=== PATIENT | female | born 1955 | race Caucasian/White ===

== ENCOUNTER 2023-06-17 09:38 | Outpatient (OUT) | payer MEDICARE, SELFPAY ==
[2023-06-17 10:44] LABS: Basophils Percent Auto 0.9 % (0.2-2.0); Eosinophils Absolute Auto 0.3 10^3/uL (0.0-0.7); Eosinophils Percent Auto 6.9 % (0.9-7.0); Hematocrit 43.7 % (36.0-48.0); Immature Granulocytes Abs Auto 0.02 10^3/uL (0.00-0.03); Immature Granulocytes Pct Auto 0.5 % (0.0-0.5); Lymphocytes Absolute Auto 1.2 10^3/uL (1.2-3.8); Lymphocytes Percent Auto 28.4 % (20.5-60.0); Mean Corpuscular Hemoglobin 27.9 pg (26.7-34.0); Mean Corpuscular Volume 87.1 fL (81.0-99.0); Mean Platelet Volume 11.3 fL (9.5-13.5); Monocytes Absolute Auto 0.4 10^3/uL (0.3-0.8); Monocytes Percent Auto 10.2 % (1.7-12.0); Neutrophils Absolute Auto 2.3 10^3/uL (1.4-6.5); Neutrophils Percent Auto 53.1 % (43.0-75.0); Platelet Count 191 10^3/uL (150-450); Red Blood Count 5.02 10^6/uL (4.20-5.40); Red Cell Distribution Width 13.5 % (11.0-15.0); White Blood Count 4.2 10^3/uL (4.0-11.0)
[2023-06-17 12:12] LABS: Estimated Average Glucose 105 mg/dL; Glycohemoglobin A1C 5.3 % (4.5-6.2)
[2023-06-17 13:01] LABS: Alanine Aminotransferase 49 U/L (14-59); Albumin Globulin Ratio 1.1; Alkaline Phosphatase 102 U/L (46-116); Aspartate Amino Transferase 30 U/L (15-37); BUN Creatinine Ratio 20.3; Bilirubin Total 0.8 mg/dL (0.2-1.0); Calcium 9.6 mg/dL (8.5-10.1); Carbon Dioxide 28.2 mmol/L (21.0-32.0); Chloride 103 mmol/L (98-107); Chol HDL Ratio 3.4; Cholesterol 167 mg/dL (<=200); Estimated GFR (African America >60 (>=60); Estimated GFR (Non-African Ame >60 (>=60); Globulin 3.5 g/dL; Glucose 109 mg/dL (74-106); HDL Cholesterol 49 mg/dL (40-60); LDL Cholesterol Calculated 95.4 mg/dL; Potassium 4.2 mmol/L (3.5-5.1); Sodium 141 mmol/L (136-145); Thyroid Stimulating Hormone 0.935 uIU/mL (0.358-3.740); Total Protein 7.5 g/dL (6.4-8.2); Triglycerides 113 mg/dL (<=150); VLDL CHOLESTEROL 22.6 mg/dL
[2023-06-18 10:09] LABS: Insulin 16.5 uIU/mL (2.6-24.9)
== END 2023-06-17 09:39 | disposition home or self-care (01) ==
LOC: LAB 09:42
PROVIDERS: PCP Family Medicine; Visit Provider Family Medicine
DX: E03.9 Hypothyroidism, unspecified (principal); R60.9 Edema, unspecified; K21.9 Gastro-esophageal reflux disease without esophagitis; E78.00 Pure hypercholesterolemia, unspecified; R73.09 Other abnormal glucose; Z12.12 Encounter for screening for malignant neoplasm of rectum; D64.9 Anemia, unspecified; E55.9 Vitamin D deficiency, unspecified
CPT/HCPCS: 36415; 80053; 80061; 82306; 83036; 83525; 83540; 84436; 84443; 84481; 85025

== ENCOUNTER 2023-07-09 09:16 | Outpatient (OUT) | payer MEDICARE, SELFPAY ==
--- NOTE | 2023-07-09 09:19 | MM_ITS ---
Patient: BIANKA LECHUGA Exam Date: 07/09/2023 : 1955 Gender:F Ordering : DR David Winter . Admission #: [id number] Family : Order #: [id number] CLICK HERE TO VIEW EXAM RADIOLOGY REPORT PROCEDURE: MM TOMOSYNTHESIS SCREENING BI COMPARISON: MG MAMM SCREEN 3D JUAN FRANCISCO CAD, 07/08/2022. MG MAMM SCREEN 3D JUAN FRANCISCO CAD, 06/10/2021. MG MAMM SCREEN JUAN FRANCISCO W CAD, 06/07/2020. INDICATIONS: Screening Calculator Name NCI Breast Cancer Risk Assessment Tool 5 Year Breast Cancer Risk 3.20% Lifetime Breast Cancer Risk 10.10% Personal Breast Cancer No Personal Ovarian Cancer No Treatments None Family Cancers Mother with breast cancer at age 71; Sister with thyroid cancer at age 64; Father with bladder cancer at age 73. LOCATION: [facility] BREAST COMPOSITION: Scattered areas fibroglandular density. FINDINGS: DIAGNOSTIC CATEGORY 1--NEGATIVE. RIGHT BREAST: No significant suspicious finding. No significant change has occurred. LEFT BREAST: No significant suspicious finding. No significant change has occurred. RECOMMENDATIONS: ROUTINE MAMMOGRAM AND CLINICAL EVALUATION IN 12 MONTHS. PLEASE NOTE: A NORMAL MAMMOGRAM DOES NOT EXCLUDE THE POSSIBILITY OF BREAST CANCER. A CLINICALLY SUSPICIOUS PALPABLE LUMP SHOULD BE BIOPSIED. Dictated by: Kulwinder Paz M.D. on 07/10/2023 at 10:56 Approved by: Kulwinder Paz M.D. on 07/10/2023 at 11:01
== END 2023-07-09 09:17 | disposition home or self-care (01) ==
LOC: MAMMO 09:16
PROVIDERS: PCP Family Medicine; Visit Provider Family Medicine
DX: Z12.31 Encounter for screening mammogram for malignant neoplasm of breast (principal); Z80.3 Family history of malignant neoplasm of breast; Z80.52 Family history of malignant neoplasm of bladder; Z80.8 Family history of malignant neoplasm of other organs or systems
CPT/HCPCS: 77063; 77067

== ENCOUNTER 2024-02-18 08:37 | Outpatient (OUT) | payer MEDICARE, SELFPAY ==
--- NOTE | 2024-02-18 08:49 | US_ITS ---
The [address] [address] Patient Name: BINAKA LECHUGA MRN: [id number] date: 1955 Sex: F Assigned Patient Location: [place] Current Patient Location: Accession/Order Number: [id number] Exam Date: 02/18/2024 08:50 Report Date: 02/18/2024 10:29 At the request of: RICARDO DELEON Procedure: US thyroid EXAMINATION: US thyroid HISTORY: Hypothyroidism E03.9 COMPARISON: No relevant comparison available. TECHNIQUE: Sonographic images of the thyroid gland were obtained. FINDINGS: The right thyroid lobe is heterogeneous in echotexture measuring 5.0 x 2.1 x 1.9 cm. Single nodule over 5 mm. Nodule 1:1.0 x 0.3 x 0.5 cm. Solid, hypoechoic, wide, smooth margins, no calcifications. TR 3 The thyroid isthmus is thickened measuring 6 mm, heterogeneous. No focal nodule. The left thyroid lobe measures 4.6 x 1.8 x 1.7 cm. Heterogeneous echotexture with no significant nodules US/US thyroid IMPRESSION: Heterogeneous thyroid gland 1 cm right thyroid TR 3 nodule TI-RADS: The [employer] TI-RADS committee's white paper recommendations for thyroid lesions classified as TR3 (mildly suspicious) are listed below: > 1.5 cm. Follow-up ultrasound in 1, 3, and 5 years. > 2.5 cm. FNA. J. Am Lani Radiol 2017;14:[id number]. Electronically authenticated by: TOMAS CAMARENA Date: 02/18/2024 10:29
[2024-02-18 10:01] LABS: Basophils Percent Auto 0.8 % (0.2-2.0); Eosinophils Absolute Auto 0.3 10^3/uL (0.0-0.7); Eosinophils Percent Auto 7.9 % (0.9-7.0); Hematocrit 46.6 % (36.0-48.0); Hemoglobin 14.9 g/dL (12.0-16.0); Immature Granulocytes Abs Auto 0.02 10^3/uL (0.00-0.03); Immature Granulocytes Pct Auto 0.6 % (0.0-0.5); Lymphocytes Absolute Auto 1.3 10^3/uL (1.2-3.8); Lymphocytes Percent Auto 36.1 % (20.5-60.0); Mean Corpuscular Hemoglobin 28.1 pg (26.7-34.0); Mean Corpuscular Volume 87.8 fL (81.0-99.0); Monocytes Absolute Auto 0.6 10^3/uL (0.3-0.8); Monocytes Percent Auto 17.5 % (1.7-12.0); Neutrophils Absolute Auto 1.3 10^3/uL (1.4-6.5); Neutrophils Percent Auto 37.1 % (43.0-75.0); Platelet Count 148 10^3/uL (150-450); Red Blood Count 5.31 10^6/uL (4.20-5.40); White Blood Count 3.6 10^3/uL (4.0-11.0)
[2024-02-18 10:30] LABS: Alanine Aminotransferase 127 U/L (14-59); Albumin Level 3.7 g/dL (3.4-5.0); Alkaline Phosphatase 114 U/L (46-116); Anion Gap 13.3; Aspartate Amino Transferase 102 U/L (15-37); BUN Creatinine Ratio 14.1; Bilirubin Total 0.7 mg/dL (0.2-1.0); Calcium 9.4 mg/dL (8.5-10.1); Carbon Dioxide 30.1 mmol/L (21.0-32.0); Chloride 102 mmol/L (98-107); Estimated GFR (African America >60 (>=60); Estimated GFR (Non-African Ame >60 (>=60); Free T3 1.86 pg/mL (2.18-3.98); Globulin 3.6 g/dL; Glucose 100 mg/dL (74-106); Potassium 4.4 mmol/L (3.5-5.1); Sodium 141 mmol/L (136-145); Total Protein 7.3 g/dL (6.4-8.2)
== END 2024-02-18 08:38 | disposition home or self-care (01) ==
LOC: US 08:38
PROVIDERS: PCP Family Medicine; Visit Provider Family Medicine
DX: E03.9 Hypothyroidism, unspecified (principal); K21.9 Gastro-esophageal reflux disease without esophagitis; E04.1 Nontoxic single thyroid nodule
CPT/HCPCS: 36415; 76536; 80053; 84436; 84443; 84481; 85025

== ENCOUNTER 2024-03-18 14:30 | Outpatient (OUT) | payer MEDICARE, SELFPAY ==
[2024-03-18 15:26] LABS: Free T3 2.83 pg/mL (2.18-3.98); Thyroid Stimulating Hormone 0.143 uIU/mL (0.358-3.740)
[2024-03-18 15:49] LABS: Free T4 1.54 ng/dL (0.76-1.46)
== END 2024-03-18 14:31 | disposition home or self-care (01) ==
LOC: LAB 14:33
PROVIDERS: PCP Family Medicine; Visit Provider Family Medicine
DX: E03.9 Hypothyroidism, unspecified (principal)
CPT/HCPCS: 36415; 84439; 84443; 84481

== ENCOUNTER 2024-04-15 10:22 | Outpatient (OUT) | payer MEDICARE, SELFPAY ==
--- OUTSIDE RECORDS SUMMARY | 2024-04-15 10:28 | XMS_ITS ---
Patient Summarization (C-CDA 2.1 CCD) Created on: April 15, 2024 GLORY PIERCE : 1955 Sex: Female Author Organization Sample organization Care Team Providers Care Echocardiography Tech Name Role Phone Ricardo Winter MD Primary Care Provider [phone] PANCHO, DR SILVA Consulting Unavailable HOY, DR SILVA Primary Care Unavailable HOY, DR SILVA Admitting Unavailable HOY, DR SILVA Attending Unavailable HOY, DR SILVA Attending Unavailable HOY, DR SILVA Consulting Unavailable HOY, DR SILVA Primary Care Unavailable HOY, DR SILVA Admitting Unavailable WEST, DR TMOAS Joel Consulting Unavailable HOY, DR SILVA Consulting Unavailable HOY, DR SILVA Primary Care Unavailable HOY, DR SILVA Admitting Unavailable HOY, DR SILVA Attending Unavailable HOY, DR SILVA Consulting Unavailable HOY, DR SILVA Primary Care Unavailable HOY, DR SILVA Admitting Unavailable HOY, DR SILVA Attending Unavailable Ricardo Winter MD Primary Care Provider [phone] RICARDO WINTER Primary Care Unavailable EVANGELISTA, BARBIE E Referring Unavailable HOY, RICARDO M Primary Care Unavailable EVANGELISTA, BARBIE E Referring Unavailable HOY, RICARDO M Primary Care Unavailable EVANGELISTA, BARBIE E Referring Unavailable HOY, RICARDO M Primary Care Unavailable EVANGELISTA, BARBIE E Referring Unavailable EVANGELISTA, BARBIE E Referring Unavailable HOY, RICARDO M Primary Care Unavailable HOY, RICARDO M Primary Care Unavailable EVANGELISTA, BARBIE E Referring Unavailable HOY, RICARDO M Primary Care Unavailable EVANGELISTA, BARBIE E Referring Unavailable HOY, RICARDO M Primary Care Unavailable EVANGELISTA, BARBIE E Attending Unavailable EVANGELISTA, BARBIE E Admitting Unavailable EVANGELISTA, BARBIE E Referring Unavailable HOY, RICARDO M Primary Care Unavailable EVANGELISTA, BARBIE E Referring Unavailable HOY, RICARDO M Primary Care Unavailable EVANGELISTA, BARBIE E Referring Unavailable HOY, RICARDO M Primary Care Unavailable EVANGELISTA, BARBIE E Referring Unavailable HOY, RICARDO M Primary Care Unavailable EVANGELISTA, BARBIE E Referring Unavailable HORICARDO Guerra M Primary Care Unavailable EVANGELISTA, BARBIE E Referring Unavailable HOY, RICARDO M Primary Care Unavailable EVANGELISTA, BARBIE E Referring Unavailable HOY, RICARDO M Primary Care Unavailable EVANGELISTA, BARBIE E Attending Unavailable EVANGELISTA, BARBIE E Admitting Unavailable MEKHI SKY Consulting Unavailable HOYRICARDO M Primary Care Unavailable EVANGELISTA, BARBIE E Referring Unavailable HOY, RICARDO M Primary Care Unavailable EVANGELISTA, BARBIE E Referring Unavailable HOYRICARDO M Primary Care Unavailable EVANGELISTA, BARBIE E Referring Unavailable HOYRICARDO M Primary Care Unavailable ROCAEL RODRIGUEZ JR Attending Unavailable Encounters Encounter Date Encounter Type Care Provider Facility Start: 01-29-2023 End: 01-30-2023 ambulatory [facility] Start: 01-29-2023 End: 01-29-2023 Subsequent hospital visit by physician [facility] Comment on above: Arrived Start: 01-27-2023 End: 01-28-2023 ambulatory [facility] Start: 01-27-2023 End: 01-27-2023 Subsequent hospital visit by physician [facility] Comment on above: Arrived Start: 01-23-2023 End: 01-24-2023 ambulatory [facility] Start: 01-23-2023 End: 01-23-2023 Subsequent hospital visit by physician [facility] Comment on above: Arrived Start: 01-20-2023 End: 01-21-2023 ambulatory [facility] Start: 01-20-2023 End: 01-20-2023 Subsequent hospital visit by physician [facility]ai [facility] Comment on above: Arrived Start: 01-19-2023 ambulatory RICARDO Thomas [facility] Start: 01-16-2023 End: 01-17-2023 ambulatory [facility] Start: 01-16-2023 End: 01-16-2023 Subsequent hospital visit by physician [facility] Comment on above: Arrived Start: 01-14-2023 End: 01-15-2023 ambulatory RICARDO [facility] Start: 01-14-2023 End: 01-14-2023 Subsequent hospital visit by physician Tamia Zuñiga PT [facility] Comment on above: Arrived Start: 01-12-2023 End: 01-13-2023 ambulatory RICARDO [facility] Start: 01-12-2023 End: 01-12-2023 Subsequent hospital visit by physician Javier Flor [facility] Comment on above: Arrived Start: 01-09-2023 End: 01-10-2023 ambulatory RICARDO [facility] Start: 01-09-2023 End: 01-09-2023 Subsequent hospital visit by physician Eric Chadwick PT [facility] Comment on above: Arrived Start: 01-07-2023 End: 01-08-2023 ambulatory RICARDO [facility] Start: 01-07-2023 End: 01-07-2023 Subsequent hospital visit by physician Tamia Zuñiga PT [facility] Comment on above: Arrived Start: 01-05-2023 End: 01-06-2023 ambulatory RICARDO [facility] Start: 01-05-2023 End: 01-05-2023 Subsequent hospital visit by physician Javier Flor [facility] Comment on above: Arrived Start: 01-02-2023 End: 01-03-2023 ambulatory RICARDO [facility] Start: 01-02-2023 End: 01-02-2023 Subsequent hospital visit by physician Yocasta Kline PT [facility] Comment on above: Arrived Start: 12-31-2022 End: 01-01-2023 ambulatory BARBIE [facility] Start: 12-31-2022 End: 12-31-2022 Subsequent hospital visit by physician Tamia Zuñiga PT [facility] Comment on above: Arrived Start: 12-30-2022 End: 12-31-2022 ambulatory RICARDO [facility] Start: 12-25-2022 End: 12-26-2022 ambulatory RICARDO [facility] Start: 12-25-2022 End: 12-25-2022 Subsequent hospital visit by physician Eric Chadwick PT [facility] Comment on above: Arrived Start: 12-22-2022 End: 12-23-[address] [facility] Start: 12-15-2022 End: 12-16-2022 ambulatory RICARDO Crist[facility]ian [facility] Start: 12-15-2022 End: 12-15-2022 Subsequent hospital visit by physician Eric Chadwick PT [facility] Comment on above: Arrived Start: 12-09-2022 End: 12-14-2022 ambulatory RICARDO Crist[facility]ian [facility] Start: 12-09-2022 End: 12-13-2022 Subsequent hospital visit by physician Barbie Sawant MD Work Phone: [facility] PRE ADMIT Start: 07-08-2022 End: 07-09-[address] RICARDO WINTER Facility:[facility] Start: 06-09-2022 End: 06-09-[address] RICARDO WINTER Facility:[facility] Start: 06-07-2022 End: 06-08-[address] RICARDO WINTER Facility:[facility] Start: 04-08-2022 End: 04-08-2022 Emergency department patient visit [facility] Start: 04-08-2022 End: 04-08-2022 Emergency department patient visit Rocael Rodriguez MD Work Phone: [facility] ED Comment on above: Closed displaced fra cture of surgical neck of right humerus, unspecified fracture morphology, initial encounter (Primary Dx) Start: 10-16-2021 End: 10-16-2021 Office outpatient new 45 minutes Allen Colmenares MD Work Phone: [facility] Comment on above: Right knee pain, uns pecified chronicity (Primary Dx); Left knee pain, unspecified chronicity; Primary osteoarthritis of right knee; Pain in prosthetic joint, sequela Start: 10-16-2021 End: 10-16-2021 Subsequent hospital visit by physician Allen Colmenares MD Work Phone: [facility] Start: 07-25-2021 End: 07-25-[address] RICARDO WINTER Facility: Medical Equipment Procedure Code Equipment Code Equipment Origin al Text Equipment Identifier Dates Impl Knee Psn Al l Poly Pat 38mm - [id number] Start: 12-22-2022 Psn Mc Ve Asf R 14mm 8-11 - [id number] Start: 12-22-2022 Medications Current Medications Medication Drug Class(es) Dates Sig (Normalized) Sig (Original) acetaminophen 325 mg / HYDROcodone bitartrate 5 mg oral tablet (3 sources) Opioid Agonist Start: 12-23-2022 End: 12-26-2022 HYDROcodone-acetam inophen (NORCO) 5-325 MG per tablet Indications: S/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 Max Daily Amount: 12 tablets 30 tablet 0 12/23/2022 12/26/2022 Active Start: 04-08-2022 End: 04-12-2022 take 1 tablet by mouth every six hours as needed for pain HYDROcodone-acetaminophen (NORCO) 5-325 MG per tablet Indications: Closed displaced fracture of surgical neck of right humerus, unspecified fracture morphology, initial encounter Take 1 tablet by mouth every 6 hours as needed for Pain for up to 4 days. 15 tablet 0 04/08/2022 04/12/2022 Active Start: 04-08-2022 End: 04-08-2022 HYDROcodone-acetaminophen (N ORCO) 5-325 MG per tablet 1 tablet biotin 10 mg oral tablet (2 sources) take 1 tablet by mouth once daily Biotin 28966 MCG tablet Take 10,000 mcg by mouth daily. 0 Active celecoxib 200 mg oral capsule (2 sources) Nonsteroidal Anti-inflammatory Drug Start: 021 take 1 capsule by mouth once daily celecoxib 200 MG capsule Take 1 capsule by mouth daily. 30 capsule 0 10/16/2021 Active cholecalciferol 0.05 mg oral capsule (15 sources) Vitamin D Cholecalciferol (VITAMIN D) 50 MCG (2000 UT) CAPS capsule Take by mouth daily 0 Active diclofenac sodium 75 mg delayed release oral tablet (2 sources) Nonsteroidal Anti-inflammatory Drug Start: 021 take 1 tablet by mouth twice daily diclofenac EC [address] tablet Take 75 mg by mouth 2 times daily. 0 10/09/2021 Active levothyroxine sodium 0.15 mg oral tablet (18 sources) l-Thyroxine Start: 021 Euthyrox 150 MCG tablet take 1 tablet by mouth once gal y levothyroxine (SYNTHROID) 125 MCG tablet Take 125 mcg by mouth Daily 0 Active multivitamin tablet (2 sources) take 1 tablet by mouth once daily multivitamin tablet Take 1 tablet by mouth daily. 0 Active naproxen sodium 220 mg oral capsule (15 sources) Nonsteroidal Anti-inflammatory Drug Naproxen Sodium 220 MG CAPS Take by mouth daily as needed for Pain 0 Active rivaroxaban 10 mg oral tablet (13 sources) Factor Xa Inhibitor Start: 12-24-19 23 take 1 tablet by mouth once daily at breakfast rivaroxaban (XARELTO) 10 MG TABS tablet Take 1 tablet by mouth daily (with breakfast) 12 tablet 0 12/23/2022 Active simvastatin 20 mg oral tablet (18 sources) HMG-CoA Reductase Inhibitor Start: 08-29-20 21 simvastatin 20 MG tablet Payers Date Payer Category Payer Medicare MEDICARE ANTHEM HMO OR O MEDICARE ANTHEM HMO OR O [id number] 2020-Present [address] [place] [address] [id number] 1960 Medicare [id number] 1960 Medicare [id number] 1955 Unknown [id number] 2.16.840.1.783212.3.579.2.593 1955 Unknown [id number] 2.16.840.1.873506.3.579.2.593 1955 Unknown [id number] 2.16.840.1.831149.3.579.2.593 1954 Unknown [id number] 2.16.840.1.554594.3.579.2.593 1954 Unknown [id number] 2.16.840.1.688055.3.579.2.173 1955 Unknown [id number] 2.16.840.1.128700.3.579.2.173 1955 Unknown [id number] 2.16.840.1.842023.3.579.2.173 1955 Unknown [id number] 2.16.840.1.889970.3.579.2.173 1954 Unknown [id number] 2.16.840.1.879380.3.579.2.173 1955 Unknown [id number] 2.16.840.1.926120.3.579.2.173 1954 Unknown [id number] 2.16.840.1.598409.3.579.2.173 1955 Unknown [id number] 2.16.840.1.007783.3.579.2.173 1955 Unknown [id number] 2.16.840.1.769692.3.579.2.173 1954 Unknown [id number] 2.16.840.1.074712.3.579.2.173 1955 Unknown [id number] 2.16.840.1.396783.3.579.2.173 1955 Unknown [id number] 2.16.840.1.600404.3.579.2.173 1955 Unknown [id number] 2.16.840.1.377565.3.579.2.173 1955 Unknown [id number] 2.16.840.1.615959.3.579.2.173 1955 Unknown [id number] 2.16.840.1.531356.3.579.2.173 1954 Unknown [id number] 2.16.840.1.196002.3.579.2.173 1955 Unknown [id number] 2.16.840.1.903191.3.579.2.173 1955 Unknown [id number] 2.16.840.1.951210.3.579.2.173 1955 Unknown [id number] 2.16.840.1.400662.3.579.2.173 Plan of Treatment Date Care Activity Detail Author Start: 01-29-2023 End: 01-29-2023 Patient encounter procedure 01/29/2023 Appointment Physical Therapy Tamia Zuñiga, [facility] Start: 01-27-2023 End: 01-27-2023 Patient encounter procedure 01/27/2023 Appointment Physical Therapy Tamia Zuñiga, [facility] Start: 01-23-2023 End: 01-23-2023 Patient encounter procedure [facility] Start: 01-21-2023 End: 01-21-2023 Patient encounter procedure 01/21/2023 Appointment Physical Therapy [facility] Start: 01-19-2023 End: 01-19-2023 Patient encounter procedure 01/19/2023 Appointment Physical Therapy [facility] Start: 01-16-2023 End: 01-16-2023 Patient encounter procedure 01/16/2023 Appointment Physical Therapy Tamia Zuñiga, [facility] Start: 01-14-2023 End: 01-14-2023 Patient encounter procedure 01/14/2023 Appointment Physical Therapy Tamia Zuñiga PT [facility] Start: 01-12-2023 End: 01-12-2023 Patient encounter procedure 01/12/2023 Appointment Physical Therapy [facility] Start: 01-09-2023 End: 01-09-2023 Patient encounter procedure 01/09/2023 Appointment Physical Therapy Eric Chadwick, [facility] Start: 01-09-2023 End: 01-09-2023 Patient encounter procedure 01/09/2023 Appointment Physical [facility] Start: 01-07-2023 End: 01-07-2023 Patient encounter procedure 01/07/2023 Appointment Physical Therapy Tamia Zuñiga, PT [facility] Start: 01-05-2023 End: 01-05-2023 Patient encounter procedure 01/05/2023 Appointment Physical Therapy Javier Flor [facility] Start: 01-02-2023 End: 01-02-2023 Patient encounter procedure 01/02/2023 Appointment Physical Therapy Eric Chadwick, PT [facility] Start: 12-31-2022 End: 12-31-2022 Patient encounter procedure 12/31/2022 Appointment Physical Therapy Tamia Zuñiga, PT [facility] Start: 12-30-2022 End: 12-30-2022 Patient encounter procedure 12/30/2022 Appointment Physical Therapy Tamia Zuñiga, PT [facility] Start: 12-25-2022 End: 12-25-2022 Patient encounter procedure 12/25/2022 Appointment Physical Therapy Eric Chadwick, PT [facility] Start: 12-22-2022 End: 12-22-2022 Admission to same day surgery center 12/22/2022 Surgery IP Unit Barbie Sawant MD [address] [place] [phone] KNEE TOTAL ARTHROPLASTY [facility] Comment on above: KNEE TOTAL ARTHROPLA STY Start: 12-22-2022 End: 12-22-2022 Arthrp kne condyle&platu medial&lat compartments KNEE TOTAL ARTHROPLASTY Arthritis of right knee 12/22/2022 11:20 AM [facility] Start: 12-22-2022 Subsequent hospital visit by physician 12/22/2022 Hospital Encounter IP Unit Barbie Sawant MD [address] [place] [phone] [facility] Start: 12-15-2022 End: 12-15-2022 Patient encounter procedure 12/15/2022 Appointment Physical Therapy Eric Chadwick, PT [facility] Start: 04-08-2022 Annual Wellness Visi t (AWV) Annual Wellness Visit (AWV) [facility] Start: 2019 Pneumococcal vaccination PNEUM OCOCCAL VACCINE SERIES (1 of 1 - PPSV23) [facility] Start: 2009 Screening for osteoporosis DEXA (modify frequency per FRAX score) [facility] Start: 2004 Screening for malign ant neoplasm of breast Breast cancer screen [facility] Start: 2004 Zoster vaccine hzv l leslee for subcutaneous use ZOSTER (SHINGLES) VACCINE (1 of 2) [facility] Start: 1999 Colonoscopy COLORECTAL CAN CER SCREENING DISCUSSION [facility] Start: 1999 Screening for malign ant neoplasm of colon [facility] Start: 1994 Fasting lipid profile LIPID SCREENIN G [facility] Start: 1994 Screening mammography MAMMOGRA M SCREENING DISCUSSION [facility] Start: 1989 Diabetes screen Diabetes screen [facility] Start: 1975 Screening for malign ant neoplasm of cervix CERVICAL CANCER SCREENING DISCUSSION [facility] Start: 1973 DTaP/Tdap/Td vaccine (1 - Tdap) DTaP/Tdap/Td vaccine (1 - Tdap) [facility] Start: 1973 Third diphtheria, tetanus and acellular pertussis (DTaP) vaccination TDAP (ADULT) [facility] Start: 1972 Hepatitis C screening Hepatitis C sc reen [facility] Start: 1972 Tetanus vaccination TETANUS [facility] Start: 1966 Depression Screen Depression Screen [facility] Start: 1964 Lipid panel Lipids [facility] Start: 1959 COVID-19 VACCINE (1) COVID-19 VACCIN E (1) [facility] Start: 1954 Hepatitis C antibody , confirmatory test HEPATITIS C VIRUS SCREENING [facility] Start: 1954 Screening for osteoporosis DEXA SCAN DISCUSSION [facility] Start: 1954 Thyroid stimulating hormone measurement TSH [facility] Radiography for bone length studies XR BONE LENGTH STUDY Imaging Routine Left knee pain, unspecified chronicity 10/16/2021 8:56 AM EST [facility] Radiologic examinati on of knee XR KNEE RIGHT 4+ VIEWS Imaging Routine Right knee pain, unspecified chronicity 10/16/2021 8:56 AM [facility] X-ray of left knee XR KNEE LEFT 3 VIEWS Imaging Routine Left knee pain, unspecified chronicity 10/16/2021 8:56 AM [facility] Problems Active Problems Problem Classification Problem Date Documented Date Episodic/Chronic Complication of device; implant or graft (1 source) Joint pain; Translations: [Pain due to internal orthopedic prosthetic devices, implants and grafts, sequela] Episodic Deficiency and other anemia (1 source) Anemia, unspecified; Translations: [ANEMIA UNSPECIFIED] Onset: 06-10-2022 Episodic Diabetes mellitus without complication (1 source) Other abnormal glucose; Translations: [OTHER ABNORMAL GLUCOSE] Onset: 06-10-2022 Episodic Disorders of lipid metabolism (2 sources) Pure hypercholesterolemia, unspecified; Translations: [Hyperlipidemia, unspecified] Onset: 06-10-2022 Chronic Malaise and fatigue (1 source) Other fatigue; Translations: [OTHER FATIGUE] Onset: 06-10-2022 Episodic Menopausal disorders (4 sources) Menopausal and female climacteric states; Translations: [MENOPAUSAL FE CLIMACTERIC STATES] Onset: 06-07-2022 Chronic Mood disorders (1 source) Major depressive disorder, single episode, unspecified; Translations: [FLACO DEPRESS D/O SINGLE EPIS UNS] Onset: 06-10-2022 Chronic Nutritional deficiencies (1 source) Vitamin D deficiency, unspecified; Translations: [VITAMIN D DEFICIENCY UNSPECIFIED] Onset: 06-10-2022 Chronic Osteoarthritis (1 source) Osteoarthritis of right knee joint; Translations: [Unilateral primary osteoarthritis, right knee] Chronic Other connective tissue disease (13 sources) History of total knee arthroplasty; Translations: [Presence of right artificial knee joint] Onset: 12-22-2022 12-22-2022 Chronic Other connective tissue disease (1 source) Presence of right artificial knee joint; Translations: [Presence of right artificial knee joint] Onset: 12-22-2022 Chronic Other non-traumatic joint disorders (1 source) Pain in right knee; Translations: [Pain in right knee] Episodic Other non-traumatic joint disorders (1 source) Pain in left knee; Translations: [Pain in left knee] Episodic Other screening for suspected conditions (not mental disorders or infectious disease) (9 sources) Encounter for screening mammogram for malignant neoplasm of breast; Translations: [Encounter for screening for malignant neoplasm of rectum] Onset: 06-09-2022 Episodic Residual codes; unclassified (1 source) Family history of malignant neoplasm of breast; Translations: [FAMILY HX MALIG NEOPLASM OF BREAST] Onset: 07-09-2022 Episodic Residual codes; unclassified (1 source) Family history of malignant neoplasm of bladder; Translations: [FAM HX MALIGNANT NEOPLASM BLADDER] Onset: 07-09-2022 Episodic Residual codes; unclassified (1 source) Family history of malignant neoplasm of other organs or systems; Translations: [FAM HX MALIG NEOPLASM OTH ORGN/SYS] Onset: 07-09-2022 Episodic Thyroid disorders (1 source) Hypothyroidism, unspecified; Translations: [HYPOTHYROIDISM UNSPECIFIED] Onset: 06-10-2022 Chronic Unclassified (2 sources) Right TKA; Translations: [Right TKA] Onset: 01-09-2023 Unclassified (2 sources) Pre Admission Testing; Translations: [Pre Admission Testing] Onset: 12-09-2022 Viral infection (4 sources) COVID-19; Translations: [COVID-19] Onset: 07-25-2021 Past or Other Problems Problem Classification Problem Date Documented Da te Episodic/Chronic Fracture of upper limb (2 sources) Closed fracture of surgical neck of humerus; Translations: [Unspecified displaced fracture of surgical neck of right humerus, initial encounter for closed fracture] Onset: 04-08-2022 Episodic Immunizations and screening for infectious disease (1 source) Encounter for immunization; Translations: [ENCOUNTER FOR IMMUNIZATION] Onset: 08-14-2021 Episodic Procedures Date Procedure Procedure Detail Performing Clinician Start: 12-09-2022 Antibody screen Barbie Sawant MD Work Phone: Start: 12-09-2022 Ecg routine ecg w/le ast 12 lds i&r only Barbie Sawant MD Work Phone: Start: 12-09-2022 Basic metabolic pane l calcium total Barbie Sawant MD Work Phone: Start: 12-09-2022 Blood typing serologic abo Barbie Sawant MD Work Phone: Start: 12-09-2022 Iadna s aureus methi cillin resist amp probe tq Barbie Sawant MD Work Phone: Start: 04-08-2022 End: 04-08-2022 Radex shoulder complete minimum 2 views Rocael Rodriguez MD Work Phone: Results Test Name Value Interpretation Reference Range Facility Hgb/Hcton 12-23-2022 Hematocrit (Bld) [Volume fraction] 37.0 % Normal 36.3-47.1 [facility] Comment on above: Performed By: #### H H #### [address] [place], [place] [id number] Director Of Customer Acquisition: Tomas Campos MD Hemoglobin (Bld) [Mass/Vol] 12.4 g/dL Normal 11.9-15.1 [facility] Comment on above: Performed By: #### H H #### [address] [place], [place] [id number] Director Of Customer Acquisition: Tomas Campos MD OPERATIVE REPORTon 3 OPERATIVE REPORT [address] [id number] OPERATIVE REPORT PATIENT NAME: GLORY PIERCE : 1955 MED REC NO: [id number] ROOM: [id number] ACCOUNT NO: [id number] ADMIT DATE: 12/22/2022 PROVIDER: Barbie Sawant DATE OF PROCEDURE: 12/22/2022 PREOPERATIVE DIAGNOSIS: Degenerative arthritis of right knee. POSTOPERATIVE DIAGNOSIS: Degenerative arthritis of right knee. PROCEDURE PERFORMED: Right total knee replacement using a Carlos Persona knee, size 10 standard cemented femoral component, size G stemmed tibial plateau with a stem extension, a 38-mm patellar dome, and a 14-mm MC poly. SURGEON: Dr. Baribe Sawant. ANESTHESIA: Spinal. DESCRIPTION OF PROCEDURE: The patient was brought into the operating room and placed in the supine position on the operating table. Spinal anesthetic was administered. The patient received Ancef. The right lower extremity was prepped with ChloraPrep and draped in a sterile fashion. The patient was noted be morbidly obese. She has a BMI of 42. A 12-cm medial parapatellar quad-sparing incision was made. This was taken down through the skin and subcutaneous tissue. Arthrotomy was made along the medial border of the patellar tendon through the medial retinaculum and medial quad snip was made at the superior pole of the patella. Fat pad was then excised. The patient was noted to have marked degenerative changes within the knee. Central drill was placed down the femoral canal and distal femoral cut was set at 5 degrees of valgus. Femoral tower marked for 3 degrees of external rotation and a size 10 four-in-one cutting block was then used. Surface of tibia was then osteotomized with the tibial jig. Remnants of menisci were removed and the posterior capsule was injected with 20 mL of the total joint compound. The undersurface of the patella was then osteotomized and it was elected to go with a 38-mm patellar dome. [place] holes were placed. The knee was then cleansed with Simpulse with gentamicin in the irrigation solution. Trial reduction was then carried out. The knee was noted to be well balanced both in flexion and extension with a 14-mm MC poly. The components were then removed. The tourniquet was inflated to 350 mmHg. The knee was again cleansed with Simpulse and dried. Methyl methacrylate was prepared. The tibial component was then cemented into place. A second batch of methyl methacrylate was prepared for the femur and this was then cemented into place. All excess cement was removed. The 14-mm MC poly was then inserted. The knee was noted be well balanced both in flexion and extension. The knee was again irrigated out with Simpulse and vancomycin powder was sprinkled in the knee joint proper. The deep fascial layer was then closed with #1 Vicryl [id number] sutures over two Hemovac drains. The tourniquet was released. Good hemostasis was noted. The remainder of the gram of vancomycin was sprinkled in the subcutaneous layer and this was closed in layers with #1 Vicryl and 2-0 Vicryl followed by 3-0 Monocryl subcuticular stitch. This was dressed with Steri-Strips. A Prevena wound dressing was then applied. The patient was transferred to Recovery in stable condition after received an additional gram of Ancef. Estimated blood loss 200 mL. BARBIE SAWANT [id number] Doc#: [id number] CC: [facility] EKG 12 LeadOrdered By: Praveen Purdy on 12-10-2022 Atrial Rate 66 BPM [email or web address] Work Phone: P Darby 48 degrees [email or web address] Work Phone: P-R Interval 198 ms [email or web address] Work Phone: Q-T Interval 414 ms [email or web address] Work Phone: QRS Duration 78 ms [email or web address] Work Phone: QTc Calculation (Bazett) 434 ms [email or web address] Work Phone: R Darby 17 degrees [email or web address] Work Phone: T Darby 43 degrees [email or web address] Work Phone: Ventricular Rate 66 BPM [employer] Work Phone: [email or web address] Work Phone: EKG 12 Leadon 12-10-2022 Normal sinus rhythm Normal ECG No previous ECGs available Confirmed by KULWINDER PURDY ([id number]) on 12/10/2022 11:07:16 PM [facility] RADIOLOG[facility] Kulwinder Purdy MD - 12/10/2022 Normal sinus rhythm Normal ECG No previous ECGs available Confirmed by KULWINDER PURDY ([id number]) on 12/10/2022 11:07:16 PM [email or web address] Work Phone: MRSA DNA Probe, Nasalon 11-20 MRSA, DNA, Nasal Negative NEGATIVE [facility] Comment on above: NEGATIVE: MRSA DNA n ot detected by nucleic acid amplification. Results should be used as an adjunct to nosocomial control efforts to identify patients needing enhanced precautions. The test is not intended to identify patients with staphylococcal infections. Results should not be used to guide or monitor treatment for MRSA infections. Specimen Description .NASAL SWAB Bunch MRSA, DNA, Nasalon MRSA, DNA, Nasal Negative Normal [facility] Comment on above: Result Comment: DAVID FARFAN: MRSA DNA not detected by nucleic acid amplification. Results should be used as an adjunct to nosocomial control efforts to identify patients needing enhanced precautions. The test is not intended to identify patients with staphylococcal infections. Results should not be used to guide or monitor treatment for MRSA infections. Performed By: #### M RSANO #### [facility] [address] [place] [address] Director Of Customer Acquisition: Virgilio Sullivan MD [facility] [address] [place] [place] [address] Director Of Customer Acquisition: Tomas Campos MD Basic Metabolic Panelon 11-20 Anion gap [Moles/Vol] 6 mmol/L Low 9 - 17 mmol/L [facility] Calcium [Mass/Vol] 9.7 mg/dL 8.6 - 10. 4 mg/dL [facility] Chloride [Moles/Vol] 103 mmol/L 98 - 10 7 mmol/L [facility] CO2 [Moles/Vol] 30 mmol/L 20 - 31 mmol/L [facility] Creatinine [Mass/Vol] 0.7 mg/dL 0.50 - 0.90 mg/dL [facility] GFR/1.73 sq M.predicted MDRD (S/P/Bld) [Vol rate/Area] - PINF [facility] Comment on above: These results are not intended for use in patients <18 years of age. eGFR results are calculated without a race factor using the 2020 CKD-EPI equation. Careful clinical correlation is recommended, particularly when comparing to results calculated using previous equations. The CKD-EPI equation is less accurate in patients with extremes of muscle mass, extra-renal metabolism of creatine, excessive creatine ingestion, or following therapy that affects renal tubular secretion. Glucose [Mass/Vol] 118 mg/dL High 70 - 99 mg/dL [facility] Potassium [Moles/Vol] 4.9 mmol/L 3.7 - 5.3 mmol/L [facility] Sodium [Moles/Vol] 139 mmol/L 135 - 144 mmol/L [facility] Urea nitrogen [Mass/Vol] 12 mg/dL 8 - 23 mg/dL [facility] Urea nitrogen/Creatinine (Bld) [Mass ratio] 17 9 - 20 [facility] Basic Metabolic Profon 12-09 Anion gap [Moles/Vol] 6 mmol/L Low 9-17 [facility] Comment on above: Performed By: #### B MP, CDP #### [facility] [address] [place], [place] [id number] Director Of Customer Acquisition: Tomas Campos MD BUN/CRE Ratio 17 Normal 9-20 [facility] Comment on above: Performed By: #### B MP, CDP #### [facility] [address] [place], [place] 7[address] Director Of Customer Acquisition: Tomas Campos MD Calcium [Mass/Vol] 9.7 mg/dL Normal 8.6-10.4 [facility] Comment on above: Performed By: #### B MP, CDP #### [facility] [address] [place], [place] [id number] Director Of Customer Acquisition: Tomas Campos MD Chloride [Moles/Vol] 103 mmol/L Normal 98-107 [facility] Comment on above: Performed By: #### B MP, CDP #### [facility] [address] [place], [place] [address]83 Director Of Customer Acquisition: Tomas Campos MD CO2 [Moles/Vol] 30 mmol/L Normal 20-31 [facility] Comment on above: Performed By: #### B MP, CDP #### [facility] [address] [place], [place] 1978383 Director Of Customer Acquisition: Tomas Campos MD Creatinine [Mass/Vol] 0.70 mg/dL Normal 0.50-0.90 [facility] Comment on above: Performed By: #### B MP, CDP #### [facility] [address] [place] [address] Director Of Customer Acquisition: Tomas Campos MD GFR/1.73 sq M.predicted among non-blacks MDRD (S/P/Bld) [Vol rate/Area] mL/min/{1.73_m2} Normal >60 [facility] Comment on above: Result Comment: These results are not intended for use in patients <18 years of age. eGFR results are calculated without a race factor using the 2020 CKD-EPI equation. Careful clinical correlation is recommended, particularly when comparing to results calculated using previous equations. The CKD-EPI equation is less accurate in patients with extremes of muscle mass, extra-renal metabolism of creatine, excessive creatine ingestion, or following therapy that affects renal tubular secretion. Performed By: #### B DASIA, CDP #### [facility] [address] [place] [address] [place] [address] Director Of Customer Acquisition: Tomas Campos MD Glucose [Mass/Vol] 118 mg/dL High 70-99 [facility] Comment on above: Performed By: #### B DASIA, CDP #### [address] [place] [address] Director Of Customer Acquisition: Tomas Campos MD Potassium [Moles/Vol] 4.9 mmol/L Normal 3.7-5.3 [facility] Comment on above: Performed By: #### B DASIA, CDP #### [address] [place] [address] Director Of Customer Acquisition: Tomas Campos MD Sodium [Moles/Vol] 139 mmol/L Normal 135-144 [facility] Comment on above: Performed By: #### B DASIA, CDP #### [facility] [address] [place] [address] [place] [address] Director Of Customer Acquisition: Tomas Campos MD Urea nitrogen [Mass/Vol] 12 mg/dL Normal 8-23 [facility] Comment on above: Performed By: #### B DASIA, CDP #### [facility] [address] [place] [address] [place] [address] Director Of Customer Acquisition: Tomas Campos MD CBC with Auto Differentialon 12-09-2022 Absolute Eos # 0.21 [facility] Absolute Immature Granulocyte 0.03 [facility] Absolute Lymph # 1.48 [facility] Absolute [place] # 0.49 [facility] Basophils (Bld) [#/Vol] 0.04 10*3/uL [facility] Basophils/100 WBC (Bld) 1 % 0 - 2 % [facility] Eosinophils/100 WBC (Bld) 4 % 1 - 4 % [facility] Hematocrit (Bld) [Volume fraction] 45.3 % 36.3 - 47.1 % [facility] Hemoglobin (Bld) [Mass/Vol] 14.4 g/dL 11.9 - 15.1 g/dL [facility] Immature granulocytes/100 WBC (Bld) 1 % High 0 [facility] Lymphocytes/100 WBC (Bld) 29 % 24 - 43 % [facility] MCH (RBC) [Entitic mass] 29.0 pg 25.2 - 33.5 pg [facility] MCHC (RBC) [Mass/Vol] 31.8 g/dL 28.4 - 34.8 g/dL [facility] MCV (RBC) [Entitic vol] 91.3 fL 82.6 - 102.9 fL [facility] Monocytes/100 WBC (Bld) 10 % 3 - 12 % [facility] NRBC Automated 0.0 0.0 per 100 WBC [facility] Platelet distribution width (Bld) [Ratio] 12.5 % 11.8 - 14.4 % [facility] Platelet mean volume (Bld) [Entitic vol] 11.1 fL 8.1 - 13.5 fL [facility] Platelets (Bld) [#/Vol] 211 10*3/uL [facility] RBC (Bld) [#/Vol] 4.96 10*6/uL 3.95 - 5.1 1 m/uL [facility] Segmented neutrophils/100 WBC (Bld) 55 % 36 - 65 % [facility] Segs Absolute 2.85 [facility] WBC (Bld) [#/Vol] 5.1 10*3/uL [facility] CBC with Diffon 12-09-2022 Abs. Basophil 0.04 k/uL Normal 0.00-0.20 [facility] Comment on above: Performed By: #### B MP, CDP #### [facility] [address] [place], [place] [id number] Director Of Customer Acquisition: Tomas Campos MD Abs.Imm.Granulocyte 0.03 k/uL Normal 0.00-0.30 [facility] Comment on above: Performed By: #### B DASIA, CDP #### [address] [place], [facility]83 Director Of Customer Acquisition: Tomas Campos MD Abs.Neutrophil (Seg) 2.85 k/uL Normal 1.50-8.10 [facility] Comment on above: Performed By: #### B DASIA, CDP #### [facility] [address] [place] [address] Dr. [place], [facility]83 Director Of Customer Acquisition: Tomas Campos MD Basophils/100 WBC (Bld) 1 % Normal 0-2 [facility] Comment on above: Performed By: #### B DASIA, CDP #### [address] [place], [facility]83 Director Of Customer Acquisition: Tomas Campos MD Eosinophils (Bld) [#/Vol] 0.21 10*3/uL Normal 0.00-0.44 [facility] Comment on above: Performed By: #### B DASIA, CDP #### [facility] [address] [place], [facility]83 Director Of Customer Acquisition: Tomas Campos MD Eosinophils/100 WBC (Bld) 4 % Normal 1-4 [facility] Comment on above: Performed By: #### B MP, CDP #### [facility] [address] [place] [address] Dr[place], [facility]83 Director Of Customer Acquisition: Tomas Campos MD Erythrocyte distribution width (RBC) [Ratio] 12.5 % Normal 11.8-14.4 [facility] Comment on above: Performed By: #### B DASIA, CDP #### [facility] [address] [place], [place] 487[address]83 Director Of Customer Acquisition: Tomas Campos MD Hematocrit (Bld) [Volume fraction] 45.3 % Normal 36.3-47.1 [facility] Comment on above: Performed By: #### B DASIA, CDP #### [facility] [address] [place] [address] Dr. [place], [place] [id number] Director Of Customer Acquisition: Tomas Campos MD Hemoglobin (Bld) [Mass/Vol] 14.4 g/dL Normal 11.9-15.1 [facility] Comment on above: Performed By: #### B DASIA, CDP #### [facility] [address] [place] [address] [place] [place], [place] [id number] Director Of Customer Acquisition: Tomas Campos MD Immature granulocytes/100 WBC (Bld) 1 % High 0 [facility] Comment on above: Performed By: #### B DASIA, CDP #### [address] [place], [place] 8365783 Director Of Customer Acquisition: Tomas Campos MD Lymphocytes (Bld) [#/Vol] 1.48 10*3/uL Normal 1.10-3.70 [facility] Comment on above: Performed By: #### B DASIA, CDP #### [facility] [address] [place] [address] [place] [place], [place] 7231283 Director Of Customer Acquisition: Tomas Campos MD Lymphocytes/100 WBC (Bld) 29 % Normal 24-43 [facility] Comment on above: Performed By: #### B DASIA, CDP #### [address] [place], [place] 6534783 Director Of Customer Acquisition: Tomas Campos MD MCH (RBC) [Entitic mass] 29.0 pg Normal 25.2-33.5 [facility] Comment on above: Performed By: #### B DASIA, CDP #### [facility] [address] [place], [place] [id number] Director Of Customer Acquisition: Tomas Campos MD MCHC (RBC) [Mass/Vol] 31.8 g/dL Normal 28.4-34.8 [facility] Comment on above: Performed By: #### B MP, CDP #### [facility] [address] [place], [place] 8284183 Director Of Customer Acquisition: Tomas Campos MD MCV (RBC) [Entitic vol] 91.3 fL Normal 82.6-102.9 [facility] Comment on above: Performed By: #### B DASIA, CDP #### [address] [place], [place] [address] Director Of Customer Acquisition: Tomas Campos MD Monocytes (Bld) [#/Vol] 0.49 10*3/uL Normal 0.10-1.20 [facility] Comment on above: Performed By: #### B DASIA, CDP #### [address] [place], [place] [address]83 Director Of Customer Acquisition: Tomas Campos MD Monocytes/100 WBC (Bld) 10 % Normal 3-12 [facility] Comment on above: Performed By: #### B DASAI, CDP #### [address] [place], [place] 2287783 Director Of Customer Acquisition: Tomas Campos MD Neutrophil (Seg) 55 % Normal 36-65 [facility] Comment on above: Performed By: #### B ADSIA, CDP #### [address] [place], [place] 1677183 Director Of Customer Acquisition: Tomas Campos MD NRBC Automated 0.0 per 100 WBC Normal 0.0 [facility] Comment on above: Performed By: #### B MP, CDP #### [address] [place], [place] 1737683 Director Of Customer Acquisition: Tomas Campos MD Platelet mean volume (Bld) [Entitic vol] 11.1 fL Normal 8.1-13.5 [facility] Comment on above: Performed By: #### B MP, CDP #### [facility] [address] [place] [address] Director Of Customer Acquisition: Tomas Campos MD Platelets (Bld) [#/Vol] 211 10*3/uL Normal 138-453 [facility] Comment on above: Performed By: #### B MP, CDP #### [facility] [address] [place] [address] [place] [place], [place] 5981683 Director Of Customer Acquisition: Tomas Campos MD RBC (Bld) [#/Vol] 4.96 10*6/uL Normal 3.95-5.11 [facility] Comment on above: Performed By: #### B MP, CDP #### [facility] [address] [place] [address] [place] [place], [place] [id number] Director Of Customer Acquisition: Tomas Campos MD WBC (Bld) [#/Vol] 5.1 10*3/uL Normal 3.5-11.3 [facility] Comment on above: Performed By: #### B MP, CDP #### [address] [place], [place] 7752783 Director Of Customer Acquisition: Tomas Campos MD MRSA, DNA, Nasalon 3 Specimen Description .NASAL SWAB Normal [facility] Comment on above: Performed By: #### M RSANO #### [facility] [address] [place] [address] Director Of Customer Acquisition: Virgilio Sullivan MD [facility] [address] [place] [address] [place] [place], [place] 1427283 Director Of Customer Acquisition: Tomas Campos MD No Panel Informationon 12-09 Interpretation and review of laboratory results Abnormal [facility] TYPE AND SCREENon 12-09-2022 ABO/Rh Positive [facility] Arm Band Number [id number] [facility] Expiration Date 12/25/2022,2359 [facility] Type + Screenon 12-09-2022 Type + Screen Sample Expiration 12/25/2022,2359 Arm Band Number [id number] ABO/Rh(D) A POSITIVE Antibody Screen NEGATIVE Normal [facility] Comment on above: Performed By: #### T YS #### [facility] [address] [place] [address] Director Of Customer Acquisition: Tomas Campos MD MG MAMM SCREEN 3D JUAN FRANCISCO CADon 07-08-2022 MG MAMM SCREEN 3D JUAN FRANCISCO CAD Patient: GLORY PIERCE Exam Date: 07/08/2022 : 1955 Gender:F Ordering : DR RICARDO WINTER . Admission #: [id number] Family : Order #: [id number] CLICK HERE TO VIEW EXAM RADIOLOGY REPORT PROCEDURE: MAMMOGRAM SCREENING 3D BILATERAL CAD COMPARISON: MG MAMM SCREEN JUAN FRANCISCO W CAD, 06/07/2020. MG MAMM SCREEN 3D JUAN FRANCISCO CAD, 06/10/2021. INDICATIONS: Screening mammography Calculator Name NCI Breast Cancer Risk Assessment Tool 5 Year Breast Cancer Risk 3.10% Lifetime Breast Cancer Risk 10.50% Personal Breast Cancer No Personal Ovarian Cancer No Treatments None Family Cancers Mother with breast cancer at age 71; Sister with thyroid cancer at age 64; Father with bladder cancer at age 73. LOCATION: [facility] BREAST COMPOSITION: Scattered areas fibroglandular density. FINDINGS: DIAGNOSTIC CATEGORY 1--NEGATIVE. NO CHANGE FROM COMPARISON ASSESSMENT. Scattered benign-appearing calcifications are present. Scattered benign-appearing lymph nodes are present. RIGHT BREAST: No significant suspicious finding. LEFT BREAST: No significant suspicious finding. RECOMMENDATIONS: ROUTINE MAMMOGRAM AND CLINICAL EVALUATION IN 12 MONTHS. PLEASE NOTE: A NORMAL MAMMOGRAM DOES NOT EXCLUDE THE POSSIBILITY OF BREAST CANCER. A CLINICALLY SUSPICIOUS PALPABLE LUMP SHOULD BE BIOPSIED. Dictated by: Tomas Cho MD on 07/08/2022 at 11:21 Approved by: Tomas Cho MD on 07/08/2022 at 11:23 Normal [facility] INSULINon 06-09-2022 Insulin 22.7 uIU/mL Normal 2.6-24.9 [facility] Comment on above: Performed By: #### I NSULIN #### [facility] [address] [address] [address] Trey Higgins OCC BLD IMMUNO SCREENon 05-20 OCCULT BLOOD Negative Normal NEGATIVE [facility] Comment on above: Performed By: #### O BSCRN #### [facility] [address] [address] [address] Trey Higgins T4, T3U, FTI [facility]on 06-08 Free Thyroxine Index 2.4 Normal 1.2-4.9 [facility] Comment on above: Performed By: #### T HYLC #### [facility] [address] [place] [address] Dr. Trey Higgins T3 Uptake 26 % Normal 24-39 [facility] Comment on above: Performed By: #### T HYLC #### [facility] [address] [place] [address] Dr. Trey Higgins T4 [Mass/Vol] 9.1 ug/dL Normal 4.5-12.0 [facility] Comment on above: Performed By: #### T HYLC #### [facility] [address] [place] [address] Dr. Trey Higgins VIT D 25-OH [facility]ABC[facility]Pon 2021 Vitamin D, 25-Hydroxy 22.7 ng/mL Critically low 30.0-100.0 [facility] Comment on above: Result Comment: Gia min D deficiency has been defined by the [place] of Medicine and an Endocrine Society practice guideline as a level of serum 25-OH vitamin D less than 20 ng/mL (1,2). The Endocrine Society went on to further define vitamin D insufficiency as a level between 21 and 29 ng/mL (2). 1. IOM ([place] of [place]). 2010. Dietary reference intakes for calcium and D. Pal [place]: The National Academies Press. 2. Melvi GEORGE, Leon WATT, Jyoti CHILDS, et al. Evaluation, treatment, and prevention of vitamin D deficiency: an Endocrine Society clinical practice guideline. JCEM. 2010; 96(7):1911-30. Performed By: #### V ITADLC #### [facility] [address] [place], [place] [address] Dr. Trey Higgins CBC AUTO DIFFon 06-07-2022 BASO # 0.0 103/ul Normal 0.0-0.1 [facility] Comment on above: Performed By: #### C BC ####[facility] [address] [address]DrMickie Higgins Basophils/100 WBC (Bld) 1.0 % Normal 0.2-2.0 [facility] Comment on above: Performed By: #### C BC ####[facility] [address] [address]DrMickie Higgins EO # 0.3 103/ul Normal 0.0-0.7 [facility] Comment on above: Performed By: #### C BC ####[facility] [address] [address]DrMickie Higgins Eosinophils/100 WBC (Bld) 6.4 % Normal 0.9-7.0 [facility] Comment on above: Performed By: #### C BC ####[facility] [address] [place], [place] [address]DrMickie Higgins Erythrocyte distribution width (RBC) [Ratio] 13.2 % Normal 11.0-15.0 [facility] Comment on above: Performed By: #### C BC ####[facility] [address] [address]DrMickie Higgins Hematocrit (Bld) [Volume fraction] 41.6 % Normal 36.0-48.0 [facility] Comment on above: Performed By: #### C BC ####[facility] [address] [place], [place] [address]DrMickie Higgins Hemoglobin (Bld) [Mass/Vol] 13.4 g/dL Normal 12.0-16.0 [facility] Comment on above: Performed By: #### C BC ####[facility] [address] [place], [place] [address]DrMickie Higgins IG # 0.03 10e3/ul Normal 0.00-0.03 [facility] Comment on above: Performed By: #### C BC ####[facility] [address] [address]DrMickie Trey Higgins IG % 0.7 % Critically high 0.0-0.5 [facility] Comment on above: Performed By: #### C BC ####[facility] [address] [address]DrMickie Trey Ronaldo LYMPH # 1.4 103/ul Normal 1.2-3.8 [facility] Comment on above: Performed By: #### C BC ####[facility] [address] [place], [place] [address]DrMickie Trey Ronaldo Lymphocytes/100 WBC (Bld) 32.8 % Normal 20.5-60.0 [facility] Comment on above: Performed By: #### C BC ####[facility] [address] [place], [place] [address]DrMickie Trey Ronaldo MANUAL DIFF REQ NO Normal [facility] Comment on above: Performed By: #### C BC ####[facility] [address] [place], [place] [address]Dr. Trey Higgins MCH (RBC) [Entitic mass] 29.1 pg Normal 26.7-34.0 [facility] Comment on above: Performed By: #### C BC ####[facility] [address] [place], [place] [address]Dr. Trey Higgins MCHC (RBC) [Mass/Vol] 32.2 g/dL Normal 29.9-35.2 [facility] Comment on above: Performed By: #### C BC ####[facility] [address] [place], [place] [address]DrMickie Trey Ronaldo MCV (RBC) [Entitic vol] 90.4 fL Normal 81.0-99.0 [facility] Comment on above: Performed By: #### C BC ####[facility] [address] [place] [place], [place] [address]DrMickie Ashleymartin Higgins MONO # 0.4 103/ul Normal 0.3-0.8 [facility] Comment on above: Performed By: #### C BC ####[facility] [address] [address]Dr. Trey Higgins Monocytes/100 WBC (Bld) 9.0 % Normal 1.7-12.0 [facility] Comment on above: Performed By: #### C BC ####[facility] [address] [address] [id number]. Trey Higgins NEUT # 2.1 103/ul Normal 1.4-6.5 [facility] Comment on above: Performed By: #### C BC ####[facility] [address] [address]Dr. Trey Higgins Neutrophils/100 WBC (Bld) 50.1 % Normal 43.0-75.0 [facility] Comment on above: Performed By: #### C BC ####[facility] [address] [address]Dr. Trey Higgins Platelet mean volume (Bld) [Entitic vol] 10.9 fL Normal 9.5-13.5 [facility] Comment on above: Performed By: #### C BC ####[facility] [address] [place] [address]Dr. Trey Higgins PLT 182 103/ul Normal 150-450 [facility] Comment on above: Performed By: #### C BC ####[facility] [address] [address]Dr. Trey Higgins RBC 4.60 106/ul Normal 4.20-5.40 [facility] Comment on above: Performed By: #### C BC ####[facility] [address] [address] [id number]. Trey Higgins WBC 4.2 103/ul Normal 4.0-11.0 [facility] Comment on above: Performed By: #### C BC ####[facility] [address] [id number]. Trey Higgins GLYCOHEMOGLOBIN A1Con 2021 ADA RECOMMENDATION SEE BELOW Normal [facility] Comment on above: Result Comment: ADA RECOMMENDED LIMIT 4.0 - 6.0 ADA THERAPEUTIC TARGET < 7.0 ACTION SUGGESTED > 7.0 Performed By: #### A 1C #### [facility] [address] [address] [address] Trey Higgins Glucose [Mass/Vol] 103 mg/dL Normal [facility] Comment on above: Performed By: #### A 1C #### [facility] [address] [address] [address] Trey Higgins HbA1c (Bld) [Mass fraction] 5.2 % Normal 4.5-6.2 [facility] Comment on above: Performed By: #### A 1C #### [facility] [address] [place] [address] Dr. Trey Higgins IRONon 06-07-2022 Iron [Mass/Vol] 71.0 ug/dL Normal 50.0-170.0 [facility] Comment on above: Performed By: #### I SELENE #### [facility] [address] [place] [address] Dr. Trey Higgins LIPID PROFILEon 06-07-2022 CHOL-HDL RATIO NORM SEE BELOW Normal [facility] Comment on above: Result Comment: 3.3 - 4.4 LOW RISK 4.4 - 7.1 AVERAGE RISK 7.1 - 11.0 MODERATE RISK >11.0 HIGH RISK Performed By: #### L IPID, TSH, CMP #### [facility] [address] [place] [address] Dr. Trey Higgins Cholesterol [Mass/Vol] 182 mg/dL Normal <=200 [facility] Comment on above: Performed By: #### L IPID, TSH, CMP #### [facility] [address] [place] [address] Dr. Trey Higgins Cholesterol in HDL [Mass/Vol] 45 mg/dL Normal 40-60 [facility] Comment on above: Performed By: #### L IPID, TSH, CMP #### [facility] [address] [address] [address] Trey Higgins Cholesterol in LDL [Mass/Vol] 97.8 mg/dL Normal [facility] Comment on above: Performed By: #### L IPID, TSH, CMP #### [facility] [address] [address] [address] Trey Higgins Cholesterol.total/Chol esterol in HDL [Mass ratio] 4.0 {ratio} Normal [facility] Comment on above: Performed By: #### L IPID, TSH, CMP #### [facility] [address] [address] [address] Trey Higgins HDL NORMAL > or = 60 mg/dl - LOW CARDIOVASCULAR RISK <40 mg/dl - HIGH CARDIOVASCULAR RISK Normal [facility] Comment on above: Performed By: #### L IPID, TSH, CMP #### [facility] [address] [place] [address] Dr. Trey Higgins LDL CALC NORMAL SEE BELOW Normal [facility] Comment on above: Result Comment: <100 mg/dl OPTIMAL 100 - 129 mg/dl NEAR OR ABOVE OPTIMAL 130 - 159 mg/dl BORDERLINE HIGH 160 - 189 mg/dl HIGH >190 mg/dl VERY HIGH Performed By: #### L IPID, TSH, CMP #### [facility] [address] [address] [address] Trey Higgins Triglyceride [Mass/Vol] 196 mg/dL Critically high <=150 [facility] Comment on above: Performed By: #### L IPID, TSH, CMP #### [facility] [address] [place] [address] Dr. Trey Higgins VLDL CALC 39.2 mg/dL Normal [facility] Comment on above: Performed By: #### L IPID, TSH, CMP #### [facility] [address] [address] [address] Trey Higgins PROF 14(COMP METB)on 022 Albumin [Mass/Vol] 4.0 g/dL Normal 3.4-5.0 [facility] Comment on above: Performed By: #### L IPID, TSH, CMP #### [facility] [address] [place] [address] Dr. Trey Higgins Albumin/Globulin [Mass ratio] 1.3 {ratio} Normal [facility] Comment on above: Performed By: #### L IPID, TSH, CMP #### [facility] [address] [address] [address] Trey Higgins ALP [Catalytic activity/Vol] 95 U/L Normal 46-116 [facility] Comment on above: Performed By: #### L IPID, TSH, CMP #### [facility] [address] [place] [address] Dr. Trey Higgins ALT [Catalytic activity/Vol] 46 U/L Normal 14-59 [facility] Comment on above: Performed By: #### L IPID, TSH, CMP #### [facility] [address] [place] [address] Dr. Trey Higgins Anion gap [Moles/Vol] 14.2 mmol/L Normal [facility] Comment on above: Performed By: #### L IPID, TSH, CMP #### [facility] [address] [place] [address] Dr. Trey Higgins AST [Catalytic activity/Vol] 23 U/L Normal 15-37 [facility] Comment on above: Performed By: #### L IPID, TSH, CMP #### [facility] [address] [place] [address] Dr. Trey Higgins Bilirubin [Mass/Vol] 0.6 mg/dL Normal 0.2-1.0 [facility] Comment on above: Performed By: #### L IPID, TSH, CMP #### [facility] [address] [place] [address] Dr. Trey Higgins Calcium [Mass/Vol] 8.8 mg/dL Normal 8.5-10.1 [facility] Comment on above: Performed By: #### L IPID, TSH, CMP #### [facility] [address] [place] [address] Dr. Trey Higgins Chloride [Moles/Vol] 105 mmol/L Normal 98-107 [facility] Comment on above: Performed By: #### L IPID, TSH, CMP #### [facility] [address] [place] [address] Dr. Trey Higgins CO2 [Moles/Vol] 28.0 mmol/L Normal 21.0-32.0 [facility] Comment on above: Performed By: #### L IPID, TSH, CMP #### [facility] [address] [address] [address] Trey Higgins Creatinine [Mass/Vol] 0.74 mg/dL Normal 0.55-1.02 [facility] Comment on above: Performed By: #### L IPID, TSH, CMP #### [facility] [address] [address] [address] Trey Higgins EGFR-AF SRI LANKAN >60 Normal >=60 [facility] Comment on above: Performed By: #### L IPID, TSH, CMP #### [facility] [address] [address] [address] Trey Higgins EGFR-NON AF SRI LANKAN >60 Normal >=60 [facility] Comment on above: Performed By: #### L IPID, TSH, CMP #### [facility] [address] [address] [address] Trey Higgins Globulin (S) [Mass/Vol] 3.0 g/dL Normal [facility] Comment on above: Performed By: #### L IPID, TSH, CMP #### [facility] [address] [address] [address] Trey Higgins Glucose [Mass/Vol] 115 mg/dL Critically high 74-106 [facility] Comment on above: Performed By: #### L IPID, TSH, CMP #### [facility] [address] [address] [address] Trey Higgins Potassium [Moles/Vol] 4.2 mmol/L Normal 3.5-5.1 [facility] Comment on above: Performed By: #### L IPID, TSH, CMP #### [facility] [address] [address] [address] Trey Higgins Protein [Mass/Vol] 7.0 g/dL Normal 6.4-8.2 [facility] Comment on above: Performed By: #### L IPID, TSH, CMP #### [facility] [address] [address] [address] Trey Higgins Sodium [Moles/Vol] 143 mmol/L Normal 136-145 [facility] Comment on above: Performed By: #### L IPID, TSH, CMP #### [facility] [address] [address] [address] Trey Higgins Urea nitrogen [Mass/Vol] 15.0 mg/dL Normal 7.0-18.0 [facility] Comment on above: Performed By: #### L IPID, TSH, CMP #### [facility] [address] [address] [address] Trey Higgins Urea nitrogen/Creatinine [Mass ratio] 20.3 mg/mg Normal [facility] Comment on above: Performed By: #### L IPID, TSH, CMP #### [facility] [address] [address] [address] Trey Higgins TSHon 06-07-2022 TSH 3.646 uIU/mL Normal 0.358-3.740 [facility] Comment on above: Performed By: #### L IPID, TSH, CMP #### [facility] [address] [address] [address] Trey Higgins No Panel Informationon 04-08 Radiology Study observation (narrative) [facility] [employer] Work Phone: Minimally displaced fracture of the humeral head/neck [facility] EXAMINATION: THREE XRAY VIEWS OF THE RIGHT SHOULDER; TWO XRAY VIEWS OF THE RIGHT HUMERUS 04/08/2022 10:31 am COMPARISON: None. HISTORY: ORDERING SYSTEM PROVIDED HISTORY: fall TECHNOLOGIST PROVIDED HISTORY: fall FINDINGS: There is a minimally displaced fracture of the humeral head/neck. The humeral head remains articulated with the glenoid. [facility] Rory Ratliff P - 04/08/2022 EXAMINATION: THREE XRAY VIEWS OF THE RIGHT SHOULDER; TWO XRAY VIEWS OF THE RIGHT HUMERUS 04/08/2022 10:31 am COMPARISON: None. HISTORY: ORDERING SYSTEM PROVIDED HISTORY: fall TECHNOLOGIST PROVIDED HISTORY: fall FINDINGS: There is a minimally displaced fracture of the humeral head/neck. The humeral head remains articulated with the glenoid. IMPRESSION: Minimally displaced fracture of the humeral head/neck [employer] Phone: No Panel InformationOrdered By: Rory Ratliff on 04-08-2022 [employer] Phone: XR HUMERUS RIGHT (MIN 2 VIEW S)on 04-08-2022 XR HUMERUS RIGHT (MIN 2 VIEWS) EXAMINATION: THREE XRAY VIEWS OF THE RIGHT SHOULDER; TWO XRAY VIEWS OF THE RIGHT HUMERUS 04/08/2022 10:31 am COMPARISON: None. HISTORY: ORDERING SYSTEM PROVIDED HISTORY: fall TECHNOLOGIST PROVIDED HISTORY: fall FINDINGS: There is a minimally displaced fracture of the humeral head/neck. The humeral head remains articulated with the glenoid. IMPRESSION: Minimally displaced fracture of the humeral head/neck Interpreted by: Rory Ratliff Signed by: Rory Ratliff 04/08/22 Final result Normal [facility] XR SHOULDER RIGHT (MIN 2 VIE WS)on 04-08-2022 XR SHOULDER RIGHT (MIN 2 VIEWS) EXAMINATION: THREE XRAY VIEWS OF THE RIGHT SHOULDER; TWO XRAY VIEWS OF THE RIGHT HUMERUS 04/08/2022 10:31 am COMPARISON: None. HISTORY: ORDERING SYSTEM PROVIDED HISTORY: fall TECHNOLOGIST PROVIDED HISTORY: fall FINDINGS: There is a minimally displaced fracture of the humeral head/neck. The humeral head remains articulated with the glenoid. IMPRESSION: Minimally displaced fracture of the humeral head/neck Interpreted by: Rory Ratliff Signed by: Rory Ratliff 04/08/22 Final result Normal [facility] Social History Date Type Detail Facility Start: 03-29-2022 End: 12-22-2022 Exposure to SARS-CoV-2 (event) Not sure [employer] Phone: Start: 10-16-2021 End: 12-09-2022 Tobacco smoking status NHIS Never smoked tobacco [facility] Start: 10-16-2021 End: 12-09-2022 Tobacco use and exposure Smokeless tobacco non-user [facility] Start: 10-16-2021 End: 12-25-2022 Alcohol intake Ex-drinker (finding) [facility] Start: 1955 Sex Assigned At Not on file [employer] Vital Signs Date Time Vital Sign Value Performing Clinician Eldon [email or web address] 12-09-2022 08:50-0500 Body height 172.7 cm Barbie Sawant MD Work Phone: [email or web address] 12-09-2022 08:50-0500 Body mass index (BMI) [Ratio] 42.74 kg/m2 Barbie Sawant MD Work Phone: [email or web address] 12-09-2022 08:50-0500 Body temperature 97.7 [degF] Barbie Sawant MD Work Phone: [email or web address] 12-09-2022 08:50-0500 Body weight 127.51 kg Barbie Sawant MD Work Phone: [email or web address] 12-09-2022 08:50-0500 Diastolic blood pressure 77 mm[Hg] Barbie Sawant MD Work Phone: [email or web address] 12-09-2022 08:50-0500 Heart rate 70 /min Barbie Sawant MD Work Phone: [email or web address] 12-09-2022 08:50-0500 Respiratory rate 20 /min Barbie Sawant MD Work Phone: [email or web address] 12-09-2022 08:50-0500 SaO2% (BldA) [Mass fraction] 94 % Barbie Sawant MD Work Phone: [facility] [employer] 12-09-2022 08:50-0500 Systolic blood pressure 137 mm[Hg] Barbie Sawant MD Work Phone: [email or web address] 04-08-2022 10:25-0400 Diastolic blood pressure 76 mm[Hg] Rocael Rodriguez Jr., MD Work Phone: [email or web address] 04-08-2022 10:25-0400 Systolic blood pressure 158 mm[Hg] Rocael Rodriguez Jr., MD Work Phone: [facility] 04-08-2022 10:19-0400 Body temperature 97.81 [degF] Rocael Rodriguez Jr., MD Work Phone: [facility] 04-08-2022 10:19-0400 Heart rate 91 /min Rocael Rodriguez Jr., MD Work Phone: [facility] 04-08-2022 10:19-0400 Respiratory rate 16 /min Rocael Rodriguez Jr., MD Work Phone: [facility] 04-08-2022 10:19-0400 SaO2% (BldA) [Mass fraction] 96 % Rocael Rodriguez Jr., MD Work Phone: [facility] 10-16-2021 09:07-0500 Body height 172.7 cm Allen Colmenares MD Work Phone: [facility] 10-16-2021 09:07-0500 Body mass index (BMI) [Ratio] 44.85 kg/m2 Allen Colmenares MD Work Phone: [facility] 10-16-2021 09:07-0500 Body temperature 97 [degF] Allen Colmenares MD Work Phone: [facility] 10-16-2021 09:07-0500 Body weight 133.81 kg Allen Colmenares MD Work Phone: [facility] Clinical Notes 10-16-2021 to 01-29-2023 Tamia Zuñiga, PT - 01/29/2023 3:45 PM Fernandez Zuñiga, PT - 01/27/2023 4:30 PM Fernandez Zuñiga, PT - 01/23/2023 4:00 PM Fernandez Zuñiga, PT - 01/20/2023 5:15 PM EDT Note Date & Type Note Facility 01-29-2023 History of Present illness Narrative [facility] Outpatient Physical Therapy Daily Note Patient: Glory Pierce : 1955 CSN #: [id number] Referring Physician: Barbie Sawant MD Date: 01/29/2023 Diagnosis: Aftercare following joint replacement surgery, Z47.1, presence of R artificial knee joint, Z96.651 Treatment Diagnosis: s/p R TKA, R knee pain, decreased LE strength Onset Date: 12/22/22 PT Insurance Information: BCBS-APPROVED 4 MORE PT VISITS TO 02-14-2023 Total # of Visits Approved: 14 Per Physician Order Total # of Visits to Date: 14 No Show: 0 Canceled Appointment: 0 Pre-Treatment Pain: 0/10 Subjective: Pt arrives without pain, reports of continued annoying stiffness. Pt reports she is ready for discharge this date with updated HEP Exercises: Exercise 2: SciFIT: level 5.0 x 10 minutes Exercise 3: straight leg raise 3 x 10 Exercise 5: bridge 2 x 10 Exercise 6: Calf stretch with strap 3 x 20 seconds Exercise 9: sit to stand 3 x 10 with 8 pound ball Exercise 10: LAQ 3 x 10 Exercise 12: slant board 5x hold 15 sec Exercise 15: side steps at counter 5 laps Exercise 17: ambulate up 3 steps with reciprocal pattern x5 Assessment Body Structures, Functions, Activity Limitations Requiring Skilled Therapeutic Intervention: Decreased functional mobility , Decreased ADL status, Decreased ROM, Decreased tolerance to work activity, Decreased strength, Decreased high-level IADLs, Decreased balance, Decreased endurance, Increased pain Assessment: discharge note: Pt is a 67 year old female completing 14 visits of skilled outpatient physical therapy status post right total knee replacement. Pt has made good progress and met all goals set by this therapist and herself. Pt ambulating independently without use of assistive device for home and community ambulation, pt pain is well managed with only report of stiffness, pt mobility has improved to functional measures and strength is returned to goal level. Pt educated on continuing with HEP, HEP updated and provided to pt as handout. Pt verbally expressed understanding. Pt agreeable to discharge to this time to continue with HEP. Pt to be discharged from skilled outpatient physical therapy at this time, all goals met. Please see updated objective measures and goals below for current pt status. Objective Measure Right knee AROM = 0 - 114 degrees Strength Right hip flexion = 4+/5 Right knee flexion = 5-/5 Right knee extension = 5-/5 Activity Tolerance Activity Tolerance: Patient tolerated treatment well Patient Education Patient Education: Pt educated on readiness for discharge and HEP Pt verbalized/demonstrated good understanding: [x] Yes [] No, pt required further clarification. Post Treatment Pain: 0/10 Plan Plan Frequency: 3 Plan weeks: 4 Goals (Total # of Visits to Date: 14) Short Term Goals Time Frame for Short Term Goals: 2 weeks Short Term Goal 1: Patient will be initiated with a HEP - met Short Term Goal 2: Patient will improve knee flexion ROM to 90* - met (01/07/2023 - 90 degrees) Short Term Goal 3: Patient will tolerate 30 minutes of therex/act to improve endurance and strength for ADLs. - met Religion Teacher Goals Time Frame for Religion Teacher Goals : 4 weeks Religion Teacher Goal 1: Patient will be independent and compliant with a HEP. - met Mcfp Goal 2: Patient will improve R knee ROM to 0-110* for ADLs. - met (01/29/2023 AROM R knee flexion = 114 degrees) Religion Teacher Goal 3: Patient will improve R LE strength to >/= 4/5 in all major joints and planes for ambulation and ADLs. - met (01/29/2023 righ tLE strength = 4+/5 on average) Religion Teacher Goal 4: Patient will be able to ambulate without an AD with minimal gait deviations. - met (01/20/2023) Religion Teacher Goal 5: Patient will report 70% improvement in overall symptoms and function. - met Minutes Tracking: Time In: 1547 Time Out: 1620 Minutes: 33 Timed Code Treatment Minutes: 32 Minutes Tamia Zuñiga PT, DPT Date: 01/29/2023 documented in this encounter [facility] [employer] Phone: 01-27-2023 History of Present illness Narrative [facility] Therapy Daily Note Patient: Glory Pierce : 1955 CSN #: [id number] Referring Physician: Barbie Sawant MD Date: 01/27/2023 Diagnosis: Aftercare following joint replacement surgery, Z47.1, presence of R artificial knee joint, Z96.651 Treatment Diagnosis: s/p R TKA, R knee pain, decreased LE strength Onset Date: 12/22/22 PT Insurance Information: [facility]PR[facility] 4 MORE PT VISITS TO 02-14-2023 Total # of Visits Approved: 14 Per Physician Order Total # of Visits to Date: 13 No Show: 0 Canceled Appointment: 0 Pre-Treatment Pain: 0/10 Subjective: Pt arrives reporting she was able to walk around her block (approximatley 1/4 miles) without pain. Pt states she was tired and her right knee is slightly stiff but denied pain. Exercises: Exercise 2: SciFIT: level 5.0 x 10 minutes Exercise 3: straight leg raise 3 x 10 Exercise 5: bridge 2 x 10 Exercise 6: Calf stretch with strap 3 x 20 seconds Exercise 9: sit to stand 3 x 10 with 8 pound ball Exercise 10: LAQ 3 x 10 Exercise 11: toe tap 12 inch 2 x 10 Exercise 13: Lunge on bosu ball 2 x 10 Exercise 16: brando step over 3 x 10 lateral; 2 x 10 heel tap forward Exercise 17: FSU/LSU 6 2x10 Modalities: 10 minutes - cold pack to right knee for pain management Assessment Body Structures, Functions, Activity Limitations Requiring Skilled Therapeutic Intervention: Decreased functional mobility , Decreased ADL status, Decreased ROM, Decreased tolerance to work activity, Decreased strength, Decreased high-level IADLs, Decreased balance, Decreased endurance, Increased pain Assessment: Pt arrived without report of pain but mild soreness from increased walking. Therapist able to progress pt with increased standing and dynamic balance with mild increase in pain (2/10). Therapist ended treatment with use of cold pack for pain management. Pt progressing well, will continue per pt tolerance. Activity Tolerance Activity Tolerance: Patient tolerated treatment well Patient Education Patient Education: Pt educated on progressing walking outdoors Pt verbalized/demonstrated good understanding: [x] Yes [] No, pt required further clarification. Post Treatment Pain: 0/10 Plan Plan Frequency: 3 Plan weeks: 4 Goals (Total # of Visits to Date: 13) Short Term Goals Time Frame for Short Term Goals: 2 weeks Short Term Goal 1: Patient will be initiated with a HEP - met Short Term Goal 2: Patient will improve knee flexion ROM to 90* - met (01/07/2023 - 90 degrees) Short Term Goal 3: Patient will tolerate 30 minutes of therex/act to improve endurance and strength for ADLs. - met Religion Teacher Goals Time Frame for Mcfp Goals : 4 weeks Mcfp Goal 1: Patient will be independent and compliant with a HEP. Mcfp Goal 2: Patient will improve R knee ROM to 0-110* for ADLs. - progressing (01/23/2023 AAROM R knee flexion = 110 degrees) Religion Teacher Goal 3: Patient will improve R LE strength to >/= 4/5 in all major joints and planes for ambulation and ADLs. Religion Teacher Goal 4: Patient will be able to ambulate without an AD with minimal gait deviations. - met (01/20/2023) Religion Teacher Goal 5: Patient will report 70% improvement in overall symptoms and function. Minutes Tracking: Time In: 1632 Time Out: 1720 Minutes: 48 Timed Code Treatment Minutes: 38 Minutes Tamia Zuñiga PT, DPT Date: 01/27/2023 documented in this encounter [facility] [employer] Phone: 01-23-2023 History of Present illness Narrative [facility] Outpatient Physical Therapy Daily Note Patient: Glory Pierce : 1955 CSN #: [id number] Referring Physician: Barbie Sawant MD Date: 01/23/2023 Diagnosis: Aftercare following joint replacement surgery, Z47.1, presence of R artificial knee joint, Z96.651 Treatment Diagnosis: s/p R TKA, R knee pain, decreased LE strength Onset Date: 12/22/22 PT Insurance Information: BCBS-APPROVED 4 MORE PT VISITS TO 02-14-2023 Total # of Visits Approved: 14 Per Physician Order Total # of Visits to Date: 12 No Show: 0 Canceled Appointment: 0 Pre-Treatment Pain: 0/10 Subjective: Pt arrives without pain but states the knee feels very stiff and tight. Pt states she did not do much today and feels the is why her knee is stiff Exercises: Exercise 2: SciFIT: level 4.0 x 10 minutes Exercise 3: straight leg raise 3 x 10 Exercise 4: Heel slides 3x10 Exercise 5: bridge 2 x 10 Exercise 6: Calf stretch with strap 3 x 20 seconds Exercise 10: LAQ 3 x 10 Exercise 16: brando step over 3 x 10 lateral; 2 x 10 heel tap forward Modalities: 15 minutes - IFC estim to right knee for pain management and reduce soreness Assessment Body Structures, Functions, Activity Limitations Requiring Skilled Therapeutic Intervention: Decreased functional mobility , Decreased ADL status, Decreased ROM, Decreased tolerance to work activity, Decreased strength, Decreased high-level IADLs, Decreased balance, Decreased endurance, Increased pain Assessment: Pt arrived without report of pain but complaints of discomfort and stiffness. Therapist directed pt through treatment in order to facilitate knee mobility and stability in standing with weightbearing. Pt improving right knee flexion with AAROM with strap measuring 110 degrees this date. Will continue to progress as tolerated towards goals. Activity Tolerance Activity Tolerance: Patient tolerated treatment well Patient Education Patient Education: Pt educated on continuing stretching Pt verbalized/demonstrated good understanding: [x] Yes [] No, pt required further clarification. Post Treatment Pain: 0/10 Plan Plan Frequency: 3 Plan weeks: 4 Goals (Total # of Visits to Date: 12) Short Term Goals Time Frame for Short Term Goals: 2 weeks Short Term Goal 1: Patient will be initiated with a HEP - met Short Term Goal 2: Patient will improve knee flexion ROM to 90* - met (01/07/2023 - 90 degrees) Short Term Goal 3: Patient will tolerate 30 minutes of therex/act to improve endurance and strength for ADLs. - met Mcfp Goals Time Frame for Religion Teacher Goals : 4 weeks Religion Teacher Goal 1: Patient will be independent and compliant with a HEP. Religion Teacher Goal 2: Patient will improve R knee ROM to 0-110* for ADLs. - progressing (01/23/2023 AAROM R knee flexion = 110 degrees) Religion Teacher Goal 3: Patient will improve R LE strength to >/= 4/5 in all major joints and planes for ambulation and ADLs. Mcfp Goal 4: Patient will be able to ambulate without an AD with minimal gait deviations. - met (01/20/2023) Mcfp Goal 5: Patient will report 70% improvement in overall symptoms and function. Minutes Tracking: Time In: 1557 Time Out: 1645 Minutes: 48 Timed Code Treatment Minutes: 47 Minutes Tamia Zuñiga, PT, DPT Date: 01/23/2023 documented in this encounter [facility] [employer] Phone: 01-20-2023 History of Present illness Narrative [facility] Out[facility] Physical Therapy Daily Note Patient: Glory Pierce : 1955 CSN #: [id number] Referring Physician: Barbie Sawant MD Date: 01/20/2023 Diagnosis: Aftercare following joint replacement surgery, Z47.1, presence of R artificial knee joint, Z96.651 Treatment Diagnosis: s/p R TKA, R knee pain, decreased LE strength Onset Date: 12/22/22 PT Insurance Information: [employer]-APPROVED 4 MORE PT VISITS TO 02-14-2023 Total # of Visits Approved: 14 Per Physician Order Total # of Visits to Date: 11 No Show: 0 Canceled Appointment: 0 Pre-Treatment Pain: 1/10 Subjective: Pt arrives with complaints of tightness and 1/10 pain. Exercises: Exercise 2: SciFIT: level 4.0 x 10 minutes Exercise 4: Heel slides 3x10 Exercise 6: Calf stretch with strap 3 x 20 seconds Exercise 9: sit to stand 3 x 10 with 8 pound ball Exercise 10: LAQ 3 x 10 Exercise 11: toe tap 12 inch 2 x 10 Exercise 13: step lunge stretch 10x10 sec, HS 3x30 seconds Exercise 16: Sink exercises: December x10 ea, hip abduction x10 ea, heel/toe raises 2x10 ea Exercise 17: FSU/LSU 6 2x10 Modalities: 10 minutes - cold pack to right knee for pain management Assessment Body Structures, Functions, Activity Limitations Requiring Skilled Therapeutic Intervention: Decreased functional mobility , Decreased ADL status, Decreased ROM, Decreased tolerance to work activity, Decreased strength, Decreased high-level IADLs, Decreased balance, Decreased endurance, Increased pain Assessment: Pt arrived with reports of mild knee pain but mostly reports of stiffness. Therapist able to progress pt this date with standing exercises in order to facilitate lower extremity strength. Mild increase in pain with stair activities. Pt demonstrating continued improvement in AROM with functional tasks. Therapist ended treatment with use of cold pack for pain management due to pt report. Pt ended report with same level of pain as reported upon arrival. Activity Tolerance Activity Tolerance: Patient tolerated treatment well Patient Education Patient Education: Pt educated on plan of care Pt verbalized/demonstrated good understanding: [x] Yes [] No, pt required further clarification. Post Treatment Pain: 10/28 Plan Plan Frequency: 3 Plan weeks: 4 Goals (Total # of Visits to Date: 11) Short Term Goals Time Frame for Short Term Goals: 2 weeks Short Term Goal 1: Patient will be initiated with a HEP - met Short Term Goal 2: Patient will improve knee flexion ROM to 90* - met (01/07/2023 - 90 degrees) Short Term Goal 3: Patient will tolerate 30 minutes of therex/act to improve endurance and strength for ADLs. - met Mcfp Goals Time Frame for Mcfp Goals : 4 weeks Religion Teacher Goal 1: Patient will be independent and compliant with a HEP. Religion Teacher Goal 2: Patient will improve R knee ROM to 0-110* for ADLs. - progressing (01/16/2023 R knee flexion = 106 degrees) Religion Teacher Goal 3: Patient will improve R LE strength to >/= 4/5 in all major joints and planes for ambulation and ADLs. Religion Teacher Goal 4: Patient will be able to ambulate without an AD with minimal gait deviations. - met (01/20/2023) Mcfp Goal 5: Patient will report 70% improvement in overall symptoms and function. Minutes Tracking: Time In: 1715 Time Out: 1800 Minutes: 45 Timed Code Treatment Minutes: 35 Minutes Tamia Zuñiga PT, DPT Date: 01/20/2023 documented in this encounter [facility] [employer] Phone: 01-16-2023 History of Present illness Narrative [facility] Physical Therapy Daily Note Patient: Glory Pierce : 1955 CSN #: [id number] Referring Physician: Barbie Sawant MD Date: 01/16/2023 Diagnosis: Aftercare following joint replacement surgery, Z47.1, presence of R artificial knee joint, Z96.651 Treatment Diagnosis: s/p R TKA, R knee pain, decreased LE strength Onset Date: 12/22/22 PT Insurance Information: [facility]IC[facility] APPROVED 10 VISITS NOT INCLUDING EVAL 12-25 TO 03-24-23 [id number] Total # of Visits Approved: 10 Per Physician Order Total # of Visits to Date: 10 No Show: 0 Canceled Appointment: 0 Pre-Treatment Pain: 10/28 Subjective: Pt arrives with mild pain 10/28 this date. Pt ambulating independently without assistive device. Exercises: Exercise 2: SciFIT: level 4.0 x 10 minutes Exercise 3: straight leg raise 3 x 10 Exercise 4: Heel slides 3x10 Exercise 6: Calf stretch with strap 3 x 20 seconds Exercise 9: sit to stand 3 x 10 with 8 pound ball Exercise 10: LAQ 3 x 10 Modalities: 15 minutes - IFC estim to right knee with cold pack for pain and swelling reduction. Assessment Body Structures, Functions, Activity Limitations Requiring Skilled Therapeutic Intervention: Decreased functional mobility , Decreased ADL status, Decreased ROM, Decreased tolerance to work activity, Decreased strength, Decreased high-level IADLs, Decreased balance, Decreased endurance, Increased pain Assessment: Progress note for insurance auth: Pt is a 67 year old female completing 10 of 10 approved visits status post right TKA. Pt making good progress towards, successfully weaning from assistive devices for ambulation. Pt with moderate gait deviations secondary to continued mobility limitation and weakness. Pt has continued quad lag (4 degrees) with straight leg raise. Pt progressing with mobility but below goal level with right knee range of motion (0-106 degrees). Pt to continue to benefit from skilled outpatient physical therapy 2x per week for 4 additional weeks in order to facilitate right knee mobility, gait pattern, strength as needed for independence and return to prior level of function. Objective measure: Right knee flexion AROM: 106 degrees pre stretching / (AAROM = 115 degrees) Right knee extension AROM: 0 degrees Right knee flexion strength: 4/5 Right knee extension strength: 4/5 Right quad lag: lacking 4 degrees KOOS Jr: 8 (compared to 23 at time of eval) Gait pattern: continued noted antalgic gait on the right LE, trendelenberg noted bilaterally right greater than left LE, hip flexion with heel strike indicating mild weakness of the quad muscles. Activity Tolerance Activity Tolerance: Patient tolerated treatment well Patient Education Patient Education: Plan of care. HEP update Pt verbalized/demonstrated good understanding: [x] Yes [] No, pt required further clarification. Post Treatment Pain: 0/10 Plan Plan Frequency: 3 Plan weeks: 4 Goals (Total # of Visits to Date: 10) Short Term Goals Time Frame for Short Term Goals: 2 weeks Short Term Goal 1: Patient will be initiated with a HEP - met Short Term Goal 2: Patient will improve knee flexion ROM to 90* - met (01/07/2023 - 90 degrees) Short Term Goal 3: Patient will tolerate 30 minutes of therex/act to improve endurance and strength for ADLs. - met Mcfp Goals Time Frame for Mcfp Goals : 4 weeks Mcfp Goal 1: Patient will be independent and compliant with a HEP. Religion Teacher Goal 2: Patient will improve R knee ROM to 0-110* for ADLs. - progressing (01/16/2023 R knee flexion = 106 degrees) Mcfp Goal 3: Patient will improve R LE strength to >/= 4/5 in all major joints and planes for ambulation and ADLs. Religion Teacher Goal 4: Patient will be able to ambulate without an AD with minimal gait deviations. - progressing (01/16/2023 ambulating without assistive device with moderate gait deviations) Mcfp Goal 5: Patient will report 70% improvement in overall symptoms and function. Minutes Tracking: Time In: 1000 Time Out: 1055 Minutes: 55 Timed Code Treatment Minutes: 54 Minutes Tamia Zuñiga PT, DPT Date: 01/16/2023 documented in this encounter [facility] [employer] Phone: 01-14-2023 History of Present illness Narrative [facility] Therapy Daily Note Patient: Glory Pierce : 1955 CSN #: [id number] Referring Physician: Barbie Sawant MD Date: 01/14/2023 Diagnosis: Aftercare following joint replacement surgery, Z47.1, presence of R artificial knee joint, Z96.651 Treatment Diagnosis: s/p R TKA, R knee pain, decreased LE strength Onset Date: 12/22/22 PT Insurance Information: [facility]MEDIC[facility] APPROVED 10 VISITS NOT INCLUDING EVAL 12-25 TO 03-24-23 [id number] Total # of Visits Approved: 10 Per Physician Order Total # of Visits to Date: 9 No Show: 0 Canceled Appointment: 0 Pre-Treatment Pain: 0/10 Subjective: Pt arrives with report of no pain this date. Pt went to doctor yesterady to have bandage removed. Pt reports surgeon happy with progress to date. Pt states she has been walking around her home without her cane with good progress. Exercises: Exercise 2: SciFIT: level 3.0 x 10 minutes Exercise 9: sit to stand 1 x 10; 2 x 10 with 8 pound ball Exercise 11: toe tap 12 inch 2 x 10 Exercise 13: step lunge stretch 10x10 sec, HS 3x30 seconds Exercise 14: gait with st cane entire session Exercise 16: Sink exercises: March x10 ea, hip abduction x10 ea, heel/toe raises 2x10 ea Exercise 17: FSU/LSU 6 2x10 Modalities: 15 minutes - IFC estim with cold pack Assessment Assessment: Pt reports no pain this date. Therapist directed pt through treatment in order to facilitate joint mobility and independence with ambulation. Pt progressing well with good tolerance. Pt able to ambulate short distances without single point cane. Therapist ended treatment with IFC estim and ice to facilitate pain reduction and inhibit post exercise soreness. Activity Tolerance Activity Tolerance: Patient tolerated treatment well Patient Education Patient Education: POC Pt verbalized/demonstrated good understanding: [x] Yes [] No, pt required further clarification. Post Treatment Pain: 10/28 Plan Plan Frequency: 3 Plan weeks: 4 Goals (Total # of Visits to Date: 9) Short Term Goals Time Frame for Short Term Goals: 2 weeks Short Term Goal 1: Patient will be initiated with a HEP - met Short Term Goal 2: Patient will improve knee flexion ROM to 90* - met (01/07/2023 - 90 degrees) Short Term Goal 3: Patient will tolerate 30 minutes of therex/act to improve endurance and strength for ADLs. - met Religion Teacher Goals Time Frame for Mcfp Goals : 4 weeks Religion Teacher Goal 1: Patient will be independent and compliant with a HEP. Religion Teacher Goal 2: Patient will improve R knee ROM to 0-110* for ADLs. Religion Teacher Goal 3: Patient will improve R LE strength to >/= 4/5 in all major joints and planes for ambulation and ADLs. Mcfp Goal 4: Patient will be able to ambulate without an AD with minimal gait deviations. - progressing (01/14/2023 ambulating with SPC in clinic) Mcfp Goal 5: Patient will report 70% improvement in overall symptoms and function. Minutes Tracking: Time In: 1115 Time Out: 1205 Minutes: 50 Timed Code Treatment Minutes: 49 Minutes Tamia Zuñiga PT, DPT Date: 01/14/2023 documented in this encounter [facility] [employer] Phone: 01-12-2023 History of Present illness Narrative [facility] Therapy Daily Note Patient: Glory Pierce : 1955 CSN #: [id number] Referring Physician: Barbie Sawant MD Date: 01/12/2023 Diagnosis: Aftercare following joint replacement surgery, Z47.1, presence of R artificial knee joint, Z96.651 Treatment Diagnosis: s/p R TKA, R knee pain, decreased LE strength Onset Date: 12/22/22 PT Insurance Information: [facility]MEDIC[facility] APPROVED 10 VISITS NOT INCLUDING EVAL 12-25 TO 03-24-23 [id number] Total # of Visits Approved: 10 Per Physician Order Total # of Visits to Date: 8 No Show: 0 Canceled Appointment: 0 Pre-Treatment Pain: 2/10 Subjective: Pt states she is a little sore from shopping, States pain is 2/10 Exercises: Exercise 2: SciFIT: level 2.5 x 10 minutes Exercise 9: sit to stand 2x12 (no hands) Exercise 11: toe tap 6 inch 3 x 10 Exercise 12: slant board 5x hold 15 sec Exercise 13: step lunge stretch 5x10 sec, HS 3x30 seconds Exercise 14: gait with st cane entire session Exercise 16: Sink exercises: December x10 ea, hip abduction x10 ea, heel/toe raises 2x10 ea Exercise 17: FSU/LSU 6 x10 ea Manual: Joint Mobilization: Patella mobs Other: PROM knee flexion/extension Modalities: IFC/cp for pain and swelling Assessment Assessment: Pain 11/28 today. Flexion 104 deg with full extension noted. Swelling is moderate.Progressed to 6 inch step up with good tolerance. Doing well will st cane. Will continue to progress as tolerated Activity Tolerance Activity Tolerance: Patient tolerated treatment well Patient Education Patient Education: HEP Pt verbalized/demonstrated good understanding: [x] Yes [] No, pt required further clarification. Post Treatment Pain: 11/28 Plan Plan Frequency: 3 Plan weeks: 4 Goals (Total # of Visits to Date: 8) Short Term Goals Time Frame for Short Term Goals: 2 weeks Short Term Goal 1: Patient will be initiated with a HEP - met Short Term Goal 2: Patient will improve knee flexion ROM to 90* - met (01/07/2023 - 90 degrees) Short Term Goal 3: Patient will tolerate 30 minutes of therex/act to improve endurance and strength for ADLs. - met Mcfp Goals Time Frame for Religion Teacher Goals : 4 weeks Religion Teacher Goal 1: Patient will be independent and compliant with a HEP. Mcfp Goal 2: Patient will improve R knee ROM to 0-110* for ADLs. Religion Teacher Goal 3: Patient will improve R LE strength to >/= 4/5 in all major joints and planes for ambulation and ADLs. Religion Teacher Goal 4: Patient will be able to ambulate without an AD with minimal gait deviations. Mcfp Goal 5: Patient will report 70% improvement in overall symptoms and function. Minutes Tracking: Time In: 1300 Time Out: 1400 Minutes: 60 Timed Code Treatment Minutes: 58 Minutes Javier Sethi Date: 01/12/2023 documented in this encounter [facility] [employer] Phone: 01-09-2023 History of Present illness Narrative [facility] Daily Note Patient: Glory Pierce : 1955 CSN #: [id number] Referring Physician: Barbie Sawant MD Date: 01/09/2023 Diagnosis: Aftercare following joint replacement surgery, Z47.1, presence of R artificial knee joint, Z96.651 Treatment Diagnosis: s/p R TKA, R knee pain, decreased LE strength Onset Date: 12/22/22 PT Insurance Information: [employer]MEDIC[employer] APPROVED 10 VISITS NOT INCLUDING EVAL 12-25 TO 03-24-23 [id number] Total # of Visits Approved: 10 Per Physician Order Total # of Visits to Date: 7 No Show: 0 Canceled Appointment: 0 Pre-Treatment Pain: 2/10 Subjective: Patient reports 2/10 pain coming into therapy. She reports more conficence when using a cane. Exercises: Exercise 2: SciFIT: level 2.5 x 8 minutes Exercise 4: Heel slides with strap x10 Exercise 9: sit to stand 2x12 (no hands) Exercise 10: LAQ 2x10/BTB seated hamstring curls 2x10 Exercise 13: step lunge stretch 5x10 sec, HS 3x30 seconds Exercise 15: PTB TKE 2x10 Exercise 16: Sink exercises: December x10 ea, hip abduction x10 ea, heel/toe raises 2x10 ea Exercise 17: FSU/LSU 4 x10 ea Manual: Joint Mobilization: Patella mobs Other: PROM knee flexion/extension Modalities: IFC with CP x15 minutes to decrease pain and soreness. 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 She is currently ambulating with a SC safely, she demonstrates improved knee ROM measurin-103* in supine, and MMT grossly measures 4-/5. 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 Activity Tolerance Activity Tolerance: Patient tolerated treatment well Patient Education Patient Education: Continuing ambulation within tolerance Pt verbalized/demonstrated good understanding: [x] Yes [] No, pt required further clarification. Post Treatment Pain: 2/10 Plan Plan Frequency: 3 Plan weeks: 4 Goals (Total # of Visits to Date: 7) Short Term Goals Time Frame for Short Term Goals: 2 weeks Short Term Goal 1: Patient will be initiated with a HEP - met Short Term Goal 2: Patient will improve knee flexion ROM to 90* - met (01/07/2023 - 90 degrees) Short Term Goal 3: Patient will tolerate 30 minutes of therex/act to improve endurance and strength for ADLs. - met Religion Teacher Goals Time Frame for Religion Teacher Goals : 4 weeks Religion Teacher Goal 1: Patient will be independent and compliant with a HEP. Mcfp Goal 2: Patient will improve R knee ROM to 0-110* for ADLs. Religion Teacher Goal 3: Patient will improve R LE strength to >/= 4/5 in all major joints and planes for ambulation and ADLs. Religion Teacher Goal 4: Patient will be able to ambulate without an AD with minimal gait deviations. Mcfp Goal 5: Patient will report 70% improvement in overall symptoms and function. Minutes Tracking: Time In: 08 Time Out: 942 Minutes: 58 Timed Code Treatment Minutes: 56 Minutes Eric Chadwick PT, DPT Date: 01/09/2023 documented in this encounter [facility] [employer] Phone: 01-07-2023 History of Present illness Narrative [facility] Daily Note Patient: Golry Pierce : 1955 CSN #: [id number] Referring Physician: Barbie Sawant MD Date: 01/07/2023 Diagnosis: Aftercare following joint replacement surgery, Z47.1, presence of R artificial knee joint, Z96.651 Treatment Diagnosis: s/p R TKA, R knee pain, decreased LE strength Onset Date: 12/22/22 PT Insurance Information: [facility]-MEDIC[facility] APPROVED 10 VISITS NOT INCLUDING EVAL 12-25 TO 03-24-23 [id number] Total # of Visits Approved: 10 Per Physician Order Total # of Visits to Date: 6 No Show: 0 Canceled Appointment: 0 Pre-Treatment Pain: 4/10 Subjective: Pt reports she feels she is improving everyday. 4/10 pain this visit. Pt to get bandage off next week Exercises: Exercise 2: SciFIT: level 1 x 10 minutes Exercise 4: Heel slides with strap 30x Exercise 5: ankle pumps 50x Exercise 6: Calf stretch with strap 3 x 20 seconds Exercise 7: Seated heel toe raises 40x Exercise 9: sit to stand 3x10 Exercise 10: Short arc quad 3 x 10 Exercise 11: toe tap 6 inch 3 x 10 Modalities: 15 minutes - IFC estim with cold pack to right knee for swelling reduction and pain management Assessment Body Structures, Functions, Activity Limitations Requiring Skilled Therapeutic Intervention: Decreased functional mobility , Decreased ADL status, Decreased ROM, Decreased tolerance to work activity, Decreased strength, Decreased high-level IADLs, Decreased balance, Decreased endurance, Increased pain Assessment: Pt arrives with /10 pain in right knee. Therapist directed pt through treatment in order to faciliate right knee mobility and strength as needed for return to ambulation. Pt demonstrating continued improvement in right knee flexion this visit compared to last. Pain remained unchanged throughout treatment. Therapist ended treatment with IFC estim and cold pack to right knee to reduce swelling and manage pain. Objective measure: Right knee flexion AAROM = 90 degrees Activity Tolerance Activity Tolerance: Patient tolerated treatment well Patient Education Patient Education: Continuing ambulation within tolerance Pt verbalized/demonstrated good understanding: [x] Yes [] No, pt required further clarification. Post Treatment Pain: 01/26 Plan Plan Frequency: 3 Plan weeks: 4 Goals (Total # of Visits to Date: 6) Short Term Goals Time Frame for Short Term Goals: 2 weeks Short Term Goal 1: Patient will be initiated with a HEP - met Short Term Goal 2: Patient will improve knee flexion ROM to 90* - met (01/07/2023 - 90 degrees) Short Term Goal 3: Patient will tolerate 30 minutes of therex/act to improve endurance and strength for ADLs. - met Mcfp Goals Time Frame for Mcfp Goals : 4 weeks Mcfp Goal 1: Patient will be independent and compliant with a HEP. Religion Teacher Goal 2: Patient will improve R knee ROM to 0-110* for ADLs. Mcfp Goal 3: Patient will improve R LE strength to >/= 4/5 in all major joints and planes for ambulation and ADLs. Religion Teacher Goal 4: Patient will be able to ambulate without an AD with minimal gait deviations. Religion Teacher Goal 5: Patient will report 70% improvement in overall symptoms and function. Minutes Tracking: Time In: 1019 Time Out: 1110 Minutes: 51 Timed Code Treatment Minutes: 50 Minutes Tamia Zñuiga PT, DPT Date: 01/07/2023 documented in this encounter [facility] [employer] Phone: 01-05-2023 History of Present illness Narrative [facility] Daily Note Patient: Glory Pierce : 1955 CSN #: [id number] Referring Physician: Barbie Sawant MD Date: 01/05/2023 Diagnosis: Aftercare following joint replacement surgery, Z47.1, presence of R artificial knee joint, Z96.651 Treatment Diagnosis: s/p R TKA, R knee pain, decreased LE strength Onset Date: 12/22/22 PT Insurance Information: [facility]-MEDIC[facility] APPROVED 10 VISITS NOT INCLUDING EVAL 12-25 TO 03-24-23 [id number] Total # of Visits Approved: 10 Per Physician Order Total # of Visits to Date: 5 Pre-Treatment Pain: 5/10 Subjective: States pain is 5/10 posterior knee. Exercises: Exercise 2: SciFIT: level 1 x 10 minutes Exercise 5: ankle pumps 50x Exercise 7: Seated heel toe raises 40x Exercise 9: sit to stand 2x10 Exercise 10: Short arc quad 2 x 10 Exercise 11: forward step up 4 x10, 6 5x Exercise 12: slant board 5x hold 15 sec Exercise 13: step lunge stretch, HS 3x Exercise 14: gait with ast cane 175 feet Manual: PROM as tolerated Modalities: IFC/cp for pain Assessment Assessment: Pt with 5/10 pain posterior knee. Progressed maksim ups to 6 inches and ambulated with st cane 175 feet with SBA. Swelling is moderate in R knee. Knee extension -3 deg, seated flexion 85 deg. IFC/cp following session Activity Tolerance Activity Tolerance: Patient tolerated treatment well Patient Education Patient Education: HEP on gentle knee ROM Pt verbalized/demonstrated good understanding: [x] Yes [] No, pt required further clarification. Post Treatment Pain: 01/26 Plan Plan Frequency: 3 Plan weeks: 4 Goals (Total # of Visits to Date: 5) Short Term Goals Time Frame for Short Term Goals: 2 weeks Short Term Goal 1: Patient will be initiated with a HEP - met Short Term Goal 2: Patient will improve knee flexion ROM to 90* - progressing (12/30/2022 - 78 degrees) Short Term Goal 3: Patient will tolerate 30 minutes of therex/act to improve endurance and strength for ADLs. - met Religion Teacher Goals Time Frame for Religion Teacher Goals : 4 weeks Religion Teacher Goal 1: Patient will be independent and compliant with a HEP. Religion Teacher Goal 2: Patient will improve R knee ROM to 0-110* for ADLs. Religion Teacher Goal 3: Patient will improve R LE strength to >/= 4/5 in all major joints and planes for ambulation and ADLs. Religion Teacher Goal 4: Patient will be able to ambulate without an AD with minimal gait deviations. Mcfp Goal 5: Patient will report 70% improvement in overall symptoms and function. Minutes Tracking: Time In: 1515 Time Out: 1615 Minutes: 60 Timed Code Treatment Minutes: 57 Minutes Javier Sethi Date: 01/05/2023 documented in this encounter [facility] Phone: 01-02-2023 History of Present illness Narrative [facility] Outpatient Physical Therapy Daily Note Patient: Glory Pierce : 1955 CSN #: [id number] Referring Physician: Barbie Sawant MD Date: 01/02/2023 Diagnosis: Aftercare following joint replacement surgery, Z47.1, presence of R artificial knee joint, Z96.651 Treatment Diagnosis: s/p R TKA, R knee pain, decreased LE strength Onset Date: 12/22/22 PT Insurance Information: [facility]-MEDICARE APPROVED 10 VISITS NOT INCLUDING EVAL 12-25 TO 03-24-23 [id number] Total # of Visits Approved: 10 Per Physician Order Total # of Visits to Date: 3 Pre-Treatment Pain: 5-6/10 Subjective: Pt reports she got her wound vac taken off but still has two small incision openings and steri strips were applied. Exercises: Exercise 1: HEP: ankle pumps, quad sets 10 sec x10, heel slides x10, glute sets 10 sec x10 Exercise 2: SciFIT: level 1 x 10 minutes Exercise 3: Quad sets 10 x 10 second holds Exercise 4: Heel slides with strap 30x Exercise 6: Calf stretch with strap 3 x 20 seconds Exercise 7: Seated heel toe raises 40x Exercise 8: Seated heel slide 5x10 : 2 sets Exercise 9: sit to stand 4 x 5 Exercise 10: Short arc quad 2 x 10 Exercise 11: forward step up 4 x10 Modalities: IFC x15 min with CP t reduce pain and swelling to R knee Assessment Assessment: Pt denies any increased pain with exercises but still states the back of her knee feels tight. PT added 4 in step ups this date to increase R quad strength, compensation noted due to weakness. Pt avoided ROM with over pressure due to continued incision openings. finished tx with IFC this date with CP to reduce pain and swelling Activity Tolerance Activity Tolerance: Patient tolerated treatment well Patient Education Patient Education: educated on avoiding aggressive RM Pt verbalized/demonstrated good understanding: [x] Yes [] No, pt required further clarification. Post Treatment Pain: -01/26 Plan Plan Frequency: 3 Plan weeks: 4 Goals (Total # of Visits to Date: 3) Short Term Goals Time Frame for Short Term Goals: 2 weeks Short Term Goal 1: Patient will be initiated with a HEP - met Short Term Goal 2: Patient will improve knee flexion ROM to 90* - progressing (12/30/2022 - 78 degrees) Short Term Goal 3: Patient will tolerate 30 minutes of therex/act to improve endurance and strength for ADLs. - met Mcfp Goals Time Frame for Mcfp Goals : 4 weeks Religion Teacher Goal 1: Patient will be independent and compliant with a HEP. Mcfp Goal 2: Patient will improve R knee ROM to 0-110* for ADLs. Mcfp Goal 3: Patient will improve R LE strength to >/= 4/5 in all major joints and planes for ambulation and ADLs. Religion Teacher Goal 4: Patient will be able to ambulate without an AD with minimal gait deviations. Religion Teacher Goal 5: Patient will report 70% improvement in overall symptoms and function. Minutes Tracking: Time In: 1145 Time Out: 1232 Minutes: 47 Timed Code Treatment Minutes: 45 Minutes Yocasta Kline PT DPT Date: 01/02/2023 documented in this encounter [facility] Phone: 12-31-2022 History of Present illness Narrative [facility] Outpatient Physical Therapy Daily Note Patient: Glory Pierce : 1955 CSN #: [id number] Referring Physician: Barbie Sawant MD Date: 12/31/2022 Diagnosis: Aftercare following joint replacement surgery, Z47.1, presence of R artificial knee joint, Z96.651 Treatment Diagnosis: s/p R TKA, R knee pain, decreased LE strength Onset Date: 12/22/22 PT Insurance Information: [facility]-MEDICARE APPROVED 10 VISITS NOT INCLUDING EVAL 12-25 TO 03-24-23 [id number] Total # of Visits Approved: 10 Per Physician Order Total # of Visits to Date: 2 No Show: 0 Canceled Appointment: 0 Pre-Treatment Pain: 7/10 Subjective: Pt arrives to treatment this date with reports that she is having a better day today. Reporting 7/10 pain but states she feels she is walking and moving better. Pt reports she is having wound vac taken off later this date Exercises: Exercise 2: SciFIT: level 1 x 10 minutes Exercise 3: Quad sets 10 x 10 second holds Exercise 4: Heel slides with strap 30x Exercise 6: Calf stretch with strap 3 x 20 seconds Exercise 7: Seated heel toe raises 40x Exercise 8: Seated heel slide 3 x 10 Exercise 9: sit to stand 4 x 5 Exercise 10: Short arc quad 2 x 10 Modalities: 10 minutes - cold pack to right knee for swelling reduction and pain management Assessment Body Structures, Functions, Activity Limitations Requiring Skilled Therapeutic Intervention: Decreased functional mobility , Decreased ADL status, Decreased ROM, Decreased tolerance to work activity, Decreased strength, Decreased high-level IADLs, Decreased balance, Decreased endurance, Increased pain Assessment: Pt arrived with reports of moderate to severe right knee pain, improved from last visit. Therapist directed pt through treatment in order to continue to facilitate right lower extremity mobility and quad firing as needed for return to baseline reported function. Therapist provided tactile and verbal cuing for form with new exercises. Pt completed with mild reduction in pain but stated increased fatigue. Therapist ended treatment with use of cold pack for pain management and swelling reduction. Activity Tolerance Activity Tolerance: Patient tolerated treatment well Patient Education Patient Education: Pt educated on new exercises Pt verbalized/demonstrated good understanding: [x] Yes [] No, pt required further clarification. Post Treatment Pain: 03/28 Plan Plan Frequency: 3 Plan weeks: 4 Goals (Total # of Visits to Date: 2) Short Term Goals Time Frame for Short Term Goals: 2 weeks Short Term Goal 1: Patient will be initiated with a HEP - met Short Term Goal 2: Patient will improve knee flexion ROM to 90* - progressing (12/30/2022 - 78 degrees) Short Term Goal 3: Patient will tolerate 30 minutes of therex/act to improve endurance and strength for ADLs. - met Religion Teacher Goals Time Frame for Mcfp Goals : 4 weeks Mcfp Goal 1: Patient will be independent and compliant with a HEP. Religion Teacher Goal 2: Patient will improve R knee ROM to 0-110* for ADLs. Religion Teacher Goal 3: Patient will improve R LE strength to >/= 4/5 in all major joints and planes for ambulation and ADLs. Religion Teacher Goal 4: Patient will be able to ambulate without an AD with minimal gait deviations. Mcfp Goal 5: Patient will report 70% improvement in overall symptoms and function. Minutes Tracking: Time In: 1115 Time Out: 1200 Minutes: 45 Timed Code Treatment Minutes: 35 Minutes Tamia Zuñiga PT, DPT Date: 12/31/2022 documented in this encounter [facility] Phone: 12-25-2022 History of Present illness Narrative [facility] Outpatient Physical Therapy Evaluation Date: 12/25/2022 Patient: Glory Pierce : 1955 CSN #: [id number] Referring Physician: Barbie Sawant MD Medical Diagnosis: Aftercare following joint replacement surgery, Z47.1, presence of R artificial knee joint, Z96.651 Treatment Diagnosis: s/p R TKA, R knee pain, decreased LE strength Onset Date: 12/22/22 PT Insurance Information: [facility] Medicare Total # of Visits Approved: 12 Total # of Visits to Date: 1 No Show: 0 Canceled Appointment: 0 Subjective Subjective: Patient reports R TKA on 12/22/22. She reports she has been getting around her home. She reports pain ranges from 5/10 at best to 8/10 at worst. She reports she has a wound vac placed to help decrease fluid and swelling around her knee. Additional Pertinent Hx: L TKA, hx of tibual ligation, obesity, possible lymphedema Ambulation/Gait (if applicable): Ambulation WB Status: WBAT Ambulation Surface: Level tile Device: Rolling Walker Assistance: Independent Quality of Gait: Pt ambulates with PWB through R LE Distance: 25' More Ambulation?: No Stairs/Curb Stairs?: No Objective AROM AROM LLE (degrees) L Knee Flexion (0-145): 118 L Knee Extension (0): 4 R knee flexion: 71 R knee extension: 0 Strength RLE R Hip Flexion: 3-/5 R Hip Extension: NT R Hip ABduction: 3+/5 R Knee Flexion: 3+/5 R Knee Extension: 2+/5 R Ankle Dorsiflexion: 4+/5 Strength LLE L Hip Flexion: 4/5 L Hip Extension: NT L Hip ABduction: 3+/5 L Knee Flexion: 5/5 L Knee Extension: 5/5 L Ankle Dorsiflexion: 5/5 Exercises: Exercise 1: HEP: ankle pumps, quad sets 10 sec x10, heel slides x10, glute sets 10 sec x10 Exercise 2: SciFIT: level 1 x5 minutes Modalities: CP x10 minutes Functional Outcome Measures KOOS Jr: raw score 23 Assessment Body Structures, Functions, Activity Limitations Requiring Skilled Therapeutic Intervention: Decreased functional mobility , Decreased ADL status, Decreased ROM, Decreased tolerance to work activity, Decreased strength, Decreased high-level IADLs, Decreased balance, Decreased endurance, Increased pain Assessment: The patient is a 67 y.o. female who is s/p R TKA. She demonstrates decreased R knee ROM (0-71* in supine), decreased R LE strength, decreased endurance, impaired balance, and ambulates with a FWW. She would benefit from skilled PT to address her deficits to improve functional mobility. Therapy Prognosis: Good Decision Making: Medium Complexity Patient Education Patient Education: PT POC, HEP Pt verbalized/demonstrated good understanding: [X] Yes [] No, pt required further clarification. Goals Short Term Goals Time Frame for Short Term Goals: 2 weeks Short Term Goal 1: Patient will be initiated with a HEP Short Term Goal 2: Patient will improve knee flexion ROM to 90*. Short Term Goal 3: Patient will tolerate 30 minutes of therex/act to improve endurance and strength for ADLs. Religion Teacher Goals Time Frame for Mcfp Goals : 4 weeks Religion Teacher Goal 1: Patient will be independent and compliant with a HEP. Religion Teacher Goal 2: Patient will improve R knee ROM to 0-110* for ADLs. Religion Teacher Goal 3: Patient will improve R LE strength to >/= 4/5 in all major joints and planes for ambulation and ADLs. Mcfp Goal 4: Patient will be able to ambulate without an AD with minimal gait deviations. Mcfp Goal 5: Patient will report 70% improvement in overall symptoms and function. Patient Goals : Improve ROM of knee Minutes Tracking: Time In: 1113 Time Out: 1215 Minutes: 62 Timed Code Treatment Minutes: 50 Minutes Eric Chadwick PT, DPT 12/25/2022 documented in this encounter [facility] Work Phone: 12-09-2022 History of Present illness Narrative Patient instructed on the pre-operative, intra-operative, and post-operative process. Patient instructed on NPO status. Medication instructions and pre operative instruction sheet reviewed with the patient. CHG skin prep instructions reviewed with patient. [facility] Preadmission Testing Name: Glory Pierce : 1955 Patient (home) Procedure right TKA Date of Procedure: 12/22/22 Surgeon: Barbie Sawant MD Ht: 5' 8 (172.7 cm) Wt: 281 lb 1.6 oz (127.5 kg) Wt method: Actual Allergies: No Known Allergies Peanut allergy: No Vitals: 12/09/22 0850 BP: 137/77 Pulse: 70 Resp: 20 Temp: 97.7 F (36.5 C) SpO2: 94% No LMP recorded. Patient is postmenopausal. Do you take blood thinners? [x] Yes [] No Instructed to stop blood thinners prior to procedure? [x] Yes [] No [] N/A Do you have sleep apnea? [] Yes [x] No Instructed to bring CPAP machine? [] Yes [] No [x] N/A Do you have acid reflux ? [x] Yes [] No HEARTBURN Do you have hiatal hernia? [] Yes [x] No Do you ever experience motion sickness? [] Yes [x] No Have you had a respiratory infection or sore throat in last 4 weeks before surgery? [] Yes [x] No Do you have poorly controlled asthma or COPD? [] Yes [x] No Do you have a history of angina in the last month or symptomatic arrhythmia? [] Yes [x] No Do you have significant central nervous system disease? [] Yes [x] No Have you had an EKG, labs, or chest xray in last 12 months? If yes provide copies to anesthesia [] Yes [x] No [] Lab [] EKG [] CXR Have you had a stress test? [] Yes [x] No When/where: Was it normal? [] Yes [] No Do you or your family have a history of Malignant Hyperthermia? [] Yes [x] No Patient instructed on: [x] NPO Status [x] Meds to Take Day of Surgery [x] Ride Home [x]No Jewelry/Contact Lenses/Dentures day of surgery [x] Chlorhexidene PAT Call/Visit Questions Person Interviewed: GLORY Relationship to Patient: Patient Surgery Time Verified: Yes Surgery Location Verified: Yes NPO Status Reinforced: Yes Ride and Caregiver Arranged: Yes Ride Caregiver Provider: -Paulino CHG Bottle/Wipes provided with instructions for use: Yes Pre-AdmissionTesting Checklist Communication Needs: None Patient instructed on the pre-operative, intra-operative, and post-operative process? Yes Medication instructions reviewed with patient? Yes Pre operative instruction sheet reviewed and given to patient in PAT? Yes Labs and EKG faxed to Dr. Winter for medical clearance. documented in this encounter [facility] [employer] Work Phone: 10-16-2021 History of Present illness Narrative HPI: Patient is here today to be evaluated for bilateral knee pain, left is more symptomatic than right. She is a pleasant 66 y.o. female. She is here today as a self referral. Primary complaint is pain and discomfort. She has experienced a progressive decline in physical function and quality of life secondary to the discomfort in the bilateral knees. The more she is on them, the more they hurt. She is status post a left TKA in 2013 in [place] and has had pain in this knee for the past year. She feels it gives out on her at times. For the right knee, the pain becomes more with activities with a 5/10 pain scale. She states she has had injections for the right knee in the past that were short lived. She is here today for evaluation and to determine treatment options. PHYSICAL EXAM: This is an alert, oriented, and age-appropriate female. She is in no distress. Pleasant and cooperative. EXTREMITIES: The lower extremities have no gross deformities. Normal stability. Skin Intact. 5/5 motor. Intact sensation. Normal neurovascular status. Normal coordination. Range of motion upon exam today for the left knee is 0-120 and right knee of 5-115. Mild instability to flexion and mid-flexion for varus/valgus stress for the left knee. Full motion of hip. No pain. No impingement. No instability. Contralateral leg has normal alignment. Full motion. No pain. No impingement. No instability. IMAGING: Plain film radiographs were reviewed. Multiple views of the right knee demonstrate severe arthritis of the knee with loss of joint space, subchondral sclerosis, osteophyte formation, and [id number] contact and a left posterior stabilized knee in reasonable position and alignment. IMPRESSION: 1.) Severe symptomatic end-stage arthritis, right knee. 2.) Status post a left total knee arthroplasty in 2013 in [place]. 3.) Mild instability, left prosthetic knee. 4.) Obesity, increased BMI. PLAN: I reviewed my findings with Glory. We discussed the diagnosis and treatment options. We discussed the mild prosthetic knee instability felt with physical exam and its associated symptoms and how this is affecting her. We discussed a future poly swap and what this would mean for her but feel she would also benefit from a formal course of physical therapy. She is in agreement. I offered repeat injections for the right knee but she was not interested. I will also give her a script for Celebrex and instructed her to discontinue the Diclofenac. We adiscussed her current BMI and its elevated major risks in relation to the postoperative recovery of a total knee arthroplasty. I explained in depth the reasoning behind my recommendation. A weight loss goal amount was calculated and given to patient. She understands the importance of this, agrees with my recommendation in order to receive the best possible outcomes and lowest risk for complications. She will work towards achieving the weight loss goal to optimize herself. She fully understands the plan of care. All questions were answered. She has no further questions. Next appointment will be left open to her. I have reviewed the findings of my clinical staff below and agree with their assessment. Vitals: 10/16/21 0907 Temp: 97 degrees F (36.1 degrees C) TempSrc: Temporal Weight: 133.8 kg (295 lb) Height: 1.727 m (5' 8 ) Pain Presence of Pain: complains of pain/discomfort Pain Location: knee, left,knee, right Select Pain Scale: DVPRS (Defense and Veterans Pain Rating Scale) (Adult-Cognitively Intact) Pain Location: knee, left,knee, right Select Pain Scale: DVPRS (Defense and Veterans Pain Rating Scale) (Adult-Cognitively Intact) Recent Labs No results found for: CRP No results found for: SEDRATE No results found for: WBC, WBCCOUNT, WBCFETAL, HGB, HCT, PLATELET, MCV Past Medical History: Diagnosis Date Arthritis Hyperlipidemia Hypothyroidism Past Surgical History: Procedure Laterality Date KNEE REPLACEMENT Left 10/2012 total knee replacement . done in [place] TUBAL LIGATION 1984 No family history on file. Social History Socioeconomic History Marital status: Spouse name: Not on file Number of children: Not on file Years of education: Not on file Highest education level: Not on file Occupational History Not on file Tobacco Use Smoking status: Never Smoker Smokeless tobacco: Never Used Substance and Sexual Activity Alcohol use: Not Currently Drug use: Never Sexual activity: Not on file Other Topics Concern Not on file Social History Narrative Not on file Social Determinants of Health Financial Resource Strain: Not on file Food Insecurity: Not on file Transportation Needs: Not on file Physical Activity: Not on file Stress: Not on file Social Connections: Not on file Intimate Partner Violence: Not on file Housing Stability: Not on file Current Outpatient Medications: Biotin 96173 MCG tablet, Take 10,000 mcg by mouth daily., Disp: , Rfl: multivitamin tablet, Take 1 tablet by mouth daily., Disp: , Rfl: diclofenac EC [address] tablet, Take 75 mg by mouth 2 times daily., Disp: , Rfl: Euthyrox 150 MCG tablet, , Disp: , Rfl: simvastatin 20 MG tablet, , Disp: , Rfl: No Known Allergies Ortho Nurse Patient Intake Room#: 2----Visit today for bilateral knee pain. She had a left knee TKA done in 2012 when she lived in [place]. She has had pain in the Left knee for the past year. She feels it gives out on her at times. Her Right knee pain she has had for many years. Her pain today is a 5 when active. No pain when at rest. She has had injections for the right knee but she felt these did not help with her pain. Date: 10/16/2021 9:13 AM Patient: Stan Holder MR#: [id number] : 1955 Age: 66 y.o. Referring Physician: Allen Colmenares MD Insurance: Payor: MEDICARE ANTHEM HMO OR PPO / Plan: MEDICARE ANTHEM HMO OR PPO / Product Type: *No Product type* / Chief Complaint Patient presents with Left Knee - Pain, New Patient Right Knee - Pain, New Patient Visit Vitals Temp 97 F (36.1 C) (Temporal) Ht 1.727 m (5' 8 ) Wt 133.8 kg (295 lb) BMI 44.85 kg/m Pain Presence of Pain: complains of pain/discomfort Pain Location: knee, left,knee, right Select Pain Scale: DVPRS (Defense and Veterans Pain Rating Scale) (Adult-Cognitively Intact) Pain Location: knee, left,knee, right Select Pain Scale: DVPRS (Defense and Veterans Pain Rating Scale) (Adult-Cognitively Intact) Recent Labs No results found for: CRP No results found for: SEDRATE No results found for: WBC, WBCCOUNT, WBCFETAL, HGB, HCT, PLATELET, MCV History Past Medical History: Diagnosis Date Arthritis Hyperlipidemia Hypothyroidism Past Surgical History: Procedure Laterality Date KNEE REPLACEMENT Left 10/2012 total knee replacement . done in [place] TUBAL LIGATION 1984 Family History: Her family history is not on file. Social History: Her reports that she has never smoked. She has never used smokeless tobacco. She reports previous alcohol use. She reports that she does not use drugs. Additional Social History Y N Notes Do you live alone? [] [x] Who lives with you: Do you have children? [x] [] How many: 7 Do you currently work? [] [x] What type of work do you do: Do you have stairs in the home? [x] [] How many do you have to climb to enter your home: 2 What services do you currently receive at home? [] [x] Name: Do you have transportation to go to outpatient therapy if needed? [x] [] What Equipment do you have at home? [x] [] []Walker, []Crutches, []Commode Chair, []Shower []Chair, [x]cane, []bracing Are you followed by a cemetery manager? [] [x] Name: Are you followed by pain management? [] [x] Name: Are you followed by any other specialists? [] [x] Name: Outpatient Medications Prior to Visit Medication Sig Dispense Refill Biotin 49931 MCG tablet Take 10,000 mcg by mouth daily. multivitamin tablet Take 1 tablet by mouth daily. diclofenac EC [address] tablet Take 75 mg by mouth 2 times daily. Euthyrox 150 MCG tablet simvastatin 20 MG tablet No facility-administered medications prior to visit. Allergies: She has No Known Allergies. Y N Are you allergic to any metals? [] [x] If yes, what metals: Review of Systems System Y N Symptoms Constitutional [] [x] Weight Loss [] [x] Weight Gain [] [x] Chronic Fever [] [x] Insomnia Eyes [] [x] Resent Vision Change [] [x] Cataracts [] [x] Glaucoma [] [x] Any Hx of Metal Fragments in the Eye ENT [] [x] Loss of hearing [] [x] Hearing Aids [] [x] Seasonal Allergies [] [x] Dental Issues Cardiovascular [] [x] Chest Pain [] [x] Angina [] [x] Stent [] [x] Hypertension [] [x] Heart Murmur [] [x] Irregular Pulse [] [x] Pacemaker [] [x] Palpitations [x] [] High cholesteral Respiratory [] [x] Wheezing [] [x] Shortness of Breath [] [x] Pneumonia [] [x] Bronchitis [] [x] Sleep Apnea [] [x] COPD [] [x] Date/ LOC of last CXR: Gastrointestinal [] [x] Heartburn [] [x] Indigestion [] [x] Constipation [] [x] Ulcer [] [x] GI Stomach Bleed [] [x] Diarrhea [] [x] Colon Cancer [] [x] Acid Reflux [] [x] Blood in Stools Musculoskeletal [x] [] Arthritis [] [x] Muscle Weakness [x] [] Joint Pain [] [x] Back Pain [] [x] Fibromyalgia [] [x] Bone Infection [] [x] Swelling Multiple Joints [] [x] Reflex Sympathetic Dystrophy Skin [] [x] Chronic Rash [] [x] Ulcers [] [x] Eczema [] [x] Psoriasis [] [x] Skin Cancer [] [x] Melanoma Neurologic [] [x] Numbness [] [x] Weakness or loss of sensation in arms or legs [] [x] Leg Pain / Sciatica [] [x] Headaches [] [x] Loss of bowel or bladder control Psychiatric [] [x] Anxiety [] [x] Claustrophobia [] [x] Other Psychiatric Problems Hematologic [] [x] Easy Bruising [] [x] Easy Bleeding [] [x] Blood Transfusion Date: Endocrine [x] [] Hypothyroid [] [x] Hyperthyroid [] [x] Hot Flashes [] [x] Hormone Replacement [] [x] Prednisone Use Does pt have dentures? no documented in this encounter [facility] Evaluation note Diagnosis Right knee pain, unspecified chronicity- Primary Left knee pain, unspecified chronicity Primary osteoarthritis of right knee Primary localized osteoarthrosis, lower leg Pain in prosthetic joint, sequela [facility] Closed displaced fracture of surgical neck of right humerus, unspecified fracture morphology, initial encounter- Primary documented in this encounter [facility] Phone: Hospital Discharge instructions* Instructions* Rocael Rodriguez Jr., MD - 04/08/2022 Ice on the shoulder. Use the sling and swath until seen by Dr. Sawant on in the office. Call either today or tomorrow to confirm appointment in the morning on . Return if any problems. * Attachments The following attachments cannot be sent through Care Everywhere. * Arm Fracture (Ecuadorean) [facility] Phone: reason for referral (narrative)* Consultation (Routine) - Patient to Arrange Specialty Diagnoses / Procedures Referred By Isatu madden Referred To Contact Physical Therapy Diagnoses Primary osteoarthritis of right knee Pain in prosthetic joint, sequela Allen Colmenares MD [address] [place] [address] Referral ID Status Reason Start Date Expiration Date V isits Requested Visits Authorized [id number] Patient to Arrange 10/16/2021 11/10/2022 1 1 Scheduling Instructions . * Diagnostic X-Ray (Routine) - New Request Specialty Diagnoses / Procedures Referred By Isatu madden Referred To Contact Diagnoses Left knee pain, unspecified chronicity Procedures XR KNEE LEFT 3 VIEWS XR KNEE LEFT 4+ VIEWS Allen Colmenares MD [address] [place] [address] Referral ID Status Reason Start Date Expiration Date V isits Requested Visits Authorized [id number] New Request 10/04/2021 10/29/2022 1 1 * Diagnostic X-Ray (Routine) - Pending Review Specialty Diagnoses / Procedures Referred By Contac t Referred To Contact Diagnoses Left knee pain, unspecified chronicity Procedures XR BONE LENGTH STUDY Allen Colmenares MD [address] [place] [address] Referral ID Status Reason Start Date Expiration Date V isits Requested Visits Authorized [id number] Pending Review 10/04/2021 10/29/2022 1 1 * Diagnostic X-Ray (Routine) - Pending Review Specialty Diagnoses / Procedures Referred By Contac t Referred To Contact Diagnoses Right knee pain, unspecified chronicity Procedures XR KNEE RIGHT 4+ VIEWS Allen Colmenares MD [address] [place] [id number] Referral ID Status Reason Start Date Expiration Date V isits Requested Visits Authorized [id number] Pending Review 10/04/2021 10/29/2022 1 1 [facility] Purpose Family History No Family History Records FoundNo Family History Records Found Advance Directives No Advanced Directives Records FoundLatest Code Status on File Code Status Date Activated Date Inactivated Comments Full Code 12/22/2022 3:51 PM 12/23/2022 4:19 PM Healthcare Agents on File Name Relationship Healthcare Agent Relationshi p Communication Paulino Stan Spouse Primary Decision Maker 419-6 (Mobile) Healthcare Agents on File Name Relationship Healthcare Agent Relationshi p Communication Paulino Stan Spouse Primary Decision Maker 419-6 (Mobile) Healthcare Agents on File Name Relationship Healthcare Agent Relationshi p Communication Paulino Stan Spouse Primary Decision Maker 419-6 (Mobile) Healthcare Agents on File Name Relationship Healthcare Agent Relationshi p Communication Paulino Stan Spouse Primary Decision Maker 419-6 (Mobile) Healthcare Agents on File Name Relationship Healthcare Agent Relationshi p Communication Paulino Stan Spouse Primary Decision Maker 419-6 (Mobile) Healthcare Agents on File Name Relationship Healthcare Agent Relationshi p Communication Paulino Pierce Spouse Primary Decision Maker 419-6 (Mobile) Healthcare Agents on File Name Relationship Healthcare Agent Relationshi p Communication Paulino Pierce Spouse Primary Decision Maker 419-6 (Mobile) Latest Code Status on File Code Status Date Activated Date Inactivated Comments Full Code 12/22/2022 3:51 PM 12/23/2022 4:19 PM Healthcare Agents on File Name Relationship Healthcare Agent Relationshi p Communication Paulino Pierce Spouse Primary Decision Maker 419-6 (Mobile) Healthcare Agents on File Name Relationship Healthcare Agent Relationshi p Communication Paulino Pierce Spouse Primary Decision Maker Healthcare Agents on File Name Relationship Healthcare Agent Relationshi p Communication Paulino Pierce Spouse Primary Decision Maker 419-6 (Mobile) Additional Source Comments Reason for Visit (unrecogniz ed section and content) Specialty Diagnoses / Procedures Referred By Isatu t Referred To Contact Diagnoses Left knee pain, unspecified chronicity Procedures XR BONE LENGTH STUDY Allen Colmenares MD [address] [id number] Referral ID Status Reason Start Date Expiration Date V isits Requested Visits Authorized [id number] Pending Review 10/04/2021 10/29/2022 1 1 Reason Comments Pain New Patient Reason Comments Shoulder Pain right sided, patient fell after tripping over rock at approx 0900 Care Teams (unrecognized sec tion and content) Echocardiography Tech Relationship Specialty Start Date End Date Ricardo Winter MD [address] [place] [address] PCP - General Family Medicine 10/16/21 Echocardiography Tech Relationship Specialty Start Date End Date Ricardo Winter MD [address] [place] [id number] PCP - General Family Medicine 10/16/21 Echocardiography Tech Relationship Specialty Start Date End Date Ricardo Winter MD [address] [place] [id number] PCP - General Family Medicine 04/08/22 Echocardiography Tech Relationship Specialty Start Date End Date Ricardo Winter MD [address] [place] [address] PCP - General Family Medicine 04/08/22 Echocardiography Tech Relationship Specialty Start Date End Date Ricardo Winter MD [address] [place] [address] PCP - General Family Medicine 04/08/22 Echocardiography Tech Relationship Specialty Start Date End Date Ricardo Winter MD [address] [place] [id number] PCP - General Family Medicine 04/08/22 Echocardiography Tech Relationship Specialty Start Date End Date Ricardo Winter MD [address] [place] [id number] PCP - General Family Medicine 04/08/22 Echocardiography Tech Relationship Specialty Start Date End Date Ricardo Winter MD [address] [place] [id number] PCP - General Family Medicine 04/08/22 Echocardiography Tech Relationship Specialty Start Date End Date Ricardo Winter MD [address] [place] [address] PCP - General Family Medicine 04/08/22 Echocardiography Tech Relationship Specialty Start Date End Date Ricardo Winter MD [address] [place] [id number] PCP - General Family Medicine 04/08/22 Echocardiography Tech Relationship Specialty Start Date End Date Ricardo Winter MD [address] [place] [address] PCP - General Family Medicine 04/08/22 Echocardiography Tech Relationship Specialty Start Date End Date Ricardo Winter MD [address] [place] [id number] PCP - General Family Medicine 04/08/22 Echocardiography Tech Relationship Specialty Start Date End Date Ricardo Winter MD [address] [place] [id number] PCP - General Family Medicine 04/08/22 Ordered Prescriptions (unrec ognized section and content) Prescription Sig Dispensed Refills Start Date End Da te HYDROcodone-acetaminophen (NORCO) 5-325 MG per tabletIndications:Closed displaced fracture of surgical neck of right humerus, unspecified fracture morphology, initial encounter Take 1 tablet by mouth every 6 hours as needed for Pain for up to 4 days. 15 tablet 0 04/08/2022 04/12/2022 Scheduled Active and Recently Administ ered Medications (unrecognized section and content) Medication Order 04/06/2022 04/07/2022 04/08/2022 HYDROcodone-acetaminophen (NORCO) 5-325 MG per tablet 1 tablet (COMPLETED) 1 tablet, Oral, ONCE, 1 dose, On Thu04/08/22 at 1100, Maximum dose of acetaminophen is 4000 mg from all sources in 24 hours. 1103 (Given - Provid er: Patrica Giron RN) INFORMATION SOURCE (unrecogn ized section and content) DATE CREATED AUTHOR 07/19/2022 [facility] DATE CREATED AUTHOR AUTHOR'S ORGANIZ ATION 01/30/2023 Radha Klein [facility] FOR RECORDS PERTAINING TO PATIENTS WHO ARE OR HAVE BEEN ENROLLED IN A CHEMICAL DEPENDENCY/SUBSTANCEABUSE PROGRAM, SOME INFORMATION MAY BE OMITTED. This clinical summary was aggregated from multiple sources. Caution should be exercised in using it in the provision of clinical care. This summary normalizes information from multiple sources, and as a consequence, information in this document may materially change the coding, format and clinical context of patient data. In addition, data may be omitted in some cases. CLINICAL DECISIONS SHOULD BE BASED ON THE PRIMARY CLINICAL RECORDS. [email or web address] provides no warranty or guarantee of the accuracy or completeness of information in this document.
[2024-04-15 11:15] LABS: Free T3 2.58 pg/mL (2.18-3.98); Thyroid Stimulating Hormone 0.239 uIU/mL (0.358-3.740)
== END 2024-04-15 10:23 | disposition home or self-care (01) ==
LOC: LAB 10:24
PROVIDERS: PCP Family Medicine; Visit Provider Family Medicine
DX: E03.9 Hypothyroidism, unspecified (principal)
CPT/HCPCS: 36415; 84436; 84443; 84481

== ENCOUNTER 2024-07-08 10:16 | Outpatient (OUT) | payer MEDICARE, SELFPAY ==
--- OUTSIDE RECORDS SUMMARY | 2024-07-08 10:39 | XMS_ITS | CCD ---
Author Organization [facility] CliniSymi Care Team Providers Care Paper Pattern Folder Name Role Phone Ricardo Winter MD Primary Care Provider [phone] PANCHO, DR SILVA Consulting Unavailable HOY, DR SILVA Primary Care Unavailable HOY, DR SILVA Admitting Unavailable HOY, DR SILVA Attending Unavailable HOY, DR SILVA Attending Unavailable HOY, DR SILVA Consulting Unavailable HOY, DR SILVA Primary Care Unavailable HOY, DR SILVA Admitting Unavailable WEST, DR TOMAS Joel Consulting Unavailable HOY, DR SILVA Consulting Unavailable HOY, DR SILVA Primary Care Unavailable HOY, DR SILVA Admitting Unavailable HOY, DR SILVA Attending Unavailable HOY, DR SILVA Consulting Unavailable HOY, DR SILVA Primary Care Unavailable HOY, DR SILVA Admitting Unavailable HOY, DR SILVA Attending Unavailable Ricardo Winter MD Primary Care Provider [phone] RICARDO WINTER Primary Care Unavailable EVANGELISTA, BARBIE [...] E Admitting Unavailable MEKHI SKY Consulting Unavailable HOY, RICARDO M Primary Care Unavailable EVANGELISTA, BARBIE E Referring Unavailable HOY, RICARDO M Primary Care Unavailable EVANGELISTA, BARBIE E Referring Unavailable HOY, RICARDO M Primary Care Unavailable EVANGELISTA, BARBIE E Referring Unavailable HOY, RICARDO M Primary Care Unavailable ROCAEL RODRIGUEZ JR Attending Unavailable Medications Current Medications Medication Drug Class(es) Dates [...] 1 tablet by mouth once daily Biotin 35993 MCG tablet Take 10,000 mcg by mouth daily. 0 Active celecoxib 200 mg oral capsule (2 sources) Nonsteroidal Anti-inflammatory Drug Start: 021 take 1 capsule by mouth once daily celecoxib 200 MG capsule Take 1 capsule by mouth daily. 30 capsule 0 10/16/2021 Active cholecalciferol 0.05 mg oral capsule (15 sources) Vitamin D Cholecalciferol (VITAMIN D) 50 MCG (1999 [place]) CAPS capsule Take by mouth daily 0 Active diclofenac sodium 75 mg delayed release oral tablet (2 sources) Nonsteroidal Anti-inflammatory Drug Start: take 1 tablet by mouth twice daily diclofenac EC [address] tablet Take 75 mg by mouth 2 times daily. 0 10/09/2021 Active levothyroxine sodium 0.15 mg oral tablet (18 sources) l-Thyroxine Start: Euthyrox 150 MCG tablet take 1 tablet [...] (13 sources) Factor Xa Inhibitor Start: 12-24-19 take 1 tablet by mouth once daily at breakfast rivaroxaban (XARELTO) 10 MG TABS tablet Take 1 tablet by mouth daily (with breakfast) 12 tablet 0 12/23/2022 Active simvastatin 20 mg oral tablet (18 sources) HMG-CoA Reductase Inhibitor Start: 08-29-20 simvastatin 20 MG tablet Problems Active Problems Problem Classification Problem Date [...] Translations: [ENCOUNTER FOR IMMUNIZATION] Onset: 08-14-2021 Episodic Results Test Name Value Interpretation Reference Range Facility Hgb/Hcton 12-23-2022 Hematocrit (Bld) [Volume fraction] 37.0 % Normal 36.3-47.1 [facility] Comment on above: Performed By: #### H H #### [facility] [address] [place] [address] [place] [address] Rv Mechanic: Tomas Campos MD Hemoglobin (Bld) [Mass/Vol] 12.4 g/dL Normal 11.9-15.1 [facility] Comment on above: Performed By: #### H H #### [address] [place] [address] Rv Mechanic: Tomas Campos MD OPERATIVE REPORTon OPERATIVE REPORT [address] [id number] OPERATIVE REPORT PATIENT NAME: GLORY PIERCE : 1955 MED REC NO: [id number] ROOM: [facility]8 ACCOUNT NO: [id number] ADMIT DATE: 12/22/2022 PROVIDER: Barbie Sawant DATE OF PROCEDURE: 12/22/2022 PREOPERATIVE DIAGNOSIS: Degenerative arthritis of right knee. POSTOPERATIVE DIAGNOSIS: Degenerative arthritis of right knee. PROCEDURE PERFORMED: Right total knee replacement using a Carlos Persona knee, size 10 standard cemented femoral component, size G stemmed tibial plateau with a stem extension, a 38-mm patellar dome, and a 14-mm MC poly. SURGEON: Dr. Barbie Sawant. ANESTHESIA: Spinal. DESCRIPTION OF PROCEDURE: The [...] to go with a 38-mm patellar dome. [place] holes were placed. The knee was then [...] layer was then closed with #1 Vicryl pnrihq-ir-ubhll sutures over two Hemovac drains. The tourniquet [...] loss 200 mL. BARBIE SAWANT [id number] Doc#: [id number] CC: [facility] EKG 12 LeadOrdered By: Praveen Purdy on 12-10-2022 Atrial Rate 66 BPM [employer] Work Phone: P [place] 48 degrees [employer] Work Phone: P-R Interval 198 ms [employer] Work Phone: Q-T Interval 414 ms [employer] Work Phone: QRS Duration 78 ms [employer] Phone: QTc Calculation (Bazett) 434 ms [employer] Phone: R [place] 17 degrees [employer] Phone: T [place] 43 degrees [employer] Work Phone: Ventricular Rate 66 BPM Emb[employer] Work Phone: [employer]Fine Phone: EKG 12 Leadon 12-10-2022 Normal sinus rhythm Normal ECG No previous ECGs available Confirmed by KULWINDER PURDY ([id number]) on 12/10/2022 11:07:16 PM [facility] Kulwinder Purdy MD - 12/10/2022 Normal sinus rhythm Normal ECG No previous ECGs available Confirmed by KULWINDER PURDY ([id number]) on 12/10/2022 11:07:16 PM [employer] Work Phone: MRSA DNA Probe, Nasalon 11-20 MRSA, DNA, Nasal Negative NEGATIVE Embedded Chat Comment on above: NEGATIVE: MRSA DNA n ot detected by nucleic acid amplification. Results should be used as an adjunct to nosocomial control efforts to identify patients needing enhanced precautions. The test is not intended to identify patients with staphylococcal infections. Results should not be used to guide or monitor treatment for MRSA infections. Specimen Description .NASAL SWAB [facility] MRSA, DNA, Nasalon MRSA, DNA, Nasal Negative Normal [facility] Comment on above: Result Comment: DAVID FARFAN: MRSA DNA not detected by nucleic acid amplification. Results should be used as an adjunct to nosocomial control efforts to identify patients needing enhanced precautions. The test is not intended to identify patients with staphylococcal infections. Results should not be used to guide or monitor treatment for MRSA infections. Performed By: #### M RSANO #### [facility] [address] [place] [address] Rv Mechanic: Virgilio Sullivan MD [facility] [address] [place] [address] Rv Mechanic: Tomas Campos MD Basic Metabolic Panelon 11-20 Anion gap [Moles/Vol] 6 mmol/L Low 9 - 17 mmol/L [facility] Calcium [Mass/Vol] 9.7 mg/dL 8.6 - 10. 4 mg/dL [facility] Chloride [Moles/Vol] 103 mmol/L 98 - 10 7 mmol/L [facility] CO2 [Moles/Vol] 30 mmol/L 20 - 31 mmol/L [facility] Creatinine [Mass/Vol] 0.7 mg/dL 0.50 - 0.90 mg/dL [facility] GFR/1.73 sq M.predicted MDRD (S/P/Bld) [Vol rate/Area] - PINF [facility] Comment on above: These results are not [...] 118 mg/dL High 70 - 99 mg/dL [facility] Interpretation and review of laboratory results Abnormal [facility] Potassium [Moles/Vol] 4.9 mmol/L 3.7 - 5.3 mmol/L [facility] Sodium [Moles/Vol] 139 mmol/L 135 - 144 mmol/L [facility] Urea nitrogen [Mass/Vol] 12 mg/dL 8 - 23 mg/dL [facility] Urea nitrogen/Creatinine (Bld) [Mass ratio] 17 9 - 20 [facility] Basic Metabolic Profon 12-09 Anion gap [Moles/Vol] 6 mmol/L Low 9-17 [facility] Comment on above: Performed By: #### B MP, CDP #### [facility] [address] [place] [address] Rv Mechanic: Tomas Campos MD BUN/CRE Ratio 17 Normal 9- [facility] Comment on above: Performed By: #### B DASIA, CDP #### [facility] [address] [place], [place] [address] Rv Mechanic: Tomas Campos MD Calcium [Mass/Vol] 9.7 mg/dL Normal 8.6-10.4 [facility] Comment on above: Performed By: #### B DASIA, CDP #### [facility] [address] [place], [place] [id number] Rv Mechanic: Tomas Campos MD Chloride [Moles/Vol] 103 mmol/L Normal 98-107 [facility] Comment on above: Performed By: #### B MP, CDP #### [facility] [address] [place], [place] [id number] Rv Mechanic: Tomas Campos MD CO2 [Moles/Vol] 30 mmol/L Normal 20-31 [facility] Comment on above: Performed By: #### B MP, CDP #### [facility] [address] [place] [address] Rv Mechanic: Tomas Campos MD Creatinine [Mass/Vol] 0.70 mg/dL Normal 0.50-0.90 [facility] Comment on above: Performed By: #### B DASIA, CDP #### [facility] [address] [place] [address] Rv Mechanic: Tomas Campos MD GFR/1.73 sq M.predicted among non-blacks MDRD (S/P/Bld) [Vol rate/Area] mL/min/{1.73_m2} Normal >60 [facility] Comment on above: Result Comment: These results [...] Performed By: #### B DASIA, CDP #### [facility] [address] [place] [address] [address] [place], [place] [id number] Rv Mechanic: Tomas Campos MD Glucose [Mass/Vol] 118 mg/dL High 70-99 [facility] Comment on above: Performed By: #### B DASIA, CDP #### [address] [place], [place] [id number] Rv Mechanic: Tomas Campos MD Potassium [Moles/Vol] 4.9 mmol/L Normal 3.7-5.3 [facility] Comment on above: Performed By: #### B DASIA, CDP #### [facility] [address] [place], [place] [id number] Rv Mechanic: Tomas Campos MD Sodium [Moles/Vol] 139 mmol/L Normal 135-144 [facility] Comment on above: Performed By: #### B DASIA, CDP #### [facility] [address] [place] [address] Rv Mechanic: Tomas Campos MD Urea nitrogen [Mass/Vol] 12 mg/dL Normal 8-23 [facility] Comment on above: Performed By: #### B MP, CDP #### [facility] [address] [place] [address] Rv Mechanic: Tomas Campos MD CBC with Auto Differentialon 12-09-2022 Absolute Eos # 0.21 [facility] Absolute Immature Granulocyte 0.03 [facility] Absolute Lymph # 1.48 [facility] Absolute Kings # 0.49 [facility] Basophils (Bld) [#/Vol] 0.04 10*3/uL [facility] Basophils/100 WBC (Bld) 1 % 0 - 2 % [facility] Eosinophils/100 WBC (Bld) 4 % 1 - 4 % [facility] Hematocrit (Bld) [Volume fraction] 45.3 % 36.3 - 47.1 % [facility] Hemoglobin (Bld) [Mass/Vol] 14.4 g/dL 11.9 - 15.1 g/dL [facility] Immature granulocytes/100 WBC (Bld) 1 % High 0 [facility] Interpretation and review of laboratory results Abnormal [facility] Lymphocytes/100 WBC (Bld) 29 % 24 - 43 % [facility] MCH (RBC) [Entitic mass] 29.0 pg 25.2 - 33.5 pg [facility] MCHC (RBC) [Mass/Vol] 31.8 g/dL 28.4 - 34.8 g/dL [facility] MCV (RBC) [Entitic vol] 91.3 fL 82.6 - 102.9 fL [facility] Monocytes/100 WBC (Bld) 10 % 3 - 12 % [facility] NRBC Automated 0.0 0.0 per 100 WBC [facility] Platelet distribution width (Bld) [Ratio] 12.5 % 11.8 - 14.4 % [facility] Platelet mean volume (Bld) [Entitic vol] 11.1 fL 8.1 - 13.5 fL [facility] Platelets (Bld) [#/Vol] 211 10*3/uL [facility] RBC (Bld) [#/Vol] 4.96 10*6/uL 3.95 - 5.1 1 m/uL [facility] Segmented neutrophils/100 WBC (Bld) 55 % 36 - 65 % [facility] Segs Absolute 2.85 [facility] WBC (Bld) [#/Vol] 5.1 10*3/uL [facility] CBC with Diffon 12-09-2022 Abs. Basophil 0.04 k/uL Normal 0.00-0.20 [facility] Comment on above: Performed By: #### B DASIA, CDP #### [address] [place] [address] Rv Mechanic: Tomas Campos MD Abs.Imm.Granulocyte 0.03 k/uL Normal 0.00-0.30 [facility] Comment on above: Performed By: #### B DASIA, CDP #### [address] [place], [place] [id number] Rv Mechanic: Tomas Campos MD Abs.Neutrophil (Seg) 2.85 k/uL Normal 1.50-8.10 [facility] Comment on above: Performed By: #### B DASIA, CDP #### [address] [place], [place] [id number] Rv Mechanic: Tomas Campos MD Basophils/100 WBC (Bld) 1 % Normal 0-2 [facility] Comment on above: Performed By: #### B DASIA, CDP #### [address] [place], [place] [id number] Rv Mechanic: Tomas Campos MD Eosinophils (Bld) [#/Vol] 0.21 10*3/uL Normal 0.00-0.44 [facility] Comment on above: Performed By: #### B DASIA, CDP #### [address] [place] [address] Rv Mechanic: Tomas Campos MD Eosinophils/100 WBC (Bld) 4 % Normal 1-4 [facility] Comment on above: Performed By: #### B MP, CDP #### [facility] [address] [place], [facility] Rv Mechanic: Tomas Campos MD Erythrocyte distribution width (RBC) [Ratio] 12.5 % Normal 11.8-14.4 [facility] Comment on above: Performed By: #### B MP, CDP #### [facility] [address] [place], [facility] Rv Mechanic: Tomas Campos MD Hematocrit (Bld) [Volume fraction] 45.3 % Normal 36.3-47.1 [facility] Comment on above: Performed By: #### B MP, CDP #### [address] [place], [facility] Rv Mechanic: Tomas Campos MD Hemoglobin (Bld) [Mass/Vol] 14.4 g/dL Normal 11.9-15.1 [facility] Comment on above: Performed By: #### B MP, CDP #### [address] [place], [place] [id number] Rv Mechanic: Tomas Campos MD Immature granulocytes/100 WBC (Bld) 1 % High 0 [facility] Comment on above: Performed By: #### B MP, CDP #### [facility] [address] [place] [address] Dr. [place], [facility]83 Rv Mechanic: Tomas Campos MD Lymphocytes (Bld) [#/Vol] 1.48 10*3/uL Normal 1.10-3.70 [facility] Comment on above: Performed By: #### B MP, CDP #### [facility] [address] [place] [address] Dr. [place], [place] [id number] Rv Mechanic: Tomas Campos MD Lymphocytes/100 WBC (Bld) 29 % Normal 24-43 [facility] Comment on above: Performed By: #### B MP, CDP #### [facility] [address] [place] [address] Rv Mechanic: Tomas Campos MD MCH (RBC) [Entitic mass] 29.0 pg Normal 25.2-33.5 [facility] Comment on above: Performed By: #### B MP, CDP #### [address] [place] [address] Rv Mechanic: Tomas Campos MD MCHC (RBC) [Mass/Vol] 31.8 g/dL Normal 28.4-34.8 [facility] Comment on above: Performed By: #### B MP, CDP #### [address] [place] [address] Rv Mechanic: Tomas Campos MD MCV (RBC) [Entitic vol] 91.3 fL Normal 82.6-102.9 [facility] Comment on above: Performed By: #### B MP, CDP #### [address] [place], [place] [id number] Rv Mechanic: Tomas Campos MD Monocytes (Bld) [#/Vol] 0.49 10*3/uL Normal 0.10-1.20 [facility] Comment on above: Performed By: #### B MP, CDP #### [address] [place], [facility] Rv Mechanic: Tomas Campos MD Monocytes/100 WBC (Bld) 10 % Normal 3-12 [facility] Comment on above: Performed By: #### B MP, CDP #### [facility] [address] [place] [address] Dr. [place], [place] [id number] Rv Mechanic: Tomas Campos MD Neutrophil (Seg) 55 % Normal 36-[address] [facility] Comment on above: Performed By: #### B MP, CDP #### [facility] [address] [place] [address] Dr. [place], [facility]83 Rv Mechanic: Tomas Campos MD NRBC Automated 0.0 per 100 WBC Normal 0.0 [facility] Comment on above: Performed By: #### B DASIA, CDP #### [facility] [address] [place], [place] [phone] Rv Mechanic: Tomas Campos MD Platelet mean volume (Bld) [Entitic vol] 11.1 fL Normal 8.1-13.5 [facility] Comment on above: Performed By: #### B MP, CDP #### [facility] [address] [place] [address] Rv Mechanic: Tomas Campos MD Platelets (Bld) [#/Vol] 211 10*3/uL Normal 138-453 [facility] Comment on above: Performed By: #### B DASIA, CDP #### [address] [place] [address] Rv Mechanic: Tomas Campos MD RBC (Bld) [#/Vol] 4.96 10*6/uL Normal 3.95-5.11 [facility] Comment on above: Performed By: #### B DASIA, CDP #### [address] [place] [address] Rv Mechanic: Tomas Campos MD WBC (Bld) [#/Vol] 5.1 10*3/uL Normal 3.5-11.3 [facility] Comment on above: Performed By: #### B MP, CDP #### [facility] [address] [place] [address] Dr[place], [place] [id number] Rv Mechanic: Tomas Campos MD MRSA, DNA, Nasalon 3 Specimen Description .NASAL SWAB Normal [facility] Comment on above: Performed By: #### M RSANO #### [facility] [address] [place] [id number] Rv Mechanic: Virgilio Sullivan MD [facility] [address] [place] [address] Rv Mechanic: Tomas Campos MD TYPE AND SCREENon 12-09-2022 ABO/Rh Positive [facility] Arm Band Number [id number] [facility] Expiration Date 12/25/2022,2359 [facility] Type + Screenon 12-09-2022 Type + Screen Sample Expiration 12/25/2022,2359 Arm Band Number [id number] ABO/Rh(D) A POSITIVE Antibody Screen NEGATIVE Normal [facility] Comment on above: Performed By: #### T YS #### [facility] [address] [place] [address] Rv Mechanic: Tomas Campos MD MG MAMM SCREEN 3D JUAN FRANCISCO CADon 07-08-2022 MG MAMM SCREEN 3D JUAN FRANCISCO CAD Patient: GLORY PIERCE Exam Date: 07/08/2022 : 1955 Gender:F Ordering : DR RICARDO WINTER . Admission #: [id number] Family : Order #: [id number] CLICK HERE TO VIEW EXAM RADIOLOGY REPORT [...] bladder cancer at age 72. LOCATION: [facility] BREAST COMPOSITION: Scattered areas fibroglandular density. FINDINGS: [...] MD on 07/08/2022 at 11:23 Normal [facility] INSULINon 06-09-2022 Insulin 22.7 uIU/mL Normal 2.6-24.9 [facility] Comment on above: Performed By: #### I NSULIN #### [facility] [address] [address] [address] Trey Higgins OCC BLD IMMUNO SCREENon 05-20 OCCULT BLOOD Negative Normal NEGATIVE [facility] Comment on above: Performed By: #### O BSCRN #### [facility] [address] [address] [address] Trey Higgins T4, T3U, FTI LABCORPon 06-08 Free Thyroxine Index 2.4 Normal 1.2-4.9 [facility] Comment on above: Performed By: #### T HYLC #### [facility] [address] [address] [address] Trey Higgins T3 Uptake 26 % Normal 24-39 [facility] Comment on above: Performed By: #### T HYLC #### [facility] [address] [address] [address] Trey Higgins T4 [Mass/Vol] 9.1 ug/dL Normal 4.5-12.0 [facility] Comment on above: Performed By: #### T HYLC #### [facility] [address] [address] [address] Trey Higgins VIT D 25-OH LABCORPon 2021 Vitamin D, 25-Hydroxy 22.7 ng/mL Critically low 30.0-100.0 [facility] Comment on above: Result Comment: Gia min D deficiency has been defined by the [place] [employer] and an Endocrine Society practice guideline as a level of serum 25-OH vitamin D less than 20 ng/mL (1,2). The Endocrine Society went on to further define vitamin D insufficiency as a level between 21 and 29 ng/mL (2). 1. IOM ([employer]). 2010. Dietary reference intakes for calcium and D. Pal [place]: The National Academies Press. 2. Melvi MF, Leon WATT, Jyoti CHILDS, et al. Evaluation, treatment, and prevention of vitamin D deficiency: an Endocrine Society clinical practice guideline. JCEM. 2010; 96(7):1911-30. Performed By: #### V ITADLC #### [facility] [address] [address] [address] Trey Higgins CBC AUTO DIFFon 06-07-2022 BASO # 0.0 103/ul Normal 0.0-0.1 [facility] Comment on above: Performed By: #### C BC ####[facility] [address] [address]11DrMickie Higgins Basophils/100 WBC (Bld) 1.0 % Normal 0.2-2.0 [facility] Comment on above: Performed By: #### C BC ####[facility] [address] [place] [address]DrMickie Higgins EO # 0.3 103/ul Normal 0.0-0.7 [facility] Comment on above: Performed By: #### C BC ####[facility] [address] [place] [address]DrMickie Higgins Eosinophils/100 WBC (Bld) 6.4 % Normal 0.9-7.0 [facility] Comment on above: Performed By: #### C BC ####[facility] [address] [place] [address]DrMickie Higgins Erythrocyte distribution width (RBC) [Ratio] 13.2 % Normal 11.0-15.0 [facility] Comment on above: Performed By: #### C BC ####[facility] [address] [place] [address]DrMickie Higgins Hematocrit (Bld) [Volume fraction] 41.6 % Normal 36.0-48.0 [facility] Comment on above: Performed By: #### C BC ####[facility] [address] [place] [address]DrMickie Higgins Hemoglobin (Bld) [Mass/Vol] 13.4 g/dL Normal 12.0-16.0 [facility] Comment on above: Performed By: #### C BC ####[facility] [address] [place] [address]Dr. Trey Higgins IG # 0.03 10e3/ul Normal 0.00-0.03 [facility] Comment on above: Performed By: #### C BC ####[facility] [address] [place] [address]Dr. Trey Higgins IG % 0.7 % Critically high 0.0-0.5 [facility] Comment on above: Performed By: #### C BC ####[facility] [address] [address]Dr. Trey Higgins LYMPH # 1.4 103/ul Normal 1.2-3.8 [facility] Comment on above: Performed By: #### C BC ####[facility] [address] [place] [address]Dr. Ashleymartin Higgins Lymphocytes/100 WBC (Bld) 32.8 % Normal 20.5-60.0 [facility] Comment on above: Performed By: #### C BC ####[facility] [address] [address]Dr. Trey Higgins MANUAL DIFF REQ NO Normal [facility] Comment on above: Performed By: #### C BC ####[facility] [address] [address]Dr. Trey Higgins MCH (RBC) [Entitic mass] 29.1 pg Normal 26.7-34.0 [facility] Comment on above: Performed By: #### C BC ####[facility] [address] [place] [address]Dr. Trey Higgins MCHC (RBC) [Mass/Vol] 32.2 g/dL Normal 29.9-35.2 [facility] Comment on above: Performed By: #### C BC ####[facility] [address] [address]Dr. Trey Higgins MCV (RBC) [Entitic vol] 90.4 fL Normal 81.0-99.0 [facility] Comment on above: Performed By: #### C BC ####[facility] [address] [place] [address]Dr. Trey Higgins MONO # 0.4 103/ul Normal 0.3-0.8 [facility] Comment on above: Performed By: #### C BC ####[facility] [address] [place] [address]Dr. Trey Higgins Monocytes/100 WBC (Bld) 9.0 % Normal 1.7-12.0 [facility] Comment on above: Performed By: #### C BC ####[facility] [address] [place] [id number]. Trey Higgins NEUT # 2.1 103/ul Normal 1.4-6.5 [facility] Comment on above: Performed By: #### C BC ####[facility] [id number] [place] [address]Dr. Trey Higgins Neutrophils/100 WBC (Bld) 50.1 % Normal 43.0-75.0 [facility] Comment on above: Performed By: #### C BC ####[facility] [id number] [place] [id number]. Trey Higgins Platelet mean volume (Bld) [Entitic vol] 10.9 fL Normal 9.5-13.5 [facility] Comment on above: Performed By: #### C BC ####[facility] [id number] [place] [address]Dr. Trey Higgins PLT 182 103/ul Normal 150-450 [facility] Comment on above: Performed By: #### C BC ####[facility] [id number] [place] [id number]. Trey Higgins RBC 4.60 106/ul Normal 4.20-5.40 [facility] Comment on above: Performed By: #### C BC ####[facility] [id number] [place] [id number]. Trey Higgins WBC 4.2 103/ul Normal 4.0-11.0 [facility] Comment on above: Performed By: #### C BC ####[facility] [id number] [place], [place] [address]Dr. Trey Higgins GLYCOHEMOGLOBIN A1Con 2021 ADA RECOMMENDATION SEE BELOW Normal [facility] Comment on above: Result Comment: ADA RECOMMENDED LIMIT 4.0 - 6.0 ADA THERAPEUTIC TARGET < 7.0 ACTION SUGGESTED > 7.0 Performed By: #### A 1C #### [facility] [address] [place] [address] [address] Trey Higgins Glucose [Mass/Vol] 103 mg/dL Normal [facility] Comment on above: Performed By: #### A 1C #### [facility] [address] [place] [address] [address] Trey Higgins HbA1c (Bld) [Mass fraction] 5.2 % Normal 4.5-6.2 [facility] Comment on above: Performed By: #### A 1C #### [facility] [address] [place] [address] [address] Trey Higgins IRONon 06-07-2022 Iron [Mass/Vol] 71.0 ug/dL Normal 50.0-170.0 [facility] Comment on above: Performed By: #### I SELENE #### [facility] [address] [place] [address] [address] Trey Higgins LIPID PROFILEon 06-07-2022 CHOL-HDL RATIO NORM SEE BELOW Normal [facility] Comment on above: Result Comment: 3.3 - 4.4 LOW RISK 4.4 - 7.1 AVERAGE RISK 7.1 - 11.0 MODERATE RISK >11.0 HIGH RISK Performed By: #### L IPID, TSH, CMP #### [facility] [address] [place] [address] [address] Trey Higgins Cholesterol [Mass/Vol] 182 mg/dL Normal <=200 [facility] Comment on above: Performed By: #### L IPID, TSH, CMP #### [facility] [address] [place] [address] [address] Trey Higgins Cholesterol in HDL [Mass/Vol] 45 mg/dL Normal 40-60 [facility] Comment on above: Performed By: #### L IPID, TSH, CMP #### [facility] [address] [place] [address] [address] Trey Higgins Cholesterol in LDL [Mass/Vol] 97.8 mg/dL Normal [facility] Comment on above: Performed By: #### L IPID, TSH, CMP #### [facility] [address] [place] [address] [address] Trey Higgins Cholesterol.total/Chol esterol in HDL [Mass ratio] 4.0 {ratio} Normal [facility] Comment on above: Performed By: #### L IPID, TSH, CMP #### [facility] [address] [place] [address] [address] Trey Higgins HDL NORMAL > or = 60 mg/dl - LOW CARDIOVASCULAR RISK <40 mg/dl - HIGH CARDIOVASCULAR RISK Normal [facility] Comment on above: Performed By: #### L IPID, TSH, CMP #### [facility] [address] [place] [address] Dr. Trey Higgins LDL CALC NORMAL SEE BELOW Normal [facility] Comment on above: Result Comment: <100 mg/dl OPTIMAL 100 - 129 mg/dl NEAR OR ABOVE OPTIMAL 130 - 159 mg/dl BORDERLINE HIGH 160 - 189 mg/dl HIGH >190 mg/dl VERY HIGH Performed By: #### L IPID, TSH, CMP #### [facility] [address] [place] [address] Dr. Trey Higgins Triglyceride [Mass/Vol] 196 mg/dL Critically high <=150 [facility] Comment on above: Performed By: #### L IPID, TSH, CMP #### [facility] [address] [place] [address] [address] Trey Higgins VLDL CALC 39.2 mg/dL Normal [facility] Comment on above: Performed By: #### L IPID, TSH, CMP #### [facility] [address] [place] [address] Dr. Trey Higgins PROF 14(COMP METB)on 022 Albumin [Mass/Vol] 4.0 g/dL Normal 3.4-5.0 [facility] Comment on above: Performed By: #### L IPID, TSH, CMP #### [facility] [address] [place] [address] [address] Trey Higgins Albumin/Globulin [Mass ratio] 1.3 {ratio} Normal [facility] Comment on above: Performed By: #### L IPID, TSH, CMP #### [facility] [address] [place] [address] [address] Trey Higgins ALP [Catalytic activity/Vol] 95 U/L Normal 46-116 [facility] Comment on above: Performed By: #### L IPID, TSH, CMP #### [facility] [address] [place] [address] [address] Trey Higgins ALT [Catalytic activity/Vol] 46 U/L Normal 14-59 [facility] Comment on above: Performed By: #### L IPID, TSH, CMP #### [facility] [address] [place] [address] [address] Trey Higgins Anion gap [Moles/Vol] 14.2 mmol/L Normal [facility] Comment on above: Performed By: #### L IPID, TSH, CMP #### [facility] [address] [place] [address] [address] Trey Higgins AST [Catalytic activity/Vol] 23 U/L Normal 15-37 [facility] Comment on above: Performed By: #### L IPID, TSH, CMP #### [facility] [address] [place] [address] [address] Trey Higgins Bilirubin [Mass/Vol] 0.6 mg/dL Normal 0.2-1.0 [facility] Comment on above: Performed By: #### L IPID, TSH, CMP #### [facility] [address] [place] [address] [address] Trey Higgins Calcium [Mass/Vol] 8.8 mg/dL Normal 8.5-10.1 [facility] Comment on above: Performed By: #### L IPID, TSH, CMP #### [facility] [address] [place] [address] [address] Trey Higgins Chloride [Moles/Vol] 105 mmol/L Normal 98-107 [facility] Comment on above: Performed By: #### L IPID, TSH, CMP #### [facility] [address] [place] [address] [address] Trey Higgins CO2 [Moles/Vol] 28.0 mmol/L Normal 21.0-32.0 [facility] Comment on above: Performed By: #### L IPID, TSH, CMP #### [facility] [address] [place] [address] [address] Trey Higgins Creatinine [Mass/Vol] 0.74 mg/dL Normal 0.55-1.02 [facility] Comment on above: Performed By: #### L IPID, TSH, CMP #### [facility] [address] [place] [address] [address] Trey Higgins EGFR-AF BELARUSIAN >60 Normal >=60 [facility] Comment on above: Performed By: #### L IPID, TSH, CMP #### [facility] [address] [place] [address] [address] Trey Higgins EGFR-NON AF BELARUSIAN >60 Normal >=60 [facility] Comment on above: Performed By: #### L IPID, TSH, CMP #### [facility] [address] [place] [address] [address] Trey Higgins Globulin (S) [Mass/Vol] 3.0 g/dL Normal [facility] Comment on above: Performed By: #### L IPID, TSH, CMP #### [facility] [address] [place] [address] [address] Trey Higgins Glucose [Mass/Vol] 115 mg/dL Critically high 74-106 [facility] Comment on above: Performed By: #### L IPID, TSH, CMP #### [facility] [address] [place] [address] [address] Trey Higgins Potassium [Moles/Vol] 4.2 mmol/L Normal 3.5-5.1 [facility] Comment on above: Performed By: #### L IPID, TSH, CMP #### [facility] [address] [address] [address] Trey Higgins Protein [Mass/Vol] 7.0 g/dL Normal 6.4-8.2 [facility] Comment on above: Performed By: #### L IPID, TSH, CMP #### [facility] [address] [place] [address] Dr. Trey Higgins Sodium [Moles/Vol] 143 mmol/L Normal 136-145 [facility] Comment on above: Performed By: #### L IPID, TSH, CMP #### [facility] [address] [place] [address] Dr. Trey Higgins Urea nitrogen [Mass/Vol] 15.0 mg/dL Normal 7.0-18.0 [facility] Comment on above: Performed By: #### L IPID, TSH, CMP #### [facility] [address] [place] [address] Dr. Trey Higgins Urea nitrogen/Creatinine [Mass ratio] 20.3 mg/mg Normal [facility] Comment on above: Performed By: #### L IPID, TSH, CMP #### [facility] [address] [place] [address] Dr. Trey Higgins TSHon 06-07-2022 TSH 3.646 uIU/mL Normal 0.358-3.740 [facility] Comment on above: Performed By: #### L IPID, TSH, CMP #### [facility] [address] [place] [address] Dr. Trey Higgins No Panel Informationon 04-08 Minimally displaced fracture of the humeral head/neck [facility] RIS CONSOLIDATED EXAMINATION: THREE XRAY VIEWS OF THE RIGHT SHOULDER; TWO XRAY VIEWS OF THE RIGHT HUMERUS 04/08/2022 10:31 am COMPARISON: None. HISTORY: ORDERING SYSTEM PROVIDED HISTORY: fall TECHNOLOGIST PROVIDED HISTORY: fall FINDINGS: There is a minimally displaced fracture of the humeral head/neck. The humeral head remains articulated with the glenoid. [facility] RIS CONSOLID[facility] Rory Ratliff P - [...] Minimally displaced fracture of the humeral head/neck [employer] Work Phone: No Panel InformationOrdered By: Rory Ratliff on 04-08-2022 [employer] Phone: XR HUMERUS RIGHT (MIN 2 VIEW [...] by: Rory Ratliff 04/08/22 Final result Normal [facility] Radiology Study observation (narrative) [employer] Work Phone: XR SHOULDER RIGHT (MIN 2 VIE WS)on [...] by: Rory Ratliff 04/08/22 Final result Normal [facility] Radiology Study observation (narrative) [employer] Phone: Vital Signs Date Time Vital Sign Value Performing Clinician Eldon [email or web address] 12-09-2022 08:50-0500 Body height 172.7 cm Barbie Sawant MD Work Phone: [employer] 12-09-2022 08:50-0500 Body mass index (BMI) [Ratio] 42.74 kg/m2 Barbie Sawant MD Work Phone: [employer] 12-09-2022 08:50-0500 Body temperature 97.7 [degF] Barbie Sawant MD Work Phone: [facility] [employer] 12-09-2022 08:50-0500 Body weight 127.51 kg Barbie Sawant MD Work Phone: [facility] [employer] 12-09-2022 08:50-0500 Diastolic blood pressure 77 mm[Hg] Barbie Sawant MD Work Phone: [employer] 12-09-2022 08:50-0500 Heart rate 70 /min Barbie Sawant MD Work Phone: [facility] [employer] 12-09-2022 08:50-0500 Respiratory rate 20 /min Barbie Sawant MD Work Phone: [facility] [employer] 12-09-2022 08:50-0500 SaO2% (BldA) [Mass fraction] 94 % Barbie Sawant MD Work Phone: [facility] [employer] 12-09-2022 08:50-0500 Systolic blood pressure 137 mm[Hg] Barbie Sawant MD Work Phone: [facility] [employer] 04-08-2022 10:25-0400 Diastolic blood pressure 76 mm[Hg] Rocael Rodriguez Jr., MD Work Phone: [facility] [employer] 04-08-2022 10:25-0400 Systolic blood pressure 158 mm[Hg] Rocael Rodriguez Jr., MD Work Phone: [facility] [employer] 04-08-2022 10:19-0400 Body temperature 97.81 [degF] Rocael Rodriguez Jr., MD Work Phone: [facility] [employer] 04-08-2022 10:19-0400 Heart rate 91 /min Rocael Rodriguez Jr., MD Work Phone: [employer] 04-08-2022 10:19-0400 Respiratory rate 16 /min Rocael Rodriguez Jr., MD Work Phone: [facility] 04-08-2022 10:19-0400 SaO2% (BldA) [Mass fraction] 96 % Rocael Rodriguez Jr., MD Work Phone: [facility] 10-16-2021 09:07-0500 Body height 172.7 cm Allen Colmenares MD Work Phone: [facility] [employer] [facility] 10-16-2021 09:07-0500 Body mass index (BMI) [Ratio] 44.85 kg/m2 Allen Colmenares MD Work Phone: [employer] 10-16-2021 09:07-0500 Body temperature 97 [degF] Allen Colmenares MD Work Phone: [email or web address] [facility] 10-16-2021 09:07-0500 Body weight 133.81 kg Allen Colmenares MD Work Phone: [facility] [employer] [facility] Encounters Encounter Date Encounter Type Care Provider Facility Start: 01-29-2023 End: 01-30-2023 ambulatory [facility] Start: 01-29-2023 End: 01-29-2023 Subsequent hospital visit by physician [facility] Comment on above: Arrived Start: 01-27-2023 End: 01-28-2023 ambulatory [facility]O [facility] Start: 01-27-2023 End: 01-27-2023 Subsequent hospital visit by physician [facility] Comment on above: Arrived Start: 01-23-2023 End: 01-24-2023 ambulatory [facility]ARDO [facility] Start: 01-23-2023 End: 01-23-2023 Subsequent hospital visit by physician [facility] Comment on above: Arrived Start: 01-20-2023 End: 01-21-2023 ambulatory [facility]ARDO [facility] Start: 01-20-2023 End: 01-20-2023 Subsequent hospital visit by physician [facility] Comment on above: Arrived Start: 01-19-2023 ambulatory RICARDO [facility] Start: 01-16-2023 End: 01-17-2023 ambulatory [facility] Start: 01-16-2023 End: 01-16-2023 Subsequent hospital visit by physician Tamia Zuñiga PT [facility] Comment on above: Arrived Start: 01-14-2023 End: 01-15-2023 ambulatory [facility] Start: 01-14-2023 End: 01-14-2023 Subsequent hospital visit by physician Tamia Zuñiga PT [facility] Comment on above: Arrived Start: 01-12-2023 End: 01-13-2023 ambulatory [facility] Start: 01-12-2023 End: 01-12-2023 Subsequent hospital visit by physician Javier Flor [facility] Comment on above: Arrived Start: 01-09-2023 End: 01-10-2023 ambulatory [facility] Start: 01-09-2023 End: 01-09-2023 Subsequent hospital visit by physician Eric Chadwick PT [facility] Comment on above: Arrived Start: 01-07-2023 End: 01-08-2023 ambulatory [facility] Start: 01-07-2023 End: 01-07-2023 Subsequent hospital visit by physician Tamia Zuñiga PT [facility] Comment on above: Arrived Start: 01-05-2023 End: 01-06-2023 ambulatory [facility] Start: 01-05-2023 End: 01-05-2023 Subsequent hospital visit by physician Javier Flor [facility] Comment on above: Arrived Start: 01-02-2023 End: 01-03-2023 ambulatory [facility] Start: 01-02-2023 End: 01-02-2023 Subsequent hospital visit by physician Yocasta Kline PT [facility] Comment on above: Arrived Start: 12-31-2022 End: 01-01-2023 ambulatory BARBIE [facility] Start: 12-31-2022 End: 12-31-2022 Subsequent hospital visit by physician Tamia Zuñiga PT [facility] Comment on above: Arrived Start: 12-30-2022 End: 12-31-2022 ambulatory [facility] Start: 12-25-2022 End: 12-26-2022 ambulatory [facility] Start: 12-25-2022 End: 12-25-2022 Subsequent hospital visit by physician Eric Chadwick PT [facility] Physical [facility] Comment on above: Arrived Start: 12-22-2022 End: 12-23-2022 ambulatory [facility]O [facility] Start: 12-15-2022 End: 12-16-2022 ambulatory [facility] Start: 12-15-2022 End: 12-15-2022 Subsequent hospital visit by physician Eric Chadwick PT [facility] Comment on above: Arrived Start: 12-09-2022 End: 12-14-2022 ambulatory [facility] Start: 12-09-2022 End: 12-13-2022 Subsequent hospital visit by physician Barbie Sawant MD Work Phone: [facility] PRE ADMIT Start: 07-08-2022 End: 07-09-[address] RICARDO WINTER Facility:[facility] Start: 06-09-2022 End: 06-09-[address] RICARDO WINTER Facility:[facility] Start: 06-07-2022 End: 06-08-[address] RICARDO WINTER Facility:[facility] Start: 04-08-2022 End: 04-08-2022 Emergency department patient visit RICARDOGIN WINTER [facility] Start: 04-08-2022 End: 04-08-2022 Emergency department patient visit Rocael Rodriguez MD Work Phone: [facility] ED Comment on above: Closed displaced fra cture of surgical neck of right humerus, unspecified fracture morphology, initial encounter (Primary Dx) Start: 10-16-2021 End: 10-16-2021 Office outpatient new 45 minutes Allen Colmenares MD Work Phone: [facility] Comment on above: Right knee pain, uns pecified chronicity (Primary Dx); Left knee pain, unspecified chronicity; Primary osteoarthritis of right knee; Pain in prosthetic joint, sequela Start: 10-16-2021 End: 10-16-2021 Subsequent hospital visit by physician Allen Colmenares MD Work Phone: [facility] Start: 07-25-2021 End: 07-25-[address] RICARDO WINTER Facility:[facility]1 Procedures Date Procedure Procedure Detail Performing Clinician [...] 2 views Rocael Rodriguez MD Work Phone: Plan of Treatment Date Care Activity Detail Author Start: 01-29-2023 End: 01-29-2023 Patient encounter procedure 01/29/2023 Appointment Physical Therapy Tamia Zuñiga, [facility] Start: 01-27-2023 End: 01-27-2023 Patient encounter procedure 01/27/2023 Appointment Physical Therapy Tamia Zuñiga PT [facility] Start: 01-23-2023 End: 01-23-2023 [facility] Start: 01-21-2023 End: 01-21-2023 Patient encounter procedure 01/21/2023 Appointment Physical Therapy [facility] Start: 01-19-2023 End: 01-19-2023 Patient encounter procedure 01/19/2023 Appointment Physical Therapy [facility] Start: 01-16-2023 End: 01-16-2023 Patient encounter procedure 01/16/2023 Appointment Physical Therapy [facility] Start: 01-14-2023 End: 01-14-2023 Patient encounter procedure 01/14/2023 Appointment Physical Therapy Tamia Zuñiga PT [facility] Start: 01-12-2023 End: 01-12-2023 Patient encounter procedure 01/12/2023 Appointment Physical Therapy [facility] Start: 01-09-2023 End: 01-09-2023 Patient encounter procedure 01/09/2023 Appointment Physical Therapy Eric Chadwick PT [facility] Start: 01-09-2023 End: 01-09-2023 Patient encounter procedure 01/09/2023 Appointment Physical Therapy [facility] Start: 01-07-2023 End: 01-07-2023 Patient encounter procedure 01/07/2023 Appointment Physical Therapy Tamia Zuñiga PT [facility] Start: 01-05-2023 End: 01-05-2023 Patient encounter procedure 01/05/2023 Appointment Physical Therapy [facility] Start: 01-02-2023 End: 01-02-2023 Patient encounter procedure 01/02/2023 Appointment Physical Therapy Eric Chadwick PT [facility] Start: 12-31-2022 End: 12-31-2022 Patient encounter procedure 12/31/2022 Appointment Physical Therapy Tamia Zuñiga PT [facility] Start: 12-30-2022 End: 12-30-2022 Patient encounter procedure 12/30/2022 Appointment Physical Therapy Tamia Zuñiga PT [facility] Start: 12-25-2022 End: 12-25-2022 Patient encounter procedure 12/25/2022 Appointment Physical Therapy Eric Chadwick PT [facility] Start: 12-22-2022 End: 12-22-2022 Admission to same day surgery center 12/22/2022 Surgery IP Unit Barbie Sawant MD [address] [place] [id number] KNEE TOTAL ARTHROPLASTY [facility] OR Comment on above: KNEE TOTAL ARTHROPLA STY Start: 12-22-2022 End: 12-22-2022 Arthrp kne condyle&platu medial&lat compartments KNEE TOTAL ARTHROPLASTY Arthritis of right knee 12/22/2022 11:20 AM [facility] Start: 12-22-2022 Subsequent hospital visit by physician 12/22/2022 Hospital Encounter IP Unit Barbie Sawant MD [address] [place] [phone] [facility] Start: 12-15-2022 End: 12-15-2022 Patient encounter procedure 12/15/2022 Appointment Physical Therapy Eric Chadwick PT [facility] Therapy Start: 04-08-2022 Annual Wellness Visi t (AWV) Annual Wellness Visit (AWV) [facility] Start: 2019 Pneumococcal vaccination PNEUM OCOCCAL VACCINE SERIES (1 of 1 - PPSV23) [facility] Start: 2009 Screening for osteoporosis DEXA (modify frequency per FRAX score) [facility] Start: 2004 Screening for malign ant neoplasm of breast Breast cancer screen [facility] Start: 2004 Zoster vaccine hzv l leslee for subcutaneous use ZOSTER (SHINGLES) VACCINE (1 of 2) [facility] Start: 1999 Colonoscopy COLORECTAL CAN CER SCREENING DISCUSSION [facility] Start: 1999 Screening for malign ant neoplasm of colon [facility] Start: 1994 Fasting lipid profile LIPID SCREENIN G [facility] Start: 1994 Screening mammography MAMMOGRA M SCREENING DISCUSSION [facility] Start: 1989 Diabetes screen Diabetes screen [facility] Start: 1975 Screening for malign ant neoplasm of cervix CERVICAL CANCER SCREENING DISCUSSION [facility] Start: 1973 DTaP/Tdap/Td vaccine (1 - Tdap) DTaP/Tdap/Td vaccine (1 - Tdap) [facility] Start: 1973 Third diphtheria, tetanus and acellular pertussis (DTaP) vaccination TDAP (ADULT) [facility] Start: 1972 Hepatitis C screening Hepatitis C sc reen [facility] Start: 1972 Tetanus vaccination TETANUS [facility] Start: 1966 Depression Screen Depression Screen [facility] Start: 1964 Lipid panel Lipids [facility] Start: 1959 COVID-19 VACCINE (1) COVID-19 VACCIN E (1) [facility] Start: 1954 Hepatitis C antibody , confirmatory test HEPATITIS C VIRUS SCREENING [facility] Start: 1954 Screening for osteoporosis DEXA SCAN DISCUSSION [facility] Start: 1954 Thyroid stimulating hormone measurement TSH [facility] Radiography for bone length studies XR BONE LENGTH STUDY Imaging Routine Left knee pain, unspecified chronicity 10/16/2021 8:56 [facility] XR KNEE RIGHT 4+ VIEWS Imaging Routine Right knee pain, unspecified chronicity 10/16/2021 8:56 AM [facility] [employer] X-ray of left knee XR KNEE LEFT 3 VIEWS Imaging Routine Left knee pain, unspecified chronicity 10/16/2021 8:56 AM EST [employer] Payers Date Payer Category Payer Medicare MEDICARE [employer] HMO OR PPO MEDICARE [facility] HMO OR PPO [id number] 2020-Present [address] [place] [address] [id number] 1959 Medicare [id number] 1959 Medicare [id number] 1954 Unknown [id number] 2..[id number] 1954 Unknown [id number] 2.16.840.1.473148.3.579.2.593 1954 Unknown [id number] 2.16.840.1.421839.3.579.2.593 1954 Unknown [id number] 2.16.840.1.745917.3.579.2.593 1954 Unknown [id number] 2.16.840.1.113123.3.579.2.173 1954 Unknown [id number] 2.16.840.1.071230.3.579.2.173 1954 Unknown [id number] 2.16.840.1.656352.3.579.2.173 1954 Unknown [id number] 2.16.840.1.924598.3.579.2.173 1954 Unknown [id number] 2.16.840.1.238581.3.579.2.173 1954 Unknown [id number] 2.16.840.1.816547.3.579.2.173 1954 Unknown [id number] 2.16.840.1.012088.3.579.2.173 1954 Unknown [id number] 2.16.840.1.638926.3.579.2.173 1954 Unknown [id number] 2.16.840.1.473322.3.579.2.173 1954 Unknown [id number] 2.16.840.1.475498.3.579.2.173 1954 Unknown [id number] 2.16.840.1.069577.3.579.2.173 1954 Unknown [id number] 2.16.840.1.857017.3.579.2.173 1954 Unknown [id number] 2.16.840.1.456615.3.579.2.173 1954 Unknown [id number] 2.16.840.1.480524.3.579.2.173 1954 Unknown [id number] 2.16.840.1.877541.3.579.2.173 1954 Unknown [id number] 1955 Unknown [id number] 1955 Unknown [id number] 1955 Unknown [id number] Social History Date Type Detail Facility Start: 10-16-2021 End: 12-09-2022 Tobacco smoking status NHIS Never smoked tobacco [facility] Start: 10-16-2021 End: 12-09-2022 Tobacco use and exposure Smokeless tobacco non-user [facility] Start: 10-16-2021 End: 12-25-2022 Alcohol intake Ex-drinker (finding) [facility] Start: 1955 Sex Assigned At Not on file [facility] Start: 03-29-2022 End: 12-22-2022 Exposure to SARS-CoV-2 (event) Not sure [facility] [employer] Work Phone: Medical Equipment Procedure Code Equipment Code Equipment Origin al Text Equipment Identifier Dates Impl Knee Psn Al l Poly Pat 38mm - [id number] Start: 12-22-2022 Psn Mc Ve Asf R 14mm 8-11 - [id number] Start: 12-22-2022 Clinical Notes 10-16-2021 to 01-29-2023 Tamia Zuñiga, PT - 01/29/2023 3:45 PM Fernandez Zuñiga, PT - 01/27/2023 4:30 PM Fernandez Zuñiga, PT - 01/23/2023 4:00 PM Fernandez Zuñiga, PT - 01/20/2023 5:15 PM EDT Note Date & Type Note Facility 01-29-2023 History of Present illness Narrative [facility] Outpatient Physical Therapy Daily Note Patient: Glory Pierce : 1955 [facility] #: [id number] Referring Physician: Barbie Sawant MD Date: 01/29/2023 [...] endurance and strength for ADLs. - met Cattle Dipper Goals Time Frame for Mcc Goals : 4 weeks Cattle Dipper Goal 1: Patient will be independent and compliant with a HEP. - met Mcc Goal 2: Patient will improve R knee ROM to 0-110* for ADLs. - met (01/29/2023 AROM R knee flexion = 114 degrees) Cattle Dipper Goal 3: Patient will improve R LE strength to >/= 4/5 in all major joints and planes for ambulation and ADLs. - met (01/29/2023 righ tLE strength = 4+/5 on average) [facility]attle Dipper Goal 4: Patient will be able to ambulate without an AD with minimal gait deviations. - met (01/20/2023) [facility]attle Di[facility] Goal 5: Patient will report 70% improvement in overall symptoms and function. - met Minutes Tracking: Time In: 1547 Time Out: 1620 Minutes: 33 Timed Code Treatment Minutes: 32 Minutes Tamia Zuñiga PT, DPT Date: 01/29/2023 documented in this encounter [facility] [employer] Phone: 01-27-2023 History of Present illness Narrative [facility] Outpatient Physical Therapy Daily Note Patient: Glory Pierce : 1955 CSN #: [id number] Referring Physician: Barbie Sawant MD Date: 01/27/2023 [...] endurance and strength for ADLs. - met Mcc Goals Time Frame for Mcc Goals : 4 weeks Cattle Dipper Goal 1: Patient will be independent and compliant with a HEP. Cattle Dipper Goal 2: Patient will improve R knee ROM to 0-110* for ADLs. - progressing (01/23/2023 AAROM R knee flexion = 110 degrees) Cattle Dipper Goal 3: Patient will improve R LE strength to >/= 4/5 in all major joints and planes for ambulation and ADLs. Mcc Goal 4: Patient will be able to ambulate without an AD with minimal gait deviations. - met (01/20/2023) Mcc Goal 5: Patient will report 70% improvement in overall symptoms and function. Minutes Tracking: Time In: 1632 Time Out: 1720 Minutes: 48 Timed Code Treatment Minutes: 38 Minutes Tamia Zuñiga PT, DPT Date: 01/27/2023 documented in this encounter [facility] [employer] Phone: 01-23-2023 History of Present illness Narrative [facility] Outpatient Physical Therapy Daily Note Patient: Glory Pierce : 1955 CSN #: [id number] Referring Physician: Barbie Sawant MD Date: 01/23/2023 [...] endurance and strength for ADLs. - met Mcc Goals Time Frame for Cattle Dipper Goals : 4 weeks Cattle Dipper Goal 1: Patient will be independent and compliant with a HEP. Cattle Dipper Goal 2: Patient will improve R knee ROM to 0-110* for ADLs. - progressing (01/23/2023 AAROM R knee flexion = 110 degrees) Cattle Dipper Goal 3: Patient will improve R LE strength to >/= 4/5 in all major joints and planes for ambulation and ADLs. Mcc Goal 4: Patient will be able to ambulate without an AD with minimal gait deviations. - met (01/20/2023) Cattle Dipper Goal 5: Patient will report 70% improvement in overall symptoms and function. Minutes Tracking: Time In: 1557 Time Out: 1645 Minutes: 48 Timed Code Treatment Minutes: 47 Minutes Tamia Zuñiga PT, DPT Date: 01/23/2023 documented in this encounter [facility] [employer] Phone: 01-20-2023 History of Present illness Narrative [facility] Outpatient Physical Therapy Daily Note Patient: Glory Pierce : 1955 CSN #: [id number] Referring Physician: Barbie Sawant MD Date: 01/20/2023 Diagnosis: Aftercare following joint replacement surgery, Z47.1, presence of R artificial knee joint, Z96.651 Treatment Diagnosis: s/p R TKA, R knee pain, decreased LE strength Onset Date: 12/22/22 PT Insurance Information: [facility] 4 MORE PT VISITS TO 02-14-2023 [...] endurance and strength for ADLs. - met Cattle Dipper Goals Time Frame for Cattle Dipper Goals : 4 weeks Mcc Goal 1: Patient will be independent and compliant with a HEP. Mcc Goal 2: Patient will improve R knee ROM to 0-110* for ADLs. - progressing (01/16/2023 R knee flexion = 106 degrees) Mcc Goal 3: Patient will improve R LE strength to >/= 4/5 in all major joints and planes for ambulation and ADLs. Cattle Dipper Goal 4: Patient will be able to ambulate without an AD with minimal gait deviations. - met (01/20/2023) Mcc Goal 5: Patient will report 70% improvement in overall symptoms and function. Minutes Tracking: Time In: 1715 Time Out: 1800 Minutes: 45 Timed Code Treatment Minutes: 35 Minutes Tamia Zuñiga PT, DPT Date: 01/20/2023 documented in this encounter [facility] [employer] Phone: 01-16-2023 History of Present illness Narrative [facility] Outpatient Physical Therapy Daily Note Patient: Glory Pierce : 1955 [facility] #: [id number] Referring Physician: Barbie Sawant MD Date: 01/16/2023 Diagnosis: Aftercare following joint replacement surgery, Z47.1, presence of R artificial knee joint, Z96.651 Treatment Diagnosis: s/p R TKA, R knee pain, decreased LE strength Onset Date: 12/22/22 PT Insurance Information: [facility] APPROVED 10 VISITS NOT INCLUDING EVAL 12-25 TO 03-24-23 [id number] Total # of Visits Approved: 10 Per Physician Order Total # of Visits to Date: 10 No Show: 0 Canceled Appointment: 0 Pre-Treatment Pain: 10/28 Subjective: Pt arrives with mild pain 10/28 this . Pt ambulating independently without assistive device. Exercises: [...] endurance and strength for ADLs. - met Mcc Goals Time Frame for Mcc Goals : 4 weeks Cattle Dipper Goal 1: Patient will be independent and compliant with a HEP. Cattle Dipper Goal 2: Patient will improve R knee ROM to 0-110* for ADLs. - progressing (01/16/2023 R knee flexion = 106 degrees) Mcc Goal 3: Patient will improve R LE strength to >/= 4/5 in all major joints and planes for ambulation and ADLs. Mcc Goal 4: Patient will be able to ambulate without an AD with minimal gait deviations. - progressing (01/16/2023 ambulating without assistive device with moderate gait deviations) Cattle Dipper Goal 5: Patient will report 70% improvement in overall symptoms and function. Minutes Tracking: Time In: 1000 Time Out: 1055 Minutes: 55 Timed Code Treatment Minutes: 54 Minutes Tamia Zuñiga PT, DPT Date: 01/16/2023 documented in this encounter [facility] [employer] Phone: 01-14-2023 History of Present illness Narrative [facility] Outpatient Physical Therapy Daily Note Patient: Glory Pierce : 1955 CSN #: [id number] Referring Physician: Barbie Sawant MD Date: 01/14/2023 Diagnosis: Aftercare following joint replacement surgery, Z47.1, presence of R artificial knee joint, Z96.651 Treatment Diagnosis: s/p R TKA, R knee pain, decreased LE strength Onset Date: 12/22/22 PT Insurance Information: [facility] APPROVED 10 VISITS NOT INCLUDING EVAL 12-25 TO 03-24-23 [id number] Total # of Visits Approved: 10 Per [...] endurance and strength for ADLs. - met Cattle Dipper Goals Time Frame for Cattle Dipper Goals : 4 weeks Mcc Goal 1: Patient will be independent and compliant with a HEP. Mcc Goal 2: Patient will improve R knee ROM to 0-110* for ADLs. Mcc Goal 3: Patient will improve R LE strength to >/= 4/5 in all major joints and planes for ambulation and ADLs. Mcc Goal 4: Patient will be able to ambulate without an AD with minimal gait deviations. - progressing (01/14/2023 ambulating with SPC in clinic) Cattle Dipper Goal 5: Patient will report 70% improvement in overall symptoms and function. Minutes Tracking: Time In: 1115 Time Out: 1205 Minutes: 50 Timed Code Treatment Minutes: 49 Minutes Tamia Zuñiga PT, DPT Date: 01/14/2023 documented in this encounter [facility] [employer] Phone: 01-12-2023 History of Present illness Narrative [facility] Outpatient Physical Therapy Daily Note Patient: Glory Pierce : 1955 CSN #: [id number] Referring Physician: Barbie Sawant MD Date: 01/12/2023 Diagnosis: Aftercare following joint replacement surgery, Z47.1, presence of R artificial knee joint, Z96.651 Treatment Diagnosis: s/p R TKA, R knee pain, decreased LE strength Onset Date: 12/22/22 PT Insurance Information: [facility] APPROVED 10 VISITS NOT INCLUDING EVAL 12-25 TO 03-24-23 [id number] Total # of Visits Approved: 10 Per [...] endurance and strength for ADLs. - met Cattle Dipper Goals Time Frame for Mcc Goals : 4 weeks Mcc Goal 1: Patient will be independent and compliant with a HEP. Mcc Goal 2: Patient will improve R knee ROM to 0-110* for ADLs. Cattle Dipper Goal 3: Patient will improve R LE strength to >/= 4/5 in all major joints and planes for ambulation and ADLs. Cattle Dipper Goal 4: Patient will be able to ambulate without an AD with minimal gait deviations. Mcc Goal 5: Patient will report 70% improvement in overall symptoms and function. Minutes Tracking: Time In: 1300 Time Out: 1400 Minutes: 60 Timed Code Treatment Minutes: 58 Minutes Javier Sethi Date: 01/12/2023 documented in this encounter [facility] [employer] Phone: 01-09-2023 History of Present illness Narrative [facility] Outpatient Physical Therapy Daily Note Patient: Glory Pierce : 1955 CSN #: [id number] Referring Physician: Barbie Sawant MD Date: 01/09/2023 Diagnosis: Aftercare following joint replacement surgery, Z47.1, presence of R artificial knee joint, Z96.651 Treatment Diagnosis: s/p R TKA, R knee pain, decreased LE strength Onset Date: 12/22/22 PT Insurance Information: [facility] APPROVED 10 VISITS NOT INCLUDING EVAL 12-25 TO 03-24-23 [id number] Total # of Visits Approved: 10 Per [...] and 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 She is currently ambulating with a SC safely, she demonstrates improved knee ROM measurin-103* in supine, and MMT grossly measures 4-/5. She would benefit from skilled PT to address her deficits to work toward her chcf goals. Activity Tolerance Activity Tolerance: Patient tolerated [...] endurance and strength for ADLs. - met Mcc Goals Time Frame for Mcc Goals : 4 weeks Cattle Dipper Goal 1: Patient will be independent and compliant with a HEP. Mcc Goal 2: Patient will improve R knee ROM to 0-110* for ADLs. Cattle Dipper Goal 3: Patient will improve R LE strength to >/= 4/5 in all major joints and planes for ambulation and ADLs. Cattle Dipper Goal 4: Patient will be able to ambulate without an AD with minimal gait deviations. Mcc Goal 5: Patient will report 70% improvement in overall symptoms and function. Minutes Tracking: Time In: 0845 Time Out: 43 Minutes: 58 Timed Code Treatment Minutes: 56 Minutes Eric Chadwick PT, DPT Date: 01/09/2023 documented in this encounter [facility] [employer] Phone: 01-07-2023 History of Present illness Narrative [facility] Outpatient Physical Therapy Daily Note Patient: Glory Pierce : 1955 CSN #: [id number] Referring Physician: Barbie Sawant MD Date: 01/07/2023 Diagnosis: Aftercare following joint replacement surgery, Z47.1, presence of R artificial knee joint, Z96.651 Treatment Diagnosis: s/p R TKA, R knee pain, decreased LE strength Onset Date: 12/22/22 PT Insurance Information: [facility] APPROVED 10 VISITS NOT INCLUDING EVAL 12-25 TO 03-24-23 [id number] Total # of Visits Approved: 10 Per Physician Order Total # of Visits to Date: 6 No Show: 0 Canceled Appointment: 0 Pre-Treatment Pain: /10 Subjective: Pt reports she feels she is [...] endurance, Increased pain Assessment: Pt arrives with 4/10 pain in right knee. Therapist directed pt [...] pt required further clarification. Post Treatment Pain: 10 Plan Plan Frequency: 3 Plan weeks: 4 [...] endurance and strength for ADLs. - met Mcc Goals Time Frame for Mcc Goals : 4 weeks Cattle Dipper Goal 1: Patient will be independent and compliant with a HEP. Mcc Goal 2: Patient will improve R knee ROM to 0-110* for ADLs. Mcc Goal 3: Patient will improve R LE strength to >/= 4/5 in all major joints and planes for ambulation and ADLs. Cattle Dipper Goal 4: Patient will be able to ambulate without an AD with minimal gait deviations. Cattle Dipper Goal 5: Patient will report 70% improvement in overall symptoms and function. Minutes Tracking: Time In: 1019 Time Out: 1110 Minutes: 51 Timed Code Treatment Minutes: 50 Minutes Tamia Zuñiga PT, DPT Date: 01/07/2023 documented in this encounter [facility] [employer] [facility] [employer] Phone: 01-05-2023 History of Present illness Narrative [facility] Outpatient Physical Therapy Daily Note Patient: Glory Pierce : 1955 CSN #: [id number] Referring Physician: Barbie Sawant MD Date: 01/05/2023 Diagnosis: Aftercare following joint replacement surgery, Z47.1, presence of R artificial knee joint, Z96.651 Treatment Diagnosis: s/p R TKA, R knee pain, decreased LE strength Onset Date: 12/22/22 PT Insurance Information: [facility] APPROVED 10 VISITS NOT INCLUDING EVAL 12-25 TO 03-24-23 [id number] Total # of Visits Approved: 10 Per [...] endurance and strength for ADLs. - met Cattle Dipper Goals Time Frame for Mcc Goals : 4 weeks Cattle Dipper Goal 1: Patient will be independent and compliant with a HEP. Cattle Dipper Goal 2: Patient will improve R knee ROM to 0-110* for ADLs. Mcc Goal 3: Patient will improve R LE strength to >/= 4/5 in all major joints and planes for ambulation and ADLs. Cattle Dipper Goal 4: Patient will be able to ambulate without an AD with minimal gait deviations. Mcc Goal 5: Patient will report 70% improvement in overall symptoms and function. Minutes Tracking: Time In: 1515 Time Out: 1615 Minutes: 60 Timed Code Treatment Minutes: 57 Minutes Javier Sethi Date: 01/05/2023 documented in this encounter [facility] [employer] Phone: 01-02-2023 History of Present illness Narrative [facility] Outpatient Physical Therapy Daily Note Patient: Glory Pierce : 1955 CSN #: [id number] Referring Physician: Barbie Sawant MD Date: 01/02/2023 Diagnosis: Aftercare following joint replacement surgery, Z47.1, presence of R artificial knee joint, Z96.651 Treatment Diagnosis: s/p R TKA, R knee pain, decreased LE strength Onset Date: 12/22/22 PT Insurance Information: [employer]MEDICARE APPROVED 10 VISITS NOT INCLUDING EVAL 12-25 TO 03-24-23 [id number] Total # of Visits Approved: 10 Per Physician Order Total # of Visits to Date: 3 Pre-Treatment Pain: 5-03/28 Subjective: Pt reports she got her wound [...] pt required further clarification. Post Treatment Pain: 3-01/26 Plan Plan Frequency: 3 Plan weeks: 4 [...] endurance and strength for ADLs. - met Cattle Dipper Goals Time Frame for Cattle Dipper Goals : 4 weeks Cattle Dipper Goal 1: Patient will be independent and compliant with a HEP. Mcc Goal 2: Patient will improve R knee ROM to 0-110* for ADLs. Mcc Goal 3: Patient will improve R LE strength to >/= 4/5 in all major joints and planes for ambulation and ADLs. Cattle Dipper Goal 4: Patient will be able to ambulate without an AD with minimal gait deviations. Mcc Goal 5: Patient will report 70% improvement in overall symptoms and function. Minutes Tracking: Time In: 1145 Time Out: 1232 Minutes: 47 Timed Code Treatment Minutes: 45 Minutes Yocasta Kline PT DPT Date: 01/02/2023 documented in this encounter [facility] [employer] [facility] [employer] Phone: 12-31-2022 History of Present illness Narrative [facility] Outpatient Physical Therapy Daily Note Patient: Glroy Pierce : 1955 CSN #: [id number] Referring Physician: Barbie Sawant MD Date: 12/31/2022 Diagnosis: Aftercare following joint replacement surgery, Z47.1, presence of R artificial knee joint, Z96.651 Treatment Diagnosis: s/p R TKA, R knee pain, decreased LE strength Onset Date: 12/22/22 PT Insurance Information: [facility] APPROVED 10 VISITS NOT INCLUDING EVAL 12-25 TO 03-24-23 [id number] Total # of Visits Approved: 10 Per [...] endurance and strength for ADLs. - met Cattle Dipper Goals Time Frame for Mcc Goals : 4 weeks Cattle Dipper Goal 1: Patient will be independent and compliant with a HEP. Cattle Dipper Goal 2: Patient will improve R knee ROM to 0-110* for ADLs. Cattle Dipper Goal 3: Patient will improve R LE strength to >/= 4/5 in all major joints and planes for ambulation and ADLs. Cattle Dipper Goal 4: Patient will be able to ambulate without an AD with minimal gait deviations. Mcc Goal 5: Patient will report 70% improvement in overall symptoms and function. Minutes Tracking: Time In: 1115 Time Out: 1200 Minutes: 45 Timed Code Treatment Minutes: 35 Minutes Tamia Zuñiga PT, DPT Date: 12/31/2022 documented in this encounter [facility] [employer] Phone: 12-25-2022 History of Present illness Narrative [facility] Outpatient Physical Therapy Evaluation Date: 12/25/2022 Patient: Glory Pierce : 1955 [facility] #: [id number] Referring Physician: Barbie Sawant MD Medical Diagnosis: Aftercare following joint replacement surgery, Z47.1, presence of R artificial knee joint, Z96.651 Treatment Diagnosis: s/p R TKA, R knee pain, decreased LE strength Onset Date: 12/22/22 PT Insurance Information: [facility] Medicare Total # of Visits Approved: [...] to improve endurance and strength for ADLs. Mcc Goals Time Frame for Cattle Dipper Goals : 4 weeks Cattle Dipper Goal 1: Patient will be independent and compliant with a HEP. Mcc Goal 2: Patient will improve R knee ROM to 0-110* for ADLs. Cattle Dipper Goal 3: Patient will improve R LE strength to >/= 4/5 in all major joints and planes for ambulation and ADLs. Cattle Dipper Goal 4: Patient will be able to ambulate without an AD with minimal gait deviations. Mcc Goal 5: Patient will report 70% improvement in overall symptoms and function. Patient Goals : Improve ROM of knee Minutes Tracking: Time In: 1113 Time Out: 1215 Minutes: 62 Timed Code Treatment Minutes: 50 Minutes Eric Chadwick PT, DPT 12/25/2022 documented in this encounter [facility] [employer] Work Phone: 12-09-2022 History of Present illness Narrative Patient instructed on the pre-operative, intra-operative, and post-operative process. Patient instructed on NPO status. Medication instructions and pre operative instruction sheet reviewed with the patient. CHG skin prep instructions reviewed with patient. [facility] Preadmission Testing Name: Glory Pierce : 1955 [...] medical clearance. documented in this encounter [facility] [employer] Phone: 10-16-2021 History of Present illness Narrative [...] is status post a left TKA in 2012 in [place] and has had pain in this knee [...] joint space, subchondral sclerosis, osteophyte formation, and [id number] contact and a left posterior stabilized knee in reasonable position and alignment. IMPRESSION: 1.) Severe symptomatic end-stage arthritis, right knee. 2.) Status post a left total knee arthroplasty in 2013 in [place]. 3.) Mild instability, left prosthetic knee. 4.) [...] 10/2012 total knee replacement . done in [place] TUBAL LIGATION 1985 No family history on file. Social History [...] Not on file Current Outpatient Medications: Biotin 57455 MCG tablet, Take 10,000 mcg by mouth [...] done in 2012 when she lived in [place]. She has had pain in the Left [...] 10/16/2021 9:13 AM Patient: Stan Holder MR#: [id number] : 1955 Age: 66 y.o. Referring Physician: Allen Colmenares MD Insurance: Payor: MEDICARE ANTHEM HMO OR PPO / Plan: MEDICARE ANTH HMO OR PPO / Product Type: *No [...] 10/2012 total knee replacement . 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 [] [x] Name: Are you followed by pain management? [] [x] Name: Are you followed by any other specialists? [] [x] Name: Outpatient Medications Prior to Visit Medication Sig Dispense Refill Biotin 48115 MCG tablet Take 10,000 mcg by mouth [...] have dentures? no documented in this encounter [facility] Evaluation note Diagnosis Right knee pain, unspecified chronicity- Primary Left knee pain, unspecified chronicity Primary osteoarthritis of right knee Primary localized osteoarthrosis, lower leg Pain in prosthetic joint, sequela [facility] Closed displaced fracture of surgical neck of right humerus, unspecified fracture morphology, initial encounter- Primary documented in this encounter [facility] [employer] Phone: Hospital Discharge instructions* Instructions* Rocael Rodriguez Jr., MD - 04/08/2022 Ice on the shoulder. Use the sling and swath until seen by Dr. Sawant on in the office. Call either today or tomorrow to confirm appointment in the morning on . Return if any problems. * Attachments The following attachments cannot be sent through Care Everywhere. 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 * Diagnostic X-Ray (Routine) - New Request Specialty Diagnoses / Procedures Referred By Isatu madden Referred To Contact Diagnoses Left knee pain, unspecified chronicity Procedures XR KNEE LEFT 3 VIEWS XR KNEE LEFT 4+ VIEWS Allen Colmenares MD [address] [place] [id number] Referral ID Status Reason Start Date Expiration Date V isits Requested Visits Authorized [id number] New Request 10/04/2021 10/29/2022 1 1 * Diagnostic X-Ray (Routine) - Pending Review Specialty Diagnoses / Procedures Referred By Contac t Referred To Contact Diagnoses Left knee pain, unspecified chronicity Procedures XR BONE LENGTH STUDY Allen Colmenares MD [address] [place] [id number] Referral ID Status Reason Start Date Expiration Date V isits Requested Visits Authorized [id number] Pending Review 10/04/2021 10/29/2022 1 1 * Diagnostic X-Ray (Routine) - Pending Review Specialty Diagnoses / Procedures Referred By Contsary t Referred To Contact Diagnoses Right knee pain, unspecified chronicity Procedures XR KNEE RIGHT 4+ VIEWS Allen Colmenares MD [address] [place] [id number] Referral ID Status Reason Start Date Expiration Date V isits Requested Visits Authorized [id number] Pending Review 10/04/2021 10/29/2022 1 1 [employer] PublishThis System Summary Purpose Family History No Family History Records FoundNo Family History Records Found Advance Directives No Advanced Directives Records FoundLatest Code Status on File Code Status Date Activated Date Inactivated Comments Full Code 12/22/2022 3:51 PM 12/23/2022 4:19 PM Healthcare Agents on File Name Relationship Healthcare Agent Relationshi p Communication Paulino Pierce Spouse Primary Decision Maker [phone] (Mobile) Healthcare Agents on File Name Relationship Healthcare Agent Relationshi p Communication Paulino Pierce Spouse Primary Decision Maker [phone] (Mobile) Healthcare Agents on File Name Relationship Healthcare Agent Relationshi p Communication Paulino Pierce Spouse Primary Decision Maker [phone] (Mobile) Healthcare Agents on File Name Relationship Healthcare Agent Relationshi p Communication Paulino Stan Spouse Primary Decision Maker [phone] (Mobile) Healthcare Agents on File Name Relationship Healthcare Agent Relationshi p Communication Paulino Pierce Spouse Primary Decision Maker [phone] (Mobile) Healthcare Agents on File Name Relationship Healthcare Agent Relationshi p Communication Paulino Pierce Spouse Primary Decision Maker [phone] (Mobile) Healthcare Agents on File Name Relationship Healthcare Agent Relationshi p Communication Paulino Pierce Spouse Primary Decision Maker Latest Code Status on File Code Status Date Activated Date Inactivated Comments Full Code 12/22/2022 3:51 PM 12/23/2022 4:19 PM Healthcare Agents on File Name Relationship Healthcare Agent Relationshi p Communication Paulino Pierce Spouse Primary Decision Maker [phone] (Mobile) Healthcare Agents on File Name Relationship Healthcare Agent Relationshi p Communication Paulino Pierce Spouse Primary Decision Maker [phone] (Mobile) Healthcare Agents on File Name Relationship Healthcare Agent Relationshi p Communication Paulino Pierce Spouse Primary Decision Maker Additional Source Comments Reason for Visit (unrecogniz ed section and content) Specialty Diagnoses / Procedures Referred By Contac t Referred To Contact Diagnoses Left knee pain, unspecified chronicity Procedures XR BONE LENGTH STUDY Allen Colmenares MD [address] [place] [address] Referral ID Status Reason Start Date Expiration Date V isits Requested Visits Authorized [id number] Pending Review 10/04/2021 10/29/2022 1 1 Reason Comments Pain New Patient Reason Comments Shoulder Pain right sided, patient fell after tripping over rock at approx 0900 Care Teams (unrecognized sec tion and content) Paper Pattern Folder Relationship Specialty Start Date End Date Ricardo Winter MD [address] [place] [address] PCP - General Family Medicine 10/16/21 Paper Pattern Folder Relationship Specialty Start Date End Date Ricardo Winter MD [address] [place] [address] PCP - General Family Medicine 10/16/21 Paper Pattern Folder Relationship Specialty Start Date End Date Ricardo Winter MD [address] [place] [address] PCP - General Family Medicine 04/08/22 Paper Pattern Folder Relationship Specialty Start Date End Date Ricardo Winter MD [address] [place] [facility] [place] [address] PCP - General Family Medicine 04/08/22 Paper Pattern Folder Relationship Specialty Start Date End Date Ricardo Winter MD [address] [place] [address] PCP - General Family Medicine 04/08/22 Paper Pattern Folder Relationship Specialty Start Date End Date Ricardo Winter MD [address] [place] [address] PCP - General Family Medicine 04/08/22 Paper Pattern Folder Relationship Specialty Start Date End Date Ricardo Winter MD [address] [place] [id number] PCP - General Family Medicine 04/08/22 Paper Pattern Folder Relationship Specialty Start Date End Date Ricardo Winter MD [address] [place] [address] PCP - General Family Medicine 04/08/22 Paper Pattern Folder Relationship Specialty Start Date End Date Ricardo Winter MD [address] [place] [address] PCP - General Family Medicine 04/08/22 Paper Pattern Folder Relationship Specialty Start Date End Date Ricardo Winter MD [address] [place] [address] PCP - General Family Medicine 04/08/22 Paper Pattern Folder Relationship Specialty Start Date End Date Ricardo Winter MD [address] [place] [address] PCP - General Family Medicine 04/08/22 Paper Pattern Folder Relationship Specialty Start Date End Date Ricardo Winter MD [address] [place] [id number] PCP - General Family Medicine 04/08/22 Paper Pattern Folder Relationship Specialty Start Date End Date Ricardo Winter MD [address] [place] [address] PCP - General Family Medicine 04/08/22 Ordered [...] DATE CREATED AUTHOR AUTHOR'S ORGANIZ ATION 01/30/2023 [facility] FOR RECORDS PERTAINING TO PATIENTS WHO ARE [...] BE BASED ON THE PRIMARY CLINICAL RECORDS. [employer] [facility]. provides no warranty or guarantee of the accuracy or completeness of information in this document.
[2024-07-08 10:41] LABS: Basophils Absolute Auto 0.1 10^3/uL (0.0-0.1); Basophils Percent Auto 1.1 % (0.2-2.0); Eosinophils Absolute Auto 0.3 10^3/uL (0.0-0.7); Eosinophils Percent Auto 4.7 % (0.9-7.0); Hemoglobin 14.6 g/dL (12.0-16.0); Immature Granulocytes Abs Auto 0.03 10^3/uL (0.00-0.03); Immature Granulocytes Pct Auto 0.5 % (0.0-0.5); Lymphocytes Absolute Auto 1.7 10^3/uL (1.2-3.8); Lymphocytes Percent Auto 30.9 % (20.5-60.0); Mean Corpuscular HGB Conc 33.2 g/dL (29.9-35.2); Mean Corpuscular Hemoglobin 28.9 pg (26.7-34.0); Mean Corpuscular Volume 87.1 fL (81.0-99.0); Mean Platelet Volume 10.8 fL (9.5-13.5); Monocytes Absolute Auto 0.4 10^3/uL (0.3-0.8); Monocytes Percent Auto 7.9 % (1.7-12.0); Neutrophils Absolute Auto 3.1 10^3/uL (1.4-6.5); Neutrophils Percent Auto 54.9 % (43.0-75.0); Platelet Count 181 10^3/uL (150-450); Red Blood Count 5.05 10^6/uL (4.20-5.40); Red Cell Distribution Width 13.7 % (11.0-15.0); White Blood Count 5.6 10^3/uL (4.0-11.0)
[2024-07-08 11:25] LABS: Estimated Average Glucose 100 mg/dL; Glycohemoglobin A1C 5.1 % (4.5-6.2)
[2024-07-08 13:32] LABS: Alanine Aminotransferase 66 U/L (14-59); Albumin Globulin Ratio 1.2; Albumin Level 3.8 g/dL (3.4-5.0); Alkaline Phosphatase 99 U/L (46-116); Anion Gap 12.2; Aspartate Amino Transferase 44 U/L (15-37); BUN Creatinine Ratio 22.2; Bilirubin Total 0.9 mg/dL (0.2-1.0); Calcium 9.1 mg/dL (8.5-10.1); Chloride 105 mmol/L (98-107); Chol HDL Ratio 4.1; Cholesterol 212 mg/dL (<=200); Estimated GFR (African America >60 (>=60); Estimated GFR (Non-African Ame >60 (>=60); Globulin 3.1 g/dL; Glucose 104 mg/dL (74-106); HDL Cholesterol 52 mg/dL (40-60); Potassium 4.2 mmol/L (3.5-5.1); Sodium 141 mmol/L (136-145); Total Protein 6.9 g/dL (6.4-8.2); Triglycerides 163 mg/dL (<=150); VLDL CHOLESTEROL 32.6 mg/dL
== END 2024-07-08 10:17 | disposition home or self-care (01) ==
LOC: LAB 10:19
PROVIDERS: PCP Family Medicine; Visit Provider Family Medicine
DX: Z00.00 Encounter for general adult medical examination without abnormal findings (principal); E78.00 Pure hypercholesterolemia, unspecified; Z12.12 Encounter for screening for malignant neoplasm of rectum; I10 Essential (primary) hypertension; R73.09 Other abnormal glucose; R53.83 Other fatigue
CPT/HCPCS: 36415; 80053; 80061; 83036; 85025

== ENCOUNTER 2024-07-30 09:26 | Outpatient (REF) | payer MEDICARE, SELFPAY ==
--- OUTSIDE RECORDS SUMMARY | 2024-07-30 09:29 | XMS_ITS | CCD ---
Author Organization [facility] CliniSyri Care Team Providers Care Biomedical Engineer Name Role Phone Ricardo Winter MD Primary Care Provider [phone] PANCHO, DR SILVA Consulting Unavailable HOY, DR [...] Unavailable Ricardo Winter MD Primary Care Provider [phone] RICARDO WINTER Primary Care Unavailable EVANGELISTA, BARBIE [...] Unavailable EVANGELISTA, BARBIE E Admitting Unavailable EVANGELISTA, ABRBIE E Referring Unavailable HOY, RICARDO M Primary [...] 1 tablet by mouth once daily Biotin 96729 MCG tablet Take 10,000 mcg by mouth [...] (Bld) [Volume fraction] 37.0 % Normal 36.3-47.1 [facility] Comment on above: Performed By: #### H H #### [facility] [address] [place] [address] [place] [address] Husker Operator: Tomas Campos MD Hemoglobin (Bld) [Mass/Vol] 12.4 g/dL Normal 11.9-15.1 [facility] Comment on above: Performed By: #### H H #### [address] [place] [address] Husker Operator: Tomas Campos MD OPERATIVE REPORTon OPERATIVE REPORT [address] [id number] OPERATIVE REPORT PATIENT NAME: GLORY PIERCE : 1955 MED REC NO: [id number] ROOM: [facility] ACCOUNT NO: [id number] ADMIT DATE: 12/22/2022 PROVIDER: Barbie Sawant DATE [...] to go with a 38-mm patellar dome. [place] holes were placed. The knee was then [...] layer was then closed with #1 Vicryl mdaggh-gg-dfftu sutures over two Hemovac drains. The tourniquet [...] loss 200 mL. BARBIE SAWANT [id number] Doc#: [id number] CC: [facility] EKG 12 LeadOrdered By: Praveen Purdy on 12-10-2022 Atrial Rate 66 BPM [employer] Work Phone: P [place] 48 degrees [employer] Work Phone: P-R Interval 198 ms [employer] Work Phone: Q-T Interval 414 ms [employer] Work Phone: QRS Duration 78 ms [employer] Phone: QTc Calculation (Bazett) 434 ms An[employer] Phone: R [place] 17 degrees [employer] Phone: T [place] 43 degrees [employer] Work Phone: Ventricular Rate 66 BPM Qonf Work Phone: Anctu Phone: EKG 12 Leadon 12-10-2022 Normal sinus rhythm Normal ECG No previous ECGs available Confirmed by KULWINDER PURDY ([id number]) on 12/10/2022 11:07:16 PM [facility] RADIOLOGY Kulwinder Purdy MD - 12/10/2022 Normal sinus rhythm Normal ECG No previous ECGs available Confirmed by KULWINDER PURDY ([id number]) on 12/10/2022 11:07:16 PM [employer] Work Phone: MRSA DNA Probe, Nasalon 11-20 MRSA, DNA, Nasal Negative NEGATIVE Qonf Comment on above: NEGATIVE: MRSA DNA n ot detected by nucleic acid amplification. Results should be used as an adjunct to nosocomial control efforts to identify patients needing enhanced precautions. The test is not intended to identify patients with staphylococcal infections. Results should not be used to guide or monitor treatment for MRSA infections. Specimen Description .NASAL SWAB [facility] MRSA, DNA, Nasalon MRSA, DNA, Nasal Negative Normal [facility] Comment on above: Result Comment: DAVID FARFAN: MRSA DNA not detected by nucleic acid amplification. Results should be used as an adjunct to nosocomial control efforts to identify patients needing enhanced precautions. The test is not intended to identify patients with staphylococcal infections. Results should not be used to guide or monitor treatment for MRSA infections. Performed By: #### M RSANO #### [facility] [address] [place] [address] Husker Operator: Virgilio Sullivan MD [facility] [address] [place] [address] Husker Operator: Tomas Campos MD Basic Metabolic Panelon 11-20 Anion gap [Moles/Vol] 6 mmol/L Low 9 - 17 mmol/L [facility] Calcium [Mass/Vol] 9.7 mg/dL 8.6 - 10. 4 mg/dL [facility] Chloride [Moles/Vol] 103 mmol/L 98 - 10 7 mmol/L [facility] CO2 [Moles/Vol] 30 mmol/L 20 - 31 mmol/L [facility] Creatinine [Mass/Vol] 0.7 mg/dL 0.50 - 0.90 mg/dL [facility] GFR/1.73 sq M.predicted MDRD (S/P/Bld) [Vol rate/Area] - PINF [facility] Comment on above: These results are not [...] 118 mg/dL High 70 - 99 mg/dL [facility] Interpretation and review of laboratory results Abnormal [facility] Potassium [Moles/Vol] 4.9 mmol/L 3.7 - 5.3 mmol/L [facility] Sodium [Moles/Vol] 139 mmol/L 135 - 144 mmol/L [facility] Urea nitrogen [Mass/Vol] 12 mg/dL 8 - 23 mg/dL [facility] Urea nitrogen/Creatinine (Bld) [Mass ratio] 17 9 - 20 [facility] Basic Metabolic Profon 12-09 Anion gap [Moles/Vol] 6 mmol/L Low 9-17 [facility] Comment on above: Performed By: #### B MP, CDP #### [facility] [address] [place] [address] Husker Operator: Tomas Campos MD BUN/CRE Ratio 17 Normal 9- [facility] Comment on above: Performed By: #### B DASIA, CDP #### [facility] [address] [place], [place] [id number] Husker Operator: Tomas Campos MD Calcium [Mass/Vol] 9.7 mg/dL Normal 8.6-10.4 [facility] Comment on above: Performed By: #### B DASIA, CDP #### [facility] [address] [place], [place] [id number] Husker Operator: Tomas Campos MD Chloride [Moles/Vol] 103 mmol/L Normal 98-107 [facility] Comment on above: Performed By: #### B MP, CDP #### [facility] [address] [place], [place] [address]83 Husker Operator: Tomas Campos MD CO2 [Moles/Vol] 30 mmol/L Normal 20-31 [facility] Comment on above: Performed By: #### B MP, CDP #### [facility] [address] [place] [address] Husker Operator: Tomas Campos MD Creatinine [Mass/Vol] 0.70 mg/dL Normal 0.50-0.90 [facility] Comment on above: Performed By: #### B DASIA, CDP #### [facility] [address] [place] [address] Husker Operator: Tomas Campos MD GFR/1.73 sq M.predicted among non-blacks MDRD (S/P/Bld) [Vol rate/Area] mL/min/{1.73_m2} Normal >60 [facility] Comment on above: Result Comment: These [...] Performed By: #### B DASIA, CDP #### [facility] [address] [place] [address] Dr. [place], [place] [address]83 Husker Operator: Tomas Campos MD Glucose [Mass/Vol] 118 mg/dL High 70-99 [facility] Comment on above: Performed By: #### B DASIA, CDP #### [address] [place], [place] [address] Husker Operator: Tomas Campos MD Potassium [Moles/Vol] 4.9 mmol/L Normal 3.7-5.3 [facility] Comment on above: Performed By: #### B DASIA, CDP #### [facility] [address] [place], [place] [address]183 Husker Operator: Tomas Campos MD Sodium [Moles/Vol] 139 mmol/L Normal 135-144 [facility] Comment on above: Performed By: #### B DASIA, CDP #### [facility] [address] [place] [address] Husker Operator: Tomas Campos MD Urea nitrogen [Mass/Vol] 12 mg/dL Normal 8-23 [facility] Comment on above: Performed By: #### B MP, CDP #### [facility] [address] [place] [address] Husker Operator: Tomas Campos MD CBC with Auto Differentialon 12-09-2022 Absolute Eos # 0.21 [facility] Absolute Immature Granulocyte 0.03 [facility] Absolute Lymph # 1.48 [facility] Absolute Crockett # 0.49 [facility] Basophils (Bld) [#/Vol] 0.04 10*3/uL [facility] Basophils/100 WBC (Bld) 1 % 0 - 2 % [facility] Eosinophils/100 WBC (Bld) 4 % 1 - 4 % [facility] Hematocrit (Bld) [Volume fraction] 45.3 % 36.3 - 47.1 % [facility] Hemoglobin (Bld) [Mass/Vol] 14.4 g/dL 11.9 - 15.1 g/dL [facility] Immature granulocytes/100 WBC (Bld) 1 % High 0 [facility] Interpretation and review of laboratory results Abnormal [facility] Lymphocytes/100 WBC (Bld) 29 % 24 - 43 % [facility] MCH (RBC) [Entitic mass] 29.0 pg 25.2 - 33.5 pg [facility] MCHC (RBC) [Mass/Vol] 31.8 g/dL 28.4 - 34.8 g/dL [facility] MCV (RBC) [Entitic vol] 91.3 fL 82.6 - 102.9 fL [facility] Monocytes/100 WBC (Bld) 10 % 3 - 12 % [facility] NRBC Automated 0.0 0.0 per 100 WBC [facility] Platelet distribution width (Bld) [Ratio] 12.5 % 11.8 - 14.4 % [facility] Platelet mean volume (Bld) [Entitic vol] 11.1 fL 8.1 - 13.5 fL [facility] Platelets (Bld) [#/Vol] 211 10*3/uL [facility] RBC (Bld) [#/Vol] 4.96 10*6/uL 3.95 - 5.1 1 m/uL [facility] Segmented neutrophils/100 WBC (Bld) 55 % 36 - 65 % [facility] Segs Absolute 2.85 [facility] WBC (Bld) [#/Vol] 5.1 10*3/uL [facility] CBC with Diffon 12-09-2022 Abs. Basophil 0.04 k/uL Normal 0.00-0.20 [facility] Comment on above: Performed By: #### B DASIA, CDP #### [address] [place] [address] Husker Operator: Tomas Campos MD Abs.Imm.Granulocyte 0.03 k/uL Normal 0.00-0.30 [facility] Comment on above: Performed By: #### B DASIA, CDP #### [address] [place], [place] [id number] Husker Operator: Tomas Campos MD Abs.Neutrophil (Seg) 2.85 k/uL Normal 1.50-8.10 [facility] Comment on above: Performed By: #### B DASIA, CDP #### [address] [place], [place] [address] Husker Operator: Tomas Campos MD Basophils/100 WBC (Bld) 1 % Normal 0-2 [facility] Comment on above: Performed By: #### B DASIA, CDP #### [address] [place], [place] [id number] Husker Operator: Tomas Campos MD Eosinophils (Bld) [#/Vol] 0.21 10*3/uL Normal 0.00-0.44 [facility] Comment on above: Performed By: #### B DASIA, CDP #### [address] [place] [address] Husker Operator: Tomas Campos MD Eosinophils/100 WBC (Bld) 4 % Normal 1-4 [facility] Comment on above: Performed By: #### B MP, CDP #### [facility] [address] [place], [facility] Husker Operator: Tomas Campos MD Erythrocyte distribution width (RBC) [Ratio] 12.5 % Normal 11.8-14.4 [facility] Comment on above: Performed By: #### B MP, CDP #### [facility] [address] [place], [facility] Husker Operator: Tomas Campos MD Hematocrit (Bld) [Volume fraction] 45.3 % Normal 36.3-47.1 [facility] Comment on above: Performed By: #### B MP, CDP #### [address] [place], [facility] Husker Operator: Tomas Campos MD Hemoglobin (Bld) [Mass/Vol] 14.4 g/dL Normal 11.9-15.1 [facility] Comment on above: Performed By: #### B MP, CDP #### [address] [place], [place] [id number] Husker Operator: Tomas Campos MD Immature granulocytes/100 WBC (Bld) 1 % High 0 [facility] Comment on above: Performed By: #### B MP, CDP #### [facility] [address] [place] [address] Dr. [place], [facility] Husker Operator: Tomas Campos MD Lymphocytes (Bld) [#/Vol] 1.48 10*3/uL Normal 1.10-3.70 [facility] Comment on above: Performed By: #### B MP, CDP #### [facility] [address] [place] [address] Dr. [place], [place] [id number] Husker Operator: Tomas Campos MD Lymphocytes/100 WBC (Bld) 29 % Normal 24-43 [facility] Comment on above: Performed By: #### B MP, CDP #### [facility] [address] [place] [address] Husker Operator: Tomas Campos MD MCH (RBC) [Entitic mass] 29.0 pg Normal 25.2-33.5 [facility] Comment on above: Performed By: #### B MP, CDP #### [address] [place] [address] Husker Operator: Tomas Campos MD MCHC (RBC) [Mass/Vol] 31.8 g/dL Normal 28.4-34.8 [facility] Comment on above: Performed By: #### B MP, CDP #### [address] [place] [address] Husker Operator: Tomas Campos MD MCV (RBC) [Entitic vol] 91.3 fL Normal 82.6-102.9 [facility] Comment on above: Performed By: #### B MP, CDP #### [address] [place], [place] [address]83 Husker Operator: Tomas Campos MD Monocytes (Bld) [#/Vol] 0.49 10*3/uL Normal 0.10-1.20 [facility] Comment on above: Performed By: #### B MP, CDP #### [address] [place], [facility] Husker Operator: Tomas Campos MD Monocytes/100 WBC (Bld) 10 % Normal 3-12 [facility] Comment on above: Performed By: #### B MP, CDP #### [facility] [address] [place] [address] Dr. [place], [place] 7709283 Husker Operator: Tomas Campos MD Neutrophil (Seg) 55 % Normal 36-65 [facility] Comment on above: Performed By: #### B MP, CDP #### [facility] [address] [place] [address] Dr. [place], [facility] Husker Operator: Tomas Campos MD NRBC Automated 0.0 per 100 WBC Normal 0.0 [facility] Comment on above: Performed By: #### B DASIA, CDP #### [facility] [address] [place], [place] 2229383 Husker Operator: Tomas Campos MD Platelet mean volume (Bld) [Entitic vol] 11.1 fL Normal 8.1-13.5 [facility] Comment on above: Performed By: #### B MP, CDP #### [facility] [address] [place] [address] Husker Operator: Tomas Campos MD Platelets (Bld) [#/Vol] 211 10*3/uL Normal 138-453 [facility] Comment on above: Performed By: #### B DASIA, CDP #### [address] [place] [address] Husker Operator: Tomas Campos MD RBC (Bld) [#/Vol] 4.96 10*6/uL Normal 3.95-5.11 [facility] Comment on above: Performed By: #### B DASIA, CDP #### [address] [place] [address] Husker Operator: Tomas Campos MD WBC (Bld) [#/Vol] 5.1 10*3/uL Normal 3.5-11.3 [facility] Comment on above: Performed By: #### B MP, CDP #### [facility] [address] [place] [address] Dr. [place], [place] 9665683 Husker Operator: Tomas Campos MD MRSA, DNA, Nasalon 3 Specimen Description .NASAL SWAB Normal [facility] Comment on above: Performed By: #### M RSANO #### [facility] [address] [facility] [place] [id number] Husker Operator: Virgilio Sullivan MD [facility] [address] [place] [address] Husker Operator: Tomas Campos MD TYPE AND SCREENon 12-09-2022 ABO/Rh Positive [facility] Arm Band Number [id number] [facility] Expiration Date 12/25/2022,2359 [facility] Type + Screenon 12-09-2022 Type + Screen Sample Expiration 12/25/2022,2359 Arm Band Number [id number] ABO/Rh(D) A POSITIVE Antibody Screen NEGATIVE Normal [facility] Comment on above: Performed By: #### T YS #### [facility] [address] [place] [address] Husker Operator: Tomas Campos MD MG MAMM SCREEN 3D JUAN FRANCISCO CADon 07-08-2022 MG MAMM SCREEN 3D JUAN FRANCISCO CAD Patient: GLORY PIERCE Exam Date: 07/08/2022 : 1955 Gender:F Ordering : DR RICARDO WINTER . Admission #: [id number] Family : Order #: [id number] CLICK HERE TO VIEW EXAM RADIOLOGY REPORT [...] bladder cancer at age 72. LOCATION: [facility] BREAST COMPOSITION: Scattered areas fibroglandular density. FINDINGS: [...] MD on 07/08/2022 at 11:23 Normal [facility] INSULINon 06-09-2022 Insulin 22.7 uIU/mL Normal 2.6-24.9 [facility] Comment on above: Performed By: #### I NSULIN #### [facility] [address] [address] [address] Trey Higgins OCC BLD IMMUNO SCREENon 05-20 OCCULT BLOOD Negative Normal NEGATIVE [facility] Comment on above: Performed By: #### O BSCRN #### [facility] [address] [address] [address] Trey Higgins T4, T3U, FTI [facility]ABC[facility]on 06-08 Free Thyroxine Index 2.4 Normal 1.2-4.9 [facility] Comment on above: Performed By: #### T HYLC #### [facility] [address] [address] [address] Trey Higgins T3 Uptake 26 % Normal 24-39 [facility] Comment on above: Performed By: #### T HYLC #### [facility] [address] [address] [address] Trey Higgins T4 [Mass/Vol] 9.1 ug/dL Normal 4.5-12.0 [facility] Comment on above: Performed By: #### T HYLC #### [facility] [address] [address] [address] Trey Higgins VIT D 25-OH [facility]Pon 2021 Vitamin D, 25-Hydroxy 22.7 ng/mL Critically low 30.0-100.0 [facility] Comment on above: Result Comment: Gia min D deficiency has been defined by the [place] of [employer] and an Endocrine Society practice guideline as a level of serum 25-OH vitamin D less than 20 ng/mL (1,2). The Endocrine Society went on to further define vitamin D insufficiency as a level between 21 and 29 ng/mL (2). 1. IOM ([place] of Medicine). 2010. Dietary reference intakes for calcium and D. Pal [place]: The National Academies Press. 2. Melvi MF, Leon WATT, Jyoti CHILDS, et al. Evaluation, treatment, and prevention of vitamin D deficiency: an Endocrine Society clinical practice guideline. JCEM. 2010; 96(7):1911-30. Performed By: #### V ITADLC #### [facility] [address] [address] [address] Trey Higgins CBC AUTO DIFFon 06-07-2022 BASO # 0.0 103/ul Normal 0.0-0.1 [facility] Comment on above: Performed By: #### C BC ####[facility] [address] [id number] Higgins Basophils/100 WBC (Bld) 1.0 % Normal 0.2-2.0 [facility] Comment on above: Performed By: #### C BC ####[facility] [address] [address]DrMickie Higgins EO # 0.3 103/ul Normal 0.0-0.7 [facility] Comment on above: Performed By: #### C BC ####[facility] [address] [address]DrMickie Higgins Eosinophils/100 WBC (Bld) 6.4 % Normal 0.9-7.0 [facility] Comment on above: Performed By: #### C BC ####[facility] [address] [address]DrMickie Higgins Erythrocyte distribution width (RBC) [Ratio] 13.2 % Normal 11.0-15.0 [facility] Comment on above: Performed By: #### C BC ####[facility] [address] [address]DrMickie Higgins Hematocrit (Bld) [Volume fraction] 41.6 % Normal 36.0-48.0 [facility] Comment on above: Performed By: #### C BC ####[facility] [address] [address]DrMickie Higgins Hemoglobin (Bld) [Mass/Vol] 13.4 g/dL Normal 12.0-16.0 [facility] Comment on above: Performed By: #### C BC ####[facility] [address] [address]Dr[address] Trey Higgins IG # 0.03 10e3/ul Normal 0.00-0.03 [facility] Comment on above: Performed By: #### C BC ####[facility] [address] [address]Dr[address] Trey Higgins IG % 0.7 % Critically high 0.0-0.5 [facility] Comment on above: Performed By: #### C BC ####[facility] [address] [address]Dr. Trey Higgins LYMPH # 1.4 103/ul Normal 1.2-3.8 [facility] Comment on above: Performed By: #### C BC ####[facility] [address] [address]Dr. Ashleymartin Higgins Lymphocytes/100 WBC (Bld) 32.8 % Normal 20.5-60.0 [facility] Comment on above: Performed By: #### C BC ####[facility] [address] [address]Dr. Trey Higgins MANUAL DIFF REQ NO Normal [facility] Comment on above: Performed By: #### C BC ####[facility] [address] [address]Dr. Trey Higgins MCH (RBC) [Entitic mass] 29.1 pg Normal 26.7-34.0 [facility] Comment on above: Performed By: #### C BC ####[facility] [address] [address]Dr. Trey Higgins MCHC (RBC) [Mass/Vol] 32.2 g/dL Normal 29.9-35.2 [facility] Comment on above: Performed By: #### C BC ####[facility] [address] [address]Dr. Trey Higgins MCV (RBC) [Entitic vol] 90.4 fL Normal 81.0-99.0 [facility] Comment on above: Performed By: #### C BC ####[facility] [address] [address]Dr. Trey Higgins MONO # 0.4 103/ul Normal 0.3-0.8 [facility] Comment on above: Performed By: #### C BC ####[facility] [address] [address]Dr. Trey Higgins Monocytes/100 WBC (Bld) 9.0 % Normal 1.7-12.0 [facility] Comment on above: Performed By: #### C BC ####[facility] [address] [address]Dr. Trey Higgins NEUT # 2.1 103/ul Normal 1.4-6.5 [facility] Comment on above: Performed By: #### C BC ####[facility] [address] [address]Dr. Trey Higgins Neutrophils/100 WBC (Bld) 50.1 % Normal 43.0-75.0 [facility] Comment on above: Performed By: #### C BC ####[facility] [address] [address]Dr. Trey Higgins Platelet mean volume (Bld) [Entitic vol] 10.9 fL Normal 9.5-13.5 [facility] Comment on above: Performed By: #### C BC ####[facility] [address] [address]Dr. Trey Higgins PLT 182 103/ul Normal 150-450 [facility] Comment on above: Performed By: #### C BC ####[facility] [address] [address]Dr. Trey Higgins RBC 4.60 106/ul Normal 4.20-5.40 [facility] Comment on above: Performed By: #### C BC ####[facility] [address] [id number]. Trey Higgins WBC 4.2 103/ul Normal 4.0-11.0 [facility] Comment on above: Performed By: #### C BC ####[facility] [address] [place], [place] [address]Dr. Trey Higgins GLYCOHEMOGLOBIN A1Con 2021 ADA RECOMMENDATION SEE BELOW Normal [facility] Comment on above: Result Comment: ADA RECOMMENDED LIMIT 4.0 - 6.0 ADA THERAPEUTIC TARGET < 7.0 ACTION SUGGESTED > 7.0 Performed By: #### A 1C #### [facility] [address] [address] [address] Trey Higgins Glucose [Mass/Vol] 103 mg/dL Normal [facility] Comment on above: Performed By: #### A 1C #### [facility] [address] [address] [address] Trey Higgins HbA1c (Bld) [Mass fraction] 5.2 % Normal 4.5-6.2 [facility] Comment on above: Performed By: #### A 1C #### [facility] [address] [address] [address] Trey Higgins IRONon 06-07-2022 Iron [Mass/Vol] 71.0 ug/dL Normal 50.0-170.0 [facility] Comment on above: Performed By: #### I SELENE #### [facility] [address] [address] [address] Trey Higgins LIPID PROFILEon 06-07-2022 CHOL-HDL RATIO NORM SEE BELOW Normal [facility] Comment on above: Result Comment: 3.3 - 4.4 LOW RISK 4.4 - 7.1 AVERAGE RISK 7.1 - 11.0 MODERATE RISK >11.0 HIGH RISK Performed By: #### L IPID, TSH, CMP #### [facility] [facility] [address] [address] [address] Trey Higgins Cholesterol [Mass/Vol] 182 mg/dL Normal <=200 [facility] Comment on above: Performed By: #### L IPID, TSH, CMP #### [facility] [address] [address] [address] Trey Hgigins Cholesterol in HDL [Mass/Vol] 45 mg/dL Normal 40-60 [facility] Comment on above: Performed By: #### L IPID, TSH, CMP #### [facility] [address] [address] [address] Trey Higgins Cholesterol in LDL [Mass/Vol] 97.8 mg/dL Normal [facility] Comment on above: Performed By: #### L IPID, TSH, CMP #### [facility] [address] [address] [address] Trey Higgins Cholesterol.total/Chol esterol in HDL [Mass ratio] 4.0 {ratio} Normal [facility] Comment on above: Performed By: #### L IPID, TSH, CMP #### [facility] [address] [address] [address] Trey Higgins HDL NORMAL > or = 60 mg/dl - LOW CARDIOVASCULAR RISK <40 mg/dl - HIGH CARDIOVASCULAR RISK Normal [facility] Comment on above: Performed By: #### L IPID, TSH, CMP #### [facility] [address] [place] [address] Dr. Trey Higgins LDL CALC NORMAL SEE BELOW Normal [facility] Comment on above: Result Comment: <100 mg/dl OPTIMAL 100 - 129 mg/dl NEAR OR ABOVE OPTIMAL 130 - 159 mg/dl BORDERLINE HIGH 160 - 189 mg/dl HIGH >190 mg/dl VERY HIGH Performed By: #### L IPID, TSH, CMP #### [facility] [address] [place] [address] Dr. Trey Higgins Triglyceride [Mass/Vol] 196 mg/dL Critically high <=150 [facility] Comment on above: Performed By: #### L IPID, TSH, CMP #### [facility] [address] [address] [address] Trey Higgins VLDL CALC 39.2 mg/dL Normal [facility] Comment on above: Performed By: #### L IPID, TSH, CMP #### [facility] [address] [place] [address] Dr. Trey Higgins PROF 14(COMP METB)on 022 Albumin [Mass/Vol] 4.0 g/dL Normal 3.4-5.0 [facility] Comment on above: Performed By: #### L IPID, TSH, CMP #### [facility] [address] [address] [address] Trey Higgins Albumin/Globulin [Mass ratio] 1.3 {ratio} Normal [facility] Comment on above: Performed By: #### L IPID, TSH, CMP #### [facility] [address] [address] [address] Trey Higgins ALP [Catalytic activity/Vol] 95 U/L Normal 46-116 [facility] Comment on above: Performed By: #### L IPID, TSH, CMP #### [facility] [address] [address] [address] Trey Higgins ALT [Catalytic activity/Vol] 46 U/L Normal 14-59 [facility] Comment on above: Performed By: #### L IPID, TSH, CMP #### [facility] [address] [address] [address] Trey Higgins Anion gap [Moles/Vol] 14.2 mmol/L Normal [facility] Comment on above: Performed By: #### L IPID, TSH, CMP #### [facility] [address] [address] [address] Trey Higgins AST [Catalytic activity/Vol] 23 U/L Normal 15-37 [facility] Comment on above: Performed By: #### L IPID, TSH, CMP #### [facility] [address] [address] [address] Trey Higgins Bilirubin [Mass/Vol] 0.6 mg/dL Normal 0.2-1.0 [facility] Comment on above: Performed By: #### L IPID, TSH, CMP #### [facility] [address] [address] [address] Trey Higgins Calcium [Mass/Vol] 8.8 mg/dL Normal 8.5-10.1 [facility] Comment on above: Performed By: #### L IPID, TSH, CMP #### [facility] [address] [address] [address] Trey Higgins Chloride [Moles/Vol] 105 mmol/L Normal 98-107 [facility] Comment on above: Performed By: #### L IPID, TSH, CMP #### [facility] [address] [address] [address] Trey Higgins CO2 [Moles/Vol] 28.0 mmol/L Normal 21.0-32.0 [facility] Comment on above: Performed By: #### L IPID, TSH, CMP #### [facility] [address] [address] [address] Trey Higgisn Creatinine [Mass/Vol] 0.74 mg/dL Normal 0.55-1.02 [facility] Comment on above: Performed By: #### L IPID, TSH, CMP #### [facility] [address] [address] [address] Trey Higgins EGFR-AF NEW ZEALANDER >60 Normal >=60 [facility] Comment on above: Performed By: #### L IPID, TSH, CMP #### [facility] [address] [address] [address] Trey Higgins EGFR-NON AF NEW ZEALANDER >60 Normal >=60 [facility] Comment on above: Performed By: #### L IPID, TSH, CMP #### [facility] [address] [address] [address] Trey Higgins Globulin (S) [Mass/Vol] 3.0 g/dL Normal [facility] Comment on above: Performed By: #### L IPID, TSH, CMP #### [facility] [address] [address] [address] Trey Higgins Glucose [Mass/Vol] 115 mg/dL Critically high 74-106 [facility] Comment on above: Performed By: #### L IPID, TSH, CMP #### [facility] [address] [address] [address] Trey Higgins Potassium [Moles/Vol] 4.2 mmol/L Normal 3.5-5.1 [facility] Comment on above: Performed By: #### L IPID, TSH, CMP #### [facility] [address] [address] [address] Trey Higgins Protein [Mass/Vol] 7.0 g/dL Normal 6.4-8.2 [facility] Comment on above: Performed By: #### L IPID, TSH, CMP #### [facility] [address] [place] [address] Dr. Trey Higgins Sodium [Moles/Vol] 143 mmol/L Normal 136-145 [facility] Comment on above: Performed By: #### L IPID, TSH, CMP #### [facility] [address] [place] [address] Dr. Trey Higgins Urea nitrogen [Mass/Vol] 15.0 mg/dL Normal 7.0-18.0 [facility] Comment on above: Performed By: #### L IPID, TSH, CMP #### [facility] [address] [place] [address] Dr. Trey Higgins Urea nitrogen/Creatinine [Mass ratio] 20.3 mg/mg Normal [facility] Comment on above: Performed By: #### L IPID, TSH, CMP #### [facility] [address] [place] [address] Dr. Trey Higgins TSHon 06-07-2022 TSH 3.646 uIU/mL Normal 0.358-3.740 [facility] Comment on above: Performed By: #### L IPID, TSH, CMP #### [facility] [address] [place] [address] Dr. Trey Higgins No Panel Informationon 04-08 Minimally displaced fracture of the humeral head/neck [facility] RIS CONSOLIDATED EXAMINATION: THREE XRAY VIEWS OF THE RIGHT SHOULDER; TWO XRAY VIEWS OF THE RIGHT HUMERUS 04/08/2022 10:31 am COMPARISON: None. HISTORY: ORDERING SYSTEM PROVIDED HISTORY: fall TECHNOLOGIST PROVIDED HISTORY: fall FINDINGS: There is a minimally displaced fracture of the humeral head/neck. The humeral head remains articulated with the glenoid. [facility] RIS CONSOLIDATED Rory Ratliff P - [...] Minimally displaced fracture of the humeral head/neck [employer] Work Phone: No Panel InformationOrdered By: Rory Ratliff on 04-08-2022 [employer] Phone: XR HUMERUS RIGHT (MIN 2 VIEW [...] by: Rory Ratliff 04/08/22 Final result Normal [facility] Study observation (narrative) [employer] Work Phone: XR SHOULDER RIGHT (MIN 2 [...] by: Rory Ratliff 04/08/22 Final result Normal [facility] Study observation (narrative) [employer] Phone: Vital Signs Date Time Vital Sign Value Performing Clinician Eldon rebolledo 12-09-2022 08:50-0500 Body height 172.7 cm Barbie Sawant MD Work Phone: [employer] 12-09-2022 08:50-0500 Body mass index (BMI) [Ratio] 42.74 kg/m2 Barbie Sawant MD Work Phone: [employer] 12-09-2022 08:50-0500 Body temperature 97.7 [degF] Barbie Sawant MD Work Phone: [facility] [employer] 12-09-2022 08:50-0500 Body weight 127.51 kg Barbie Sawant MD Work Phone: [facility] [employer] 12-09-2022 08:50-0500 Diastolic blood pressure 77 mm[Hg] Barbie Sawant MD Work Phone: [employer] 12-09-2022 08:50-0500 Heart rate 70 /min Barbie Sawant MD Work Phone: [facility] [employer] 12-09-2022 08:50-0500 Respiratory rate 20 /min Barbie Sawant MD Work Phone: [facility] [employer] 12-09-2022 08:50-0500 SaO2% (BldA) [Mass fraction] 94 % Barbie Sawant MD Work Phone: [facility] [employer] 12-09-2022 08:50-0500 Systolic blood pressure 137 mm[Hg] Barbie Sawant MD Work Phone: [facility] [employer] 04-08-2022 10:25-0400 Diastolic blood pressure 76 mm[Hg] Rocael Rodriguez Jr., MD Work Phone: [facility] [employer] 04-08-2022 10:25-0400 Systolic blood pressure 158 mm[Hg] Rocael Rodriguez Jr., MD Work Phone: [facility] [employer] 04-08-2022 10:19-0400 Body temperature 97.81 [degF] Rocael Rodriguez Jr., MD Work Phone: [facility] [employer] 04-08-2022 10:19-0400 Heart rate 91 /min Rocael Rodriguez Jr., MD Work Phone: [employer] 04-08-2022 10:19-0400 Respiratory rate 16 /min Rocael Rodriguez Jr., MD Work Phone: [facility] 04-08-2022 10:19-0400 SaO2% (BldA) [Mass fraction] 96 % Rocael Rodriguez Jr., MD Work Phone: [facility] 10-16-2021 09:07-0500 Body height 172.7 cm Allen Colmenares MD Work Phone: [facility] 10-16-2021 09:07-0500 Body mass index (BMI) [Ratio] 44.85 kg/m2 Allen Colmenares MD Work Phone: [employer] 10-16-2021 09:07-0500 Body temperature 97 [degF] Allen Colmenares MD Work Phone: [facility] 10-16-2021 09:07-0500 Body weight 133.81 kg Allen Colmenares MD Work Phone: [facility] Encounters Encounter Date Encounter Type Care Provider Facility Start: 01-29-2023 End: 01-30-2023 ambulatory [facility]ARDO [facility] Start: 01-29-2023 End: 01-29-2023 Subsequent hospital visit by physician [facility]ia [facility] Comment on above: Arrived Start: 01-27-2023 End: 01-28-2023 ambulatory R[facility]ARDO Garcia [facility] Start: 01-27-2023 End: 01-27-2023 Subsequent hospital visit by physician [facility] Comment on above: Arrived Start: 01-23-2023 End: 01-24-2023 ambulatory RICARDO Garcia [facility] Start: 01-23-2023 End: 01-23-2023 Subsequent hospital visit by physician [facility]ia [facility] Comment on above: Arrived Start: 01-20-2023 End: 01-21-2023 ambulatory RICARDO Garcia [facility] Start: 01-20-2023 End: 01-20-2023 Subsequent hospital visit by physician [facility] Comment on above: Arrived Start: 01-19-2023 ambulatory RICARDO [facility] Start: 01-16-2023 End: 01-17-2023 ambulatory [facility] Start: 01-16-2023 End: 01-16-2023 Subsequent hospital visit by physician Tamia Zuñiga PT [facility] Comment on above: Arrived Start: 01-14-2023 End: 01-15-2023 ambulatory [facility] Start: 01-14-2023 End: 01-14-2023 Subsequent hospital visit by physician Tamia Zuñiga PT [facility] Comment on above: Arrived Start: 01-12-2023 End: 01-13-2023 ambulatory [facility] Start: 01-12-2023 End: 01-12-2023 Subsequent hospital visit by physician Javier Flor [facility] Comment on above: Arrived Start: 01-09-2023 End: 01-10-2023 ambulatory [facility] Start: 01-09-2023 End: 01-09-2023 Subsequent hospital visit by physician Eric Chadwick PT [facility] Comment on above: Arrived Start: 01-07-2023 End: 01-08-2023 ambulatory [facility] Start: 01-07-2023 End: 01-07-2023 Subsequent hospital visit by physician Tamia Zuñiga PT [facility] Comment on above: Arrived Start: 01-05-2023 End: 01-06-2023 ambulatory [facility] Start: 01-05-2023 End: 01-05-2023 Subsequent hospital visit by physician Javier Flor [facility] Comment on above: Arrived Start: 01-02-2023 End: 01-03-2023 ambulatory [facility] Start: 01-02-2023 End: 01-02-2023 Subsequent hospital visit by physician Yocasat Kline PT [facility] Comment on above: Arrived Start: 12-31-2022 End: 01-01-2023 ambulatory BARBIE Garcia [facility] Start: 12-31-2022 End: 12-31-2022 Subsequent hospital visit by physician Tamia Zuñiga PT [facility] Comment on above: Arrived Start: 12-30-2022 End: 12-31-2022 ambulatory [facility] Start: 12-25-2022 End: 12-26-2022 ambulatory [facility] Start: 12-25-2022 End: 12-25-2022 Subsequent hospital visit by physician Eric Chadwick PT [facility] Comment on above: Arrived Start: 12-22-2022 End: 12-23-2022 ambulatory RICARDO Garcia [facility] Start: 12-15-2022 End: 12-16-2022 ambulatory [facility] Start: 12-15-2022 End: 12-15-2022 Subsequent hospital visit by physician Eric Chadwick PT [facility] Comment on above: Arrived Start: 12-09-2022 End: 12-14-2022 ambulatory [facility] Start: 12-09-2022 End: 12-13-2022 Subsequent hospital visit by physician Barbie Sawant MD Work Phone: [facility] Start: 07-08-2022 End: 07-09-[address] RICARDO WINTER Facility:[facility] Start: 06-09-2022 End: 06-09-[address] RICARDO WINTER Facility:[facility] Start: 06-07-2022 End: 06-08-[address] RICARDO WINTER Facility:[facility] Start: 04-08-2022 End: 04-08-2022 Emergency department patient visit RICARDOGIN W[facility] Start: 04-08-2022 End: 04-08-2022 Emergency department patient visit Rocael Rodriguez MD Work Phone: [facility] ED Comment on above: Closed displaced fra cture of surgical neck of right humerus, unspecified fracture morphology, initial encounter (Primary Dx) Start: 10-16-2021 End: 10-16-2021 Office outpatient new 45 minutes Allen Colmenares MD Work Phone: [facility] Comment on above: Right knee pain, uns pecified chronicity (Primary Dx); Left knee pain, unspecified chronicity; Primary osteoarthritis of right knee; Pain in prosthetic joint, sequela Start: 10-16-2021 End: 10-16-2021 Subsequent hospital visit by physician Allen Colmenares MD Work Phone: [facility] Start: 07-25-2021 End: 07-25-2021 ambulatory [...] Start: 01-23-2023 End: 01-23-2023 Patient [facility] Start: 01-21-2023 End: 01-21-2023 [...] 12/22/2022 Surgery IP Unit Barbie Sawant MD [address] [place] [id number] KNEE TOTAL ARTHROPLASTY [facility] OR Comment on above: KNEE TOTAL ARTHROPLA STY Start: 12-22-2022 End: 12-22-2022 Arthrp kne condyle&platu medial&lat compartments KNEE TOTAL ARTHROPLASTY Arthritis of right knee 12/22/2022 11:20 AM [facility] Start: 12-22-2022 Subsequent hospital visit by physician 12/22/2022 Hospital Encounter IP Unit Barbie Sawant MD [address] [place] [phone] [facility] Start: 12-15-2022 End: 12-15-2022 Patient encounter procedure 12/15/2022 Appointment Physical Therapy Eric Chadwick PT [facility] Start: 04-08-2022 Annual Wellness Visi t (AWV) Annual Wellness Visit (AWV) [facility] Start: 2019 Pneumococcal vaccination PNEUM OCOCCAL VACCINE SERIES (1 of 1 - PPSV23) [facility] Start: 2009 Screening for osteoporosis DEXA (modify frequency per FRAX score) [facility] Start: 2004 Screening for malign ant neoplasm of breast Breast cancer screen [facility] Start: 2004 Zoster vaccine hzv l leslee for subcutaneous use ZOSTER (SHINGLES) VACCINE (1 of 2) [facility] Start: 1999 Colonoscopy COLORECTAL CAN CER SCREENING DISCUSSION [facility] Start: 1999 Screening for malign ant neoplasm of colon [facility] Start: 1994 Fasting lipid profile LIPID SCREENIN G [facility] Start: 1994 Screening mammography MAMMOGRA M SCREENING DISCUSSION [facility] Start: 1989 Diabetes screen Diabetes screen [facility] Start: 1975 Screening for malign ant neoplasm of cervix CERVICAL CANCER SCREENING DISCUSSION [facility] Start: 1973 DTaP/Tdap/Td vaccine (1 - Tdap) DTaP/Tdap/Td vaccine (1 - Tdap) [facility] Start: 1973 Third diphtheria, tetanus and acellular pertussis (DTaP) vaccination TDAP (ADULT) [facility] Start: 1972 Hepatitis C screening Hepatitis C sc reen [facility] Start: 1972 Tetanus vaccination [facility] Start: 1966 Depression Screen Depression Screen [facility] Start: 1964 Lipid panel Lipids [facility] Start: 1959 COVID-19 VACCINE (1) COVID-19 VACCIN E (1) [facility] Start: 1954 Hepatitis C antibody , confirmatory test HEPATITIS C VIRUS SCREENING [facility] Start: 1954 Screening for osteoporosis DEXA SCAN DISCUSSION [facility] Start: 1954 Thyroid stimulating hormone measurement TSH [facility] Radiography for bone length studies XR BONE LENGTH STUDY Imaging Routine Left knee pain, unspecified chronicity 10/16/2021 8:56 AM EST [facility] knee XR KNEE RIGHT 4+ VIEWS Imaging Routine Right knee pain, unspecified chronicity 10/16/2021 8:56 AM [facility] [employer] X-ray of left knee XR KNEE LEFT 3 VIEWS Imaging Routine Left knee pain, unspecified chronicity 10/16/2021 8:56 AM EST [employer] Payers Date Payer Category Payer Medicare MEDICARE ANTHEM HMO OR PPO MEDICARE [facility] HMO OR PPO [id number] 2020-Present [address] [place] [address] [id number] 1959 Medicare [id number] 1959 Medicare [id number] 1954 Unknown [id number] 2..840.1.695629.3.579.2.593 1954 Unknown [id number] 2.16.840.1.680006.3.579.2.593 1954 Unknown [id number] 2.16.840.1.589903.3.579.2.593 1954 Unknown [id number] 2.16.840.1.670932.3.579.2.593 1954 Unknown [id number] 2.16.840.1.478672.3.579.2.173 1954 Unknown [id number] 2.16.840.1.187418.3.579.2.173 1954 Unknown [id number] 2.16.840.1.056500.3.579.2.173 1954 Unknown [id number] 2.16.840.1.612030.3.579.2.173 1954 Unknown [id number] 2.16.840.1.869626.3.579.2.173 1954 Unknown [id number] 2.16.840.1.303860.3.579.2.173 1954 Unknown [id number] 2.16.840.1.161695.3.579.2.173 1954 Unknown [id number] 2.16.840.1.020661.3.579.2.173 1954 Unknown [id number] 2.16.840.1.769220.3.579.2.173 1954 Unknown [id number] 2.16.840.1.611785.3.579.2.173 1954 Unknown [id number] 2.16.840.1.363460.3.579.2.173 1954 Unknown [id number] 2.16.840.1.577389.3.579.2.173 1954 Unknown [id number] 2.16.840.1.260867.3.579.2.173 1954 Unknown [id number] 2.16.840.1.988006.3.579.2.173 1954 Unknown [id number] 2.16.840.1.004019.3.579.2.173 1954 Unknown [id number] 2.16.840.1.993307.3.579.2.173 1954 Unknown [id number] 2.16.840.1.160146.3.579.2.173 1954 Unknown [id number] 2.16.840.1.593257.3.579.2.173 1954 Unknown [id number] 2.16.840.1.152585.3.579.2.173 Social History Date Type Detail Facility Start: 10-16-2021 End: 12-09-2022 Tobacco smoking status NHIS Never smoked tobacco [facility] Start: 10-16-2021 End: 12-09-2022 Tobacco use and exposure Smokeless tobacco non-user [facility] Start: 10-16-2021 End: 12-25-2022 Alcohol intake Ex-drinker (finding) [facility] Start: 1955 Sex Assigned At Not on file A [facility] Start: 03-29-2022 End: 12-22-2022 Exposure to SARS-CoV-2 (event) Not sure [facility] [employer] Work Phone: Medical Equipment Procedure Code Equipment Code Equipment Origin al Text Equipment Identifier Dates Impl Knee Psn Al l Poly Pat 38mm - [id number] Start: 12-22-2022 Psn Mc Ve Asf R 14mm 8-11 - [id number] Start: 12-22-2022 Clinical Notes 10-16-2021 to 01-29-2023 Tamia Zuñiga, PT - 01/29/2023 3:45 PM Fernandez Zuñiga, PT - 01/27/2023 4:30 PM Fernandez Zuñiga, PT - 01/23/2023 4:00 PM Fernandez Zuñiga, PT - 01/20/2023 5:15 PM EDT Note Date & Type Note Facility 01-29-2023 History of Present illness Narrative [facility] Therapy Daily Note Patient: Glory Pierce : 1955 [facility] #: [id number] Referring Physician: Barbie Sawant MD Date: 01/29/2023 [...] endurance and strength for ADLs. - met [employer] Geneticist Goals Time Frame for Wildlife Fore[employer] Geneticist Goals : 4 weeks Wildlife Forensic Geneticist Goal 1: Patient will be independent and compliant with a HEP. - met [employer] Geneticist Goal 2: Patient will improve R knee ROM to 0-110* for ADLs. - met (01/29/2023 AROM R knee flexion = 114 degrees) [facility] Goal 3: Patient will improve R LE strength to >/= 4/5 in all major joints and planes for ambulation and ADLs. - met (01/29/2023 righ tLE strength = 4+/5 on average) [employer]ist Goal 4: Patient will be able to ambulate without an AD with minimal gait deviations. - met (01/20/2023) [employer]ist Goal 5: Patient will report 70% improvement in overall symptoms and function. - met Minutes Tracking: Time In: 1547 Time Out: 1620 Minutes: 33 Timed Code Treatment Minutes: 32 Minutes Tamia Zuñiga PT, DPT Date: 01/29/2023 documented in this encounter [facility] [employer] [facility] Phone: 01-27-2023 History of Present illness Narrative [facility] Daily Note Patient: Glory Pierce : 1955 CSN #: [id number] Referring Physician: Barbie Sawant MD Date: 01/27/2023 [...] endurance and strength for ADLs. - met [employer] Fore[employer] Geneticist Goals Time Frame for Mcc Goals : 4 weeks [facility] Goal 1: Patient will be independent and compliant with a HEP. [employer]ist Goal 2: Patient will improve R knee ROM to 0-110* for ADLs. - progressing (01/23/2023 AAROM R knee flexion = 110 degrees) [facility] Goal 3: Patient will improve [...] Date: 01/27/2023 documented in this encounter [facility] [employer] Phone: 01-23-2023 History of Present illness Narrative [facility] Daily Note Patient: Glory Pierce : 1955 CSN #: [id number] Referring Physician: Barbie Sawant MD Date: 01/23/2023 [...] endurance and strength for ADLs. - met [employer] Fore[employer] Geneticist Goals Time Frame for M[facility] Goals : 4 weeks [employer]ist Goal 1: Patient will be independent and compliant with a HEP. [facility] Goal 2: Patient will improve R knee ROM to 0-110* for ADLs. - progressing (01/23/2023 AAROM R knee flexion = 110 degrees) [facility] Goal 3: Patient will improve R LE strength to >/= 4/5 in all major joints and planes for ambulation and ADLs. Wildlife Forensic Geneticist Goal 4: Patient will be able to ambulate without an AD with minimal gait deviations. - met (01/20/2023) Mcc Goal 5: Patient will report 70% improvement in overall symptoms and function. Minutes Tracking: Time In: 1557 Time Out: 1645 Minutes: 48 Timed Code Treatment Minutes: 47 Minutes Tamia Zuñiga PT, DPT Date: 01/23/2023 documented in this encounter [facility] Phone: 01-20-2023 History of Present illness Narrative [facility] Outpatient Physical Therapy Daily Note Patient: Glory Pierce : 1955 CSN #: [id number] Referring Physician: Barbie Sawant MD Date: 01/20/2023 Diagnosis: Aftercare following joint replacement surgery, Z47.1, presence of R artificial knee joint, Z96.651 Treatment Diagnosis: s/p R TKA, R knee pain, decreased LE strength Onset Date: 12/22/22 PT Insurance Information: [facility] [employer] 4 MORE PT VISITS TO 02-14-2023 Total [...] - met Mcc Goals Time Frame for Wildlife Forensic Geneticist Goals : 4 weeks Mcc Goal 1: [...] with minimal gait deviations. - met (01/20/2023) Wildlife Forensic Geneticist Goal 5: Patient will report 70% improvement in overall symptoms and function. Minutes Tracking: Time In: 1715 Time Out: 1800 Minutes: 45 Timed Code Treatment Minutes: 35 Minutes Tamia Zuñiga PT, DPT Date: 01/20/2023 documented in this encounter [facility] Phone: 01-16-2023 History of Present illness Narrative [facility] Outpatient Physical Therapy Daily Note Patient: Glory Pierce : 1955 [facility] #: [id number] Referring Physician: Barbie Sawant MD Date: 01/16/2023 Diagnosis: Aftercare following joint replacement surgery, Z47.1, presence of R artificial knee joint, Z96.651 Treatment Diagnosis: s/p R TKA, R knee pain, decreased LE strength Onset Date: 12/22/22 PT Insurance Information: [employer] [employer] APPROVED 10 VISITS NOT INCLUDING EVAL 12-25 TO 03-24-23 [id number] Total # of Visits Approved: 10 Per [...] - met Mcc Goals Time Frame for Wildlife Forensic Geneticist Goals : 4 weeks Mcc Goal 1: Patient will be independent and compliant with a HEP. Wildlife Forensic Geneticist Goal 2: Patient will improve R knee ROM to 0-110* for ADLs. - progressing (01/16/2023 R knee flexion = 106 degrees) Wildlife Forensic Geneticist Goal 3: Patient will improve R LE strength to >/= 4/5 in all major joints and planes for ambulation and ADLs. Mcc Goal 4: Patient will be able to ambulate without an AD with minimal gait deviations. - progressing (01/16/2023 ambulating without assistive device with moderate gait deviations) Mcc Goal 5: Patient will report 70% improvement in overall symptoms and function. Minutes Tracking: Time In: 1000 Time Out: 1055 Minutes: 55 Timed Code Treatment Minutes: 54 Minutes Tamia Zuñiga PT, DPT Date: 01/16/2023 documented in this encounter [facility] Phone: 01-14-2023 History of Present illness Narrative [facility] Outpatient Physical Therapy Daily Note Patient: Glory Pierce : 1955 CSN #: [id number] Referring Physician: Barbie Sawant MD Date: 01/14/2023 Diagnosis: Aftercare following joint replacement surgery, Z47.1, presence of R artificial knee joint, Z96.651 Treatment Diagnosis: s/p R TKA, R knee pain, decreased LE strength Onset Date: 12/22/22 PT Insurance Information: [employer] [employer] APPROVED 10 VISITS NOT INCLUDING EVAL 12-25 TO 03-24-23 [id number] Total # of Visits Approved: 10 Per [...] Frame for Mcc Goals : 4 weeks Wildlife Forensic Geneticist Goal 1: Patient will be independent and compliant with a HEP. Mcc Goal 2: Patient will improve R knee ROM to 0-110* for ADLs. Wildlife Forensic Geneticist Goal 3: Patient will improve R LE strength to >/= 4/5 in all major joints and planes for ambulation and ADLs. Mcc Goal 4: Patient will be able to ambulate without an AD with minimal gait deviations. - progressing (01/14/2023 ambulating with SPC in clinic) Mcc Goal 5: Patient will report 70% improvement in overall symptoms and function. Minutes Tracking: Time In: 1115 Time Out: 1205 Minutes: 50 Timed Code Treatment Minutes: 49 Minutes Tamia Zuñiga PT, DPT Date: 01/14/2023 documented in this encounter [facility] [employer] Phone: 01-12-2023 History of Present illness Narrative [facility] Outpatient Physical Therapy Daily Note Patient: Glory Pierce : 1955 CSN #: [id number] Referring Physician: Barbie Sawant MD Date: 01/12/2023 Diagnosis: Aftercare following joint replacement surgery, Z47.1, presence of R artificial knee joint, Z96.651 Treatment Diagnosis: s/p R TKA, R knee pain, decreased LE strength Onset Date: 12/22/22 PT Insurance Information: [employer] [employer] APPROVED 10 VISITS NOT INCLUDING EVAL 12-25 TO 03-24-23 [id number] Total # of Visits Approved: 10 Per [...] endurance and strength for ADLs. - met Wildlife Forensic Geneticist Goals Time Frame for Mcc Goals : 4 weeks Wildlife Forensic Geneticist Goal 1: Patient will be independent and compliant with a HEP. Mcc Goal 2: Patient will improve R knee ROM to 0-110* for ADLs. Mcc Goal 3: Patient will improve R LE strength to >/= 4/5 in all major joints and planes for ambulation and ADLs. Mcc Goal 4: Patient will be able to ambulate without an AD with minimal gait deviations. Wildlife Forensic Geneticist Goal 5: Patient will report 70% improvement in overall symptoms and function. Minutes Tracking: Time In: 1300 Time Out: 1400 Minutes: 60 Timed Code Treatment Minutes: 58 Minutes Javier Sethi Date: 01/12/2023 documented in this encounter [facility] Phone: 01-09-2023 History of Present illness Narrative [facility] Outpatient Physical Therapy Daily Note Patient: Glory Pierce : 1955 CSN #: [id number] Referring Physician: Barbie Sawant MD Date: 01/09/2023 Diagnosis: Aftercare following joint replacement surgery, Z47.1, presence of R artificial knee joint, Z96.651 Treatment Diagnosis: s/p R TKA, R knee pain, decreased LE strength Onset Date: 12/22/22 PT Insurance Information: [employer] APPROVED 10 VISITS NOT INCLUDING EVAL 12-25 TO 03-24-23 [id number] Total # of Visits Approved: 10 Per [...] and 6 follow-up visits working toward her mcc goals. She is currently ambulating with a SC safely, she demonstrates improved knee ROM measurin-103* in supine, and MMT grossly measures 4-/5. She would benefit from skilled PT to address her deficits to work toward her mcc goals. Activity Tolerance Activity Tolerance: Patient tolerated [...] be independent and compliant with a HEP. Wildlife Forensic Geneticist Goal 2: Patient will improve R knee ROM to 0-110* for ADLs. Mcc Goal 3: Patient will improve R LE strength to >/= 4/5 in all major joints and planes for ambulation and ADLs. Mcc Goal 4: Patient will be able to ambulate without an AD with minimal gait deviations. Wildlife Forensic Geneticist Goal 5: Patient will report 70% improvement in overall symptoms and function. Minutes Tracking: Time In: 0845 Time Out: 43 Minutes: 58 Timed Code Treatment Minutes: 56 Minutes Eric Chadwick PT, DPT Date: 01/09/2023 [facility] encounter [facility] [employer] Phone: 01-07-2023 History of Present illness Narrative [facility] Outpatient Physical Therapy Daily Note Patient: Glory Pierce : 1955 CSN #: [id number] Referring Physician: Barbie Sawant MD Date: 01/07/2023 Diagnosis: Aftercare following joint replacement surgery, Z47.1, presence of R artificial knee joint, Z96.651 Treatment Diagnosis: s/p R TKA, R knee pain, decreased LE strength Onset Date: 12/22/22 PT Insurance Information: [employer] APPROVED 10 VISITS NOT INCLUDING EVAL 12-25 TO 03-24-23 [id number] Total # of Visits Approved: 10 Per [...] - met Mcc Goals Time Frame for Wildlife Forensic Geneticist Goals : 4 weeks Wildlife Forensic Geneticist Goal 1: Patient will be independent and compliant with a HEP. Wildlife Forensic Geneticist Goal 2: Patient will improve R knee ROM to 0-110* for ADLs. Wildlife Forensic Geneticist Goal 3: Patient will improve R LE strength to >/= 4/5 in all major joints and planes for ambulation and ADLs. Wildlife Forensic Geneticist Goal 4: Patient will be able to ambulate without an AD with minimal gait deviations. Mcc Goal 5: Patient will report 70% improvement in overall symptoms and function. Minutes Tracking: Time In: 1019 Time Out: 1110 Minutes: 51 Timed Code Treatment Minutes: 50 Minutes Tamia Zuñiga PT, DPT Date: 01/07/2023 documented in this encounter [facility] [employer] [facility] [employer] Phone: 01-05-2023 History of Present illness Narrative [facility] Outpatient Physical Therapy Daily Note Patient: Glory Pierce : 1955 CSN #: [id number] Referring Physician: Barbie Sawant MD Date: 01/05/2023 Diagnosis: Aftercare following joint replacement surgery, Z47.1, presence of R artificial knee joint, Z96.651 Treatment Diagnosis: s/p R TKA, R knee pain, decreased LE strength Onset Date: 12/22/22 PT Insurance Information: [employer] APPROVED 10 VISITS NOT INCLUDING EVAL 12-25 TO 03-24-23 [id number] Total # of Visits Approved: 10 Per [...] Frame for Mcc Goals : 4 weeks Wildlife Forensic Geneticist Goal 1: Patient will be independent and compliant with a HEP. Wildlife Forensic Geneticist Goal 2: Patient will improve R knee [...] Date: 01/05/2023 documented in this encounter [facility] [employer] Phone: 01-02-2023 History of Present illness Narrative [facility] Outpatient Physical Therapy Daily Note Patient: Glory Pierce : 1955 CSN #: [id number] Referring Physician: Barbie Sawant MD Date: 01/02/2023 Diagnosis: Aftercare following joint replacement surgery, Z47.1, presence of R artificial knee joint, Z96.651 Treatment Diagnosis: s/p R TKA, R knee pain, decreased LE strength Onset Date: 12/22/22 PT Insurance Information: [employer] APPROVED 10 VISITS NOT INCLUDING EVAL 12-25 TO 03-24-23 [id number] Total # of Visits Approved: 10 Per [...] endurance and strength for ADLs. - met Wildlife Forensic Geneticist Goals Time Frame for Wildlife Forensic Geneticist Goals : 4 weeks Mcc Goal 1: Patient will be independent and compliant with a HEP. Mcc Goal 2: Patient will improve R knee ROM to 0-110* for ADLs. Wildlife Forensic Geneticist Goal 3: Patient will improve R LE strength to >/= 4/5 in all major joints and planes for ambulation and ADLs. Wildlife Forensic Geneticist Goal 4: Patient will be able to ambulate without an AD with minimal gait deviations. Mcc Goal 5: Patient will report 70% improvement in overall symptoms and function. Minutes Tracking: Time In: 1145 Time Out: 1232 Minutes: 47 Timed Code Treatment Minutes: 45 Minutes Yocasta Kline PT DPT Date: 01/02/2023 documented in this encounter [facility] [employer] [facility] [employer] Phone: 12-31-2022 History of Present illness Narrative [facility] Outpatient Physical Therapy Daily Note Patient: Glory Pierce : 1955 CSN #: [id number] Referring Physician: Barbie Sawant MD Date: 12/31/2022 Diagnosis: Aftercare following joint replacement surgery, Z47.1, presence of R artificial knee joint, Z96.651 Treatment Diagnosis: s/p R TKA, R knee pain, decreased LE strength Onset Date: 12/22/22 PT Insurance Information: [employer] APPROVED 10 VISITS NOT INCLUDING EVAL 12-25 TO 03-24-23 [id number] Total # of Visits Approved: 10 Per [...] endurance and strength for ADLs. - met Wildlife Forensic Geneticist Goals Time Frame for Mcc Goals : 4 weeks Mcc Goal 1: Patient will be independent and compliant with a HEP. Wildlife Forensic Geneticist Goal 2: Patient will improve R knee ROM to 0-110* for ADLs. Wildlife Forensic Geneticist Goal 3: Patient will improve R LE strength to >/= 4/5 in all major joints and planes for ambulation and ADLs. Wildlife Forensic Geneticist Goal 4: Patient will be able to ambulate without an AD with minimal gait deviations. Mcc Goal 5: Patient will report 70% improvement in overall symptoms and function. Minutes Tracking: Time In: 1115 Time Out: 1200 Minutes: 45 Timed Code Treatment Minutes: 35 Minutes Tamia Zuñiga PT, DPT Date: 12/31/2022 documented in this encounter [facility] [employer] Phone: 12-25-2022 History of Present illness Narrative [facility] Outpatient Physical Therapy Evaluation Date: 12/25/2022 Patient: Glory Pierce : 1955 [facility] #: [id number] Referring Physician: Barbie Sawant MD Medical Diagnosis: Aftercare following joint replacement surgery, Z47.1, presence of R artificial knee joint, Z96.651 Treatment Diagnosis: s/p R TKA, R knee pain, decreased LE strength Onset Date: 12/22/22 PT Insurance Information: [facility] [employer] Total # of Visits Approved: 12 [...] for ADLs. Mcc Goals Time Frame for Mcc Goals : 4 weeks Wildlife Forensic Geneticist Goal 1: Patient will be independent and compliant with a HEP. Mcc Goal 2: Patient will improve R knee ROM to 0-110* for ADLs. Wildlife Forensic Geneticist Goal 3: Patient will improve R LE strength to >/= 4/5 in all major joints and planes for ambulation and ADLs. Mcc Goal 4: Patient will be able to ambulate without an AD with minimal gait deviations. Wildlife Forensic Geneticist Goal 5: Patient will report 70% improvement in overall symptoms and function. Patient Goals : Improve ROM of knee Minutes Tracking: Time In: 1113 Time Out: 1215 Minutes: 62 Timed Code Treatment Minutes: 50 Minutes Eric Chadwick PT, DPT 12/25/2022 documented in this encounter [facility] [employer] Phone: 12-09-2022 History of Present illness Narrative Patient instructed on the pre-operative, intra-operative, and post-operative process. Patient instructed on NPO status. Medication instructions and pre operative instruction sheet reviewed with the patient. CHG skin prep instructions reviewed with patient. [facility] Preadmission Testing Name: Glory Pierce : [...] medical clearance. documented in this encounter [facility] Phone: 10-16-2021 History of Present illness Narrative [...] post a left TKA in 2012 in [place] and has had pain in this knee [...] joint space, subchondral sclerosis, osteophyte formation, and [id number] contact and a left posterior stabilized knee in reasonable position and alignment. IMPRESSION: 1.) Severe symptomatic end-stage arthritis, right knee. 2.) Status post a left total knee arthroplasty in 2013 in [place]. 3.) Mild instability, left prosthetic knee. 4.) [...] 10/2012 total knee replacement . done in [place] TUBAL LIGATION 1985 No family history on [...] Not on file Current Outpatient Medications: Biotin 05362 MCG tablet, Take 10,000 mcg by mouth [...] done in 2012 when she lived in [place]. She has had pain in the Left [...] 10/16/2021 9:13 AM Patient: Stan Holder MR#: [id number] : 1955 Age: 66 y.o. Referring Physician: [...] 10/2012 total knee replacement . done in [place] TUBAL LIGATION 1984 Family History: Her family [...] [x]cane, []bracing Are you followed by a oracle ebs developer? [] [x] Name: Are you followed by pain management? [] [x] Name: Are you followed by any other specialists? [] [x] Name: Outpatient Medications Prior to Visit Medication Sig Dispense Refill Biotin 46123 MCG tablet Take 10,000 mcg by mouth [...] have dentures? no documented in this encounter [facility] Evaluation note Diagnosis Right knee pain, unspecified chronicity- Primary Left knee pain, unspecified chronicity Primary osteoarthritis of right knee Primary localized osteoarthrosis, lower leg Pain in prosthetic joint, sequela [facility] Diagnosis Closed displaced fracture of surgical neck of right humerus, unspecified fracture morphology, initial encounter- Primary documented in this encounter [facility] Phone: Hospital Discharge instructions* Instructions* Rocael Rodriguez Jr., MD - 04/08/2022 Ice on the shoulder. Use the sling and swath until seen by Dr. Sawant on in the office. Call either today or tomorrow to confirm appointment in the morning on . Return if any problems. * Attachments The following attachments cannot be sent through Care Everywhere. * Arm Fracture ([place]ize[place]) [facility] Phone: reason for referral (narrative)* Consultation (Routine) - Patient to Arrange Specialty Diagnoses / Procedures Referred By Isatu madden Referred To Contact Physical Therapy Diagnoses Primary osteoarthritis of right knee Pain in prosthetic joint, sequela Allen Colmenares MD [address] [place] [address] Referral ID Status Reason Start Date Expiration Date V isits Requested Visits Authorized [id number] Patient to Arrange 10/16/2021 11/10/2022 1 1 Scheduling Instructions . * Diagnostic X-Ray (Routine) - New Request Specialty Diagnoses / Procedures Referred By Isatu madden Referred To Contact Diagnoses Left knee pain, unspecified chronicity Procedures XR KNEE LEFT 3 VIEWS XR KNEE LEFT 4+ VIEWS Allen Colmenares MD [address] [place] [phone] Referral ID Status Reason Start Date Expiration Date V isits Requested Visits Authorized [id number] New Request 10/04/2021 10/29/2022 1 1 * Diagnostic X-Ray (Routine) - Pending Review Specialty Diagnoses / Procedures Referred By Contac t Referred To Contact Diagnoses Left knee pain, unspecified chronicity Procedures XR BONE LENGTH STUDY Allen Colmenares MD [address] [place] [id number] Referral ID Status Reason Start Date Expiration Date V isits Requested Visits Authorized [id number] Pending Review 10/04/2021 10/29/2022 1 1 * Diagnostic X-Ray (Routine) - Pending Review Specialty Diagnoses / Procedures Referred By Contsary t Referred To Contact Diagnoses Right knee pain, unspecified chronicity Procedures XR KNEE RIGHT 4+ VIEWS Allen Colmenares MD [address] [place] [id number] Referral ID Status Reason Start Date Expiration Date V isits Requested Visits Authorized [id number] Pending Review 10/04/2021 10/29/2022 1 1 [facility] [employer] [facility] Summary Purpose Family History No Family [...] BONE LENGTH STUDY Allen Colmenares MD [address] [place] [address] Referral ID Status Reason Start Date Expiration Date V isits Requested Visits Authorized [id number] Pending Review 10/04/2021 10/29/2022 1 1 Reason Comments Pain New Patient Reason Comments Shoulder Pain right sided, patient fell after tripping over rock at approx 0900 Care Teams (unrecognized sec tion and content) Biomedical Engineer Relationship Specialty Start Date End Date Ricardo Winter MD [address] [place] [address] PCP - General Family Medicine 10/16/21 Biomedical Engineer Relationship Specialty Start Date End Date Ricardo Winter MD [address] [place] [address] PCP - General Family Medicine 10/16/21 Biomedical Engineer Relationship Specialty Start Date End Date Ricardo Winter MD [address] [place] [address] PCP - General Family Medicine 04/08/22 Biomedical Engineer Relationship Specialty Start Date End Date Ricardo Winter MD [address] [place] [facility] [place] [address] PCP - General Family Medicine 04/08/22 Biomedical Engineer Relationship Specialty Start Date End Date Ricardo Winter MD [address] [place] [address] PCP - General Family Medicine 04/08/22 Biomedical Engineer Relationship Specialty Start Date End Date Ricardo Winter MD [address] [place] [address] PCP - General Family Medicine 04/08/22 Biomedical Engineer Relationship Specialty Start Date End Date Ricardo Winter MD [address] [place] [id number] PCP - General Family Medicine 04/08/22 Biomedical Engineer Relationship Specialty Start Date End Date Ricardo Winter MD [address] [place] [address] PCP - General Family Medicine 04/08/22 Biomedical Engineer Relationship Specialty Start Date End Date Ricardo Winter MD [address] [place] [address] PCP - General Family Medicine 04/08/22 Biomedical Engineer Relationship Specialty Start Date End Date Ricardo Winter MD [address] [place] [address] PCP - General Family Medicine 04/08/22 Biomedical Engineer Relationship Specialty Start Date End Date Ricardo Winter MD [address] [place] [address] PCP - General Family Medicine 04/08/22 Biomedical Engineer Relationship Specialty Start Date End Date Ricardo Winter MD [address] [place] [phone] PCP - General Family Medicine 04/08/22 Biomedical Engineer Relationship Specialty Start Date End Date Ricardo Winter MD [address] [place] [address] PCP - General Family Medicine 04/08/22 Ordered [...] DATE CREATED AUTHOR AUTHOR'S ORGANIZ ATION 01/30/2023 [facility] FOR RECORDS PERTAINING TO PATIENTS WHO ARE [...] BE BASED ON THE PRIMARY CLINICAL RECORDS. [email or web address] [facility]. provides no warranty or guarantee of the accuracy or completeness of information in this document.
[2024-07-30 10:29] LABS: Internal Control Within Normal Limits; Occult Blood Negative
== END 2024-07-30 09:27 | disposition home or self-care (01) ==
LOC: LAB 09:26
PROVIDERS: PCP Family Medicine; Visit Provider Family Medicine
DX: Z00.00 Encounter for general adult medical examination without abnormal findings (principal)
CPT/HCPCS: G0328

== ENCOUNTER 2024-08-10 13:19 | Outpatient (OUT) | payer MEDICARE, SELFPAY ==
--- NOTE | 2024-08-10 13:21 | MM_ITS ---
Patient Name: BIANKA LECHUGA MR#: [id number] : 1955 Exam Date: 08/10/2024 Ordering Doctor: DR David Winter . RADIOLOGY REPORT PROCEDURE: MM TOMOSYNTHESIS SCREENING BI COMPARISON: MM TOMOSYNTHESIS SCREENING BI, 07/09/2023. MG MAMM SCREEN 3D JUAN FRANCISCO CAD, 07/08/2022. MG MAMM SCREEN 3D JUAN FRANCISCO CAD, 06/10/2021. MG MAMM SCREEN JUAN FRANCISCO W CAD, 06/07/2020. INDICATIONS: Screening Calculator Name NCI Breast Cancer Risk Assessment Tool 5 Year Breast Cancer Risk 3.20% Lifetime Breast Cancer Risk 9.70% Personal Breast Cancer No Personal Ovarian Cancer No Treatments None Family Cancers Mother with breast cancer at age 71; Sister with thyroid cancer at age 64; Father with bladder cancer at age 73. LOCATION: [facility] BREAST COMPOSITION: There are scattered areas of fibroglandular density. FINDINGS: DIAGNOSTIC CATEGORY 1--NEGATIVE. RIGHT BREAST: No significant suspicious finding. No significant change has occurred. LEFT BREAST: No significant suspicious finding. No significant change has occurred. RECOMMENDATIONS: ROUTINE MAMMOGRAM AND CLINICAL EVALUATION IN 12 MONTHS. PLEASE NOTE: A NORMAL MAMMOGRAM DOES NOT EXCLUDE THE POSSIBILITY OF BREAST CANCER. A CLINICALLY SUSPICIOUS PALPABLE LUMP SHOULD BE BIOPSIED. Dictated by: Kulwinder Paz M.D. on 08/14/2024 at 18:39 Approved by: Kulwinder Paz M.D. on 08/14/2024 at 18:51
--- OUTSIDE RECORDS SUMMARY | 2024-08-10 13:40 | XMS_ITS | CCD ---
Author Organization [facility] CliniSyid Care Team Providers Care Linux Consultant Name Role Phone Ricardo Winter MD Primary Care Provider [phone] PANCHO, DR SILVA Consulting Unavailable HOY, DR [...] Unavailable Ricardo Winter MD Primary Care Provider [phone] RICARDO WINTER Primary Care Unavailable EVANGELISTA, BARBIE [...] 1 tablet by mouth once daily Biotin 19899 MCG tablet Take 10,000 mcg by mouth [...] (Bld) [Volume fraction] 37.0 % Normal 36.3-47.1 [facility] Comment on above: Performed By: #### H H #### [facility] [address] [place] [address] [place] [address] Hydraulic Design Engineer: Tomas Campos MD Hemoglobin (Bld) [Mass/Vol] 12.4 g/dL Normal 11.9-15.1 [facility] Comment on above: Performed By: #### H H #### [address] [place] [address] Hydraulic Design Engineer: Tomas Campos MD OPERATIVE REPORTon OPERATIVE REPORT [address] [address] OPERATIVE REPORT PATIENT NAME: GLORY PIERCE : 1955 MED REC NO: [id number] ROOM: [facility] ACCOUNT NO: [id number] ADMIT DATE: 12/22/2022 PROVIDER: Barbie Sawant DATE [...] to go with a 38-mm patellar dome. [place] holes were placed. The knee was then [...] layer was then closed with #1 Vicryl rjlqlb-sy-yolup sutures over two Hemovac drains. The tourniquet [...] loss 200 mL. BARBIE SAWANT [id number] Doc#: [id number] CC: [facility] EKG 12 LeadOrdered By: Praveen Purdy on 12-10-2022 Atrial Rate 66 BPM [employer] Work Phone: P [place] 48 degrees [employer] Work Phone: P-R Interval 198 ms [employer] Work Phone: Q-T Interval 414 ms [employer] Work Phone: QRS Duration 78 ms [employer] Phone: QTc Calculation (Bazett) 434 ms [employer] Phone: R [place] 17 degrees [employer] Phone: T [place] 43 degrees [employer] Work Phone: Ventricular Rate 66 BPM [employer] Work Phone: [employer] Phone: EKG 12 Leadon 12-10-2022 Normal sinus rhythm Normal ECG No previous ECGs available Confirmed by KULWINDER PURDY ([id number]) on 12/10/2022 11:07:16 PM [facility] Kulwinder Purdy MD - 12/10/2022 Normal sinus rhythm Normal ECG No previous ECGs available Confirmed by KULWINDER PURDY ([id number]) on 12/10/2022 11:07:16 PM [employer] Work Phone: MRSA DNA Probe, Nasalon 11-20 MRSA, DNA, Nasal Negative NEGATIVE [employer] Comment on above: NEGATIVE: MRSA DNA n ot detected by nucleic acid amplification. Results should be used as an adjunct to nosocomial control efforts to identify patients needing enhanced precautions. The test is not intended to identify patients with staphylococcal infections. Results should not be used to guide or monitor treatment for MRSA infections. Specimen Description .NASAL SWAB [facility] MRSA, DNA, Nasalon MRSA, DNA, Nasal Negative Normal [facility] Comment on above: Result Comment: DAVID FARFAN: MRSA DNA not detected by nucleic acid amplification. Results should be used as an adjunct to nosocomial control efforts to identify patients needing enhanced precautions. The test is not intended to identify patients with staphylococcal infections. Results should not be used to guide or monitor treatment for MRSA infections. Performed By: #### M RSANO #### [facility] [address] [place] [address] Hydraulic Design Engineer: Virgilio Sullivan MD [facility] [address] [place] [address] Hydraulic Design Engineer: Tomas Campos MD Basic Metabolic Panelon 11-20 Anion gap [Moles/Vol] 6 mmol/L Low 9 - 17 mmol/L [facility] Calcium [Mass/Vol] 9.7 mg/dL 8.6 - 10. 4 mg/dL [facility] Chloride [Moles/Vol] 103 mmol/L 98 - 10 7 mmol/L [facility] CO2 [Moles/Vol] 30 mmol/L 20 - 31 mmol/L [facility] Creatinine [Mass/Vol] 0.7 mg/dL 0.50 - 0.90 mg/dL [facility] GFR/1.73 sq M.predicted MDRD (S/P/Bld) [Vol rate/Area] - PINF [facility] Comment on above: These results are [...] 118 mg/dL High 70 - 99 mg/dL [facility] Interpretation and review of laboratory results Abnormal [facility] Potassium [Moles/Vol] 4.9 mmol/L 3.7 - 5.3 mmol/L [facility] Sodium [Moles/Vol] 139 mmol/L 135 - 144 mmol/L [facility] Urea nitrogen [Mass/Vol] 12 mg/dL 8 - 23 mg/dL [facility] Urea nitrogen/Creatinine (Bld) [Mass ratio] 17 9 - 20 [facility] Basic Metabolic Profon 12-09 Anion gap [Moles/Vol] 6 mmol/L Low 9-17 [facility] Comment on above: Performed By: #### B MP, CDP #### [facility] [address] [place] [address] Hydraulic Design Engineer: Tomas Campos MD BUN/CRE Ratio 17 Normal 9- [facility] Comment on above: Performed By: #### B DASIA, CDP #### [facility] [address] [place], [place] [id number] Hydraulic Design Engineer: Tomas Campos MD Calcium [Mass/Vol] 9.7 mg/dL Normal 8.6-10.4 [facility] Comment on above: Performed By: #### B DASIA, CDP #### [facility] [address] [place], [place] [id number] Hydraulic Design Engineer: Tomas Campos MD Chloride [Moles/Vol] 103 mmol/L Normal 98-107 [facility] Comment on above: Performed By: #### B MP, CDP #### [facility] [address] [place], [place] [address]83 Hydraulic Design Engineer: Tomas Campos MD CO2 [Moles/Vol] 30 mmol/L Normal 20-31 [facility] Comment on above: Performed By: #### B MP, CDP #### [facility] [address] [place] [address] Hydraulic Design Engineer: Tomas Campos MD Creatinine [Mass/Vol] 0.70 mg/dL Normal 0.50-0.90 [facility] Comment on above: Performed By: #### B DASIA, CDP #### [facility] [address] [place] [address] Hydraulic Design Engineer: Tomas Campos MD GFR/1.73 sq M.predicted among non-blacks MDRD (S/P/Bld) [Vol rate/Area] mL/min/{1.73_m2} Normal >60 [facility] Comment on above: Result Comment: These results [...] Performed By: #### B DASIA, CDP #### [facility] [address] [place] [address] [place], [place] [id number] Hydraulic Design Engineer: Tomas Campos MD Glucose [Mass/Vol] 118 mg/dL High 70-99 [facility] Comment on above: Performed By: #### B DASIA, CDP #### [address] [place], [place] [id number] Hydraulic Design Engineer: Tomas Campos MD Potassium [Moles/Vol] 4.9 mmol/L Normal 3.7-5.3 [facility] Comment on above: Performed By: #### B DASIA, CDP #### [facility] [address] [place], [place] [address]183 Hydraulic Design Engineer: Tomas Campos MD Sodium [Moles/Vol] 139 mmol/L Normal 135-144 [facility] Comment on above: Performed By: #### B DASIA, CDP #### [facility] [address] [place] [address] Hydraulic Design Engineer: Tomas Campos MD Urea nitrogen [Mass/Vol] 12 mg/dL Normal 8-23 [facility] Comment on above: Performed By: #### B MP, CDP #### [facility] [address] [place] [address] Hydraulic Design Engineer: Tomas Campos MD CBC with Auto Differentialon 12-09-2022 Absolute Eos # 0.21 [facility] Absolute Immature Granulocyte 0.03 [facility] Absolute Lymph # 1.48 [facility] Absolute [place] # 0.49 [facility] Basophils (Bld) [#/Vol] 0.04 10*3/uL [facility] Basophils/100 WBC (Bld) 1 % 0 - 2 % [facility] Eosinophils/100 WBC (Bld) 4 % 1 - 4 % [facility] Hematocrit (Bld) [Volume fraction] 45.3 % 36.3 - 47.1 % [facility] Hemoglobin (Bld) [Mass/Vol] 14.4 g/dL 11.9 - 15.1 g/dL [facility] Immature granulocytes/100 WBC (Bld) 1 % High 0 [facility] Interpretation and review of laboratory results Abnormal [facility] Lymphocytes/100 WBC (Bld) 29 % 24 - 43 % [facility] MCH (RBC) [Entitic mass] 29.0 pg 25.2 - 33.5 pg [facility] MCHC (RBC) [Mass/Vol] 31.8 g/dL 28.4 - 34.8 g/dL [facility] MCV (RBC) [Entitic vol] 91.3 fL 82.6 - 102.9 fL [facility] Monocytes/100 WBC (Bld) 10 % 3 - 12 % [facility] NRBC Automated 0.0 0.0 per 100 WBC [facility] Platelet distribution width (Bld) [Ratio] 12.5 % 11.8 - 14.4 % [facility] Platelet mean volume (Bld) [Entitic vol] 11.1 fL 8.1 - 13.5 fL [facility] Platelets (Bld) [#/Vol] 211 10*3/uL [facility] RBC (Bld) [#/Vol] 4.96 10*6/uL 3.95 - 5.1 1 m/uL [facility] Segmented neutrophils/100 WBC (Bld) 55 % 36 - 65 % [facility] Segs Absolute 2.85 [facility] WBC (Bld) [#/Vol] 5.1 10*3/uL [facility] CBC with Diffon 12-09-2022 Abs. Basophil 0.04 k/uL Normal 0.00-0.20 [facility] Comment on above: Performed By: #### B DASIA, CDP #### [address] [place] [address] Hydraulic Design Engineer: Tomas Campos MD Abs.Imm.Granulocyte 0.03 k/uL Normal 0.00-0.30 [facility] Comment on above: Performed By: #### B DASIA, CDP #### [address] [place], [place] [address] Hydraulic Design Engineer: Tomas Campos MD Abs.Neutrophil (Seg) 2.85 k/uL Normal 1.50-8.10 [facility] Comment on above: Performed By: #### B DASIA, CDP #### [address] [place], [place] [id number] Hydraulic Design Engineer: Tomas Campos MD Basophils/100 WBC (Bld) 1 % Normal 0-2 [facility] Comment on above: Performed By: #### B DASIA, CDP #### [address] [place], [place] [address]90383 Hydraulic Design Engineer: Tomas Campos MD Eosinophils (Bld) [#/Vol] 0.21 10*3/uL Normal 0.00-0.44 [facility] Comment on above: Performed By: #### B DASIA, CDP #### [address] [place] [address] Hydraulic Design Engineer: Tomas Campos MD Eosinophils/100 WBC (Bld) 4 % Normal 1-4 [facility] Comment on above: Performed By: #### B MP, CDP #### [facility] [address] [place], [facility]83 Hydraulic Design Engineer: Toams Campos MD Erythrocyte distribution width (RBC) [Ratio] 12.5 % Normal 11.8-14.4 [facility] Comment on above: Performed By: #### B MP, CDP #### [facility] [address] [place], [facility]83 Hydraulic Design Engineer: Tomas Campos MD Hematocrit (Bld) [Volume fraction] 45.3 % Normal 36.3-47.1 [facility] Comment on above: Performed By: #### B MP, CDP #### [address] [place], [facility]83 Hydraulic Design Engineer: Tomas Campos MD Hemoglobin (Bld) [Mass/Vol] 14.4 g/dL Normal 11.9-15.1 [facility] Comment on above: Performed By: #### B MP, CDP #### [address] [place], [place] [address] Hydraulic Design Engineer: Tomas Campos MD Immature granulocytes/100 WBC (Bld) 1 % High 0 [facility] Comment on above: Performed By: #### B MP, CDP #### [facility] [address] [place] [address] Dr. [place], [facility]83 Hydraulic Design Engineer: Tomas Campos MD Lymphocytes (Bld) [#/Vol] 1.48 10*3/uL Normal 1.10-3.70 [facility] Comment on above: Performed By: #### B MP, CDP #### [facility] [address] [place] [address] Dr. [place], [place] [address]83 Hydraulic Design Engineer: Tomas Campos MD Lymphocytes/100 WBC (Bld) 29 % Normal 24-43 [facility] Comment on above: Performed By: #### B MP, CDP #### [facility] [address] [place] [address] Hydraulic Design Engineer: Tomas Campos MD MCH (RBC) [Entitic mass] 29.0 pg Normal 25.2-33.5 [facility] Comment on above: Performed By: #### B MP, CDP #### [address] [place] [address] Hydraulic Design Engineer: Tomas Campos MD MCHC (RBC) [Mass/Vol] 31.8 g/dL Normal 28.4-34.8 [facility] Comment on above: Performed By: #### B MP, CDP #### [address] [place] [address] Hydraulic Design Engineer: Tomas Campos MD MCV (RBC) [Entitic vol] 91.3 fL Normal 82.6-102.9 [facility] Comment on above: Performed By: #### B MP, CDP #### [address] [place], [place] 0636383 Hydraulic Design Engineer: Tomas Campos MD Monocytes (Bld) [#/Vol] 0.49 10*3/uL Normal 0.10-1.20 [facility] Comment on above: Performed By: #### B MP, CDP #### [address] [place], [facility]83 Hydraulic Design Engineer: Tomas Campos MD Monocytes/100 WBC (Bld) 10 % Normal 3-12 [facility] Comment on above: Performed By: #### B MP, CDP #### [facility] [address] [place] [address] Dr. [place], [place] 2619383 Hydraulic Design Engineer: Tomas Campos MD Neutrophil (Seg) 55 % Normal 36-65 [facility] Comment on above: Performed By: #### B MP, CDP #### [facility] [address] [place] [address] Dr. [place], [facility]83 Hydraulic Design Engineer: Tomas Campos MD NRBC Automated 0.0 per 100 WBC Normal 0.0 [facility] Comment on above: Performed By: #### B DASIA, CDP #### [facility] [address] [place], [place] [id number] Hydraulic Design Engineer: Tomas Campos MD Platelet mean volume (Bld) [Entitic vol] 11.1 fL Normal 8.1-13.5 [facility] Comment on above: Performed By: #### B MP, CDP #### [facility] [address] [place] [address] Hydraulic Design Engineer: Tomas Campos MD Platelets (Bld) [#/Vol] 211 10*3/uL Normal 138-453 [facility] Comment on above: Performed By: #### B DASIA, CDP #### [address] [place] [address] Hydraulic Design Engineer: Tomas Campos MD RBC (Bld) [#/Vol] 4.96 10*6/uL Normal 3.95-5.11 [facility] Comment on above: Performed By: #### B DASIA, CDP #### [address] [place] [address] Hydraulic Design Engineer: Tomas Campos MD WBC (Bld) [#/Vol] 5.1 10*3/uL Normal 3.5-11.3 [facility] Comment on above: Performed By: #### B MP, CDP #### [facility] [address] [place] [address] Dr. [place], [place] 0385383 Hydraulic Design Engineer: Tomas Campos MD MRSA, DNA, Nasalon 3 Specimen Description .NASAL SWAB Normal [facility] Comment on above: Performed By: #### M RSANO #### [facility] [address] [facility] [place] [id number] Hydraulic Design Engineer: Virgilio Sullivan MD [facility] [address] [place] [address] Hydraulic Design Engineer: Tomas Campos MD TYPE AND SCREENon 12-09-2022 ABO/Rh Positive [facility] [id number] [facility] Expiration Date 12/25/2022,2359 [facility] Type + Screenon 12-09-2022 Type + Screen Sample Expiration 12/25/2022,2359 Arm Band Number [id number] ABO/Rh(D) A POSITIVE Antibody Screen NEGATIVE Normal [facility] Comment on above: Performed By: #### T YS #### [facility] [address] [place] [address] Hydraulic Design Engineer: Tomas Campos MD MG MAMM SCREEN 3D JUAN FRANCISCO CADon 07-08-2022 MG MAMM SCREEN 3D JUAN FRANCISCO CAD Patient: GLORY PIERCE Exam Date: 07/08/2022 : 1955 Gender:F Ordering : DR RICARDO WINTER . Admission #: [id number] Family : Order #: [id number] CLICK HERE TO VIEW EXAM RADIOLOGY REPORT [...] bladder cancer at age 72. LOCATION: [facility] BREAST COMPOSITION: Scattered areas fibroglandular density. [...] MD on 07/08/2022 at 11:23 Normal [facility] INSULINon 06-09-2022 Insulin 22.7 uIU/mL Normal 2.6-24.9 [facility] Comment on above: Performed By: #### I NSULIN #### [facility] [address] [address] [address] Trey Higgins OCC BLD IMMUNO SCREENon 05-20 OCCULT BLOOD Negative Normal NEGATIVE [facility] Comment on above: Performed By: #### O BSCRN #### [facility] [address] [address] [address] Trey Higgins T4, T3U, FTI [facility]ABC[facility]on 06-08 Free Thyroxine Index 2.4 Normal 1.2-4.9 [facility] Comment on above: Performed By: #### T HYLC #### [facility] [address] [address] [address] Trey Higgins T3 Uptake 26 % Normal 24-39 [facility] Comment on above: Performed By: #### T HYLC #### [facility] [address] [address] [address] Trey Higgins T4 [Mass/Vol] 9.1 ug/dL Normal 4.5-12.0 [facility] Comment on above: Performed By: #### T HYLC #### [facility] [address] [address] [address] Trey Higgins VIT D 25-OH LABCORPon 2021 Vitamin D, 25-Hydroxy 22.7 ng/mL Critically low 30.0-100.0 [facility] Comment on above: Result Comment: Gia min D deficiency has been defined by the [place] of [employer] and an Endocrine Society practice guideline as a level of serum 25-OH vitamin D less than 20 ng/mL (1,2). The Endocrine Society went on to further define vitamin D insufficiency as a level between 21 and 29 ng/mL (2). 1. IOM ([place] of [employer]). 2010. Dietary reference intakes for calcium and D. Pal [place]: The National Academies Press. 2. Melvi MF, Leon WATT, Jyoti CHILDS, et al. Evaluation, treatment, and prevention of vitamin D deficiency: an Endocrine Society clinical practice guideline. JCEM. 2010; 96(7):1911-30. Performed By: #### V ITADLC #### [facility] [address] [address] [address] Trey Higgins CBC AUTO DIFFon 06-07-2022 BASO # 0.0 103/ul Normal 0.0-0.1 [facility] Comment on above: Performed By: #### C BC ####[facility] [address] [id number] Higgins Basophils/100 WBC (Bld) 1.0 % Normal 0.2-2.0 [facility] Comment on above: Performed By: #### C BC ####[facility] [address] [place] [address]DrMickie Higgins EO # 0.3 103/ul Normal 0.0-0.7 [facility] Comment on above: Performed By: #### C BC ####[facility] [address] [address]DrMickie Higgins Eosinophils/100 WBC (Bld) 6.4 % Normal 0.9-7.0 [facility] Comment on above: Performed By: #### C BC ####[facility] [address] [place] [address]DrMickie Higgins Erythrocyte distribution width (RBC) [Ratio] 13.2 % Normal 11.0-15.0 [facility] Comment on above: Performed By: #### C BC ####[facility] [address] [place] [address]DrMickie Higgins Hematocrit (Bld) [Volume fraction] 41.6 % Normal 36.0-48.0 [facility] Comment on above: Performed By: #### C BC ####[facility] [address] [place] [address]DrMickie Higgins Hemoglobin (Bld) [Mass/Vol] 13.4 g/dL Normal 12.0-16.0 [facility] Comment on above: Performed By: #### C BC ####[facility] [address] [address]Dr. Trey Higgins IG # 0.03 10e3/ul Normal 0.00-0.03 [facility] Comment on above: Performed By: #### C BC ####[facility] [address] [address]Dr. Trey Higgins IG % 0.7 % Critically high 0.0-0.[address] [facility] Comment on above: Performed By: #### C BC ####[facility] [address] [address]Dr. Trey Higgins LYMPH # 1.4 103/ul Normal 1.2-3.8 [facility] Comment on above: Performed By: #### C BC ####[facility] [address] [address]Dr. Ashleymartin Higgins Lymphocytes/100 WBC (Bld) 32.8 % Normal 20.5-60.0 [facility] Comment on above: Performed By: #### C BC ####[facility] [address] [address]Dr. Trey Higgins MANUAL DIFF REQ NO Normal [facility] Comment on above: Performed By: #### C BC ####[facility] [address] [address]Dr. Trey Higgins MCH (RBC) [Entitic mass] 29.1 pg Normal 26.7-34.0 [facility] Comment on above: Performed By: #### C BC ####[facility] [address] [address]Dr. Trey Higgins MCHC (RBC) [Mass/Vol] 32.2 g/dL Normal 29.9-35.2 [facility] Comment on above: Performed By: #### C BC ####[facility] [address] [address]Dr. Trey Higgins MCV (RBC) [Entitic vol] 90.4 fL Normal 81.0-99.0 [facility] Comment on above: Performed By: #### C BC ####[facility] [address] [place] [address]Dr. Trey Higgins MONO # 0.4 103/ul Normal 0.3-0.8 [facility] Comment on above: Performed By: #### C BC ####[facility] [address] [place] [address]Dr. Trey Higgins Monocytes/100 WBC (Bld) 9.0 % Normal 1.7-12.0 [facility] Comment on above: Performed By: #### C BC ####[facility] [address] [place] [address]Dr. Trey Higgins NEUT # 2.1 103/ul Normal 1.4-6.5 [facility] Comment on above: Performed By: #### C BC ####[facility] [address] [address]Dr. Trey Higgins Neutrophils/100 WBC (Bld) 50.1 % Normal 43.0-75.0 [facility] Comment on above: Performed By: #### C BC ####[facility] [address] [address]Dr. Trey Higgins Platelet mean volume (Bld) [Entitic vol] 10.9 fL Normal 9.5-13.5 [facility] Comment on above: Performed By: #### C BC ####[facility] [address] [address]Dr. Trey Higgins PLT 182 103/ul Normal 150-450 [facility] Comment on above: Performed By: #### C BC ####[facility] [address] [id number]. Trey Higgins RBC 4.60 106/ul Normal 4.20-5.40 [facility] Comment on above: Performed By: #### C BC ####[facility] [address] [place] [address]Dr. Trey Higgins WBC 4.2 103/ul Normal 4.0-11.0 [facility] Comment on above: Performed By: #### C BC ####[facility] [address] [place], [place] [address]Dr. Trey Hgigins GLYCOHEMOGLOBIN A1Con 2021 ADA RECOMMENDATION SEE BELOW Normal [facility] Comment on above: Result Comment: ADA RECOMMENDED LIMIT 4.0 - 6.0 ADA THERAPEUTIC TARGET < 7.0 ACTION SUGGESTED > 7.0 Performed By: #### A 1C #### [facility] [address] [address] [address] Trey Higgins Glucose [Mass/Vol] 103 mg/dL Normal [facility] Comment on above: Performed By: #### A 1C #### [facility] [address] [address] [address] Trey Higgins HbA1c (Bld) [Mass fraction] 5.2 % Normal 4.5-6.2 [facility] Comment on above: Performed By: #### A 1C #### [facility] [address] [address] [address] Trey Higgins IRONon 06-07-2022 Iron [Mass/Vol] 71.0 ug/dL Normal 50.0-170.0 [facility] Comment on above: Performed By: #### I SELENE #### [facility] [address] [address] [address] Trey Higgins LIPID PROFILEon 06-07-2022 CHOL-HDL RATIO NORM SEE BELOW Normal [facility] Comment on above: Result Comment: 3.3 - 4.4 LOW RISK 4.4 - 7.1 AVERAGE RISK 7.1 - 11.0 MODERATE RISK >11.0 HIGH RISK Performed By: #### L IPID, TSH, CMP #### [facility] [address] [address] [address] Trey Higgins Cholesterol [Mass/Vol] 182 mg/dL Normal <=200 [facility] Comment on above: Performed By: #### L IPID, TSH, CMP #### [facility] [address] [address] [address] Trey Higgins Cholesterol in HDL [Mass/Vol] 45 mg/dL Normal 40-60 [facility] Comment on above: Performed By: #### L IPID, TSH, CMP #### [facility] [address] [address] [address] Trey Higgins Cholesterol in LDL [Mass/Vol] 97.8 mg/dL Normal [facility] Comment on above: Performed By: #### L IPID, TSH, CMP #### [facility] [address] [address] [address] Trey Higgins Cholesterol.total/Chol esterol in HDL [Mass ratio] 4.0 {ratio} Normal [facility] Comment on above: Performed By: #### L IPID, TSH, CMP #### [facility] [address] [address] [address] Trey Higgins HDL NORMAL > or = 60 mg/dl - LOW CARDIOVASCULAR RISK <40 mg/dl - HIGH CARDIOVASCULAR RISK Normal [facility] Comment on above: Performed By: #### L IPID, TSH, CMP #### [facility] [address] [place] [address] Dr. Trey Higgins LDL CALC NORMAL SEE BELOW Normal [facility] Comment on above: Result Comment: <100 mg/dl OPTIMAL 100 - 129 mg/dl NEAR OR ABOVE OPTIMAL 130 - 159 mg/dl BORDERLINE HIGH 160 - 189 mg/dl HIGH >190 mg/dl VERY HIGH Performed By: #### L IPID, TSH, CMP #### [facility] [address] [place] [address] Dr. Trey Higgins Triglyceride [Mass/Vol] 196 mg/dL Critically high <=150 [facility] Comment on above: Performed By: #### L IPID, TSH, CMP #### [facility] [address] [address] [address] Trey Higgins VLDL CALC 39.2 mg/dL Normal [facility] Comment on above: Performed By: #### L IPID, TSH, CMP #### [facility] [address] [place] [address] Dr. Trey Higgins PROF 14(COMP METB)on 022 Albumin [Mass/Vol] 4.0 g/dL Normal 3.4-5.0 [facility] Comment on above: Performed By: #### L IPID, TSH, CMP #### [facility] [address] [address] [address] Trey Higgins Albumin/Globulin [Mass ratio] 1.3 {ratio} Normal [facility] Comment on above: Performed By: #### L IPID, TSH, CMP #### [facility] [address] [address] [address] Trey Higgins ALP [Catalytic activity/Vol] 95 U/L Normal 46-116 [facility] Comment on above: Performed By: #### L IPID, TSH, CMP #### [facility] [address] [address] [address] Trey Higgins ALT [Catalytic activity/Vol] 46 U/L Normal 14-59 [facility] Comment on above: Performed By: #### L IPID, TSH, CMP #### [facility] [address] [address] [address] Trey Higgins Anion gap [Moles/Vol] 14.2 mmol/L Normal [facility] Comment on above: Performed By: #### L IPID, TSH, CMP #### [facility] [address] [address] [address] Trey Higgins AST [Catalytic activity/Vol] 23 U/L Normal 15-37 [facility] Comment on above: Performed By: #### L IPID, TSH, CMP #### [facility] [address] [address] [address] Trey Higgins Bilirubin [Mass/Vol] 0.6 mg/dL Normal 0.2-1.0 [facility] Comment on above: Performed By: #### L IPID, TSH, CMP #### [facility] [address] [address] [address] Trey Higgins Calcium [Mass/Vol] 8.8 mg/dL Normal 8.5-10.1 [facility] Comment on above: Performed By: #### L IPID, TSH, CMP #### [facility] [address] [address] [address] Tery Higgins Chloride [Moles/Vol] 105 mmol/L Normal 98-107 [facility] Comment on above: Performed By: #### L IPID, TSH, CMP #### [facility] [address] [address] [address] Trey Higgins CO2 [Moles/Vol] 28.0 mmol/L Normal 21.0-32.0 [facility] Comment on above: Performed By: #### L IPID, TSH, CMP #### [facility] [address] [address] [address] Trey Higgins Creatinine [Mass/Vol] 0.74 mg/dL Normal 0.55-1.02 [facility] Comment on above: Performed By: #### L IPID, TSH, CMP #### [facility] [address] [address] [address] Trey Higgins EGFR-AF RWANDAN >60 Normal >=60 [facility] Comment on above: Performed By: #### L IPID, TSH, CMP #### [facility] [address] [address] [address] Trey Higgins EGFR-NON AF RWANDAN >60 Normal >=60 [facility] Comment on above: Performed By: #### L IPID, TSH, CMP #### [facility] [address] [address] [address] Trey Higgins Globulin (S) [Mass/Vol] 3.0 g/dL Normal [facility] Comment on above: Performed By: #### L IPID, TSH, CMP #### [facility] [address] [address] [address] Trey Higgins Glucose [Mass/Vol] 115 mg/dL Critically high 74-[address] [facility] Comment on above: Performed By: #### L IPID, TSH, CMP #### [facility] [address] [address] [address] Trey Higgins Potassium [Moles/Vol] 4.2 mmol/L Normal 3.5-5.1 [facility] Comment on above: Performed By: #### L IPID, TSH, CMP #### [facility] [address] [address] [address] Trey Higgins Protein [Mass/Vol] 7.0 g/dL Normal 6.4-8.2 [facility] Comment on above: Performed By: #### L IPID, TSH, CMP #### [facility] [address] [place] [address] Dr. Trey Higgins Sodium [Moles/Vol] 143 mmol/L Normal 136-145 [facility] Comment on above: Performed By: #### L IPID, TSH, CMP #### [facility] [address] [place] [address] Dr. Trey Higgins Urea nitrogen [Mass/Vol] 15.0 mg/dL Normal 7.0-18.0 [facility] Comment on above: Performed By: #### L IPID, TSH, CMP #### [facility] [address] [place] [address] Dr. Trey Higgins Urea nitrogen/Creatinine [Mass ratio] 20.3 mg/mg Normal [facility] Comment on above: Performed By: #### L IPID, TSH, CMP #### [facility] [address] [place] [address] Dr. Trey Higgins TSHon 06-07-2022 TSH 3.646 uIU/mL Normal 0.358-3.740 [facility] Comment on above: Performed By: #### L IPID, TSH, CMP #### [facility] [address] [place] [address] Dr. Trey Higgins No Panel Informationon 04-08 Minimally displaced fracture of the humeral head/neck [facility] RIS CONSOLIDATED EXAMINATION: THREE XRAY VIEWS OF THE RIGHT SHOULDER; TWO XRAY VIEWS OF THE RIGHT HUMERUS 04/08/2022 10:31 am COMPARISON: None. HISTORY: ORDERING SYSTEM PROVIDED HISTORY: fall TECHNOLOGIST PROVIDED HISTORY: fall FINDINGS: There is a minimally displaced fracture of the humeral head/neck. The humeral head remains articulated with the glenoid. [facility] RIS CONSOLIDATED Rory Ratliff P - 04/08/2022 [...] Minimally displaced fracture of the humeral head/neck [employer] Work Phone: No Panel InformationOrdered By: Rory Ratliff on 04-08-2022 [employer] Phone: XR HUMERUS RIGHT (MIN 2 VIEW [...] by: Rory Ratliff 04/08/22 Final result Normal [facility] Study observation (narrative) [employer] Work Phone: XR SHOULDER RIGHT (MIN 2 [...] by: Rory Ratliff 04/08/22 Final result Normal [facility] Study observation (narrative) [employer] Phone: Vital Signs Date Time Vital Sign Value Performing Clinician Eldon rebolledo 12-09-2022 08:50-0500 Body height 172.7 cm Barbie Sawant MD Work Phone: [employer] 12-09-2022 08:50-0500 Body mass index (BMI) [Ratio] 42.74 kg/m2 Barbie Sawant MD Work Phone: [employer] 12-09-2022 08:50-0500 Body temperature 97.7 [degF] Barbie Sawant MD Work Phone: [facility] [employer] 12-09-2022 08:50-0500 Body weight 127.51 kg Barbie Sawant MD Work Phone: [facility] [employer] 12-09-2022 08:50-0500 Diastolic blood pressure 77 mm[Hg] Babrie Sawant MD Work Phone: [employer] 12-09-2022 08:50-0500 Heart rate 70 /min Barbie Sawant MD Work Phone: [facility] [employer] 12-09-2022 08:50-0500 Respiratory rate 20 /min Barbie Sawant MD Work Phone: [facility] [employer] 12-09-2022 08:50-0500 SaO2% (BldA) [Mass fraction] 94 % Barbie Sawant MD Work Phone: [facility] [employer] 12-09-2022 08:50-0500 Systolic blood pressure 137 mm[Hg] Barbie Sawant MD Work Phone: [facility] [employer] 04-08-2022 10:25-0400 Diastolic blood pressure 76 mm[Hg] Rocael Rodriguez Jr., MD Work Phone: [facility] [employer] 04-08-2022 10:25-0400 Systolic blood pressure 158 mm[Hg] Rocael Rodriguez Jr., MD Work Phone: [facility] [employer] 04-08-2022 10:19-0400 Body temperature 97.81 [degF] Rocael Rodriguez Jr., MD Work Phone: [facility] [employer] 04-08-2022 10:19-0400 Heart rate 91 /min Rocael Rodriguez Jr., MD Work Phone: [employer] 04-08-2022 10:19-0400 Respiratory rate 16 /min Rocael Rodriguez Jr., MD Work Phone: [facility] 04-08-2022 10:19-0400 SaO2% (BldA) [Mass fraction] 96 % Rocael Rodriguez Jr., MD Work Phone: [facility] 10-16-2021 09:07-0500 Body height 172.7 cm Allen Colmenares MD Work Phone: [facility] 10-16-2021 09:07-0500 Body mass index (BMI) [Ratio] 44.85 kg/m2 Allen Colmenares MD Work Phone: [employer] 10-16-2021 09:07-0500 Body temperature 97 [degF] Allen Colmenares MD Work Phone: [employer] [facility] 10-16-2021 09:07-0500 Body weight 133.81 kg Allen Colmenares MD Work Phone: [facility] Encounters Encounter Date Encounter Type Care Provider Facility Start: 01-29-2023 End: 01-30-2023 ambulatory [facility] Start: 01-29-2023 End: 01-29-2023 Subsequent hospital visit by [facility] Comment on above: Arrived Start: 01-27-2023 End: 01-28-2023 ambulatory [facility] Start: 01-27-2023 End: 01-27-2023 Subsequent hospital visit by [facility] Comment on above: Arrived Start: 01-23-2023 End: 01-24-2023 ambulatory [facility] Start: 01-23-2023 End: 01-23-2023 Subsequent hospital visit by physician [facility] Comment on above: Arrived Start: 01-20-2023 End: 01-21-2023 ambulatory [facility] Start: 01-20-2023 End: 01-20-2023 Subsequent hospital visit by physician [facility] Comment on above: Arrived Start: 01-19-2023 ambulatory [facility] Start: 01-16-2023 End: 01-17-2023 ambulatory [facility] Start: 01-16-2023 End: 01-16-2023 Subsequent hospital visit by physician Tamia Zuñiga PT [facility] Comment on above: Arrived Start: 01-14-2023 End: 01-15-2023 ambulatory [facility] Start: 01-14-2023 End: 01-14-2023 Subsequent hospital visit by physician Tamia Zuñiga PT [facility] Comment on above: Arrived Start: 01-12-2023 End: 01-13-2023 ambulatory [facility] Start: 01-12-2023 End: 01-12-2023 Subsequent hospital visit by physician Javier Flor [facility] Comment on above: Arrived Start: 01-09-2023 End: 01-10-2023 ambulatory [facility] Start: 01-09-2023 End: 01-09-2023 Subsequent hospital visit by physician Eric Chadwick PT [facility] Comment on above: Arrived Start: 01-07-2023 End: 01-08-2023 ambulatory [facility] Start: 01-07-2023 End: 01-07-2023 Subsequent hospital visit by physician Tamia Zuñiga PT [facility] Comment on above: Arrived Start: 01-05-2023 End: 01-06-2023 ambulatory [facility] Start: 01-05-2023 End: 01-05-2023 Subsequent hospital visit by physician Javier Flor [facility] Comment on above: Arrived Start: 01-02-2023 End: 01-03-2023 ambulatory [facility] Start: 01-02-2023 End: 01-02-2023 Subsequent hospital visit by physician Yocasta Klnie PT [facility] Comment on above: Arrived Start: 12-31-2022 End: 01-01-2023 ambulatory [facility]E [facility] Start: 12-31-2022 End: 12-31-2022 Subsequent hospital visit by physician Tamia Zuñiga PT [facility] Comment on above: Arrived Start: 12-30-2022 End: 12-31-2022 ambulatory [facility] Start: 12-25-2022 End: 12-26-2022 ambulatory [facility] Start: 12-25-2022 End: 12-25-2022 Subsequent hospital visit by physician Eric Chadwick PT [facility] Comment on above: Arrived Start: 12-22-2022 End: 12-23-2022 ambulatory [facility] Start: 12-15-2022 End: 12-16-2022 ambulatory [facility] Start: 12-15-2022 End: 12-15-2022 Subsequent hospital visit by physician Eric Chadwick PT [facility] Comment on above: Arrived Start: 12-09-2022 End: 12-14-2022 ambulatory [facility] Start: 12-09-2022 End: 12-13-2022 Subsequent hospital visit by physician Barbie Sawant MD Work Phone: [facility] Start: 07-08-2022 End: 07-09-[address] RICARDO WINTER Facility:[facility] Start: 06-09-2022 End: 06-09-[address] RICARDO WINTER Facility:[facility] Start: 06-07-2022 End: 06-08-[address] RICARDO WINTER Facility:[facility] Start: 04-08-2022 End: 04-08-2022 Emergency department patient visit RICARDOGIN WINTER [facility] Start: 04-08-2022 End: 04-08-2022 Emergency department patient visit Rocael Rodriguez MD Work Phone: [facility] Comment on above: Closed displaced fra cture of surgical neck of right humerus, unspecified fracture morphology, initial encounter (Primary Dx) Start: 10-16-2021 End: 10-16-2021 Office outpatient new 45 minutes Allen Colmenares MD Work Phone: [facility] Comment on above: Right knee pain, uns pecified chronicity (Primary Dx); Left knee pain, unspecified chronicity; Primary osteoarthritis of right knee; Pain in prosthetic joint, sequela Start: 10-16-2021 End: 10-16-2021 Subsequent hospital visit by physician Allen Colmenares MD Work Phone: [facility] Start: 07-25-2021 End: 07-25-2021 ambulatory [...] Start: 01-23-2023 End: 01-23-2023 [facility] Start: 01-21-2023 End: 01-21-2023 Patient [...] 12/22/2022 Surgery IP Unit Barbie Sawant MD [address] [place] [phone] KNEE TOTAL ARTHROPLASTY [facility] Comment on above: KNEE TOTAL ARTHROPLA STY Start: 12-22-2022 End: 12-22-2022 Arthrp kne condyle&platu medial&lat compartments KNEE TOTAL ARTHROPLASTY Arthritis of right knee 12/22/2022 11:20 AM [facility] Start: 12-22-2022 Subsequent hospital visit by physician 12/22/2022 Hospital Encounter IP Unit Barbie Sawant MD [address] [place] [phone] [facility] Start: 12-15-2022 End: 12-15-2022 Patient encounter procedure 12/15/2022 Appointment Physical Therapy Eric Chadwick PT [facility] Start: 04-08-2022 Annual Wellness Visi t (AWV) Annual Wellness Visit (AWV) [facility] Start: 2019 Pneumococcal vaccination PNEUM OCOCCAL VACCINE SERIES (1 of 1 - PPSV23) [facility] Start: 2009 Screening for osteoporosis DEXA (modify frequency per FRAX score) [facility] Start: 2004 Screening for malign ant neoplasm of breast Breast cancer screen [facility] Start: 2004 Zoster vaccine hzv l leslee for subcutaneous use ZOSTER (SHINGLES) VACCINE (1 of 2) [facility] Start: 1999 Colonoscopy COLORECTAL CAN CER SCREENING DISCUSSION [facility] Start: 1999 Screening for malign ant neoplasm of colon [facility] Start: 1994 Fasting lipid profile LIPID SCREENIN G [facility] Start: 1994 Screening mammography MAMMOGRA M SCREENING DISCUSSION [facility] Start: 1989 Diabetes screen Diabetes screen [facility] Start: 1975 Screening for malign ant neoplasm of cervix CERVICAL CANCER SCREENING DISCUSSION [facility] Start: 1973 DTaP/Tdap/Td vaccine (1 - Tdap) DTaP/Tdap/Td vaccine (1 - Tdap) [facility] Start: 1973 Third diphtheria, tetanus and acellular pertussis (DTaP) vaccination TDAP (ADULT) [facility] Start: 1972 Hepatitis C screening Hepatitis C sc reen [facility] Start: 1972 Tetanus vaccination TETANUS [facility] Start: 1966 Depression Screen Depression Screen [facility] Start: 1964 Lipid panel Lipids [facility] Start: 1959 COVID-19 VACCINE (1) COVID-19 VACCIN E (1) [facility] Start: 1954 Hepatitis C antibody , confirmatory test HEPATITIS C VIRUS SCREENING [facility] Start: 1954 Screening for osteoporosis DEXA SCAN DISCUSSION [facility] Start: 1954 Thyroid stimulating hormone measurement TSH [facility] Radiography for bone length studies XR BONE LENGTH STUDY Imaging Routine Left knee pain, unspecified chronicity 10/16/2021 8:[address] [facility] knee XR KNEE RIGHT 4+ VIEWS Imaging Routine Right knee pain, unspecified chronicity 10/16/2021 8:56 AM [facility] [employer] X-ray of left knee XR KNEE LEFT 3 VIEWS Imaging Routine Left knee pain, unspecified chronicity 10/16/2021 8:56 AM EST [employer] Payers Date Payer Category Payer Medicare MEDICARE [employer] HMO OR PPO MEDICARE [facility] HMO OR PPO [id number] 2020-Present [address] [place] [address] [id number] 1959 Medicare [id number] 1959 Medicare [id number] 1954 Unknown [id number] 2..[id number] 1954 Unknown [id number] 2.16.840.1.950441.3.579.2.593 1954 Unknown [id number] 2.16.840.1.783773.3.579.2.593 1954 Unknown [id number] 2.16.840.1.781675.3.579.2.593 1954 Unknown [id number] 2.16.840.1.346832.3.579.2.173 1954 Unknown [id number] 2.16.840.1.792284.3.579.2.173 1954 Unknown [id number] 2.16.840.1.646755.3.579.2.173 1954 Unknown [id number] 2.16.840.1.594743.3.579.2.173 1954 Unknown [id number] 2.16.840.1.455966.3.579.2.173 1954 Unknown [id number] 2.16.840.1.181274.3.579.2.173 1954 Unknown [id number] 2.16.840.1.497121.3.579.2.173 1954 Unknown [id number] 2.16.840.1.625516.3.579.2.173 1954 Unknown [id number] 2.16.840.1.230401.3.579.2.173 1954 Unknown [id number] 2.16.840.1.430224.3.579.2.173 1954 Unknown [id number] 2.16.840.1.012174.3.579.2.173 1954 Unknown [id number] 2.16.840.1.546602.3.579.2.173 1954 Unknown [id number] 2.16.840.1.053885.3.579.2.173 1954 Unknown [id number] 2.16.840.1.428260.3.579.2.173 1954 Unknown [id number] 2.16.840.1.684460.3.579.2.173 1954 Unknown [id number] 2.16.840.1.027643.3.579.2.173 1954 Unknown [id number] 2.16.840.1.368255.3.579.2.173 1954 Unknown [id number] 2.16.840.1.051159.3.579.2.173 1954 Unknown [id number] 2.16.840.1.604964.3.579.2.173 Social History Date Type Detail Facility Start: 10-16-2021 End: 12-09-2022 Tobacco smoking status NHIS Never smoked tobacco [facility] Start: 10-16-2021 End: 12-09-2022 Tobacco use and exposure Smokeless tobacco non-user [facility] Start: 10-16-2021 End: 12-25-2022 Alcohol intake Ex-drinker (finding) [facility] Start: 1955 Sex Assigned At Not on file A [facility] Start: 03-29-2022 End: 12-22-2022 Exposure to SARS-CoV-2 (event) Not sure [facility] [employer] Work Phone: Medical Equipment Procedure Code Equipment Code Equipment Origin al Text Equipment Identifier Dates Impl Knee Psn Al l Poly Pat 38mm - [id number] Start: 12-22-2022 Psn Mc Ve Asf R 14mm 8-11 - [id number] Start: 12-22-2022 Clinical Notes 10-16-2021 to 01-29-2023 Tamia Zuñiga, PT - 01/29/2023 3:45 PM Fernandez Zuñiga, PT - 01/27/2023 4:30 PM Fernandez Zuñiga, PT - 01/23/2023 4:00 PM Fernandez Zuñiga, PT - 01/20/2023 5:15 PM EDT Note Date & Type Note Facility 01-29-2023 History of Present illness Narrative [facility] Daily Note Patient: Glory Pierce : 1955 [facility] #: [id number] Referring Physician: Barbie Sawant MD Date: 01/29/2023 [...] endurance and strength for ADLs. - met Mattress [employer] Goals Time Frame for Mattress [employer]uffer Goals : 4 weeks [employer]ress St[employer] Goal 1: Patient will be independent and compliant with a HEP. - met [employer] Goal 2: Patient will improve R knee ROM to 0-110* for ADLs. - met (01/29/2023 AROM R knee flexion = 114 degrees) [facility] Goal 3: Patient will improve R LE strength to >/= 4/5 in all major joints and planes for ambulation and ADLs. - met (01/29/2023 righ tLE strength = 4+/5 on average) [employer] Goal 4: Patient will be able to ambulate without an AD with minimal gait deviations. - met (01/20/2023) [employer] Goal 5: Patient will report 70% improvement in overall symptoms and function. - met Minutes Tracking: Time In: 1547 Time Out: 1620 Minutes: 33 Timed Code Treatment Minutes: 32 Minutes Tamia Zuñiga PT, DPT Date: 01/29/2023 documented in this encounter [employer] Phone: 01-27-2023 History of Present illness Narrative [facility] Daily Note Patient: Glory Pierce : 1955 CSN #: [id number] Referring Physician: Barbie Sawant MD Date: 01/27/2023 [...] endurance and strength for ADLs. - met [employer] Goals Time Frame for [facility] Care Goals : 4 weeks [facility] Goal 1: Patient will be independent and compliant with a HEP. [employer] Goal 2: Patient will improve R knee ROM to 0-110* for ADLs. - progressing (01/23/2023 AAROM R knee flexion = 110 degrees) [facility] Goal 3: Patient will improve R LE strength to >/= 4/5 in all major joints and planes for ambulation and ADLs. [facility] Goal 4: Patient will be able to ambulate without an AD with minimal gait deviations. - met (01/20/2023) [facility] Goal 5: Patient will report 70% improvement in overall symptoms and function. Minutes Tracking: Time In: 1632 Time Out: 1720 Minutes: 48 Timed Code Treatment Minutes: 38 Minutes Tamia Zuñiga PT, DPT Date: 01/27/2023 documented in this encounter [facility] [employer] Phone: 01-23-2023 History of Present illness Narrative [facility] Daily Note Patient: Glory Pierce : 1955 CSN #: [id number] Referring Physician: Barbie Sawant MD Date: 01/23/2023 [...] endurance and strength for ADLs. - met [employer] Goals Time Frame for [facility] Goals : 4 weeks [employer] Goal 1: Patient will be independent and compliant with a HEP. [facility] Goal 2: Patient will improve R knee ROM to 0-110* for ADLs. - progressing (01/23/2023 AAROM R knee flexion = 110 degrees) [facility] Goal 3: Patient will improve R LE strength to >/= 4/5 in all major joints and planes for ambulation and ADLs. Matt[employer] Goal 4: Patient will be able to ambulate without an AD with minimal gait deviations. - met (01/20/2023) [facility] Goal 5: Patient will report 70% improvement in overall symptoms and function. Minutes Tracking: Time In: 1557 Time Out: 1645 Minutes: 48 Timed Code Treatment Minutes: 47 Minutes Tamia Zuñiga PT, DPT Date: 01/23/2023 documented in this encounter [facility] Phone: 01-20-2023 History of Present illness Narrative [facility] Daily Note Patient: Glory Pierce : 1955 CSN #: [id number] Referring Physician: Barbie Sawant MD Date: 01/20/2023 Diagnosis: Aftercare following joint replacement surgery, Z47.1, presence of R artificial knee joint, Z96.651 Treatment Diagnosis: s/p R TKA, R knee pain, decreased LE strength Onset Date: 12/22/22 PT Insurance Information: [facility]-APPROVED 4 MORE PT VISITS TO 02-14-2023 Total [...] endurance and strength for ADLs. 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 Senior Care Goal 2: Patient will improve R knee ROM to 0-110* for ADLs. - progressing (01/16/2023 R knee flexion = 106 degrees) Senior Care Goal 3: Patient will improve R LE strength to >/= 4/5 in all major joints and planes for ambulation and ADLs. Senior Care Goal 4: Patient will be able to ambulate without an AD with minimal gait deviations. - met (01/20/2023) Mattress Stuffer Goal 5: Patient will report 70% improvement in overall symptoms and function. Minutes Tracking: Time In: 1715 Time Out: 1800 Minutes: 45 Timed Code Treatment Minutes: 35 Minutes Tamia Zuñiga PT, DPT Date: 01/20/2023 documented in this encounter [facility] Phone: 01-16-2023 History of Present illness Narrative [facility] Daily Note Patient: Glory Pierce : 1955 [facility] #: [id number] Referring Physician: Barbie Sawant MD Date: 01/16/2023 Diagnosis: Aftercare following joint replacement surgery, Z47.1, presence of R artificial knee joint, Z96.651 Treatment Diagnosis: s/p R TKA, R knee pain, decreased LE strength Onset Date: 12/22/22 PT Insurance Information: [facility]-MEDICARE APPROVED 10 VISITS NOT INCLUDING EVAL 12-25 TO 03-24-23 [id number] Total # of Visits Approved: 10 Per [...] endurance and strength for ADLs. 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 Mattress Stuffer Goal 2: Patient will improve R knee ROM to 0-110* for ADLs. - progressing (01/16/2023 R knee flexion = 106 degrees) Mattress Stuffer Goal 3: Patient will improve R LE strength to >/= 4/5 in all major joints and planes for ambulation and ADLs. Senior Care Goal 4: Patient will be able to ambulate without an AD with minimal gait deviations. - progressing (01/16/2023 ambulating without assistive device with moderate gait deviations) Senior Care Goal 5: Patient will report 70% improvement in overall symptoms and function. Minutes Tracking: Time In: 1000 Time Out: 1055 Minutes: 55 Timed Code Treatment Minutes: 54 Minutes Tamia Zuñiga PT, DPT Date: 01/16/2023 documented in this encounter [facility] Phone: 01-14-2023 History of Present illness Narrative [facility] Daily Note Patient: Glory Pierce : 1955 CSN #: [id number] Referring Physician: Barbie Sawant MD Date: 01/14/2023 Diagnosis: Aftercare following joint replacement surgery, Z47.1, presence of R artificial knee joint, Z96.651 Treatment Diagnosis: s/p R TKA, R knee pain, decreased LE strength Onset Date: 12/22/22 PT Insurance Information: [facility]-MEDICARE APPROVED 10 VISITS NOT INCLUDING EVAL 12-25 TO 03-24-23 [id number] Total # of Visits Approved: 10 Per [...] endurance and strength for ADLs. - met Senior Care Goals Time Frame for Senior Care Goals : 4 weeks Mattress Stuffer Goal 1: Patient will be independent and compliant with a HEP. Senior Care Goal 2: Patient will improve R knee ROM to 0-110* for ADLs. Mattress Stuffer Goal 3: Patient will improve R LE strength to >/= 4/5 in all major joints and planes for ambulation and ADLs. Senior Care Goal 4: Patient will be able to ambulate without an AD with minimal gait deviations. - progressing (01/14/2023 ambulating with SPC in clinic) Senior Care Goal 5: Patient will report 70% improvement in overall symptoms and function. Minutes Tracking: Time In: 1115 Time Out: 1205 Minutes: 50 Timed Code Treatment Minutes: 49 Minutes Tamia Zuñiga PT, DPT Date: 01/14/2023 documented in this encounter [facility] [employer] [facility] Phone: 01-12-2023 History of Present illness Narrative [facility] Daily Note Patient: Glory Pierce : 1955 CSN #: [id number] Referring Physician: Barbie Sawant MD Date: 01/12/2023 Diagnosis: Aftercare following joint replacement surgery, Z47.1, presence of R artificial knee joint, Z96.651 Treatment Diagnosis: s/p R TKA, R knee pain, decreased LE strength Onset Date: 12/22/22 PT Insurance Information: [facility]-MEDICARE APPROVED 10 VISITS NOT INCLUDING EVAL 12-25 TO 03-24-23 [id number] Total # of Visits Approved: 10 Per [...] endurance and strength for ADLs. - met Mattress Stuffer Goals Time Frame for Senior Care Goals : 4 weeks Mattress Stuffer Goal 1: Patient will be independent and compliant with a HEP. Senior Care Goal 2: Patient will improve R knee ROM to 0-110* for ADLs. Senior Care Goal 3: Patient will improve R LE strength to >/= 4/5 in all major joints and planes for ambulation and ADLs. Senior Care Goal 4: Patient will be able to ambulate without an AD with minimal gait deviations. Mattress Stuffer Goal 5: Patient will report 70% improvement in overall symptoms and function. Minutes Tracking: Time In: 1300 Time Out: 1400 Minutes: 60 Timed Code Treatment Minutes: 58 Minutes Javier Sethi Date: 01/12/2023 documented in this encounter [facility] Phone: 01-09-2023 History of Present illness Narrative [facility] Daily Note Patient: Glory Pierce : 1955 CSN #: [id number] Referring Physician: Barbie Sawant MD Date: 01/09/2023 Diagnosis: Aftercare following joint replacement surgery, Z47.1, presence of R artificial knee joint, Z96.651 Treatment Diagnosis: s/p R TKA, R knee pain, decreased LE strength Onset Date: 12/22/22 PT Insurance Information: [facility]-MEDICARE APPROVED 10 VISITS NOT INCLUDING EVAL 12-25 TO 03-24-23 [id number] Total # of Visits Approved: 10 Per [...] and 6 follow-up visits working toward her chcf goals. She is currently ambulating with a [...] endurance and strength for ADLs. - met Senior Care Goals Time Frame for Senior Care Goals : 4 weeks Senior Care Goal 1: Patient will be independent and compliant with a HEP. Mattress Stuffer Goal 2: Patient will improve R knee ROM to 0-110* for ADLs. Senior Care Goal 3: Patient will improve R LE strength to >/= 4/5 in all major joints and planes for ambulation and ADLs. Senior Care Goal 4: Patient will be able to ambulate without an AD with minimal gait deviations. Mattress Stuffer Goal 5: Patient will report 70% improvement in overall symptoms and function. Minutes Tracking: Time In: 0845 Time Out: 43 Minutes: 58 Timed Code Treatment Minutes: 56 Minutes Erci Chadwick PT, DPT Date: 01/09/2023 [facility] Phone: 01-07-2023 History of Present illness Narrative [facility] Daily Note Patient: Glory Pierce : 1955 CSN #: [id number] Referring Physician: Barbie Sawant MD Date: 01/07/2023 Diagnosis: Aftercare following joint replacement surgery, Z47.1, presence of R artificial knee joint, Z96.651 Treatment Diagnosis: s/p R TKA, R knee pain, decreased LE strength Onset Date: 12/22/22 PT Insurance Information: [facility]-MEDICARE APPROVED 10 VISITS NOT INCLUDING EVAL 12-25 TO 03-24-23 [id number] Total # of Visits Approved: 10 Per [...] endurance and strength for ADLs. - met Senior Care Goals Time Frame for Mattress Stuffer Goals : 4 weeks Mattress Stuffer Goal 1: Patient will be independent and compliant with a HEP. Mattress Stuffer Goal 2: Patient will improve R knee ROM to 0-110* for ADLs. Mattress Stuffer Goal 3: Patient will improve R LE strength to >/= 4/5 in all major joints and planes for ambulation and ADLs. Mattress Stuffer Goal 4: Patient will be able to ambulate without an AD with minimal gait deviations. Senior Care Goal 5: Patient will report 70% improvement in overall symptoms and function. Minutes Tracking: Time In: 1019 Time Out: 1110 Minutes: 51 Timed Code Treatment Minutes: 50 Minutes Tamia Zuñiga PT, DPT Date: 01/07/2023 documented in this encounter [facility] Phone: 01-05-2023 History of Present illness Narrative [facility] Daily Note Patient: Glory Pierce : 1955 CSN #: [id number] Referring Physician: Barbie Sawant MD Date: 01/05/2023 Diagnosis: Aftercare following joint replacement surgery, Z47.1, presence of R artificial knee joint, Z96.651 Treatment Diagnosis: s/p R TKA, R knee pain, decreased LE strength Onset Date: 12/22/22 PT Insurance Information: [facility]-MEDICARE APPROVED 10 VISITS NOT INCLUDING EVAL 12-25 TO 03-24-23 [id number] Total # of Visits Approved: 10 Per [...] endurance and strength for ADLs. - met Senior Care Goals Time Frame for Senior Care Goals : 4 weeks Mattress Stuffer Goal 1: Patient will be independent and compliant with a HEP. Mattress Stuffer Goal 2: Patient will improve R knee ROM to 0-110* for ADLs. Senior Care Goal 3: Patient will improve R LE strength to >/= 4/5 in all major joints and planes for ambulation and ADLs. Senior Care Goal 4: Patient will be able to ambulate without an AD with minimal gait deviations. Senior Care Goal 5: Patient will report 70% improvement in overall symptoms and function. Minutes Tracking: Time In: 1515 Time Out: 1615 Minutes: 60 Timed Code Treatment Minutes: 57 Minutes Javier Sethi Date: 01/05/2023 documented in this encounter [facility] Phone: 01-02-2023 History of Present illness Narrative [facility] Daily Note Patient: Glory Pierce : 1955 CSN #: [id number] Referring Physician: Barbie Sawant MD Date: 01/02/2023 Diagnosis: Aftercare following joint replacement surgery, Z47.1, presence of R artificial knee joint, Z96.651 Treatment Diagnosis: s/p R TKA, R knee pain, decreased LE strength Onset Date: 12/22/22 PT Insurance Information: [employer]ICARE APPROVED 10 VISITS NOT INCLUDING EVAL 12-25 TO 03-24-23 [id number] Total # of Visits Approved: 10 Per [...] endurance and strength for ADLs. - met Mattress Stuffer Goals Time Frame for Mattress Stuffer Goals : 4 weeks Senior Care Goal 1: Patient will be independent and compliant with a HEP. Senior Care Goal 2: Patient will improve R knee ROM to 0-110* for ADLs. Mattress Stuffer Goal 3: Patient will improve R LE strength to >/= 4/5 in all major joints and planes for ambulation and ADLs. Mattress Stuffer Goal 4: Patient will be able to ambulate without an AD with minimal gait deviations. Senior Care Goal 5: Patient will report 70% improvement in overall symptoms and function. Minutes Tracking: Time In: 1145 Time Out: 1232 Minutes: 47 Timed Code Treatment Minutes: 45 Minutes Yocasta Kline PT DPT Date: 01/02/2023 documented in this encounter [facility] [employer] Phone: 12-31-2022 History of Present illness Narrative [facility] Daily Note Patient: Glory Pierce : 1955 CSN #: [id number] Referring Physician: Barbie Sawant MD Date: 12/31/2022 Diagnosis: Aftercare following joint replacement surgery, Z47.1, presence of R artificial knee joint, Z96.651 Treatment Diagnosis: s/p R TKA, R knee pain, decreased LE strength Onset Date: 12/22/22 PT Insurance Information: [facility]-MEDICARE APPROVED 10 VISITS NOT INCLUDING EVAL 12-25 TO 03-24-23 [id number] Total # of Visits Approved: 10 Per [...] endurance and strength for ADLs. - met Mattress Stuffer Goals Time Frame for Senior Care Goals : 4 weeks Senior Care Goal 1: Patient will be independent and compliant with a HEP. Mattress Stuffer Goal 2: Patient will improve R knee ROM to 0-110* for ADLs. Mattress Stuffer Goal 3: Patient will improve R LE strength to >/= 4/5 in all major joints and planes for ambulation and ADLs. Mattress Stuffer Goal 4: Patient will be able to ambulate without an AD with minimal gait deviations. Senior Care Goal 5: Patient will report 70% improvement in overall symptoms and function. Minutes Tracking: Time In: 1115 Time Out: 1200 Minutes: 45 Timed Code Treatment Minutes: 35 Minutes Tamia Zuñiga PT, DPT Date: 12/31/2022 documented [facility] Phone: 12-25-2022 History of Present illness Narrative [facility] Evaluation Date: 12/25/2022 Patient: Glory Pierce : 1955 [facility] #: [id number] Referring Physician: Barbie Sawant MD Medical Diagnosis: Aftercare following joint replacement surgery, Z47.1, presence of R artificial knee joint, Z96.651 Treatment Diagnosis: s/p R TKA, R knee pain, decreased LE strength Onset Date: 12/22/22 PT Insurance Information: [facility] Medicare Total # of Visits Approved: 12 [...] to improve endurance and strength for ADLs. Senior Care Goals Time Frame for Senior Care Goals : 4 weeks Mattress Stuffer Goal 1: Patient will be independent and compliant with a HEP. Senior Care Goal 2: Patient will improve R knee ROM to 0-110* for ADLs. Mattress Stuffer Goal 3: Patient will improve R LE strength to >/= 4/5 in all major joints and planes for ambulation and ADLs. Senior Care Goal 4: Patient will be able to ambulate without an AD with minimal gait deviations. Mattress Stuffer Goal 5: Patient will report 70% improvement in overall symptoms and function. Patient Goals : Improve ROM of knee Minutes Tracking: Time In: 1113 Time Out: 1215 Minutes: 62 Timed Code Treatment Minutes: 50 Minutes Eric Chadwick PT, DPT 12/25/2022 documented in this encounter [facility] [employer] Phone: 12-09-2022 History of Present illness Narrative Patient instructed on the pre-operative, intra-operative, and post-operative process. Patient instructed on NPO status. Medication instructions and pre operative instruction sheet reviewed with the patient. CHG skin prep instructions reviewed with patient. [facility] Preadmission Testing Name: Glory Pierce : 1955 [...] medical clearance. documented in this encounter [facility] Phone: 10-16-2021 History of Present illness Narrative [...] post a left TKA in 2012 in [place] and has had pain in this knee [...] joint space, subchondral sclerosis, osteophyte formation, and [id number] contact and a left posterior stabilized knee in reasonable position and alignment. IMPRESSION: 1.) Severe symptomatic end-stage arthritis, right knee. 2.) Status post a left total knee arthroplasty in 2013 in [place]. 3.) Mild instability, left prosthetic knee. 4.) [...] Not on file Current Outpatient Medications: Biotin 71617 MCG tablet, Take 10,000 mcg by mouth [...] done in 2012 when she lived in [place]. She has had pain in the Left [...] 10/16/2021 9:13 AM Patient: Stan Holder MR#: [id number] : 1955 Age: 66 y.o. Referring Physician: [...] [x]cane, []bracing Are you followed by a student teaching coordinator? [] [x] Name: Are you followed by pain management? [] [x] Name: Are you followed by any other specialists? [] [x] Name: Outpatient Medications Prior to Visit Medication Sig Dispense Refill Biotin 86012 MCG tablet Take 10,000 mcg by mouth [...] have dentures? no documented in this encounter [facility] Evaluation note Diagnosis Right knee pain, unspecified chronicity- Primary Left knee pain, unspecified chronicity Primary osteoarthritis of right knee Primary localized osteoarthrosis, lower leg Pain in prosthetic joint, sequela [facility] Closed displaced fracture of surgical neck of right humerus, unspecified fracture morphology, initial encounter- Primary documented in this encounter [facility] Phone: Hospital Discharge instructions* Instructions* Rocael Rodriguez Jr., MD - 04/08/2022 Ice on the shoulder. Use the sling and swath until seen by Dr. Sawant on in the office. Call either today or tomorrow to confirm appointment in the morning on . Return if any problems. * Attachments The following attachments cannot be sent through Care Everywhere. * Arm Fracture ([place]) [facility] Phone: reason for referral (narrative)* Consultation (Routine) - Patient to Arrange Specialty Diagnoses / Procedures Referred By Isatu madden Referred To Contact Physical Therapy Diagnoses Primary osteoarthritis of right knee Pain in prosthetic joint, sequela Allen Colmenares MD [address] [place] [address] Referral ID Status Reason Start Date Expiration Date V isits Requested Visits Authorized [id number] Patient to Arrange 10/16/2021 11/10/2022 1 1 Scheduling Instructions . * Diagnostic X-Ray (Routine) - New Request Specialty Diagnoses / Procedures Referred By Isatu madden Referred To Contact Diagnoses Left knee pain, unspecified chronicity Procedures XR KNEE LEFT 3 VIEWS XR KNEE LEFT 4+ VIEWS Allen Colmenares MD [address] [place] [id number] Referral ID Status Reason Start Date Expiration Date V isits Requested Visits Authorized [id number] New Request 10/04/2021 10/29/2022 1 1 * Diagnostic X-Ray (Routine) - Pending Review Specialty Diagnoses / Procedures Referred By Contac t Referred To Contact Diagnoses Left knee pain, unspecified chronicity Procedures XR BONE LENGTH STUDY Allen Colmenares MD [address] [place] [id number] Referral ID Status Reason Start Date Expiration Date V isits Requested Visits Authorized [id number] Pending Review 10/04/2021 10/29/2022 1 1 * Diagnostic X-Ray (Routine) - Pending Review Specialty Diagnoses / Procedures Referred By Contsary t Referred To Contact Diagnoses Right knee pain, unspecified chronicity Procedures XR KNEE RIGHT 4+ VIEWS Allen Colmenares MD [address] [place] [id number] Referral ID Status Reason Start Date Expiration Date V isits Requested Visits Authorized [id number] Pending Review 10/04/2021 10/29/2022 1 1 [employer] System Summary Purpose Family History No Family [...] BONE LENGTH STUDY Allen Colmenares MD [address] [place] [address] Referral ID Status Reason Start Date Expiration Date V isits Requested Visits Authorized [id number] Pending Review 10/04/2021 10/29/2022 1 1 Reason Comments Pain New Patient Reason Comments Shoulder Pain right sided, patient fell after tripping over rock at approx 0900 Care Teams (unrecognized sec tion and content) Linux Consultant Relationship Specialty Start Date End Date Ricardo Winter MD [address] [place] [address] PCP - General Family Medicine 10/16/21 Linux Consultant Relationship Specialty Start Date End Date Ricardo Winter MD [address] [place] [address] PCP - General Family Medicine 10/16/21 Linux Consultant Relationship Specialty Start Date End Date Ricardo Winter MD [address] [place] [address] PCP - General Family Medicine 04/08/22 Linux Consultant Relationship Specialty Start Date End Date Ricardo Winter MD [address] [facility] [place] [address] PCP - General Family Medicine 04/08/22 Linux Consultant Relationship Specialty Start Date End Date Ricardo Winter MD [address] [place] [address] PCP - General Family Medicine 04/08/22 Linux Consultant Relationship Specialty Start Date End Date Ricardo Winter MD [address] [place] [address] PCP - General Family Medicine 04/08/22 Linux Consultant Relationship Specialty Start Date End Date Ricardo Winter MD [address] [place] [id number] PCP - General Family Medicine 04/08/22 Linux Consultant Relationship Specialty Start Date End Date Ricardo Winter MD [address] [place] [address] PCP - General Family Medicine 04/08/22 Linux Consultant Relationship Specialty Start Date End Date Ricardo Winter MD [address] [place] [address] PCP - General Family Medicine 04/08/22 Linux Consultant Relationship Specialty Start Date End Date Ricardo Winter MD [address] [place] [address] PCP - General Family Medicine 04/08/22 Linux Consultant Relationship Specialty Start Date End Date Ricardo Winter MD [address] [place] [address] PCP - General Family Medicine 04/08/22 Linux Consultant Relationship Specialty Start Date End Date Ricardo Winter MD [address] [place] [id number] PCP - General Family Medicine 04/08/22 Linux Consultant Relationship Specialty Start Date End Date Ricardo Winter MD [address] [place] [address] PCP - General Family Medicine 04/08/22 Ordered [...] DATE CREATED AUTHOR AUTHOR'S ORGANIZ ATION 01/30/2023 [facility] FOR RECORDS PERTAINING TO PATIENTS WHO ARE [...] BE BASED ON THE PRIMARY CLINICAL RECORDS. [employer] [facility]. provides no warranty or guarantee of the accuracy or completeness of information in this document.
== END 2024-08-10 13:20 | disposition home or self-care (01) ==
LOC: MAMMO 13:19
PROVIDERS: PCP Family Medicine; Visit Provider Family Medicine
DX: Z12.31 Encounter for screening mammogram for malignant neoplasm of breast (principal); Z80.3 Family history of malignant neoplasm of breast; Z80.52 Family history of malignant neoplasm of bladder; Z80.8 Family history of malignant neoplasm of other organs or systems
CPT/HCPCS: 77063; 77067

== ENCOUNTER 2025-08-30 08:43 | Outpatient (OUT) | payer MEDICARE, SELFPAY ==
--- NOTE | 2025-08-30 | MM_ITS ---
Patient Name: BIANKA LECHUGA MR#: [id number] : 1955 Exam Date: 08/30/2025 Ordering Doctor: ANGELO GARCIA RADIOLOGY REPORT PROCEDURE: MM TOMOSYNTHESIS SCREENING BI COMPARISON: MM TOMOSYNTHESIS SCREENING BI, 08/10/2024. MM TOMOSYNTHESIS SCREENING BI, 07/09/2023. MG MAMM SCREEN 3D JUAN FRANCISCO CAD, 07/08/2022. MG MAMM SCREEN JUAN FRANCISCO W CAD, 06/07/2020. INDICATIONS: Screening for malignancy of breasts Calculator Name NCI Breast Cancer Risk Assessment Tool 5 Year Breast Cancer Risk 3.20% Lifetime Breast Cancer Risk 9.20% Personal Breast Cancer No Personal Ovarian Cancer No Treatments None Family Cancers Mother with breast cancer at age 71; Sister with thyroid cancer at age 64; Father with bladder cancer at age 73. LOCATION: [facility] BREAST COMPOSITION: There are scattered areas of fibroglandular density. FINDINGS: RIGHT BREAST: No significant suspicious finding. LEFT BREAST: No significant suspicious finding. DIAGNOSTIC CATEGORY 1--NEGATIVE. NO CHANGE FROM COMPARISON ASSESSMENT. RECOMMENDATIONS: ROUTINE MAMMOGRAM AND CLINICAL EVALUATION IN 12 MONTHS. Dictated by: Jesus Seth MD on 08/30/2025 at 15:45 Approved by: Jesus Seth MD on 08/30/2025 at 15:50
--- OUTSIDE RECORDS SUMMARY | 2025-08-30 08:46 | XMS_ITS | Clinical Summary ---
Author Organization [facility] Address [address] [place] [address] Care Team Providers Care Surface Supply Breathing Apparatus Name Role Phone David Winter MD Primary Care Provider [phone] Allergies No known active allergies Medications MedicationSigDispense QuantityRefillsLast FilledStart DateEnd DateStatus simvastatin 20 MG tablet 08/29/2021ctive Euthyrox 150 MCG tablet 08/29/2021ctive diclofenac EC [address] tablet Take 75 mg by mouth 2 times daily.10/09/2021ctive multivitamin tablet Take 1 tablet by mouth daily.Active Biotin 21044 MCG tablet Take 10,000 mcg by mouth daily.Active celecoxib 200 MG capsule Take 1 capsule by mouth daily. 30 capsule 10/16/2021ctive Social History Tobacco UseTypesPacks/DayYears UsedDateSmoking Tobacco: NeverSmokeless Tobacco: NeverAlcohol UseStandard Drinks/WeekCommentsNot Currently0 (1 standard drink = 0.6 oz pure alcohol)CommentsUnknownSex and Gender InformationValueDate RecordedSex Assigned at BirthNot on fileLegal FujSfenxq14/30/2021 4:05 PM EST Gender IdentityNot on fileSexual OrientationNot on file Last Filed Vital Signs Vital SignReadingTime TakenCommentsBlood Pressure--Pulse--Jtxvhtexpdy84.1 ??C (97 ??F)10/16/2021 9:07 AM ESTRespiratory Rate--Oxygen Saturation--Inhaled Oxygen Concentration--Qxhupp273.8 kg (295 lb)10/16/2021 9:07 AM DYFOycoko398.7 cm (5' 8 )10/16/2021 9:07 AM ESTBody Mass Index44.8510/16/2021 9:07 AM EST Plan of Treatment Health MaintenanceDue DateLast DoneCommentsDEXA SCAN KSCKTHJWCY1954 HEPATITIS C VIRUS QYAJQGCQB95/20/6776KBTRCJX1954TDAP (ADULT)1973 CERVICAL CANCER SCREENING ZSUESNKAOD70/20/1975LIPID MCXDTWKWX22/20/1994MAMMOGRAM SCREENING WZWKICRMVX44/20/1994COLORECTAL CANCER SCREENING OECWVPNMFB42/20/1999 PNEUMOCOCCAL VACCINE SERIES (2 of 2 - PCV)COVID-19 VACCINE (1 - 2024- season)2025INFLUENZA VACCINE (#1)509/, 07/25/2020, 09/27/2018RSV VACCINE (1 - 1-dose 75+ series)2029ZOSTER (SHINGLES) WWWUULISdnkaimhw46/23/2020, 07/25/2020HEP B VACCINEAged OutNo longer eligible based on patient's age to complete this topic Care Teams Team MemberRelationshipSpecialtyStart DateEnd Date David Winter MD PCP - GeneralFamily Awzhifyt67/29/21
--- OUTSIDE RECORDS SUMMARY | 2025-08-30 08:46 | XMS_ITS | Clinical Summary ---
Author Organization [facility] Address [address], [address] [place] [address] Care Team Providers Care Embroidery Operator Name Role Phone Esther Caavzos MD Primary Care Provider [phone] Allergies No known active allergies Medications MedicationSigDispense QuantityRefillsLast FilledStart DateEnd DateStatus Cholecalciferol (VITAMIN D) 50 MCG (1999) CAPS capsule Take by mouth dailyActive pantoprazole (PROTONIX) 40 MG tablet Take 1 tablet by mouth daily5Active levothyroxine (SYNTHROID) 125 MCG tablet Indications:Hypothyroidism, unspecified typeTake 1 tablet by mouth Daily 90 tablet 5Active simvastatin (ZOCOR) 20 MG tablet Indications:Mixed hyperlipidemiaTake 1 tablet by mouth nightly 90 tablet 5Active liothyronine (CYTOMEL) 5 MCG tablet Indications:Hypothyroidism, unspecified typeTake 1 tablet by mouth daily 90 tablet 5Active Active Problems ProblemNoted DateDiagnosed DateS/P TKR (total knee replacement) using cement, right12/22/2022HypothyroidismHyperlipidemiaHeartburnObesityOsteoarthritis Encounters DateTypeDepartmentCare CoygAmxtvbljnnk20/04/2025bstract [facility] [address] [place] [address] [address] [place] [address] Esther Cavazos MD from Last 3 Months Immunizations ImmunizationAdministration DatesNext DueInfluenza, FLUAD, (age 65 y+), IM, Quadv, 0.5mL07/25/2020Influenza, FLUAD, (age 65 y+), IM, Trivalent PF, 0.5mL 07/12/2021Influenza, FLUCELVAX, (age 6 mo+), MDCK, Quadv PF, 0.5mL09/27/2018 Influenza, FLUZONE High Dose (age 65 y+), IM, Quadv, 0.7mL08/21/2023,07/15/2022 Influenza, FLUZONE High Dose, (age 65 y+), IM, Trivalent PF, 0.5mL07/22/2025, 4Pneumococcal, PCV20, PREVNAR 20, (age 6w+), IM, 0.5mL02/28/2022 Pneumococcal, PPSV23, PNEUMOVAX 23, (age 2y+), SC/IM, 0.5mL10/10/2020Zoster Recombinant (Shingrix)10/10/2020,07/25/2020 Family History Medical HistoryRelationNameCommentsCancerFatherMilford AlleyBladderHigh CholesterolFatherMilford AlleyBreast CancerMotherDora AlleyCOPDMotherDora Alley CancerMotherDora AlleyBreastHeart FailureMotherDora AlleyHeart AttackSister 1 DianeHigh CholesterolSister 2TheresaHigh CholesterolSister 3DonnaRelationName StatusCommentsFatherMilford AlleyDeceasedMotherDora AlleyDeceasedSister 1Diane Sister 2TheresaSister 3Donna Social History Tobacco UseTypesPacks/DayYears UsedDateSmoking Tobacco: NeverSmokeless Tobacco: Never Tobacco Cessation:Counseling Given: Not Answered Alcohol UseStandard Drinks/WeekCommentsNot Currently0 (1 standard drink = 0.6 oz pure alcohol)[facility] UtilitiesAnswerDate RecordedIn the past 12 months has the BlitzLocal, StreetFire, oil, or water [employer] threatened to shut off services in your home?No5AUDIT-CAnswerDate RecordedQ1: How often do you have a drink containing alcohol?Monthly or less05/12/2025Q2: How many drinks containing alcohol do you have on a typical day when you are drinking?1 or Q3: How often do you have six or more drinks on one occasion?Never02/27/2025PHQ-2 AnswerDate RecordedPHQ-9 Total Yjrtp231Exercise Vital SignAnswerDate RecordedOn average, how many days per week do you engage in moderate to strenuous exercise (like a brisk walk)?0 days02/27/2025Minutes of Exercise per SessionNot on file02/27/2025Hunger Vital SignAnswerDate RecordedWithin the past 12 months, you worried that your food would run out before you got the money to buymore.Never true03/02/2025Within the past 12 months, the food you bought just didn't last and you didn't have money to get more.Never true03/02/2025PRAPARE - TransportationAnswerDate RecordedIn the past 12 months, has lack of transportation kept you from medical appointments or from getting medications?No 03/02/2025In the past 12 months, has lack of transportation kept you from meetings, work, or from getting things needed for daily living?No03/02/2025 Housing Stability Vital SignAnswerDate RecordedIn the last 12 months, was there a time when you were not able to pay the mortgage or rent on time?No03/02/2025In the past 12 months, how many times have you moved where you were living?0 03/02/2025t any time in the past 12 months, were you homeless or living in a fci (including now)?No03/02/2025Food InsecurityAnswerDate RecordedWithin the past 12 months, you worried that your food would run out before you got the money to buymore.Within the past 12 months, the food you bought just didn't last and you didn't have money to get more.CommentsNo Sex and Gender InformationValueDate RecordedSex Assigned at BirthFemale 12/19/2024 11:15 AM ESTLegal GwkNvjijy33/21/2022 9:58 AM EDTGender Identity Nfdkbl0612/19/2024 11:15 AM ESTSexual MujwaodqcmcVwobiptd06/03/2025 11:15 AM EST Last Filed Vital Signs Vital SignReadingTime TakenCommentsBlood Ffsnhsjx900/9203/02/2025 10:22 AM EDT Bonnp0290/15/2025 9:58 AM BSFVsyunzpovkz39.7 ??C (98 ??F)12/23/2022 7:31 AM EST Respiratory Fkql810112/23/2022 7:31 AM ESTOxygen Awaqzufftz00%03/02/2025 9:58 AM EDTInhaled Oxygen Concentration--Bolqpm234.1 kg (289 lb)03/02/2025 9:58 AM EDT Kygdxx220 cm (5' 7.72 )03/02/2025 9:58 AM EDTBody Mass Index44.31003/02/2025 9:58 AM EDT Plan of Treatment DateTypeDepartmentCare Team (Latest Contact Info)Yzjncnmfnji82/13/2025 10:15 AM ESTOffice Visit [place] [id number] Esther Cavazos MD [address] [place] [address] C-Follow up uwrrskfcldf80/21/2026 10:15 AM EDTOffice Visit [address] [place] [address] Esther Cavazos MD [address] [place], [place] [address] MAWHealth MaintenanceDue DateLast DoneCommentsHepatitis C jovhza9009/07/1972 DTaP/Tdap/Td vaccine (1 - Tdap)1973Breast cancer xywocx1509/07/1994 Xoysyuoobuf16/20/1999FIT/FOBT: Average risk1999Sigmoidoscopy/CT chttclfidznw47/20/1999DEXA (modify frequency per FRAX score)2009 Respiratory Syncytial Virus (RSV) or age 60 yrs+ (1 - Risk 60-74 years 1-dose series)2014COVID-19 Vaccine ( season)2025 06/29/2024, 07/20/2023, 07/05/2022, Additional history iwomdsGftgkn64/05/2026 12/21/2024Depression Gruhhb566002/27/2025, 02/27/2025olorectal Cancer Coihlr4507/19/2026Fecal-DNA (Cologuard): Average risk07/19/2026Diabetes screen 8012/21/2024Shingles brmvikzHbycarahw04/23/2020, 07/25/2020Pneumococcal 50+ years ZmmybcwEexrdqhho19/13/2022, 10/10/2020Annual Wellness Visit (Medicare Advantage)Bemiiagtw94/15/2025Flu dqajtxrRxqseeqzy29/04/2025, 07/01/2024, 08/21/2023, Additional history existsHepatitis A vaccineAged OutNo longer eligible based on patient's age to complete this topicHepatitis B vaccineAged OutNo longer eligible based on patient's age to complete this topicHib vaccine Aged OutNo longer eligible based on patient's age to complete this topic Meningococcal (ACWY) vaccineAged OutNo longer eligible based on patient's age to complete this topicMeningococcal B vaccineAged OutNo longer eligible based on patient's age to complete this topicPolio vaccineAged OutNo longer eligible based on patient's age to complete this topic Medical Devices ImplantedTypeAreaManufacturerDevice IdentifierShelf Expiration DateModel / Serial / LotImpl Knee Psn All Poly Pat 38mm - [id number] Implanted:Qty: 1 on 12/22/20[facility] KneeLUCIANOMMER INC-[id number] / / [id number] Knee Psn Fem Cr Cmt Ccr Std Sz10 R - [id number] Implanted:Qty: 1 on 12/22/2022 [facility]: KneeZIMMER INC-[id number] / / [id number] Bne L48mm Constrn Cndyl Knee Hex Hd Stem For Leg Nxgn - [id number] Implanted:Qty: 1 on 12/22/20[facility] KneeZIMMER [employer]-[id number] / / [id number] Bne L48mm Constrn Cndyl Knee Hex Hd Stem For Leg Nxgn - [id number] Implanted:Qty: 1 on 12/22/2022 [facility]: KneeZIER BIOMET [employer]TH[employer]-[id number] / / [id number] Bne 40gm Hi Visc Radpq For Rev Surg - [id number] Implanted:Qty: 1 on 12/22/2022 [facility] KneeZIMMER [employer]-[id number] / / [id number] Bne 40gm Hi Visc Radpq For Rev Surg - [id number] Implanted:Qty: 1 on 12/22/2022 by Jermaine Sawant MD at [facility]: KneeZIMMER [employer]-[id number] / / [id number] Bne 40gm Hi Visc Radpq For Rev Surg - [id number] Implanted:Qty: 1 on 12/22/2022 by Jermaine Sawant MD at [facility]: KneeZIMMER [employer]-[id number] / / [id number] Tib Stm 5 Deg Sz G R - [id number] Implanted:Qty: 1 on 12/22/2022 [facility] KneeZIMMER [employer]-[id number] / / [id number] Stem L30mm Ipq84kk Knee Tapr Nathan Persona - [id number] Implanted:Qty: 1 on 12/22/2022 by [facility]: Jeremy [employer]-WD09/12/[id number] / / [id number] Rachelle Asf R 14mm 8-11 - [id number] Implanted:Qty: 1 on 12/22/2022 [facility]LUCI[facility]OWEST[facility] BIOMET ORTHOPEDICS-WD07/13/[id number] / / [id number] Procedures Procedure NamePriorityDate/TimeAssociated DiagnosisCommentsHEMOGLOBIN X6VKnkkyds 12/21/2024 9:07 AM EST Hypothyroidism, unspecified type Hyperlipidemia, unspecified hyperlipidemia type Obesity, unspecified class, unspecified obesity type, unspecified whether serious comorbidity present Gastroesophageal reflux disease without esophagitis LIPID ZSDWKQvhdlow12/05/2025 9:07 AM EST Hypothyroidism, unspecified type Hyperlipidemia, unspecified hyperlipidemia type Obesity, unspecified class, unspecified obesity type, unspecified whether serious comorbidity present Gastroesophageal reflux disease without esophagitis from Last 3 Months or Most Recently Relevant to Health Maintenance Results * Hemoglobin A1C (12/21/2024 9:07 AM EST)ComponentValueRef RangeTest Method Analysis TimePerformed AtPathologist SignatureHemoglobin A1C5.04.0 - 6.0 % 12/21/2024 9:07 AM ESTMERCY LABORATORIESEstimated Avg Qkcltil93ag/dL12/21/2024 9:07 AM ESTMERCY LABORATORIESComment: The ADA and AACC recommend providing the estimated average glucose result to permit better patient understanding of their HBA1c result. Specimen (Source)Anatomical Location / LateralityCollection Method / Volume Collection TimeReceived TimeBloodBLOOD SPECIMEN / Exzyguj6812/21/2024 9:07 AM EST 12/21/2024 9:08 AM EST Narrative Authorizing ProviderResult TypeResult StatusTanveer Sammy Cavazos MDCHEMISTRY ORDERABLESFinal ResultPerforming OrganizationAddressCity/State/ZIP CodePhone Number [facility] [address] [place] [address] [employer] [address] [place] [address], [facility] [phone] * (ABNORMAL) Lipid Panel (12/21/2024 9:07 AM EST)ComponentValueRef RangeTest MethodAnalysis TimePerformed AtPathologist SignatureCholesterol, Uwqga1038 - 199 mg/dL12/21/2024 9:07 AM ESTMERCY LABORATORIESComment: Cholesterol Guidelines: <200 Desirable 200-240 ??Borderline >240 Undesirable HDL49>40 mg/dL12/21/2024 9:07 AM ESTMERCY LABORATORIESComment: HDL Guidelines: <40 Undesirable 40-59 ?Borderline >59 Desirable LDL Qojxlmwqgdn691(H)0 - 100 mg/dL12/21/2024 9:07 AM [facility]ORATORIES Comment: LDL Guidelines: <100 Desirable 100-129 ?? Near to/above Desirable 130-159 ?? Borderline >159 Undesirable Direct (measured) LDL and calculated LDL are not interchangeable tests. Chol/HDL Ratio4. 9:07 AM ESTMERCY EGXLHUAAMHMDKikvuwlrdwmwf280<150 mg/dL12/21/2024 9:07 AM ESTMERCY LABORATORIESComment: Triglyceride Guidelines: <150 Desirable 150-199 ??Borderline 200-499 ??High >499 Very high Based on AHA Guidelines for fasting triglyceride, July 2012. QLNQ997 - 30 mg/dL12/21/2024 9:07 AM ESTMERCY LABORATORIESSpecimen (Source) Anatomical Location / LateralityCollection Method / VolumeCollection Time Received TimeBloodBLOOD SPECIMEN / Xykriea6312/21/2024 9:07 AM EST12/21/2024 9:08 AM EST Narrative Authorizing ProviderResult TypeResult StatusTanveer Sammy Cavazos MDCHEMISTRY ORDERABLESFinal ResultPerforming OrganizationAddressCity/State/ZIP CodePhone Number [facility] [address] [place] [address], [facility] [phone] [address]JO[address] [place] [address], [facility] [phone] from Last 3 Months or Most Recently Relevant to Health Maintenance Insurance Advance Directives * Full Code (Latest Code Status on File) Date ActivatedDate InactivatedComments12/22/2022 3:51 PM12/23/2022 4:19 PM NameRelationshipHealthcare Agent RelationshipCommunicationDan KenyettapousePrimary Decision Maker* * * [email or web address] Care Teams Team MemberRelationshipSpecialtyStart DateEnd Date sEther Cavazos MD [address] [address] PCP - GeneralFamily Medicine12/20/24
--- OUTSIDE RECORDS SUMMARY | 2025-08-30 08:46 | XMS_ITS | Patient Health Record ---
Author Organization [facility] Address [address] [place] [address] Care Team Providers Care Photographic Engineer Name Role Phone RioDavid servin Primary Care Provider Jermaine Hinkle [phone] Allergies No Known Allergies Reason For Referral No Information Medications Medication SIG (Take, Route, Frequency, Duration) Notes Start Date End Date Status Euthyrox ActivesimvastatinActive Social History Tobacco Use: Social History Observation Description Date Details (start date - stop date) Never Smoker NA - NA Smoking History Question Answer Notes Smoking Status NonSmoker Problems Problem Type SNOMED Code ICD Code Onset Dates Problem Status W/U Status Risk Notes Problem History of musculosk eletal operation (258552314) Aftercare following joint replacement surgery (Z47.1) ActiveconfirmedProblemArtificial knee joint present (409471189120)Presence of right artificial knee joint (Z96.651)ActiveconfirmedProblemNondisplaced fracture of greater tuberosity of right humerus with routine healing, subsequent encoun ter (S42.254D)ActiveconfirmedProblemClosed fracture proximal humerus, greater tuberosity (804583013)Closed nondisplaced fracture of greater tuberosity of right humerus, initial encounter (S42.254A)ActiveconfirmedProblemOsteoarthritis of knee (664126449)Osteoarthritis of right knee (M17.11)ActiveconfirmedProblem Arthritis of left acromioclavicular joint (9567455880300925)Arthritis of left acromioclavicular joint (M19.012)ActiveconfirmedProblemArthritis of right knee (1801368265760096)Arthritis of right knee (M17.11)ActiveconfirmedProblemPre- procedure evaluation check (844658367)Preoperative testing (Z01.818)Active confirmedProblemTendonitis of left shoulder (0053395381105219)Left shoulder tendonitis (M77.8)Activeconfirmed Encounters Encounter Location Date Provider Diagnosis [facility] [address] [place] [place] [address] 06/16/2025 Jermaine Sawant Plan Of Treatment No Information Insurance Providers Payer Name Payer Address Payer Phone Subscriber Number Group Number Insured Name Patient Relationship to Insured Coverage Start Date Coverage End Date Medicare [place] [employer] [address] [place] [address] [id number] [facility] [id number] BIANKA LECHUGA Self - patient is the insured Medical (General) History Medical History History ICD Code Hypothyroidism Yes Surgical History Surgery Date(Month/Year) TKR left 10/2012
--- OUTSIDE RECORDS SUMMARY | 2025-08-30 08:51 | XMS_ITS | CCD ---
Author Organization [facility] Care Team Providers Care Registered Nurse Teacher Name Role Phone Ricardo Winter MD Primary Care Provider [phone] PANCHO, DR SILVA Consulting Unavailable HOY, DR [...] Unavailable Ricardo Winter MD Primary Care Provider [phone] Angelo Garcia MD Primary Care Provider ANGELO GARCIA Referring Unavailable ANGELO GARCIA Primary Care Unavailable ANGELO GARCIA Referring Unavailable JOSE, ANGELO VINCENT Primary Care Unavailable Medications Current Medications MedicationDrug Class(es)DatesSig (Normalized)Sig (Original)acetaminophen 325 mg / HYDROcodone bitartrate 5 mg oral tablet (3 sources)Opioid AgonistStart: 12-23-2022 End: 78-99-0464KAENRopnfqc-acetaminophen (NORCO) 5-325 MG per tablet Indications: S/P TKR (total knee replacement)using cement, right Take 1-2 tablets by mouth every 4 hours as needed for Pain for up to 3 days. Max Daily Amount: 12 tablets 30 tablet 0 12/23/2022 12/26/2022 ActiveStart: 04-08-2022 End: 16-09-8119ukxy 1 tablet by mouth every six hours as needed for pain HYDROcodone-acetaminophen (NORCO) 5-325 MG per tablet Indications: Closed displaced fracture of surgical neck of right humerus, unspecified fracture morphology, initial encounter Take 1 tablet by mouth every 6 hours as needed for Pain for up to 4 days. 15 tablet 0 04/08/2022 04/12/2022 ActiveStart: 04-08-2022 End: 78-79-2852EBAKJibfevn-acetaminophen (NORCO) 5-325 MG per tablet 1 tablet biotin 10 mg oral tablet (2 sources)take 1 tablet by mouth once dailyBiotin 31598 MCG tablet Take 10,000 mcg by mouth daily. 0 Activecelecoxib 200 mg oral capsule (2 sources)Nonsteroidal Anti-inflammatory DrugStart: 06-48-5024yesb 1 capsule by mouth once dailycelecoxib 200 MG capsule Take 1 capsule by mouth daily. 30 capsule 0 10/16/2021 Activecholecalciferol 0.05 mg oral capsule (16 sources)Vitamin DCholecalciferol (VITAMIN D) 50 MCG (1999 UT) CAPS capsule Take by mouth daily Activediclofenac sodium 75 mg delayed release oral tablet (2 sources)Nonsteroidal Anti-inflammatory DrugStart: 98-99-8182bypm 1 tablet by mouth twice dailydiclofenac EC [address] tablet Take 75 mg by mouth 2 times daily. 0 10/09/2021 Activelevothyroxine sodium 0.15 mg oral tablet (19 sources)l-ThyroxineStart: 81-93-6989Rlzwjrjl 150 MCG tablettake 1 tablet by mouth once dailylevothyroxine (SYNTHROID) 125 MCG tablet Take 1 tablet by mouth Daily Activeliothyronine sodium 0.005 mg oral tablet (1 source)l-TriiodothyronineStart: 46-51-3054dwxu 1 tablet by mouth once daily liothyronine (CYTOMEL) 5 MCG tablet Take 1 tablet by mouth daily 12/05/2024 Activemultivitamin tablet (2 sources)take 1 tablet by mouth once dailymultivitamin tablet Take 1 tablet by mouth daily. 0 Activenaproxen sodium 220 mg oral capsule (15 sources)Nonsteroidal Anti-inflammatory DrugNaproxen Sodium 220 MG CAPS Take by mouth daily as needed for Pain 0 Activepantoprazole 40 mg delayed release oral tablet (1 source)Proton Pump InhibitorStart: 80-73-7884tzwp 1 tablet by mouth once dailypantoprazole (PROTONIX) 40 MG tablet Take 1 tablet by mouth daily 12/04/2024 Activerivaroxaban 10 mg oral tablet (13 sources)Factor Xa InhibitorStart: 29-87-9809wasj 1 tablet by mouth once daily at breakfastrivaroxaban (XARELTO) 10 MG TABS tablet Take 1 tablet by mouth daily (with breakfast) 12 tablet 0 12/23/2022 Activesimvastatin 20 mg oral tablet (19 sources)HMG-CoA Reductase InhibitorStart: 56-51-7514kpcaqaymoca 20 MG tablet Problems Active Problems Problem ClassificationProblemDateDocumented DateEpisodic/ChronicComplication of device; implant or graft (1 source)Joint pain; Translations: [Pain due to internal orthopedic prosthetic devices, implants and grafts,sequela]EpisodicDeficiency and other anemia (1 source)Anemia, unspecified; Translations: [ANEMIA UNSPECIFIED]Onset: 46-68-0379NfuusuhzPhysnlmh mellitus without complication (1 source)Other abnormal glucose; Translations: [OTHER ABNORMAL GLUCOSE]Onset: 03-36-4454UlvvvmhyXylfnremi of lipid metabolism (5 sources)Pure hypercholesterolemia, unspecified; Translations: [Hyperlipidemia, unspecified]Onset: 185309-33-7839OlqbsraShzxutyznf disorders (2 sources)Gastroesophageal reflux disease without esophagitis; Translations: [Gastro-esophageal reflux disease without esophagitis]Onset: 12-21-2024 95-42-9711EksesliXcsrviyp of upper limb (1 source)Closed fracture of surgical neck of humerus; Translations: [Unspecified displaced fracture of surgical neck of right humerus, initial encounter for closed fracture]EpisodicMalaise and fatigue (1 source)Other fatigue; Translations: [OTHER FATIGUE]Onset: 63-08-5353Nibhqwnd Menopausal disorders (4 sources)Menopausal and female climacteric states; Translations: [MENOPAUSAL FE CLIMACTERIC STATES]Onset: 75-87-8979FntwmkeBtmg disorders (1 source)Major depressive disorder, single episode, unspecified; Translations: [FLACO DEPRESS D/O SINGLE EPIS UNS]Onset: 32-52-0508PvohyckIjhfhieducn deficiencies (1 source)Vitamin D deficiency, unspecified; Translations: [VITAMIN D DEFICIENCY UNSPECIFIED]Onset: 25-34-9889NmuvisrNfrrbiccyfilkf (2 sources)Osteoarthritis of right knee joint; Translations: [Unilateral primary osteoarthritis, right knee]ChronicOther connective tissue disease (14 sources)History of total knee arthroplasty; Translations: [Presence of right artificial knee joint]Onset: 399959-61-5913RkrtitpUmlfj gastrointestinal disorders (1 source)Heartburn; Translations: [Heartburn]42-30-2059TduwjiwgOiijd non- traumatic joint disorders (1 source)Pain in right knee; Translations: [Pain in right knee]EpisodicOther non-traumatic joint disorders (1 source)Pain in left knee; Translations: [Pain in left knee]EpisodicOther nutritional; endocrine; and metabolic disorders (2 sources)Obesity; Translations: [Obesity, unspecified]24-30-3363TtyglqlXodet nutritional; endocrine; and metabolic disorders (1 source)Obesity, unspecified; Translations: [Obesity, unspecified]Onset: 89-86-1760FqjmxptYswbh screening for suspected conditions (not mental disorders or infectious disease) (9 sources)Encounter for screening mammogram for malignant neoplasm of breast; Translations: [Encounter for screening for malignant neoplasm of rectum]Onset: 22-37-8849LjfmsfhaCathsxun codes; unclassified (1 source)Family history of malignant neoplasm of breast; Translations: [FAMILY HX MALIG NEOPLASM OF BREAST]Onset: 42-81-4468UuslhvebKiujzpvy codes; unclassified (1 source)Family history of malignant neoplasm of bladder; Translations: [FAM HX MALIGNANT NEOPLASM BLADDER]Onset: 64-51-3522XyfcwfmqAudxfpxb codes; unclassified (1 source)Family history of malignant neoplasm of other organs or systems; Translations: [FAM HX MALIG NEOPLASM OTH ORGN/SYS]Onset: 40-51-3924Lhinydil Thyroid disorders (5 sources)Hypothyroidism, unspecified; Translations: [Hypothyroidism]Onset: 243938-64-1300VrfzwesAkueu infection (4 sources)COVID-19; Translations: [COVID-19]Onset: 07-25-2021 Past or Other Problems Problem ClassificationProblemDateDocumented DateEpisodic/ChronicImmunizations and screening for infectious disease (1 source)Encounter for immunization; Translations: [ENCOUNTER FOR IMMUNIZATION] Onset: 72-53-4069CnlusievTagpnbwhwybf (1 source)Onset: Results Test NameValueInterpretationReference RangeFacilityUS THYROIDon [id number] THYROIDEXAMINATION: THYROID ULTRASOUND 03/08/2025 COMPARISON: None. TECHNIQUE: Real-time and color flow sonographic images were obtained using a linear transducer. [id number]. HISTORY: F 69 y/o old. ORDERING SYSTEM PROVIDED HISTORY: Thyroid nodule TECHNOLOGIST PROVIDED HISTORY: This procedure can be scheduled via [employer]ridget. FINDINGS: Right thyroid lobe: 4.0 x 1.7 x 2.0cm Left thyroid lobe: 4.5 x 1.7 x 1.3cm Isthmus: 0.4cm Echotexture: Heterogeneous Vascularity: Normal Thyroid Nodules: NODULE: 1 Size: 11 x 11 x 14 mm Location: Mid left thyroid 1. Composition: Solid (2) 2. Echogenicity: Hypoechoic (2) 3. Shape: Skxsr-zdfp-mbba (0) 4. Margins: Ill-defined (0) 5. Echogenic foci: None (0) ACR TI-RADS total points: 4 ACR TI-RADS risk category: TR4 Soft tissues: No visualized lymphadenopathy IMPRESSION: Heterogeneous thyroid left thyroid nodule as detailed and potential follow-up as below: NODULE 1: ACR TI-RADS TR4: Recommend: Follow-up ultrasound in 1 year. ACR TI-RADS recommendations: TR5 (>= 7 points): FNA if >= 1 cm; follow-up if 0.5-0.9 cm in 1, 2, 3, 4, and 5 years TR4 (4-6 points): FNA if >= 1.5 cm; follow-up if 1.0-1.4 cm in 1, 2, 3, and 5 years TR3 (3 points): FNA if >= 2.5 cm; follow-up if 1.5-2.4 cm in 1, 3, and 5 years TR2 (2 points): No FNA or follow-up TR1 (0 points): No FNA or follow-up ACR TI-RADS recommends that no more than two nodules with the highest ACR TI-RADS point total should be biopsied and no more than four nodules should be followed. Interpreted by: Jesse Bennett DO Signed by: Jesse Bennett DO 03/10/25 Final resultNormalSelect Medical Specialty Hospital [facility] Metabolic Panelon 29-56-4709Acolo gap [Moles/Vol]9 mmol/L9 - 16 mmol/LBon SecOrecon HealthCalcium [Mass/Vol] 9.5 mg/dL8.6 - 10.4 mg/dLBon [facility] [employer] Media HealthChloride [Moles/Vol]105 mmol/L 98 - 107 mmol/LBon [facility] HealthCO2 [Moles/Vol]28 mmol/L20 - 31 mmol/LBon [facility] ShoptagrCreatinine [Mass/Vol]0.8 mg/dL0.50 - 0.90 mg/dLBon [facility] Medical CenterHartman WrightEst, Glom Filt Rate81- PINFBon [facility] CenterComment on above: These results are not intended [...] therapy that affects renal tubular secretion. Glucose [Mass/Vol]117 mg/aMCwtq66 - 99 mg/dLBon [facility] Interpretation and review of laboratory resultsAbnormalBon [facility] Potassium [Moles/Vol]5.0 mmol/L3.7 - 5.3 mmol/LBon [facility] CenterCorengi Grant HospitalSodium [Moles/Vol]142 mmol/L136 - 145 mmol/LBon [facility] CenterShopettiUrea nitrogen [Mass/Vol]14 mg/dL8 - 23 mg/dLBon [facility] CenterShopettiUrea nitrogen/Creatinine [Mass ratio]18 mg/mg9 - 20Bon [facility] Hospitalc Metabolic Profon 53-69-1350Ttzoe gap [Moles/Vol]9 mmol/LNormal9-16Mercy HospitalComment on above:Performed By: #### GLYHGB #### [address] [address] Cardiovascular Surgeon: Virgilio Sullivan MD #### CDP, BMP #### [address] [place], [place] [address] Cardiovascular Surgeon: Tomas Campos MDBUN/CRE Fivww45Caexvy6-07Cjamk [facility] Comment on above:Performed By: #### GLYHGB #### [address] [address] Cardiovascular Surgeon: Virgilio Sullivan MD #### CDP, BMP #### [address] [place], [place] [address] Cardiovascular Surgeon: Tomas Campos MDCalcium [Mass/Vol]9.5 mg/dLNormal8.6-10.4Mercy HospitalComment on above:Performed By: #### GLYHGB #### [address] [address] Cardiovascular Surgeon: Virgilio Sullivan MD #### RAMIREZ, BMP #### [address] [place], [place] [id number] Cardiovascular Surgeon: JOSELINE Rinconhloride [Moles/Vol]105 mmol/ZJxwbax00-455Joizv [facility] HospitalComment on above:Performed By: #### GLYHGB #### [address] [address] Cardiovascular Surgeon: Virgilio Sullivan MD #### CDP, BMP #### [address] [place], [place] [address] Cardiovascular Surgeon: Tomas Campos MDCO2 [Moles/Vol]28 mmol/BYyteiz39-36HysamMercy HospitalComment on above:Performed By: #### GLYHGB #### [address] [address] Cardiovascular Surgeon: Virgilio Sullivan MD #### CDP, BMP #### [address] [place] [address] Cardiovascular Surgeon: JOSELINE Rinconreatinine [Mass/Vol]0.8 mg/dLNormal0.50-0.90Mercy HospitalComment on above:Performed By: #### GLYHGB #### [address] [address] Cardiovascular Surgeon: Virgilio Sullivan MD #### CDP, BMP #### [address] [place] [address] Cardiovascular Surgeon: Tomas Campos MDGFR/1.73 sq M.predicted among non-blacks MDRD (S/P/Bld) [Vol rate/Area]81 mL/min/{1.73_m2}Normal>60[facility] Comment on above:Result Comment: These results are not intended for [...] or following therapy that affects renal tubular secretion.Performed By: #### GLYHGB #### [address] [address] Cardiovascular Surgeon: Virgilio Sullivan MD #### CDP, BMP #### [address] [place] [address] Cardiovascular Surgeon: Tomas Campos MDGlucose [Mass/Vol]117 mg/oYMgkw67-01FvhcvCorey HospitalComment on above:Performed By: #### GLYHGB #### [address] [address] Cardiovascular Surgeon: Virgilio Sullivan MD #### CDP, BMP #### [address] [place], [place] [id number] Cardiovascular Surgeon: JAMES Rinconotassium [Moles/Vol]5.0 mmol/LNormal3.7-5.3MCorey HospitalComment on above:Performed By: #### GLYHGB #### [address] [place] [address] Cardiovascular Surgeon: Virgilio Sullivan MD #### CDP, BMP #### [address] [place], [place] [address] Cardiovascular Surgeon: KRISTIN Rinconodium [Moles/Vol]142 mmol/OFuvrsf679-103OshouMercy HospitalComment on above:Performed By: #### GLYHGB #### [address] [address] Cardiovascular Surgeon: Virgilio Sullivan MD #### CDP, BMP #### [address] [place], [place] [address] Cardiovascular Surgeon: Tomas Campos MDUrea nitrogen [Mass/Vol]14 mg/dLNormal8-23Mercy HospitalComment on above:Performed By: #### GLYHGB #### [address] [address] Cardiovascular Surgeon: Virgilio Sullivan MD #### CDP, BMP #### [address] [place], [place] [id number] Cardiovascular Surgeon: Tomas Campos [facility] with Auto Differentialon 68-85-9088Sjcixmiwb (Bld) [#/Vol]0.04 10*3/uLBon [facility] HealthBasophils/100 WBC (Bld)1 %0 - 2 %[facility] HealthEosinophils (Bld) [#/Vol]0.25 10*3/uLBon [facility]ours [facility]Titus Medical CenterEosinophils/100 WBC (Bld)5 %High1 - 4 %[facility] Erythrocyte distribution width (RBC) [Ratio]13.2 %11.8 - 14.4 %[facility] Health SystemHematocrit (Bld) [Volume fraction]45.5 %36.3 - 47.1 %[facility] SystemHemoglobin (Bld) [Mass/Vol]14.6 g/dL11.9 - 15.1 g/dLBon [facility] CenterImmature granulocytes (Bld) [#/Vol]0.03 10*3/uLBon [facility] Immature granulocytes/100 WBC (Bld)1 %Aerb7Umg [facility] Interpretation and review of laboratory resultsAbnormalBon [facility] Lymphocytes/100 WBC (Bld)34 %24 - 43 %[facility] SystemLymphocytes/100 WBC (Bld)1.57 %[facility] HospitalH (RBC) [Entitic mass]28.4 pg25.2 - 33.5 pgBon [facility] HospitalHC (RBC) [Mass/Vol]32.1 g/dL28.4 - 34.8 g/dLBon [facility] HospitalV (RBC) [Entitic vol]88.5 fL82.6 - 102.9 fLBon [facility] CenterMonocytes/100 WBC (Bld)9 %3 - 12 %[facility] Monocytes/100 WBC (Bld)0.40 %[facility] SystemNeutrophils/100 WBC (Bld)50 %36 - 65 %[facility] SystemNucleated RBC/100 WBC (Bld) [Ratio]0.0 %0.0 per 100 WBCBon [facility] Medical CenterPlatelet mean volume (Bld) [Entitic vol]11.4 fL8.1 - 13.5 fLBon [facility] Medical CenterPlatelets (Bld) [#/Vol]194 10*3/uLBon [facility] Medical CenterRBC (Bld) [#/Vol]5.14 10*6/uLHigh3.95 - 5.11 m/uLBon [facility] CenterSegmented neutrophils/100 WBC (Bld)2.37 %[facility] WBC other (Bld) [#/Vol]4.7Bon [address]Prov[address] Mary Medical Centery HealthBon [facility] with Diffon [id number]. Basophil0.04 k/uLNormal0.00-0.20[facility] Comment on above:Performed By: #### GLYHGB #### [address] [address] Cardiovascular Surgeon: Virgilio Sullivan MD #### CDP, BMP #### [address] [place] [id number] Cardiovascular Surgeon: Jocy Rincon.Imm.Granulocyte0.03 k/uLNormal0.00-0.30Mercy HospitalComment on above:Performed By: #### GLYHGB #### [address] [address] Cardiovascular Surgeon: Virgilio Sullivan MD #### RAMIREZ, BMP #### [address] [place] [address] Cardiovascular Surgeon: Jocy Rincon.Neutrophil (Seg)2.37 k/uLNormal1.50-8.10Mercy HospitalComment on above:Performed By: #### GLYHGB #### [address] [address] Cardiovascular Surgeon: Virgilio Sullivan MD #### RAMIREZ, BMP #### [address] [place] [id number] Cardiovascular Surgeon: Tomas Campos MDBasophils/100 WBC (Bld)1 %Normal0-2MCorey HospitalComment on above:Performed By: #### GLYHGB #### [address] [address] Cardiovascular Surgeon: Virgilio Sullivan MD #### CDP, BMP #### [address] [place] [address] Cardiovascular Surgeon: Tomas Campos MDEosinophils (Bld) [#/Vol]0.25 10*3/uLNormal 0.00-0.44Mercy HospitalComment on above:Performed By: #### GLYHGB #### [address] [address] Cardiovascular Surgeon: Virgilio Sullivan MD #### CDP, BMP #### [address] [place] [address] Cardiovascular Surgeon: Tomas Campos MDEosinophils/100 WBC (Bld)5 %High1-4Mercy HospitalComment on above:Performed By: #### GLYHGB #### [address] [address] Cardiovascular Surgeon: Virgilio Sullivan MD #### RAMIREZ, BMP #### [address] [place] [address] Cardiovascular Surgeon: Tomas Campos MDErythrocyte distribution width (RBC) [Ratio]13.2 % Kfqqth40.8-14.4Mercy HospitalComment on above:Performed By: #### GLYHGB #### [address] [address] Cardiovascular Surgeon: Virgilio Sullivan MD #### CDP, BMP #### [address] [place] [address] Cardiovascular Surgeon: Tomas Campos MDHematocrit (Bld) [Volume fraction]45.5 %Normal 36.3-47.1MCorey HospitalComment on above:Performed By: #### GLYHGB #### [address] [address] Cardiovascular Surgeon: Virgilio Sullivan MD #### CDP, BMP #### [address] [place] [address] Cardiovascular Surgeon: Tomas Campos MDHemoglobin (Bld) [Mass/Vol]14.6 g/dLNormal 11.9-15.1MercYale New Haven Psychiatric HospitalComment on above:Performed By: #### GLYHGB #### [address] [address] Cardiovascular Surgeon: Virgilio Sullivan MD #### CDP, BMP #### [address] [place] [address] Cardiovascular Surgeon: Tomas Campos MDImmature granulocytes/100 WBC (Bld)1 %Eply3WmoegMercy HospitalComment on above:Performed By: #### GLYHGB #### [address] [address] Cardiovascular Surgeon: Virgilio Sullivan MD #### RAMIREZ, BMP #### [address] [place] [address] Cardiovascular Surgeon: Tomas Campos MDLymphocytes (Bld) [#/Vol]1.57 10*3/uLNormal 1.10-3.70Mercy HospitalComment on above:Performed By: #### GLYHGB #### [address] [address] Cardiovascular Surgeon: Virgilio Sullivan MD #### CDP, BMP #### [address] [place] [address] Cardiovascular Surgeon: Tomas Campos MDLymphocytes/100 WBC (Bld)34 %Gttyle83-88TkrpzMercy HospitalCombronson methodist hospital on above:Performed By: #### GLYHGB #### [address] [address] Cardiovascular Surgeon: Virgilio Sullivan MD #### CDP, BMP #### [address] [place] [address] Cardiovascular Surgeon: VERO RinconCH (RBC) [Entitic mass]28.4 tnEelsvi93.2-33.5 Mercy HospitalComment on above:Performed By: #### GLYHGB #### [address] [address] Cardiovascular Surgeon: Virgilio Sullivan MD #### CDP, BMP #### [address] [place] [address] Cardiovascular Surgeon: VERO RinconCHC (RBC) [Mass/Vol]32.1 g/gPIbgmjh05.4-34.8Mercy HospitalComment on above:Performed By: #### GLYHGB #### [address] [address] Cardiovascular Surgeon: Virgilio Sullivan MD #### RAMIREZ, BMP #### [address] [place] [address] Cardiovascular Surgeon: VERO RinconCV (RBC) [Entitic vol]88.5 cMIhhdqe46.6-102.9 Mer[facility] HospitalComment on above:Performed By: #### GLYHGB #### [address] [address] Cardiovascular Surgeon: Virgilio Sullivan MD #### RAMIREZ, BMP #### [address] [place] [address] Cardiovascular Surgeon: VERO Rincononocytes (Bld) [#/Vol]0.40 10*3/uLNormal0.10-1.20 [facility] HospitalCombronson methodist hospital on above:Performed By: #### GLYHGB #### [address] [address] Cardiovascular Surgeon: Virgilio Sullivan MD #### CDP, BMP #### [address] [place], [place] 107[address] Cardiovascular Surgeon: VERO Rincononocytes/100 WBC (Bld)9 %Normal3-12Mercy HospitalComment on above:Performed By: #### GLYHGB #### [address] [address] Cardiovascular Surgeon: Virgilio Sullivan MD #### CDP, BMP #### [address] [place] [address] Cardiovascular Surgeon: Tomas Campos MDNeutrophil (Seg)50 %Jbcocf67-83AvknxMercy HospitalComment on above:Performed By: #### GLYHGB #### [address] [address] Cardiovascular Surgeon: Virgilio Sullivan MD #### CDP, BMP #### [address] [place] [address] Cardiovascular Surgeon: Tomas Campos MDNRBC Automated0.0 per 100 WBCNormal0.0Mercy HospitalComment on above:Performed By: #### GLYHGB #### [address] [address] Cardiovascular Surgeon: Virgilio Sullivan MD #### CDP, BMP #### [address] [place] [id number] Cardiovascular Surgeon: Mike Rincon mean volume (Bld) [Entitic vol]11.4 fL Normal8.1-13.5Mercy HospitalComment on above:Performed By: #### GLYHGB #### [address] [address] Cardiovascular Surgeon: Virgilio Sullivan MD #### CDP, BMP #### [address] [place] [address] Cardiovascular Surgeon: Mark Rincon (Bld) [#/Vol]194 10*3/mTBnuydb814-989 [facility] HospitalComment on above:Performed By: #### GLYHGB #### [address] [address] Cardiovascular Surgeon: Virgilio Sullivan MD #### CDP, BMP #### [address] [place] [address] Cardiovascular Surgeon: TAURUS Rincon (Bld) [#/Vol]5.14 10*6/uLHigh3.95-5.11Mercy HospitalComment on above:Performed By: #### GLYHGB #### [address] [address] Cardiovascular Surgeon: Virgilio Sullivan MD #### CDP, BMP #### [address] [place] [address] Cardiovascular Surgeon: Tomas Campos MDWBC (Bld) [#/Vol]4.7 10*3/uLNormal3.5-11.3MCorey HospitalComment on above:Performed By: #### GLYHGB #### [address] [address] Cardiovascular Surgeon: Virgilio Sullivan MD #### CDP, BMP #### [address] [place] [address] Cardiovascular Surgeon: Tomas Campos MDHemoglobin A1Con 69-71-0237Yxweglw glucose Estimated from glycated hemoglobin (Bld) [Mass/Vol]97 mg/dLBon [facility] on above:The ADA and AACC recommend providing the estimated average glucose result to permit better patient understanding of their HBA1c result. HbA1c (Bld) [Mass fraction]5.0 %4.0 - 6.0 %Bon [facility] HospitalGlucose [Mass/Vol]97 mg/dLNormSelect Medical Specialty Hospital - Southeast OhioComment on above:Result Comment: The ADA and AACC recommend providing the estimated average glucose result to permit better patient understanding of their HBA1c result.Performed By: #### GLYHGB #### [employer] [address] [place], [place] [id number] Cardiovascular Surgeon: Virgilio Sullivan MD #### CDP, BMP #### [facility] [address] [place] [address] [place] [address] Cardiovascular Surgeon: Tomas Campos MDHbA1c (Bld) [Mass fraction]5.0 %Normal4.0-6.0Mercy HospitalComment on above:Performed By: #### GLYHGB #### [employer] [address] [place], [place] 15[address] Cardiovascular Surgeon: Virgilio Sullivan MD #### CDP, BMP #### [facility] [address] [place] [address] [place] [address] Cardiovascular Surgeon: Tomas Campos MDLipid Panelon 27-23-2310Ydgojjbxmpj [Mass/Vol]199 mg/dL0 - 199 mg/dLBon [facility] CenterHartman WrightComment on above: Cholesterol Guidelines: <200 Desirable 200-240 Borderline >240 Undesirable Cholesterol in HDL [Mass/Vol]49 mg/dL40 - PINF mg/dLBon [facility] CenterHartman Wright Comment on above: HDL Guidelines: <40 Undesirable 40-59 Borderline >59 Desirable Cholesterol in LDL [Mass/Vol]122 mg/dLHigh0 - 100 mg/dLBon [facility] CenterHartman Wright Comment on above: LDL Guidelines: <100 Desirable 100-129 Near to/above Desirable 130-159 Borderline >159 Undesirable Direct (measured) LDL and calculated LDL are not interchangeable tests. Cholesterol in VLDL [Mass/Vol]28 mg/dL1 - 30 mg/dLBon [facility] CenterHartman Wright Cholesterol.total/Cholesterol in HDL [Mass ratio]4.1 {ratio}Bon creditmontoring.comInterpretation and review of laboratory resultsAbnormalBon [facility] CenterHartman WrightTriglyceride [Mass/Vol]140 mg/dLNINF - 150 mg/dLBon [facility] CenterHartman Wright Comment on above: Triglyceride Guidelines: <150 Desirable 150-199 Borderline 200-499 High >499 Very high Based on AHA Guidelines for fasting triglyceride, July 2012. [address] [facility] HealthLipid Profileon 35-86-1626Eqluzbjphua [Mass/Vol]199 mg/dLNormal0-199Mercy HospitalComment on above:Result Comment: Cholesterol Guidelines: <200 Desirable 200-240 Borderline >240 UndesirablePerformed By: #### LIPR #### [address] [address] Cardiovascular Surgeon: JOSELINE Hessholesterol in HDL [Mass/Vol]49 mg/dLNormal>40 [facility] HospitalComment on above:Result Comment: HDL Guidelines: <40 Undesirable 40-59 Borderline >59 DesirablePerformed By: #### LIPR #### [address] [address] Cardiovascular Surgeon: JOSELINE Hessholesterol in LDL [Mass/Vol]122 mg/dLHigh0-100 [facility] HospitalComment on above:Result Comment: LDL Guidelines: <100 Desirable 100-129 Near to/above Desirable 130-159 Borderline >159 Undesirable Direct (measured) LDL and calculated LDL are not interchangeable tests.Performed By: #### LIPR #### [address] [address] Cardiovascular Surgeon: JOSELINE Hessholesterol in VLDL [Mass/Vol]28 mg/dLNormal1-30 Mer[facility] HospitalComment on above:Performed By: #### LIPR #### [facility] [employer] [address] [place] [address] Cardiovascular Surgeon: Dionisio Hess.total/Cholesterol in HDL [Mass ratio]4.1 {ratio}NormalMercy HospitalComment on above:Performed By: #### LIPR #### [facility] [employer] [address] [place] [address] Cardiovascular Surgeon: Virgilio Sullivan MDTriglyceride [Mass/Vol]140 mg/dLNormal<150Mer[facility] HospitalComment on above:Result Comment: Triglyceride Guidelines: <150 Desirable 150-199 Borderline 200-499 High >499 Very high Based on AHA Guidelines for fasting triglyceride, July 2012.Performed By: #### LIPR #### [facility] [employer] [address] [place] [address] [phone] Cardiovascular Surgeon: Virgilio Sullivan MDT4, [facility] 04-83-3640Jjbr T4 [Mass/Vol]1.2 ng/dL 0.92 - 1.68 ng/dLBon [facility] reflex to FT4on 68-84-8326Msriwsrqdkqgip and review of laboratory resultsAbnormChildren's Hospital [facility] Qn4.35 m[IU]/LHighBon [facility] w/reflex to FT4on 30-90-1607Vkgrwkz Stim. Horm.4.35 uIU/mLHigh 0.27-4.20Mercy HospitalComment on above:Performed By: #### TSHX #### [address] [place] [address] Cardiovascular Surgeon: Tomas Campos MD #### FT4 #### [facility] [employer] [address] [place] [address] [id number] Cardiovascular Surgeon: Virgilio Sullivan MDThyroxine, [facility] 72-68-0727Qashthwan, Free1.2 ng/dLNormal0.92-1.68Mercy HospitalComment on above:Performed By: #### TSHX #### [address] [place] [address] Cardiovascular Surgeon: Tomas Campos MD #### FT4 #### [facility] [employer] [address] [place] [address] [phone] Cardiovascular Surgeon: Virgilio Sullivan MDEKG 12 LeadOrdered By: Kulwinder Purdy on 37-28-8853Pjcfeg Ciuf29[facility]WAEGSENT[facility]AREPLE[facility] Work Phone: P Zodk42rlylftfHFF [employer] Work Phone: [phone]-R Alwxztjz300 [facility] [employer] Work Phone: Q-T Homnxldz194 [facility] [employer] Work Phone: QRS Pjzvlsgp03 [facility] [employer] Work Phone: [phone] Calculation (Bazett)434 [facility]AB[facility] [employer] Work Phone: R Xqjp02kitabowCUT [employer] Work Phone: [phone] Luqm06mxtgxzpRMALitehouse Work Phone: [phone] Xmkh06BWELTC [employer] Work Phone: [phone] [employer] Work Phone: [phone] 12 Leadon 39-23-5850Npjdrz sinus rhythm Normal ECG No previous ECGs available Confirmed by KULWINDER PURDY ([id number]) on 12/10/2022 11:07:16 [facility]FRE[facility] Kulwinder Purdy MD - 12/10/2022 Normal sinus rhythm Normal ECG No previous ECGs available Confirmed by KULWINDER PURDY ([id number]) on 12/10/2022 11:07:16 PM [facility] [employer] Work Phone: mrSA DNA Probe, Nasalon 91-94-9348UWND, DNA, Nasal NegativeNEGATIVEABRAZO CENTRAL CAMPUS MindChild MedicalComment on above:NEGATIVE: MRSA DNA not detected by nucleic acid amplification. Results should be used as an adjunct to nosocomial control efforts to identify patients needing enhanced precautions. The test is not intended to identify patients with staphylococcal infections. Results should not be used to guide or monitor treatment for MRSA infections. Specimen Description.NASAL SWABBON UB. Basic Metabolic Panelon 75-38-0402Ssqnk gap [Moles/Vol]6 mmol/LLow9 - 17 mmol/L [facility] MedicalCalcium [Mass/Vol]9.7 mg/dL8.6 - 10.4 mg/dLBON SECOURS MERCY HEALTHChloride [Moles/Vol]103 mmol/L98 - 107 mmol/LBON SECOURS MERCY HEALTHCO2 [Moles/Vol]30 mmol/L20 - 31 mmol/LBON SECOURS MERCY [facility]AN HOSPITALCreatinine [Mass/Vol]0.7 mg/dL0.50 - 0.90 mg/dLBON SECOURS MERCY HEALTHGFR/1.73 sq M.predicted MDRD (S/P/Bld) [Vol rate/Area]- PINFBON FAIRCHILD MEDICAL CENTERRally Fit [facility] HOSPITALComment on above: These results are not intended [...] therapy that affects renal tubular secretion. Glucose [Mass/Vol]118 mg/vLPdrj35 - 99 mg/dLBON FAIRCHILD MEDICAL CENTERCOSMIC COLOR Interpretation and review of laboratory resultsAbnormalBON SECOURS Potassium [Moles/Vol]4.9 mmol/L3.7 - 5.3 mmol/LBON SECOURS MERCY HEALTHSodium [Moles/Vol]139 mmol/L135 - 144 mmol/LBON SECOURS PREMIER HEALTHRally Fit HEALTHUrea nitrogen [Mass/Vol]12 mg/dL8 - 23 mg/dLBON SECOURS PREMIER HEALTHY Peer5Urea nitrogen/Creatinine (Bld) [Mass ratio]179 - 20B[facility] MERCY HEALTHBON SECOURS PREMIER HEALTHY [facility] HOSPITALCBC with Auto Differentialon 58-90-3249Tnovcgrf Eos #0.21[facility] Absolute Immature Granulocyte0.03B[facility] MERCY HEALTHAbsolute Lymph #1.48B[facility] MERCY SAMARITAN HOSPITALAbsolute Yalobusha #0.49B[facility] SAMARITAN HOSPITALBasophils (Bld) [#/Vol]0.04 10*3/uLBON SECOURS MERCY HEALTHBasophils/100 WBC (Bld)1 %0 - 2 %[facility]CY Peer5Eosinophils/100 WBC (Bld)4 %1 - 4 %[facility] Proteus Digital HealthY Peer5 Hematocrit (Bld) [Volume fraction]45.3 %36.3 - 47.1 %[facility] Hemoglobin (Bld) [Mass/Vol]14.4 g/dL11.9 - 15.1 g/dLBON [facility] Immature granulocytes/100 WBC (Bld)1 %Lhgf4ZUGINOVA MOUNT VERNON HOSPITAL Interpretation and review of laboratory resultsAbnormalINOVA MOUNT [facility]ERNON [facility]OSPITAL Lymphocytes/100 WBC (Bld)29 %24 - 43 %[facility] HOSPITALH (RBC) [Entitic mass]29.0 pg25.2 - 33.5 pgBON CHILDREN'S HOSPITAL FOR REHABILITATIONHC (RBC) [Mass/Vol]31.8 g/dL28.4 - 34.8 g/dLBON CHILDREN'S HOSPITAL FOR REHABILITATIONV (RBC) [Entitic vol]91.3 fL82.6 - 102.9 fLINOVA MOUNT VERNON HOSPITALMonocytes/100 WBC (Bld)10 %3 - 12 %[facility]ERNON HOSPITALNRBC Automated0.00.0 per 100 WBCINOVA MOUNT VERNON HOSPITALPlatelet distribution width (Bld) [Ratio]12.5 %11.8 - 14.4 %[facility] Platelet mean volume (Bld) [Entitic vol]11.1 fL8.1 - 13.5 fLINOVA MOUNT VERNON HOSPITALPlatelets (Bld) [#/Vol]211 10*3/uLBON BLANCHARD VALLEY HEALTH SYSTEMRBC (Bld) [#/Vol]4.96 10*6/uL3.95 - 5.11 m/uLINOVA MOUNT VERNON HOSPITALSegmented neutrophils/100 WBC (Bld)55 %36 - 65 %INOVA MOUNT VERNON HOSPITALSegs Absolute2.85 IN[facility] MOUNT VERNON HOSPITALWBC (Bld) [#/Vol]5.1 10*3/uLBON SECUNIMED MEDICAL CENTER HEALTHTYPE AND SCREENon 84-58-5760VXA/RhPositiveBON BL[facility]ARD VALLEY HEALTH SYSTEMArm Band [id number] MOUNT VERNON HOSPITALExpiration Date 12/25/2022,2359BON [facility]ARE CENTERMG MAMM SCREEN 3D JUAN FRANCISCO CADon 04-39-4827TD MAMM SCREEN 3D JUAN FRANCISCO CADPatient: GLORY PIERCE Exam Date: 07/08/2022 : 1955 Gender:F Ordering : DR RICARDO WINTER . Admission #: [id number] Family : Order #: [id number] CLICK HERE TO VIEW EXAM RADIOLOGY REPORT [...] bladder cancer at age 72. LOCATION: [facility] BREAST COMPOSITION: Scattered areas fibroglandular density. FINDINGS: [...] by: Tomas Cho MD on 07/08/2022 at 11:23NormUC [facility] INSULINon 31-73-7260Mvylpvp54.7 uIU/mLNormal2.6-24.9The [facility] JacksonComment on above:Performed By: #### INSULIN #### [facility] [address] [place] [address] Dr. Trey Grant BLD IMMUNO SCREENon 98-02-5446GRTDZJ BLOODNegativeNormal NEGATIVEThe [facility] – JacksonComment on above:Performed By: #### OBSCRN #### [facility] [address] [place] [address] Dr. Trey HigginsT4, T3U, FTI LABCORPon 72-21-9568Hwbj Thyroxine Index2.4Normal 1.2-4.9The [facility] – JacksonComment on above:Performed By: #### THYLC #### [facility] [address] [address] [address] Trey HigginsT3 Kafqur54 %Zjpjaw52-88Fzu [facility] – JacksonComment on above: Performed By: #### THYLC #### [facility] [address] [id number] Trey HigginsT4 [Mass/Vol]9.1 ug/dLNormal4.5-12.0The [facility] – JacksonComment on above:Performed By: #### THYLC #### [facility] [address] [address] [address] Trey Alvarez D 25-OH LABCORPon 05-88-0274Iqzwzqq D, 25-Fcgvcxv04.7 ng/mL Critically low30.0-100.0The [facility] – JacksonComment on above:Result Comment: Vitamin D deficiency has been defined by the Mobile of Medicine and an Endocrine Society practice guideline as a level of serum 25-OH vitamin D less than 20 ng/mL (1,2). The Endocrine Society went on to further define vitamin D insufficiency as a level between 21 and 29 ng/mL (2). 1. IOM (Mobile of Medicine). 2010. Dietary reference intakes for calcium and D. Pal [place]: The National Academies Press. 2. Melvi MF, Leon NC, Jyoti CHILDS, et al. Evaluation, treatment, and prevention of vitamin D deficiency: an Endocrine Society clinical practice guideline. JCEM. 2010; 96(7):1911-30.Performed By: #### VITADLC #### [facility] [address] [address] [address] Trey HigginsCBC AUTO DIFFon 62-89-6013JOCS #0.0 103/ulNormal0.0-0.1The [facility] – JacksonComment on above:Performed By: #### CBC ####[facility] [address] [address]Dr.Yilan HigginsBasophils/100 WBC (Bld)1.0 %Normal0.2-2.0The [facility] – JacksonComment on above:Performed By: #### CBC ####[facility] Oxlmzgemdx[address] [place], [place] [address]Dr.Trey ChangEO #0.3 103/ulNormal0.0-0.7The [facility] – JacksonComment on above:Performed By: #### CBC ####[facility] Lfgizbcwja[address] [place], [place] [address]Dr.Trey ChangEosinophils/100 WBC (Bld)6.4 %Normal 0.9-7.0The Lehigh HospitalComment on above:Performed By: #### CBC ####[facility] Kcvnjqgibp[address] [place], [place] [address]Dr.Ashleymartin Higgins Erythrocyte distribution width (RBC) [Ratio]13.2 %Tvvpfl38.0-15.0The [facility] – JacksonComment on above:Performed By: #### CBC ####[facility] Wkqcpqgfuk[address] [place], [place] [address]Dr.Ashleymartin ChangHematocrit (Bld) [Volume fraction]41.6 %Mdsinc51.0-48.0The [facility] – JacksonComment on above:Performed By: #### CBC ####[facility] K[address] [place], [place] [address]Dr.Ashleymartin ChangHemoglobin (Bld) [Mass/Vol]13.4 g/dL Ofexuc68.0-16.0The [facility] – JacksonComment on above:Performed By: #### CBC ####[facility] Qrtzpeslwe[address] [place], [place] [address]Dr. Trey ChangIG #0.03 10e3/ulNormal0.00-0.03The [facility] JacksonComment on above: Performed By: #### CBC ####[facility] Xlcqkhpuzw[address] [place], [place] [address]Dr.Ashleymartin ChangIG %0.7 %Critically high0.0-0.5The [facility] JacksonComment on above:Performed By: #### CBC ####[facility] Ekxatxhqgd[address] [place], [place] [address]Dr.Ashleymartin ChangLYMPH #1.4 103/ulNormal1.2-3.8The [facility] JacksonComment on above:Performed By: #### CBC ####[facility] [address] [address]Dr. Trey HigginsLymphocytes/100 WBC (Bld)32.8 %Ckdgxb78.5-60.0[facility] Comment on above:Performed By: #### CBC ####[facility] [address] [address]Dr.Trey HigginsMANUAL DIFF REQNONormalThe [facility] JacksonComment on above:Performed By: #### CBC ####[facility] Hyivpfagww[address] [place], [place] [address]Dr.Ashleymartin HigginsMCH (RBC) [Entitic mass]29.1 otEwngkr46.7-34.0The [facility] JacksonComment on above: Performed By: #### CBC ####[facility] Bczbuyhsgz[address] [place], [place] [address]Dr.Trey HigginsMCHC (RBC) [Mass/Vol]32.2 g/dLNormal 29.9-35.2The [facility] JacksonComment on above:Performed By: #### CBC ####[facility] [address]eevrbv[address] [place], [place] [address]Dr. Ashleymartin HigginsMCV (RBC) [Entitic vol]90.4 cJQpwncl41.0-99.0The [facility] Comment on above:Performed By: #### CBC ####[facility] Rixxydxonv[address] [place], [place] [address]Dr.Trey HigginsMONO #0.4 103/ulNormal0.3-0.8 The [facility] JacksonComment on above:Performed By: #### CBC ####[facility] Gqbbkaulcb[address] [place], [place] [address]Dr.Trey Higgins Monocytes/100 WBC (Bld)9.0 %Normal1.7-12.0The [facility] JacksonComment on above: Performed By: #### CBC ####[facility] Ckkevtrxdc[address] [place], [place] [address]Dr.Trey HigginsNEUT #2.1 103/ulNormal1.4-6.5The [facility] JacksonComment on above:Performed By: #### CBC ####[facility] [address] [address]Dr.Trey HigginsNeutrophils/100 WBC (Bld)50.1 %Wksowl91.0-75.0The [facility] on above:Performed By: #### CBC ####[facility] [address] [address]Dr.Trey HigginsPlatelet mean volume (Bld) [Entitic vol]10.9 fLNormal9.5-13.5 The [facility] JacksonCombr[facility] on above:Performed By: #### CBC ####[facility] [address] [address]DrMai HigginsPLT182 103/bsNvewyx894-962Iuv [facility] JacksonCombr[facility] on above:Performed By: #### CBC ####[facility] [address]tfre[address] [address]Dr. Trey HigginsRBC4.60 106/ulNormal4.20-5.40The [facility] JacksonCombronson method[facility] hospital on above: Performed By: #### CBC ####[facility] Jffzgtkeyu[address] [place], [place] [address]Dr.Trey HigginsWBC4.2 103/ulNormal4.0-11.0The [facility] JacksonCombr[facility] on above:Performed By: #### CBC ####[facility] Ulvedocsgl[address] [place], [place] [address]DrMai HigginsGLYCOHEMOGLOBIN A1Con 19-10-2715NAQ RECOMMENDATIONSEE [facility] HospitalCombr[facility] on above:Result Comment: ADA RECOMMENDED LIMIT 4.0 - 6.0 ADA THERAPEUTIC TARGET < 7.0 ACTION SUGGESTED > 7.0Performed By: #### A1C #### [facility] [address] [address] [address] Trey HigginsGlucose [Mass/Vol]103 mg/dLOhioHealth Arthur G.H. Bing, MD, Cancer CenterCombronson methodist hospital on above:Performed By: #### A1C #### [facility] [address] [place] [address] Dr. Trey HigginsHbA1c (Bld) [Mass fraction]5.2 %Normal4.5-6.2The [facility] JacksonComment on above:Performed By: #### A1C #### [facility] [address] [place] [address] Dr. Trey Perez 56-05-0225Vsdp [Mass/Vol]71.0 ug/iLOgigmw64.0-170.0The [facility] JacksonComment on above:Performed By: #### IRON #### [facility] [address] [place] [address] Dr. Trey VásquezID PROFILEon 57-09-8062MSOR-HDL RATIO NORMSEE BELOWOhioHealth Arthur G.H. Bing, MD, Cancer CenterComment on above:Result Comment: 3.3 - 4.4 LOW RISK 4.4 - 7.1 AVERAGE RISK 7.1 - 11.0 MODERATE RISK >11.0 HIGH RISKPerformed By: #### LIPID, TSH, CMP #### [facility] [address] [place] [address] Dr. Trey Hastingsesterol [Mass/Vol]182 mg/dLNormal<=200The [facility] Comment on above:Performed By: #### LIPID, TSH, CMP #### [facility] [address] [place] [address] Dr. Trey Hastingsesterol in HDL [Mass/Vol]45 mg/sVCuyqst63-72Grc [facility] JacksonCom[facility] on above:Performed By: #### LIPID, TSH, CMP #### [facility] [address] [place] [address] Dr. Trey Hastingsesterol in LDL [Mass/Vol]97.8 mg/dLOhioHealth Arthur G.H. Bing, MD, Cancer CenterCombronson methodist hospital on above:Performed By: #### LIPID, TSH, CMP #### [facility] [address] [place] [address] Dr. Trey Hastingsesterakroline.total/Cholesterol in HDL [Mass ratio]4.0 {ratio} NormalThe [facility] – JacksonComment on above:Performed By: #### LIPID, TSH, CMP #### [facility] [address] [address] [address] Trey Tan NORMAL> or = 60 mg/dl - LOW CARDIOVASCULAR RISK <40 mg/dl - HIGH CARDIOVASCULAR RISKOhioHealth Arthur G.H. Bing, MD, Cancer CenterCombronson methodist hospital on above:Performed By: #### LIPID, TSH, CMP #### [facility] [address] [place] [address] Dr. Trey HigginsLDL CALC NORMALSEE BELOWOhioHealth Arthur G.H. Bing, MD, Cancer CenterCombronson methodist hospital on above:Result Comment: <100 mg/dl OPTIMAL 100 - 129 mg/dl NEAR OR ABOVE OPTIMAL 130 - 159 mg/dl BORDERLINE HIGH 160 - 189 mg/dl HIGH >190 mg/dl VERY HIGH Performed By: #### LIPID, TSH, CMP #### [facility] [address] [place] [address] Dr. Trey HigginsTriglyceride [Mass/Vol]196 mg/dLCritically high<=150The [facility] on above:Performed By: #### LIPID, TSH, CMP #### [facility] [address] [place] [address] Dr. Trey GoldbergLDL CALC39.2 mg/dLNoCleveland Clinic Medina HospitalCombronson methodist hospital on above: Performed By: #### LIPID, TSH, CMP #### [facility] [address] [place] [address] Dr. Trey Sanz 14(COMP METB)on 49-11-8246Fxrshla [Mass/Vol]4.0 g/dLNormal 3.4-5.0The [facility] on above:Performed By: #### LIPID, TSH, CMP #### [facility] [address] [place] [address] Dr. Trey HigginsAlbumin/Globulin [Mass ratio]1.3 {ratio}NormalThe [facility] on above:Performed By: #### LIPID, TSH, CMP #### [facility] [address] [place] [address] Dr. Trey PriceP [Catalytic activity/Vol]95 U/PKncctt19-540Vfq [facility] on above:Performed By: #### LIPID, TSH, CMP #### [facility] [address] [address] [address] Trey PriceT [Catalytic activity/Vol]46 U/CHlwklj83-57Cwh [facility] JacksonComment on above:Performed By: #### LIPID, TSH, CMP #### [facility] [address] [address] [address] Trey Brianon gap [Moles/Vol]14.2 mmol/LNormalMadison Health Comment on above:Performed By: #### LIPID, TSH, CMP #### [facility] [address] [place] [address] Dr. Trey HigginsAST [Catalytic activity/Vol]23 U/COuysie58-48Ikz [facility] JacksonComment on above:Performed By: #### LIPID, TSH, CMP #### [facility] [address] [place] [address] Dr. Trey HigginsBilirubin [Mass/Vol]0.6 mg/dLNormal0.2-1.0[facility] Comment on above:Performed By: #### LIPID, TSH, CMP #### [facility] [address] [place] [address] Dr. Trey HigginsCalcium [Mass/Vol]8.8 mg/dLNormal8.5-10.1[facility] Comment on above:Performed By: #### LIPID, TSH, CMP #### [facility] [address] [place] [address] Dr. Trey HigginsChloride [Moles/Vol]105 mmol/HQjegwj28-767Box [facility] Comment on above:Performed By: #### LIPID, TSH, CMP #### [facility] [address] [place] [address] Dr. Trey HigginsCO2 [Moles/Vol]28.0 mmol/VByiswe10.0-32.0The [facility] Comment on above:Performed By: #### LIPID, TSH, CMP #### [facility] [address] [place] [address] Dr. Trey HigginsCreatinine [Mass/Vol]0.74 mg/dLNormal0.55-1.02The [facility] JacksonComment on above:Performed By: #### LIPID, TSH, CMP #### [facility] [address] [address] [address] Trey SantiagoGFR-AF CYMRO>60Normal>=60The [facility] JacksonComment on above:Performed By: #### LIPID, TSH, CMP #### [facility] [address] [address] [address] Trey SantiagoGFR-NON AF CYMRO>60Normal>=60The [facility] – JacksonComment on above:Performed By: #### LIPID, TSH, CMP #### [facility] [address] [address] [address] Trey HigginsGlobulin (S) [Mass/Vol]3.0 g/dLNormalThe [facility] JacksonComment on above:Performed By: #### LIPID, TSH, CMP #### [facility] [address] [address] [address] Trey HigginsGlucose [Mass/Vol]115 mg/dLCritically zpmn50-083Dio [facility] JacksonComment on above:Performed By: #### LIPID, TSH, CMP #### [facility] [address] [address] [address] Trey HigginsPotassium [Moles/Vol]4.2 mmol/LNormal3.5-5.1[facility] Comment on above:Performed By: #### LIPID, TSH, CMP #### [facility] [address] [address] [address] Trey HigginsProtein [Mass/Vol]7.0 g/dLNormal6.4-8.2[facility] Comment on above:Performed By: #### LIPID, TSH, CMP #### [facility] [address] [address] [address] Trey HigginsSodium [Moles/Vol]143 mmol/KYcnrfy892-164Cnk [facility] Comment on above:Performed By: #### LIPID, TSH, CMP #### [facility] [address] [address] [address] Trey HigginsUrea nitrogen [Mass/Vol]15.0 mg/dLNormal7.0-18.0The [facility] JacksonComment on above:Performed By: #### LIPID, TSH, CMP #### [facility] [address] [place] [address] Dr. Trey Zendejas nitrogen/Creatinine [Mass ratio]20.3 mg/mgNormalThe [facility] JacksonComment on above:Performed By: #### LIPID, TSH, CMP #### [facility] [address] [place] [address] Dr. Trey Castillo 07-84-2952VMN9.646 uIU/mLNormal0.358-3.740The [facility] JacksonComment on above:Performed By: #### LIPID, TSH, CMP #### [facility] [address] [place] [address] Dr. Trey Lord Panel Informationon 65-93-2137Apzzynuvo displaced fracture of the humeral head/neck [facility] CONSOLIDATEDEXAMINATION: THREE XRAY VIEWS OF THE RIGHT SHOULDER; TWO XRAY VIEWS OF THE RIGHT HUMERUS 04/08/2022 10:31 am COMPARISON: None. HISTORY: ORDERING SYSTEM PROVIDED HISTORY: fall TECHNOLOGIST PROVIDED HISTORY: fall FINDINGS: There is a minimally displaced fracture of the humeral head/neck. The humeral head remains articulated with the glenoid. [facility] Rory Villalobos P - 04/08/2022 EXAMINATION: THREE XRAY VIEWS OF THE RIGHT SHOULDER; TWO XRAY VIEWS OF THE RIGHT HUMERUS 04/08/2022 10:31 am COMPARISON: None. HISTORY: ORDERING SYSTEM PROVIDED HISTORY: fall TECHNOLOGIST PROVIDED HISTORY: fall FINDINGS: There is a minimally displaced fracture of the humeral head/neck. The humeral head remains articulated with the glenoid. IMPRESSION: Minimally displaced fracture of the humeral head/neck [employer] Phone: no Panel InformationOrdered By: Rory Ratliff on 18-46-3956YBB [employer] Phone: XR HUMERUS RIGHT (MIN 2 VIEWS)on 62-77-5413Ewxycokzr Study observation (narrative)[facility] [employer] Phone: XR SHOULDER RIGHT (MIN 2 VIEWS)on 44-04-7023Tylzvbags Study observation (narrative)[facility] Work Phone: Vital Signs Date TimeVital SignValuePerforming BdxpswxhuVqrmnztd80-03-3145 08:50-0500Body iattbp848.7 Aashish Sawant MD Work Phone: [phone]-2023 08:50-0500Body mass index (BMI) [Ratio]42.74 kg/v3BpfswlJermaine Sawant MD Work Phone: [facility]02-21-2023 08:50-0500Body igmmeykrobr98.7 [degF]Jermaine Sawant MD Work Phone: [phone] [place], [place] [address]902-21-2023 08:50-0500Body jsudyf639.51 kgJermaine Sawant MD Work Phone: [phone]-[facility]02-21-2023 08:50-0500Diastolic blood rqsydutq38 mm[Hg]Jermaine Sawant MD Work Phone: [phone]-[facility]02-21-2023 08:50-0500Heart rate70 /minJermaine Sawant MD Work Phone: [phone]-[facility]02-21-2023 08:50-0500 Respiratory rate20 /minJermaine Sawant MD Work Phone: [phone]-[facility]02-21-2023 08:50-9590HvX0% (BldA) [Mass fraction]94 %Jermaine Sawant MD Work Phone: [facility]02-21-2023 08:50-0500Systolic blood mm[Hg]Jermaine Sawant MD Work Phone: [phone]06-21-2022 10:25-0400Diastolic blood uivcccdz96 mm[Hg]Christiano Rodriguez Jr., MD Work Phone: [facility]06-21-2022 10:250400Systolic blood touwhcgb968 mm[Hg]Christiano Rodriguez Jr., MD Work Phone: [facility]06-21-2022 10:19-0400Body jmiywrelcos15.81 [degF]Christiano Rodriguez Jr., MD Work Phone: [facility]06-21-2022 10:Heart rate91 /Sujey Rodriguez Jr., MD Work Phone: [facility]06-21-2022 10:190400 Respiratory rate16 /Sujey Rodriguez Jr., MD Work Phone: [facility]06-21-2022 10:1420UqZ8% (BldA) [Mass fraction]96 %Christiano Rodriguez Jr., MD Work Phone: [facility]12-29-2021 09:07-0500Body fpfyhu864.7 Kiera Colmenares MD Work Phone: [facility]12-29-2021 09:07-0500Body mass index (BMI) [Ratio]44.85 kg/j5MestfAllen Colmenares MD Work Phone: [facility]12-29-2021 09:07-0500Body npvftmpytey43 [degF]Allen Colmenares MD Work Phone: [facility]12-29-2021 09:07-0500Body weight 133.81 kgAllen Colmenares MD Work Phone: [phone] Encounters Encounter DateEncounter TypeCare ProviderFacilityStart: 03-08-2025 End: 49-11-1709aefgwnqolbSTWHMOL SINGH [facility] HospitalStart: 12-21-2024 End: 81-47-7067mrnnmbhsctCFIUWUP SINGH [facility] HospitalStart: 12-21-2024 End: 90-27-8960Ebmvyeozqr hospital visit by Raoul Garcia MD Work Phone: [facility] LABComment on above: Hypothyroidism, unspecified type; Hyperlipidemia, unspecified hyperlipidemia type; Obesity, unspecified class, unspecified obesity type, unspecified whether serious comorbidity present; Gastroesophageal reflux disease without esophagitisStart: 01-29-2023 End: 40-65-7395Vjatmizeaj hospital visit by Alessia GEORGESGumaro Physical TherapyComment on above:ArrivedStart: 01-27-2023 End: 72-06-0898Ezbtujsvjp hospital visit by Alessia Zuñiga [facility] HOSPITALGumaro Physical TherapyComment on above:ArrivedStart: 01-23-2023 End: 64-44-2173Eomlclkyzw hospital visit by Alessia GEORGESGumaro Physical TherapyComment on above:ArrivedStart: 01-20-2023 End: 94-02-6763Uukmejeslf hospital visit by Alessia Zuñiga [facility] HOSPITALGumaro Physical TherapyComment on above:ArrivedStart: 01-16-2023 End: 24-20-9617Eycnbdwszi hospital visit by Alessia Zuñiga [facility] Physical TherapyComment on above:ArrivedStart: 01-14-2023 End: 03-27-6067Xomsbnjjed hospital visit by Alessia Zuñiga [facility] Physical TherapyComment on above:ArrivedStart: 01-12-2023 End: 34-71-8533Xtkcoahgvd hospital visit by Freda [facility]BUR[facility] Physical TherapyComment on above:ArrivedStart: 01-09-2023 End: 72-36-3740Alynjhvesk hospital visit by Susan Chadwick [facility] Physical TherapyComment on above:ArrivedStart: 01-07-2023 End: 39-09-8755Ldokddcmsl hospital visit by Alessia Zuñiga [facility] Physical TherapyComment on above:ArrivedStart: 01-05-2023 End: 59-41-2777Sevzukqcjm hospital visit by Freda StarkProMedica [facility] Physical TherapyComment on above:ArrivedStart: 01-02-2023 End: 92-35-0978Fwslpohnrj hospital visit by Char Kline [facility] Physical TherapyComment on above:ArrivedStart: 12-31-2022 End: 26-83-3389Mpzhgpyrqs hospital visit by Alessia Zuñiga [facility] Physical TherapyComment on above:ArrivedStart: 12-25-2022 End: 92-29-6749Zdwnnsbmem hospital visit by Susan Chadwick [facility] Physical TherapyComment on above:ArrivedStart: 12-15-2022 End: 40-27-4435Zwtozxpqzd hospital visit by Susan Chadwick [facility] Physical TherapyComment on above:ArrivedStart: 12-09-2022 End: 30-41-4288Arjrgnmprc hospital visit by Liseth Sawant MD Work Phone: mthz PRE ADMITStart: 07-08-2022 End: 91-75-7245vnpkcsfualVH RICARDO HOYFacility:H8Yzqdo: 06-09-2022 End: 94-81-5060ipzccqdriqRG RICARDO HOYFacility:C9Ymwph: 06-07-2022 End: 71-10-3100pteyabnqsuWB RICARDO HOYFacility:W5Lyomx: 04-08-2022 End: 28-95-8491Zhdltyitr department patient visitChristiano Rodriguez MD Work Phone: [facility] EDComment on above:Closed displaced fracture of surgical neck of right humerus, unspecified fracture morphology, initial encounter (Primary Dx)Start: 10-16-2021 End: 07-61-7818Xjrovh outpatient new Rebeca Colmenares MD Work Phone: [facility] OrthopedicsComment on above:Right knee pain, unspecified chronicity (Primary Dx); Left knee pain, unspecified chronicity; Primary osteoarthritis of right knee; Pain in prosthetic joint, sequelaStart: 10-16-2021 End: 68-69-4064Qtrgqswlzr hospital visit by Helen Colmenares MD Work Phone: [facility] RadiologyStart: 07-25-2021 End: 09-25-8600mkfwwevwbmBC RICARDO HOYFacility:H1 Procedures DateProcedureProcedure DetailPerforming ClinicianStart: 12-21-2024 End: 68-51-6645Ceewc metabolic panel calcium totalTanalicia Garcia MD Work Phone: Start: 96-42-0155Dzvcw panelTanalicia Garcia MD Work Phone: Start: 10-49-4959Thgfpnhv screenJermaine Sawant MD Work Phone: start: 97-01-8900Nzh routine ecg w/least 12 lds i&r onlyJermaine Sawant MD Work Phone: start: 10-97-9149Icprk metabolic panel calcium total Jermainediane Sawant MD Work Phone: start: 04-36-2662Kmoeb typing serologic aboJermaine Sawant MD Work Phone: start: 02-90-3450Csqtd s aureus methicillin resist amp probe tqPhibryan Sawant MD Work Phone: start: 04-08-2022 End: 92-50-4923Nvndj shoulder complete minimum 2 viewsChristiano Rodriguez MD Work Phone: Plan of Treatment DateCare ActivityDetailAuthorStart: 86-31-8979Ydxqgyan screenDiabetes screenBon [facility] CenterStart: 71-17-0778Orhhemmrd for malignant neoplasm of colon Bon [facility] CenterStart: 05-47-4710Qxxyj panelLipidsBon [facility] CenterStart: 01-70-8929Tiraubyboy ScreenDepression ScreenWellmont Health SystemStart: 03-02-2025 End: 57-52-6951Huwwppn encounter rcuzqolpm85/15/2025 10:15 AM EDT Office Visit [facility] [address] [place] [address] [place] [address] Angelo Garcia MD [address] [place] [address] [facility] Primary CareComment on above:AWVStart: 53-09-7565Zgyiiz Wellness Visit (Medicare Advantage)Annual Wellness Visit (Medicare Advantage)Yogesh Yenifer [facility] CenterStart: 01-29-2023 End: 62-29-6165Xsxzuan encounter yfjezbjur42/13/2023 Appointment Physical Therapy Tamia Zuñiga PTMTHZ Physical TherapyStart: 01-27-2023 End: 37-25-6392Kbfdqrd encounter wfvzdlwon86/11/2023 Appointment Physical Therapy Tamia Zuñiga PTMTHZ Physical TherapyStart: 01-23-2023 End: 78-63-2530Yhbzfpk encounter procedureBURKE REHAB[facility]ATION [facility] Physical TherapyStart: 01-21-2023 End: 95-60-6171Exbmqgq encounter wiqzuirll93/05/2023 Appointment Physical Therapy Javier Flor Physical TherapyStart: 01-19-2023 End: 21-36-9973Elighwr encounter kqtqbrtus39/03/2023 Appointment Physical Therapy Javier Flor Physical TherapyStart: 01-16-2023 End: 95-31-7022Gkhxjth encounter phhsufhpe74/31/2023 Appointment Physical Therapy Tamia Zuñiga PTMTHZ Physical TherapyStart: 01-14-2023 End: 06-48-1040Qkkhkbi encounter ywflunpar57/29/2023 Appointment Physical Therapy Tamia Zuñiga PTMTHZ Physical TherapyStart: 01-12-2023 End: 31-92-2606Ccoikcg encounter lfiigzjsn70/27/2023 Appointment Physical Therapy Javier Flor Physical TherapyStart: 01-09-2023 End: 24-12-4679Tfnypji encounter uvuulozil19/24/2023 Appointment Physical Therapy Eric Chadwick PTMTHZ Physical TherapyStart: 01-09-2023 End: 19-99-6384Ijofspp encounter /24/2023 Appointment Physical Therapy Eric Chadwick PTMTHZ Physical TherapyStart: 01-07-2023 End: 36-46-5054Hdacbgf encounter gjcayzzco28/22/2023 Appointment Physical Therapy Tamia Zuñiga PTMTHZ Physical TherapyStart: 01-05-2023 End: 50-92-3454Erwwpuq encounter umcymsbes83/20/2023 Appointment Physical Therapy Javier Flor Physical TherapyStart: 01-02-2023 End: 34-32-8349Xgwobqd encounter rejvsdfos99/17/2023 Appointment Physical Therapy Eric Chadwick PTMTHZ Physical TherapyStart: 12-31-2022 End: 08-14-7791Yjpossh encounter bphowlgrk58/15/2023 Appointment Physical Therapy Tamia Zuñiga PTMTHZ Physical TherapyStart: 12-30-2022 End: 32-24-0564Jjqspup encounter vljqdxgoh81/14/2023 Appointment Physical Therapy Tamia Zuñiga PTMTHZ Physical TherapyStart: 12-25-2022 End: 61-04-9824Cmrpfzq encounter doyaxylpt03/09/2023 Appointment Physical Therapy Eric Chadwick PTMTHZ Physical TherapyStart: 12-22-2022 End: 78-97-6326Ixvxwbsuq to same day surgery wfeohs5012/22/2022 Surgery [place] [address] [place] [phone] KNEE TOTAL ARTHROPLASTYMTHZ ORComment on above:KNEE TOTAL ARTHROPLASTYStart: 12-22-2022 End: 15-21-2065Quudww kne condyle&platu medial&lat compartmentsKNEE TOTAL ARTHROPLASTY Arthritis of right knee 12/22/2022 11:20 [facility] 02-95-0902Yjmmdkhljh hospital visit by rnqxhgkig02/06/2023 Hospital Encounter [place] [address] [place] [phone] [facility] ORStart: 12-15-2022 End: 30-51-6378Wyyuyoa encounter moupqmibh41/27/2023 Appointment Physical Therapy Eric Chadwick PTMTHZ Physical TherapyStart: 68-42-9113Jyerqh Wellness Visit (AWV)Annual Wellness Visit (AWV)[facility]: 2019 Pneumococcal vaccinationPNEUMOCOCCAL VACCINE SERIES (1 of 1 - PPSV23)[facility] SystemStart: 52-65-9718Oahgqwbzbbr Syncytial Virus (RSV) or age 60 yrs+ (1 - Risk 60-74 years 1-dose series)Respiratory Syncytial Virus (RSV) or age 60 yrs+ (1 - Risk 60-74 years 1-dose series)[facility] Allianceart: 56-59-1848Eidlicrpu for osteoporosisDEXA (modify frequency per FRAX score)[facility]: 42-97-1057Llqcvuzot for malignant neoplasm of breastBreast cancer [facility]: 97-25-1302Zfnvhk vaccine hzv live for subcutaneous useZOSTER (SHINGLES) VACCINE (1 of 2)[facility]art: 95-41-1357JcopfkpnbihFXINAHWSKO CANCER SCREENING DISCUSSION [facility]: 38-20-4954Tmlmlhpxg for malignant neoplasm of colonIn[facility]: 65-01-6226Mvqafcv lipid profileLIPID SCREENINGKettering Healthrt: 51-39-3206Cpgyxrmlq for malignant neoplasm of breastBreast cancer [facility]: 70-64-2642Viwogjmmz mammography MAMMOGRAM SCREENING DISCUSSIONMetroHealth Par[facility] Medical Centertart: 13-97-4388Mgirgsnc screenDiabetes [facility]: 19-02-9318Iwrvdxloz for malignant neoplasm of cervixCERVICAL CANCER SCREENING DISCUSSIONMetroHealth Par[facility] Medical Centertart: 11-51-9857PPlH/Tdap/Td vaccine (1 - Tdap)DTaP/Tdap/Td vaccine (1 - Tdap)[facility]: 34-11-8152Ablyy diphtheria, tetanus and acellular pertussis (DTaP) vaccinationTDAP (ADULT)[facility]: 05-34-6804Nxvhgworc C screeningHepatitis C [facility]art: 70-26-4383Cyvbmyp vaccinationTETANUSAGreen Cross Hospitaltart: 1967 Depression ScreenDepression [facility]: 10-37-3664Lmfnk panelLipidsIn[facility]: 43-13-4515CWFJJ-19 VACCINE (1)COVID- 19 VACCINE (1)[facility]: 10-45-2153Zsdzmdygp C antibody, confirmatory testHEPATITIS C VIRUS SCREENINGMetroHealth Parma Medical Centertart: 1955 Screening for osteoporosisDEXA [facility]tart: 25-93-4805Ukcgrvm stimulating hormone measurementWestern Reserve Hospital Radiography for bone length studiesXR BONE LENGTH STUDY Imaging Routine Left knee pain, unspecified chronicity 10/16/2021 8:56 AM [facility] Radiologic examination of kneeXR KNEE RIGHT 4+ VIEWS Imaging Routine Right knee pain, unspecified chronicity 10/16/2021 8:56 AM [facility]X-[facility] of left kneeXR KNEE LEFT 3 VIEWS Imaging Routine Left knee pain, unspecified chronicity 10/16/2021 8:56 AM [facility] Immunizations Immunization DateImmunizationNotesCare MfazrasuSbbdtiql71-23-7351wjvvaopsu, high dose seasonal, preservative-freeAngelo Garcia MD Work Phone: [facility] SystemYgfqxd18-93-3798Egrsgkoez, FLUZONE High Dose (age 65 y+), IM, Quadv, 0.7mLAngelo Garcia MD Work Phone: [facility] SystemXgwnoz13-70-6834Mykonipip, FLUZONE High Dose (age 65 y+), IM, Quadv, 0.7mLTanalicia Garcia MD Work Phone: [facility] SystemDyivmo47-33-4998Xgfzppwojxpf, PCV20, PREVNAR 20, (age 6w+), IM, 0.5mLTanalicia Garcia MD Work Phone: [facility]09-24-2021Seasonal trivalent influenza vaccine, adjuvanted, preservative freeAngelo Garcia MD Work Phone: [facility] SystemNghoeo31-33-3271dpjzmlyaduwo polysaccharide vaccine, 23 valentTanalicia Garcia MD Work Phone: [facility]12-23-2020zoster vaccine recombinantTanalicia Garcia MD Work Phone: [facility] SystemKkwaxu09-38-0272Itmqspeqk, FLUAD, (age 65 y+), IM, Quadv, 0.5mLTanveer Jose MD Work Phone: [facility]10-07-2020zoster vaccine recombinantAngelo Garcia MD Work Phone: [facility] SystemUygqam95-39-7175Psjmkqkjn, injectable, Madin Britney Canine Kidney, preservative free, quadrivalentAngelo Garcia MD Work Phone: [facility] Payers DatePayer CategoryPayerPolicy ID2021MedicareMEDICARE ANTHEM HMO OR PPO MEDICARE ANTHEM HMO OR PPO [id number] 2020-Present [address] [place], [place] [id number] 1960Medicare [id number] 1960Medicare [id number] [id number] Social History DateTypeDetailFacilityStart: 10-16-2021 End: 55-12-9458Bubxonl smoking status NHISNever smoked tobaccoAvita Health SystemStart: 10-16-2021 End: 05-59-0280Sahlscg use and exposureSmokeless tobacco non-userJ.W. [facility] Hospital SystemStart: 10-16-2021 End: 40-28-9806Qwnlaan intakeEx-drinker (finding)[facility] Centertart: 19-52-3704Htr Assigned At BirthNot on fileJ.W. Ruby Memorial Hospital SystemStart: 03-29-2022 End: 39-33-1045Xjvuwhzf to SARS-CoV-2 (event)Not sureWELLMONT L[facility] [employer] Work Phone: start: 12-19-2024 End: 00-46-0087Pwsauno of Social functionLewisgale Hospital PulaskiOrecon Grant HospitalStart: 12-19-2024 End: 25-32-3321ZSJ UtilitiesWellmont Health SystemHas the electric, gas, oil, or water company threatened to shut off services in your home in past 12MoNoBon [facility] Medical CenterPatient Health Questionnaire 9 item (PHQ-9) total score [Reported]0[facility] [employer] Bizily(I/We) worried whether (my/our) food would run out before (I/we) got money to buy more.Never trueBon [facility] CenterHartman Wright Start: 94-56-0412Ykx assigned at birthFemaleBon [facility] Medical CenterOrecon Grant HospitalStart: 35-68-7863Aacsod identityIdentifies as female gender (finding)[facility] HospitalStart: 20-43-8201Hgiqez orientationHeterosexual (finding)[facility] [employer] SciencesDick[facility] Medical Equipment Procedure CodeEquipment CodeEquipment Original TextEquipment IdentifierDatesImpl Knee Psn All Poly Pat 38mm - [id number]: 19-53-9144Ypf Mc Ve Asf R 14mm 8-11 Gh - [id number]: 27-15-2985Fsgd Knee Psn Fem Cr Cmt Ccr Std Sz10 R - [id number]: 07-10-7172Dqvrj Bne L48mm Constrn Cndyl Knee Hex Hd Stem For Leg Nxgn - [id number]: 45-45-7851Kxjmw Bne L48mm Constrn Cndyl Knee Hex Hd Stem For Leg Nxgn - [id number]: 13-99-6831Zhevbr Bne 40gm Hi Visc Radpq For Rev Surg - [id number]: 61-71-9893Cxkpba Bne 40gm Hi Visc Radpq For Rev Surg - [id number]_xhdOizke: 00-23-7138Uyosgw Bne 40gm Hi Visc Radpq For Rev Surg - [id number]_xmoQmwxv: 98-21-6109Ypq Tib Stm 5 Deg Sz G R - [id number]_ppnHsiiv: 89-26-1224Fxuutavbs Stem L30mm Udc66yl Knee Tapr Nathan Persona - [id number]_chtNphvd: 12-22-2022 Clinical Notes 10-16-2021 to 01-29-2023 Note Date & XlmbMfbqHnlxarct47-55-6248 History of Present illness Narrative* Tamia Zuñiga, PT - 01/29/2023 3:45 PM EDT [facility] Daily Note Patient: Glory Pierce : 1955 CSN #: [id number] Referring Physician: Jermaine Sawant MD Date: 01/29/2023 Diagnosis: Aftercare following [...] status, Decreased ROM, Decreased tolerance to work activity,Decreased strength, Decreased high- level IADLs, Decreased balance, Decreased endurance, Increased pain Assessment: discharge note: Pt is a 67 year old female completing 14 visits of skilled outpatient physical therapy status post right total knee replacement. Pt has made good progress and met all goals set by this therapist and herself. Pt ambulating independently without use of assistive device forhome and community ambulation, pt pain is well managed with only report of stiffness, pt mobility has improved to functional measures and strength is returned to goal level. Pt educated on continuingwith HEP, HEP updated and provided to pt [...] minutes of therex/act to improve endurance and strengthfor ADLs. - met Alf Goals Time Frame for Alf Goals : 4 weeks [employer] Goal 1: Patient will be independent and compliant with a HEP. - met Alf Goal 2: Patient will improve R knee ROM to 0-110* for ADLs. - met (01/29/2023 AROM R knee flexion = 114 degrees) [employer] Goal 3: Patient will improve R LE strength to >/= 4/5 in all major joints and planes for ambulation and ADLs. - met (01/29/2023 righ tLE strength = 4+/5 on average) [employer] Goal 4: Patient will be able to ambulate without an AD with minimal gait deviations. - met (01/20/2023) Alf Goal 5: Patient will report 70% improvement in overall symptoms and function. - met Minutes Tracking: Time In: 1547 Time Out: 1620 Minutes: 33 Timed Code Treatment Minutes: 32 Minutes Tamia Zuñiga PT, DPT Date: 01/29/2023 documented in this encounterBON [facility] [employer] Phone: 1(558) 723-133904-11-2023 History of Present illness Narrative* Tamia Zuñiga PT - 01/27/2023 4:30 PM EDT [facility] Daily Note Patient: Glory Pierce : 1955 CSN #: [id number] Referring Physician: Jermaine Sawant MD Date: 01/27/2023 Diagnosis: Aftercare following [...] status, Decreased ROM, Decreased tolerance to work activity,Decreased strength, Decreased high- level IADLs, Decreased balance, Decreased endurance, Increased pain [...] minutes of therex/act to improve endurance and strengthfor ADLs. - met [employer] Goals Time Frame for Alf Goals : 4 weeks Alf Goal 1: Patient will be independent and compliant with a HEP. [employer] Goal 2: Patient will improve R knee ROM to 0-110* for ADLs. - progressing (01/23/2023 AAROMR knee flexion = 110 degrees) Alf Goal 3: Patient will improve R LE strength to >/= 4/5 in all major joints and planes for ambulation and ADLs. Alf Goal 4: Patient will be able to ambulate without an AD with minimal gait deviations. - met (01/20/2023) [employer] Goal 5: Patient will report 70% improvement in overall symptoms and function. Minutes Tracking: Time In: 1632 Time Out: 1720 Minutes: 48 Timed Code Treatment Minutes: 38 Minutes Tamia Zuñiga PT, DPT Date: 01/27/2023 documented in this encounterBON [employer] Phone: 1(104) 321-638504-07-2023 History of Present illness Narrative* Tamia Zuñiga PT - 01/23/2023 4:00 PM EDT [facility] Daily Note Patient: Glory Pierce : 1955 CSN #: [id number] Referring Physician: Jermaine Sawant MD Date: 01/23/2023 Diagnosis: Aftercare following [...] status, Decreased ROM, Decreased tolerance to work activity,Decreased strength, Decreased high- level IADLs, Decreased balance, Decreased endurance, Increased pain Assessment: Pt arrived without report of pain but complaints of discomfort and stiffness. Therapistdirected pt through treatment in order to facilitate knee mobility and stability in standing with weightbearing. Pt improving right knee flexion with AAROM with strap measuring 110 degrees this date.Will continue to progress as tolerated towards goals. [...] minutes of therex/act to improve endurance and strengthfor ADLs. - met [employer] Goals Time Frame for Alf Goals : 4 weeks Alf Goal 1: Patient will be independent and compliant with a HEP. [employer] Goal 2: Patient will improve R knee ROM to 0-110* for ADLs. - progressing (01/23/2023 AAROMR knee flexion = 110 degrees) [employer] Goal 3: Patient will improve R LE strength to >/= 4/5 in all major joints and planes for ambulation and ADLs. Alf Goal 4: Patient will be able to ambulate without an AD with minimal gait deviations. - met (01/20/2023) [employer] Goal 5: Patient will report 70% improvement in overall symptoms and function. Minutes Tracking: Time In: 1557 Time Out: 1645 Minutes: 48 Timed Code Treatment Minutes: 47 Minutes Tamia Zuñiga PT, DPT Date: 01/23/2023 documented in this encounterBON [facility] [employer] Phone: 1(466) 701-953204-04-2023 History of Present illness Narrative* Tamia Zuñiga PT - 01/20/2023 5:15 PM EDT [facility] Daily Note Patient: Glory Pierce : 1955 [facility] #: [id number] Referring Physician: Jermaine Sawant MD Date: 01/20/2023 Diagnosis: Aftercare following [...] Pre-Treatment Pain: 10/28 Subjective: Pt arrives with complaints of tightness and / pain. Exercises: Exercise 2: SciFIT: level 4.0 [...] status, Decreased ROM, Decreased tolerance to work activity,Decreased strength, Decreased high- level IADLs, Decreased balance, Decreased endurance, Increased pain Assessment: Pt arrived with reports of mild knee pain but mostly reports of stiffness. Therapist able to progress pt this date with standing exercises in order to facilitate lower extremity strength.Mild increase in pain with stair activities. Pt [...] minutes of therex/act to improve endurance and strengthfor ADLs. - met Alf Goals Time Frame for Alf Goals : 4 weeks [employer] Goal 1: Patient will be independent and compliant with a HEP. [employer] Goal 2: Patient will improve R knee ROM to 0-110* for ADLs. - progressing (01/16/2023 R knee flexion = 106 degrees) Alf Goal 3: Patient will improve R LE strength to >/= 4/5 in all major joints and planes for ambulation and ADLs. [employer] Goal 4: Patient will be able to ambulate without an AD with minimal gait deviations. - met (01/20/2023) Alf Goal 5: Patient will report 70% improvement in overall symptoms and function. Minutes Tracking: Time In: 1715 Time Out: 1800 Minutes: 45 Timed Code Treatment Minutes: 35 Minutes Tamia Zuñiga PT, DPT Date: 01/20/2023 documented in [facility] [place] Phone: 1(240) 996-499603-31-2023 History of Present illness Narrative* Tamia Zuñiga PT - 01/16/2023 10:00 AM EDT [facility] Daily Note Patient: Glory Pierce : 1955 CSN #: [id number] Referring Physician: Jermaine Sawant MD Date: 01/16/2023 Diagnosis: Aftercare following joint replacement surgery, Z47.1, presence of R artificial knee joint, Z96.651 Treatment Diagnosis: s/p R TKA, R knee pain, decreased LE strength Onset Date: 12/22/22 PT Insurance Information: [facility] APPROVED 10 VISITS NOT INCLUDING EVAL 12-25 TO 03-24-23 [id number] Total # of Visits Approved: 10 Per Physician Order Total # of Visits to Date: 10 No Show: 0 Canceled Appointment: 0 Pre-Treatment Pain: 10/28 Subjective: Pt arrives with mild pain 10/28 this date. Pt ambulating independently without assistivedevice. Exercises: Exercise 2: SciFIT: level 4.0 x [...] status, Decreased ROM, Decreased tolerance to work activity,Decreased strength, Decreased high- level IADLs, Decreased balance, Decreased endurance, Increased pain [...] minutes of therex/act to improve endurance and strengthfor ADLs. - met Alf Goals Time Frame for Alf Goals : 4 weeks [employer] Goal 1: Patient will be independent and compliant with a HEP. [employer] Goal 2: Patient will improve R knee ROM to 0-110* for ADLs. - progressing (01/16/2023 R knee flexion = 106 degrees) [employer] Goal 3: Patient will improve R LE strength to >/= 4/5 in all major joints and planes for ambulation and ADLs. Alf Goal 4: Patient will be able to ambulate without an AD with minimal gait deviations. - progressing (01/16/2023 ambulating without assistive device with moderate gait deviations) Alf Goal 5: Patient will report 70% improvement in overall symptoms and function. Minutes Tracking: Time In: 1000 Time Out: 1055 Minutes: 55 Timed Code Treatment Minutes: 54 Minutes Tamia Zuñiga PT, DPT Date: 01/16/2023 documented in this [facility] [employer] [place] Phone: [phone] 856-822503-29-2023 History of Present illness Narrative* Tamia Zuñiga PT - 01/14/2023 11:15 AM EDT [facility] Daily Note Patient: Glory Pierce : 1955 CSN #: [id number] Referring Physician: Jermaine Sawant MD Date: 01/14/2023 Diagnosis: Aftercare following joint replacement surgery, Z47.1, presence of R artificial knee joint, Z96.651 Treatment Diagnosis: s/p R TKA, R knee pain, decreased LE strength Onset Date: 12/22/22 PT Insurance Information: [facility] APPROVED 10 VISITS NOT INCLUDING EVAL 12-25 TO 03-24-23 [id number] Total # of Visits Approved: 10 Per Physician Order Total # of Visits to Date: 9 No Show: 0 Canceled Appointment: 0 Pre-Treatment Pain: 0/10 Subjective: Pt arrives with report of no pain this date. Pt went to doctor yesterady to have bandage removed. Pt reports surgeon happy with progress to date. Pt states she has been walking around herhome without her cane with good progress. Exercises: [...] cane. Therapist ended treatment with IFC estim a nd ice to facilitate pain reduction and inhibit [...] minutes of therex/act to improve endurance and strengthfor ADLs. - met Alf Goals Time Frame for Alf Goals : 4 weeks [employer] Goal 1: Patient will be independent and compliant with a HEP. Alf Goal 2: Patient will improve R knee ROM to 0-110* for ADLs. [employer] Goal 3: Patient will improve R LE strength to >/= 4/5 in all major joints and planes for ambulation and ADLs. [employer] Goal 4: Patient will be able to ambulate without an AD with minimal gait deviations. - progressing (01/14/2023 ambulating with SPC in clinic) [employer] Goal 5: Patient will report 70% improvement in overall symptoms and function. Minutes Tracking: Time In: 1115 Time Out: 1205 Minutes: 50 Timed Code Treatment Minutes: 49 Minutes Tamia Zuñiga PT, DPT Date: 01/14/2023 documented in [facility] [employer] Work Phone: 1([phone]) 598-492103-27-2023 History of Present illness Narrative* Javier Urena Basia - 01/12/2023 1:00 PM EDT [facility] Daily Note Patient: Glory Pierce : 1955 CSN #: [id number] Referring Physician: Jermaine Sawant MD Date: 01/12/2023 Diagnosis: Aftercare following joint replacement surgery, Z47.1, presence of R artificial knee joint, Z96.651 Treatment Diagnosis: s/p R TKA, R knee pain, decreased LE strength Onset Date: 12/22/22 PT Insurance Information: [facility] APPROVED 10 VISITS NOT INCLUDING EVAL 12-25 TO 03-24-23 [id number] Total # of Visits Approved: 10 Per [...] for pain and swelling Assessment Assessment: Pain 2/10 today. Flexion 104 deg with full extension noted. Swelling is moderate.Progressed to 6 inch step up with good tolerance. Doing well will st cane. Will continue to progress as tolerated Activity Tolerance Activity Tolerance: Patient tolerated treatment well Patient Education Patient Education: HEP Pt verbalized/demonstrated good understanding: [x] Yes [] No, pt required further clarification. Post Treatment Pain: 210 Plan Plan Frequency: 3 Plan weeks: 4 [...] minutes of therex/act to improve endurance and strengthfor ADLs. - met [employer] Goals Time Frame for Alf Goals : 4 weeks [employer] Goal 1: Patient will be independent and compliant with a HEP. Alf Goal 2: Patient will improve R knee ROM to 0-110* for ADLs. Alf Goal 3: Patient will improve R LE strength to >/= 4/5 in all major joints and planes for ambulation and ADLs. Alf Goal 4: Patient will be able to ambulate without an AD with minimal gait deviations. [employer] Goal 5: Patient will report 70% improvement in overall symptoms and function. Minutes Tracking: Time In: 1300 Time Out: 1400 Minutes: 60 Timed Code Treatment Minutes: 58 Minutes Javier Sethi Date: 01/12/2023 documented in [facility] [place] Phone: [phone] History of Present illness Narrative* Eric Chadwick PT - 01/09/2023 8:45 AM EDT [facility] Daily Note Patient: Glory Pierce : 1955 CSN #: [id number] Referring Physician: Jermaine Sawant MD Date: 01/09/2023 Diagnosis: Aftercare following joint replacement surgery, Z47.1, presence of R artificial knee joint, Z96.651 Treatment Diagnosis: s/p R TKA, R knee pain, decreased LE strength Onset Date: 12/22/22 PT Insurance Information: [employer]-MEDICARE APPROVED 10 VISITS NOT INCLUDING EVAL 12-25 TO 03-24-23 [id number] Total # of Visits Approved: 10 Per Physician Order Total # of Visits to Date: 7 No Show: 0 Canceled Appointment: 0 Pre-Treatment Pain: 2/10 Subjective: Patient reports 2/10 pain coming into therapy. She reports more conficence when using acane. Exercises: Exercise 2: SciFIT: level 2.5 x [...] status, Decreased ROM, Decreased tolerance to work activity,Decreased strength, Decreased high- level IADLs, Decreased balance, Decreased endurance, Increased pain Assessment: Patient has attended her initial evaluation and 6 follow-up visits working toward her fpc goals. She is currently ambulating with a SC safely, she demonstrates improved knee ROM measurin-103* in supine, and MMT grossly measures 4-/5. She would benefit from skilled PT to address her deficits to work toward her fpc goals. Activity Tolerance Activity Tolerance: Patient tolerated [...] minutes of therex/act to improve endurance and strengthfor ADLs. - met [employer] Goals Time Frame for [employer] Goals : 4 weeks Alf Goal 1: Patient will be independent and compliant with a HEP. [employer] Goal 2: Patient will improve R knee ROM to 0-110* for ADLs. Alf Goal 3: Patient will improve R LE strength to >/= 4/5 in all major joints and planes for ambulation and ADLs. Alf Goal 4: Patient will be able to ambulate without an AD with minimal gait deviations. Alf Goal 5: Patient will report 70% improvement in overall symptoms and function. Minutes Tracking: Time In: 844 Time Out: 942 Minutes: 58 Timed Code Treatment Minutes: 56 Minutes Eric Chadwick PT, DPT Date: 01/09/2023 documented in this encounterB[facility] Work Phone: 1(761) 365-188603-22-2023 History of Present illness Narrative* Tamia Zuñiga PT - 01/07/2023 10:15 AM EDT [facility] Daily Note Patient: Glory Pierce : 1955 CSN #: [id number] Referring Physician: Jermaine Sawant MD Date: 01/07/2023 Diagnosis: Aftercare following joint replacement surgery, Z47.1, presence of R artificial knee joint, Z96.651 Treatment Diagnosis: s/p R TKA, R knee pain, decreased LE strength Onset Date: 12/22/22 PT Insurance Information: [facility] APPROVED 10 VISITS NOT INCLUDING EVAL 12-25 TO 03-24-23 [id number] Total # of Visits Approved: 10 Per Physician Order Total # of Visits to Date: 6 No Show: 0 Canceled Appointment: 0 Pre-Treatment Pain: 4/10 Subjective: Pt reports she feels she is improving everyday. /10 pain this visit. Pt to get bandageoff next week Exercises: Exercise 2: SciFIT: level [...] status, Decreased ROM, Decreased tolerance to work activity,Decreased strength, Decreased high- level IADLs, Decreased balance, Decreased endurance, Increased pain [...] minutes of therex/act to improve endurance and strengthfor ADLs. - met [employer] Goals Time Frame for [employer] Goals : 4 weeks Alf Goal 1: Patient will be independent and compliant with a HEP. [employer] Goal 2: Patient will improve R knee ROM to 0-110* for ADLs. [employer] Goal 3: Patient will improve R LE strength to >/= 4/5 in all major joints and planes for ambulation and ADLs. Alf Goal 4: Patient will be able to ambulate without an AD with minimal gait deviations. [employer] Goal 5: Patient will report 70% improvement in overall symptoms and function. Minutes Tracking: Time In: 1019 Time Out: 1110 Minutes: 51 Timed Code Treatment Minutes: 50 Minutes Tamia Zuñiga PT, DPT Date: 01/07/2023 documented in this encounterB[facility] [employer] Work Phone: [phone]) 870-973103-20-2023 History of Present illness Narrative* Javier Urena Basia - 01/05/2023 3:15 PM EDT [facility] Daily Note Patient: Glory Pierce : 1955 CSN #: [id number] Referring Physician: Jermaine Sawant MD Date: 01/05/2023 Diagnosis: Aftercare following joint replacement surgery, Z47.1, presence of R artificial knee joint, Z96.651 Treatment Diagnosis: s/p R TKA, R knee pain, decreased LE strength Onset Date: 12/22/22 PT Insurance Information: [facility] APPROVED 10 VISITS NOT INCLUDING EVAL 12-25 TO 03-24-23 [id number] Total # of Visits Approved: 10 Per [...] minutes of therex/act to improve endurance and strengthfor ADLs. - met Alf Goals Time Frame for [employer] Goals : 4 weeks Alf Goal 1: Patient will be independent and compliant with a HEP. Alf Goal 2: Patient will improve R knee ROM to 0-110* for ADLs. Alf Goal 3: Patient will improve R LE strength to >/= 4/5 in all major joints and planes for ambulation and ADLs. Alf Goal 4: Patient will be able to ambulate without an AD with minimal gait deviations. [employer] Goal 5: Patient will report 70% improvement in overall symptoms and function. Minutes Tracking: Time In: 1515 Time Out: 1615 Minutes: 60 Timed Code Treatment Minutes: 57 Minutes Javier Sethi Date: 01/05/2023 documented [facility] [employer] Work Phone: [phone]) [phone] History of Present illness Narrative* Yocasta Kline PT - 01/02/2023 11:45 AM EDT [facility] Daily Note Patient: Glory Pierce : 1955 CSN #: [id number] Referring Physician: Jermaine Sawant MD Date: 01/02/2023 Diagnosis: Aftercare following joint replacement surgery, Z47.1, presence of R artificial knee joint, Z96.651 Treatment Diagnosis: s/p R TKA, R knee pain, decreased LE strength Onset Date: 12/22/22 PT Insurance Information: [facility] APPROVED 10 VISITS NOT INCLUDING EVAL 12-25 TO 03-24-23 [id number] Total # of Visits Approved: 10 Per Physician Order Total # of Visits to Date: 3 Pre-Treatment Pain: 5-6 Subjective: Pt reports she got her wound [...] still states the back of her knee feelstight. PT added 4 in step ups this [...] minutes of therex/act to improve endurance and strengthfor ADLs. - met [employer] Goals Time Frame for Alf Goals : 4 weeks Alf Goal 1: Patient will be independent and compliant with a HEP. Alf Goal 2: Patient will improve R knee ROM to 0-110* for ADLs. Alf Goal 3: Patient will improve R LE strength to >/= 4/5 in all major joints and planes for ambulation and ADLs. [employer] Goal 4: Patient will be able to ambulate without an AD with minimal gait deviations. [employer] Goal 5: Patient will report 70% improvement in overall symptoms and function. Minutes Tracking: Time In: 1145 Time Out: 1232 Minutes: 47 Timed Code Treatment Minutes: 45 Minutes Yocasta Kline PT DPT Date: 01/02/2023 documented in [facility] encounter[facility] [employer] Work Phone: [phone]) 241-973503-15-2023 History of Present illness Narrative* Tamia Zuñiga, PT - 12/31/2022 11:15 AM EDT [facility] Daily Note Patient: Glory Pierce : 1955 CSN #: [id number] Referring Physician: Jermaine Sawant MD Date: 12/31/2022 Diagnosis: Aftercare following joint replacement surgery, Z47.1, presence of R artificial knee joint, Z96.651 Treatment Diagnosis: s/p R TKA, R knee pain, decreased LE strength Onset Date: 12/22/22 PT Insurance Information: [facility] APPROVED 10 VISITS NOT INCLUDING EVAL 12-25 TO 03-24-23 [id number] Total # of Visits Approved: 10 Per [...] status, Decreased ROM, Decreased tolerance to work activity,Decreased strength, Decreased high- level IADLs, Decreased balance, Decreased endurance, Increased pain [...] completed with mild reduction in pain but statedincreased fatigue. Therapist ended treatment with use of cold pack for pain management and swellingreduction. Activity Tolerance Activity Tolerance: Patient tolerated treatment [...] minutes of therex/act to improve endurance and strengthfor ADLs. - met Alf Goals Time Frame for Alf Goals : 4 weeks Alf Goal 1: Patient will be independent and compliant with a HEP. Alf Goal 2: Patient will improve R knee ROM to 0-110* for ADLs. [employer] Goal 3: Patient will improve R LE strength to >/= 4/5 in all major joints and planes for ambulation and ADLs. [employer] Goal 4: Patient will be able to ambulate without an AD with minimal gait deviations. [employer] Goal 5: Patient will report 70% improvement in overall symptoms and function. Minutes Tracking: Time In: 1115 Time Out: 1200 Minutes: 45 Timed Code Treatment Minutes: 35 Minutes Tamia Zuñiga PT, DPT Date: 12/31/2022 documented in this encounterBON [employer] Phone: [phone]) 576-238603-09-2023 History of Present illness Narrative* Eric Chadwick PT - 12/25/2022 11:00 AM EST [facility] Evaluation Date: 12/25/2022 Patient: Glory Pierce : 1955 CSN #: [id number] Referring Physician: Jermaine Sawant MD Medical Diagnosis: Aftercare following joint replacement surgery, Z47.1, presence of R artificial knee joint, Z96.651 Treatment Diagnosis: s/p R TKA, R knee pain, decreased LE strength Onset Date: 12/22/22 PT Insurance Information: BCBS Medicare Total # of Visits Approved: 12 [...] status, Decreased ROM, Decreased tolerance to work activity,Decreased strength, Decreased high- level IADLs, Decreased balance, Decreased endurance, Increased pain Assessment: The patient is a 67 y.o. female who is s/p R TKA. She demonstrates decreased R knee ROM(0-71* in supine), decreased R LE strength, decreased [...] minutes of therex/act to improve endurance and strengthfor ADLs. Alf Goals Time Frame for [employer] Goals : 4 weeks Alf Goal 1: Patient will be independent and compliant with a HEP. Alf Goal 2: Patient will improve R knee ROM to 0-110* for ADLs. [employer] Goal 3: Patient will improve R LE strength to >/= 4/5 in all major joints and planes for ambulation and ADLs. [employer] Goal 4: Patient will be able to ambulate without an AD with minimal gait deviations. Alf Goal 5: Patient will report 70% improvement in overall symptoms and function. Patient Goals : Improve ROM of knee Minutes Tracking: Time In: 1113 Time Out: 1215 Minutes: 62 Timed Code Treatment Minutes: 50 Minutes Eric Chadwick PT, DPT 12/25/2022 documented in this encounterBON [employer] Phone: 1([phone]) [phone] History of Present illness Narrative* Evelia Davila RN - 12/09/2022 9:00 AM EST Patient instructed on the pre-operative, intra-operative, and post-operative process. Patient instructed on NPO status. Medication instructions and pre operative instruction sheet reviewed with the patient. CHG skin prep instructions reviewed with patient. * Evelia Davila RN - 12/09/2022 9:00 AM EST [facility] Testing Name: Glory Pierce : 1955 Patient (home) Procedure right TKA Date of Procedure: 12/22/22 Surgeon: Jermaine Sawant MD Ht: 5' 8 (172.7 cm) [...] and given to patient in PAT? Yes * Evelia Davila RN - 12/09/2022 9:00 AM EST Labs and EKG faxed to Dr. Winter for medical clearance. documented in this encounterB[facility] [employer] Work Phone: [phone]) 235-423112-29-2021 History of Present illness Narrative* Allen Colmenares MD - 10/16/2021 8:50 AM EST HPI: Patient is here today to be [...] post a left TKA in 2012 in [place] and has had pain in this knee [...] lower extremities have no gross deformities. Normal stability.Skin Intact. 5/5 motor. Intact sensation. Normal neurovascular [...] joint space, subchondral sclerosis, osteophyte formation, and svlm-cw-[id number] contact and a left posterior stabilized knee in reasonable position and alignment. IMPRESSION: 1.) Severe symptomatic end-stage arthritis, right knee. 2.) Status post a left total knee arthroplasty in 2013 in [place]. 3.) Mild instability, left prosthetic knee. 4.) [...] DVPRS (Defense and Veterans Pain Rating Scale) (Adult- Cognitively Intact) Pain Location: knee, left,knee, right Select Pain Scale: DVPRS (Defense and Veterans Pain Rating Scale) (Adult- Cognitively Intact) Recent Labs No results found for: CRP No results found for: SEDRATE No results found for: WBC, WBCCOUNT, WBCFETAL, HGB, HCT, PLATELET, MCV Past Medical History: Diagnosis Date Arthritis Hyperlipidemia Hypothyroidism Past Surgical History: Procedure Laterality Date KNEE REPLACEMENT Left 10/2012 total knee replacement . done in [place] TUBAL LIGATION 1984 No family history on [...] Not on file Current Outpatient Medications: Biotin 30558 MCG tablet, Take 10,000 mcg by mouth daily., Disp: , Rfl: multivitamin tablet, Take 1 tablet by mouth daily., Disp: , Rfl: diclofenac EC [address] tablet, Take 75 mg by mouth 2 times daily., Disp: , Rfl: Euthyrox 150 MCG tablet, , Disp: , Rfl: simvastatin 20 MG tablet, , Disp: , Rfl: No Known Allergies * Meli Rooney LPN - 10/16/2021 8:50 AM EST Ortho Nurse Patient Intake Room#: 2----Visit today for bilateral knee pain. She had a left knee TKA done in 2012 when she lived in [place]. She has had pain in the Left [...] 10/16/2021 9:13 AM Patient: Stan Holder MR#: [id number] : 1955 Age: 66 y.o. Referring Physician: Allen Colmenares MD Insurance: Payor: MEDICARE [employer] HMO OR PPO / Plan: MEDICARE ANTHEM HMO OR PPO / Product Type: *NoProduct type* / Chief Complaint Patient presents with Left Knee - Pain, New Patient Right Knee - Pain, New Patient Visit Vitals Temp 97 F (36.1 C) (Temporal) Ht 1.727 m (5' 8 ) Wt 133.8 kg (295 lb) BMI 44.85 kg/m Pain Presence of Pain: complains of pain/discomfort Pain Location: knee, left,knee, right Select Pain Scale: DVPRS (Defense and Veterans Pain Rating Scale) (Adult- Cognitively Intact) Pain Location: knee, left,knee, right Select Pain Scale: DVPRS (Defense and Veterans Pain Rating Scale) (Adult- Cognitively Intact) Recent Labs No results found for: CRP No results found for: SEDRATE No results found for: WBC, WBCCOUNT, WBCFETAL, HGB, HCT, PLATELET, MCV History Past Medical History: Diagnosis Date Arthritis Hyperlipidemia Hypothyroidism Past Surgical History: Procedure Laterality Date KNEE REPLACEMENT Left 10/2012 total knee replacement . done in [place] TUBAL LIGATION 1984 Family History: Her family [...] [x] [] []Walker, []Crutches, []Commode Chair, []Shower []Chair,[x]cane, []bracing Are you followed by a drying machine operator? [] [x] Name: Are you followed by pain management? [] [x] Name: Are you followed by any other specialists? [] [x] Name: Outpatient Medications Prior to Visit Medication Sig Dispense Refill Biotin 91581 MCG tablet Take 10,000 mcg by mouth [...] pt have dentures? no documented in this encounterJ[facility]* Diagnosis Right knee pain, unspecified chronicity- Primary Left knee pain, unspecified chronicity Primary osteoarthritis of right knee Primary localized osteoarthrosis, lower leg Pain in prosthetic joint, sequela documented [facility] this [facility]* Diagnosis Closed displaced fracture of surgical neck of right humerus, unspecified fracture morphology, initial encounter- Primary documented in this encounter [facility] [employer] Phone: evaluation note* Diagnosis Hypothyroidism, unspecified type Hyperlipidemia, unspecified hyperlipidemia type Obesity, unspecified class, unspecified obesity type, unspecified whether serious comorbidity present Gastroesophageal reflux disease without esophagitis Esophageal reflux documented in this encounter [facility] Discharge instructions* Instructions* Christiano Rodriguez Jr., MD - 04/08/2022 Ice on the shoulder. Use the sling and swath until seen by Dr. Sawant on in the office. Call either today or tomorrow to confirm appointment in the morning on . Return if any problems. * Attachments The following attachments cannot be sent through Care Everywhere. * Arm Fracture (Slovenian) documented in this encounterHEBREW [facility]AB[facility]ERScreen[facility] Phone: reason for referral (narrative)* Consultation (Routine) - Patient to ArrangeSpecialtyDiagnoses / ProceduresReferred By ContactReferred To ContactPhysical Therapy Diagnoses Primary osteoarthritis of right knee Pain in prosthetic joint, sequela Allen Colmenares MD [address] [place], [place] [id number] Referral IDStatusReasonStart DateExpiration DateVisits RequestedVisits [id number] to [id number] Scheduling Instructions . * Diagnostic X-Ray (Routine) - New RequestSpecialtyDiagnoses / Procedures Referred By ContactReferred To Contact Diagnoses Left knee pain, unspecified chronicity Procedures XR KNEE LEFT 3 VIEWS XR KNEE LEFT 4+ VIEWS Allen Colmenares MD [address] [place], [place] [id number] Referral IDStatusReasonStart DateExpiration DateVisits RequestedVisits [id number]/ * Diagnostic X-Ray (Routine) - Pending ReviewSpecialtyDiagnoses / Procedures Referred By ContactReferred To Contact Diagnoses Left knee pain, unspecified chronicity Procedures XR BONE LENGTH STUDY Allen Colmenares MD [address] [place], [place] [id number] Referral IDStatusReasonStart DateExpiration DateVisits RequestedVisits [id number]/ * Diagnostic X-Ray (Routine) - Pending ReviewSpecialtyDiagnoses / Procedures Referred By ContactReferred To Contact Diagnoses Right knee pain, unspecified chronicity Procedures XR KNEE RIGHT 4+ VIEWS Allen Colmenares MD [address] [place], [place] [id number] Referral IDStatusReasonStart DateExpiration DateVisits RequestedVisits [id number]/ [facility] Summary Purpose Family History No Family History Records FoundNo Family History Records Found Advance Directives No Advanced Directives Records FoundLatest Code Status on File Code StatusDate ActivatedDate InactivatedCommentsFull Code12/22/2022 3:51 PM 12/23/2022 4:19 PMNameRelationshipHealthcare Agent RelationshipCommunicationDan GrimmSpousePrimary Decision Maker* NameRelationshipHealthcare Agent RelationshipCommunicationDan GrimmSpousePrimary Decision Maker* NameRelationshipHealthcare Agent RelationshipCommunicationDan GrimmSpousePrimary Decision Maker* NameRelationshipHealthcare Agent RelationshipCommunicationDan GrimmSpousePrimary Decision Maker* NameRelationshipHealthcare Agent RelationshipCommunicationDan GrimmSpousePrimary Decision Maker* NameRelationshipHealthcare Agent RelationshipCommunicationDan GrimmSpousePrimary Decision Maker* NameRelationshipHealthcare Agent RelationshipCommunicationDan GrimmSpousePrimary Decision Maker* Code StatusDate ActivatedDate InactivatedCommentsFull Code12/22/2022 3:51 PM 12/23/2022 4:19 PMNameRelationshipHealthcare Agent RelationshipCommunicationDan GrimmSpousePrimary Decision Maker* NameRelationshipHealthcare Agent RelationshipCommunicationDan GrimmSpousePrimary Decision Maker* NameRelationshipHealthcare Agent RelationshipCommunicationDan GrimmSpousePrimary Decision Maker* Date ActivatedDate InactivatedComments12/22/2022 3:51 PM12/23/2022 4:19 PMName RelationshipHealthcare Agent RelationshipCommunicationDan GrimmSpousePrimary Decision Maker* Additional Source Comments Reason for Visit (unrecogniz ed section and content) SpecialtyDiagnoses / ProceduresReferred By ContactReferred To Contact Diagnoses Left knee pain, unspecified chronicity Procedures XR BONE LENGTH STUDY Allen Colmenares MD [address] [id number] Referral IDStatusReasonStart DateExpiration DateVisits RequestedVisits [id number] PatientReasonCommentsShoulder Painright sided, patient fell after tripping over rock at approx 0900 Care Teams (unrecognized sec tion and content) Team MemberRelationshipSpecialtyStart DateEnd Date Ricardo Winter MD [address] [phone] PCP - GeneralFamily Csizgfqz81/29/21Team MemberRelationshipSpecialtyStart [place] [address] [place], [place] [phone] PCP - GeneralFamily Spkcvynb96/29/21Team MemberRelationshipSpecialtyStart Date End Date Ricardo Winter MD [address] [phone] PCP - GeneralFamily Medicine04/08/22Team MemberRelationshipSpecialtyStart DateEnd Date Ricardo Winter MD [address] [phone] PCP - GeneralFamily Medicine04/08/22Team MemberRelationshipSpecialtyStart DateEnd Date Ricardo Winter MD [address] [phone] PCP - GeneralFamily Medicine04/08/22Team MemberRelationshipSpecialtyStart [place] [address] [place] [address] PCP - GeneralFamily Medicine04/08/22Team MemberRelationshipSpecialtyStart DateEnd Date Ricardo Winter MD [address] [place], [place] [phone] PCP - GeneralFamily Medicine04/08/22Team MemberRelationshipSpecialtyStart DateEnd Date Ricardo Winter MD [address] [place], [place] [phone] PCP - GeneralFamily Medicine04/08/22Team MemberRelationshipSpecialtyStart DateEnd Date Ricardo Winter MD [address] [place], [place] [phone] PCP - Generalmily Medicine04/08/22Team MemberRelationshipSpecialtyStart [place] [address] [place], [place] [phone] PCP - GeneralFamily Medicine04/08/22Team MemberRelationshipSpecialtyStart [place] [address] [place], [place] [phone] PCP - GeneralFamily Medicine04/08/22Team MemberRelationshipSpecialtyStart [place] [address] [place], [place] [phone] PCP - GeneralFamily Medicine04/08/22Team MemberRelationshipSpecialtyStart [place] [address] [place], [place] [phone] PCP - GeneralFamily Medicine04/08/22Team MemberRelationshipSpecialtyStart DateEnd Date Angelo Garcia MD [address] [place], [place] [phone] PCP - GeneralFamily Medicine12/20/24 Ordered Prescriptions (unrec ognized section and content) PrescriptionSigDispensedRefillsStart DateEnd Date HYDROcodone-acetaminophen (NORCO) 5-325 MG per tablet Indications:Closed displaced fracture of surgical neck of right humerus, unspecified fracture morphology, initial encounterTake 1 tablet by mouth every 6 hours as needed for Pain for up to 4 days. 15 tablet // Scheduled Active and Recently Administ ered Medications (unrecognized section and content) Medication Order// HYDROcodone-acetaminophen (NORCO) 5-325 MG per tablet 1 tablet (COMPLETED) 1 tablet, Oral, ONCE, 1 dose, On Thu04/08/22 at 1100, Maximum dose of acetaminophen is 4000 mg fromall sources in 24 hours. * 1103 (Given - Provider: Patrica Giron RN) INFORMATION SOURCE (unrecogn ized section and content) DATE CREATED AUTHOR 07/19/2022 [facility] DATE CREATED AUTHOR AUTHOR'S ORGANIZ ATION 03/15/2025 [facility] FOR RECORDS PERTAINING TO PATIENTS WHO [...] BE BASED ON THE PRIMARY CLINICAL RECORDS. [employer] provides no warranty or guarantee of the accuracy or completeness of information in this document.
== END 2025-08-30 08:44 | disposition home or self-care (01) ==
LOC: MAMMO 08:43
PROVIDERS: PCP Family Medicine; Visit Provider Family Medicine
DX: Z12.31 Encounter for screening mammogram for malignant neoplasm of breast (principal); Z80.3 Family history of malignant neoplasm of breast; Z80.52 Family history of malignant neoplasm of bladder; Z80.8 Family history of malignant neoplasm of other organs or systems
CPT/HCPCS: 77063; 77067